=== PATIENT | male | born 1960 | race Caucasian/White ===

== ENCOUNTER → 2016-12-08 | Outpatient (CLI) | payer OTHER ==
[2016-12-08 08:39] LABS: Blood Urea Nitrogen 14 mg/dL (9-20); Non-African American GFR(MDRD) >60 (>60 ml/min/1.73 sqM)
--- NOTE | 2016-12-08 09:30 | CT ---
EXAMINATION TYPE: CT chest w con DATE OF EXAM: 12/08/2016 9:08 AM COMPARISON: Previous study dated 08/24/2016. HISTORY: follow up Lung Cancer CT DLP: 521.8 mGycm Automated exposure control for dose reduction was used. CONTRAST: CT scan of the chest is performed with IV Contrast, patient injected with 100 mL of Omnipaque 300. FINDINGS: There is a Port-A-Cath in place on the right. Its tip is at the cavoatrial junction. There are extensive emphysematous changes throughout both lungs. There is evidence of interstitial fi brosis. A spiculated nodule in the left upper lobe has altered its shape. Previously measured 10.2 x 10.1 mm. It now measures 18.5 x 10.4 mm. There is a stable 1.5 x 3.2 cm suprahilar mass on the left. A small nodule along the major fissure on the left has increased since size from 5.3 to 7.7 mm. No right-sided nodules are seen. There is bilateral gynecomastia. There is no significant axillary or mediastinal adenopathy. There is an enlarging right hilar lymph node. Previously this measured 15 mm and today it measures 23 mm. No other definite adenopathy is seen. There is diffuse thickening of the esophagus. There is no pleural or pericardial fluid. The heart is not enlarged. Within the abdomen, there is a gallstone within the gallbladder. Visualized portions of the upper abd omen are otherwise unremarkable. No bony destructive lesion is seen. IMPRESSION: 1. ENLARGING LEFT UPPER LOBE SPICULATED NODULE. 2. ENLARGING SUBPLEURAL NODULE ALONG THE MAJOR FISSURE ON THE LEFT. 3. BILATERAL GYNECOMASTIA. 4. DIFFUSE CIRCUMFERENTIAL THICKENING OF THE ESOPHAGUS, UNCHANGED FROM PREVIOUS. 5. ENLARGING RIGHT HILAR LYMPH NODE. 6. CHOLELITHIASIS.
== END | disposition home or self-care (01) ==
LOC: RADCTMAIN 07:56
PROVIDERS: ATTEND Internal Medicine Hematology & Oncology
DX: C34.90 Malignant neoplasm of unspecified part of unspecified bronchus or lung (principal); N62 Hypertrophy of breast; R59.0 Localized enlarged lymph nodes
CPT/HCPCS: 82565; 84520; 71260; Q9967

== ENCOUNTER 2017-01-07 06:18 | Emergency (ER) | payer OTHER ==
[2017-01-07] MEDS ORDERED: ALBUTEROL NEBULIZED 2.5 MG/3 ML INHALATION STA (06:23)
[2017-01-07] MEDS ORDERED: methylPREDNISolone SOD SUCCI 125 MG/2 ML VIAL IV STA (06:23)
[2017-01-07] MEDS ORDERED: IPRATROPIUM 0.5 MG/2.5 ML NEBU INHALATION STA (06:23)
[2017-01-07] MEDS ORDERED: SODIUM CHLORIDE 0.9% 500 ML IV STA (06:23)
--- NOTE | 2017-01-07 06:25 | ED ---
General Adult HPI - General Source: RN notes reviewed <Abad Schumacher - Last Filed: 01/07/17 06:38> <Denny Justin - Last Filed: 01/07/17 07:45> - General Stated complaint: SOB Time Seen by Provider: 01/07/17 06:18 - History of Present Illness Initial comments: This is a 56-year-old male who presents emergency Department complaining of shortness of breath per patient states she has a history of asthma. Patient has a past medical history significant for lung cancer with a lobectomy 2 years ago. Patient states about an hour ago he took some stool softeners and then started having shortness of breath. Patient states he took an inhaler but did not help him. Patient denies any recent fever or chills. Patient denies any chest pain or palpitations. Patient states the shortness of breath skin especially with moving around. Patient denies any headache patient denies any numbness weakness. Patient denies any lightheadedness or dizziness. Patient denies any abdominal pain. Patient denies any nausea vomiting diarrhea. Patient states the symptoms feel like his typical asthma. Patient does not smoke currently he quit 2 years ago (Abad Shcumacher) - Related Data Home Medications Medication Instructions Recorded Confirmed Cholecalciferol [Vitamin D3] 1,000 unit PO DAILY 05/31/16 01/07/17 Docusate [Colace] 200 mg PO BID 05/31/16 01/07/17 Folic Acid 1 mg PO DAILY 05/31/16 01/07/17 Loratadine [Claritin] 10 mg PO DAILY 05/31/16 01/07/17 Metoprolol Tartrate [Lopressor] 25 mg PO BID 05/31/16 01/07/17 Multivitamin [Men's Multi-Vitamin] 1 each PO DAILY 05/31/16 01/07/17 Azalea-3 Fatty Acids/Fish Oil [Fish 1 each PO DAILY 05/31/16 01/07/17 Oil 1,000 mg Softgel] Umeclidinium Brm/Vilanterol Tr 1 each IH DAILY 05/31/16 01/07/17 [Anoro Ellipta 62.5-25 Mcg INH] Previous Rx's Medication Instructions Recorded Docusate [Colace] 100 mg PO BID #30 capsule 06/01/16 HYDROcodone/APAP 5-325MG [[place] 1 tab PO Q6HR PRN #10 tab 06/01/16 5-325] predniSONE 20 mg PO BID #10 tab 01/07/17 Allergies Allergy/AdvReac Type Severity Reaction Status Date / Time Penicillins Allergy Unknown Verified 01/07/17 06:30 Childhood Review of Systems ROS Other: All systems not noted in ROS Statement are negative. <Abad Schumacher - Last Filed: 01/07/17 06:38> ROS Other: All systems not noted in ROS Statement are negative. <Denny Justin - Last Filed: 01/07/17 07:45> ROS Statement: Those systems with pertinent positive or pertinent negative responses have been documented in the HPI. Past Medical History Past Medical History: Cancer Additional Past Medical History / Comment(s): LUNG CANCER HAS CHEST TUBE IN PLACE, LUNG PAIN History of Any Multi-Drug Resistant Organisms: None Reported Past Surgical History: Appendectomy, Tonsillectomy Additional Past Surgical History / Comment(s): LYMPH NODE BIOPSY LOBECTOMY Past Psychological History: No Psychological Hx Reported Smoking Status: Former smoker Past Alcohol Use History: None Reported Past Drug Use History: None Reported <Abad Schumacher - Last Filed: 01/07/17 06:38> General Exam <Abad Schumacher - Last Filed: 01/07/17 06:38> <Denny Justin - Last Filed: 01/07/17 07:45> - General Exam Comments Initial Comments: GENERAL: Patient is well-developed and well-nourished. Patient is nontoxic and well- hydrated and is in moderate distress. ENT: Neck is soft and supple. No significant lymphadenopathy is noted. Oropharynx is clear. Moist mucous membranes. Neck has full range of motion without eliciting any pain. EYES: The sclera were anicteric and conjunctiva were pink and moist. Extraocular movements were intact and pupils were equal round and reactive to light. Eyelids were unremarkable. PULMONARY: Patient was diffusely wheezing CARDIOVASCULAR: There is a regular rate and rhythm without any murmurs gallops or rubs. ABDOMEN: Soft and nontender with normal bowel sounds. No palpable organomegaly was noted. There is no palpable pulsatile mass. SKIN: Skin is clear with no lesions or rashes and otherwise unremarkable. NEUROLOGIC: Patient is alert and oriented x3. Cranial nerves II through XII are grossly intact. Motor and sensory are also intact. Normal speech, volume and content. Symmetrical smile. MUSCULOSKELETAL: Normal extremities with adequate strength and full range of motion. No lower extremity swelling or edema. No calf tenderness. LYMPHATICS: No significant lymphadenopathy is noted PSYCHIATRIC: Normal psychiatric evaluation. (Abad Schumacher) Medical Decision Making <Abad Schumacher - Last Filed: 01/07/17 06:38> - Lab Data Result diagrams: 01/07/17 06:40 01/07/17 06:40 - Radiology Data Radiology results: image reviewed (Chest x-ray shows no acute process) <Denny Justin - Last Filed: 01/07/17 07:45> - Medical Decision Making EKG shows normal sinus rhythm at 93 bpm [place] interval 174 QRS is 86 QT interval 334 QTC is 4:15 per patient's EKG shows no ST segment elevation or depression or T wave abnormalities are noted Dr. Justin will be taking over the care of this patient at 7 AM (Abad Schumacher) Patient reevaluated and resting comfortably in bed. Patient has mild extra wheezes. Patient requests discharge. (Denny Justin) - Lab Data Lab Results 01/07/17 01/07/17 01/07/17 Range/Units 06:40 06:40 06:40 WBC 6.4 (3.8-10.6) k/uL RBC 4.66 (4.30-5.90) m/uL Hgb 14.6 (13.0-17.5) gm/dL Hct 43.5 (39.0-53.0) % MCV 93.2 (80.0-100.0) fL MCH 31.3 (25.0-35.0) pg MCHC 33.6 (31.0-37.0) g/dL RDW 12.9 (11.5-15.5) % Plt Count 165 (150-450) k/uL Neutrophils % 47 % Lymphocytes % 36 % Monocytes % 6 % Eosinophils % 6 % Basophils % 1 % Neutrophils # 3.0 (1.3-7.7) k/uL Lymphocytes # 2.3 (1.0-4.8) k/uL Monocytes # 0.4 (0-1.0) k/uL Eosinophils # 0.4 (0-0.7) k/uL Basophils # 0.0 (0-0.2) k/uL PT (9.0-12.0) sec INR (<1.1) APTT (22.0-30.0) sec Sodium 143 (137-145) mmol/L Potassium 4.1 (3.5-5.1) mmol/L Chloride 106 (98-107) mmol/L Carbon Dioxide 27 (22-30) mmol/L Anion Gap 10 mmol/L BUN 14 (9-20) mg/dL Creatinine 1.01 (0.66-1.25) mg/dL Est GFR (MDRD) Af Amer >60 (>60 ml/min/1.73 sqM) Est GFR (MDRD) Non-Af >60 (>60 ml/min/1.73 sqM) Glucose 103 H (74-99) mg/dL Calcium 9.4 (8.4-10.2) mg/dL Total Bilirubin 0.5 (0.2-1.3) mg/dL AST 31 (17-59) U/L ALT 24 (21-72) U/L Alkaline Phosphatase 73 (38-126) U/L Total Creatine Kinase 72 (55-170) U/L CK-MB (CK-2) 0.4 (0.0-2.4) ng/mL CK-MB (CK-2) Rel Index 0.6 Troponin I <0.012 (0.000-0.034) ng/mL Total Protein 7.1 (6.3-8.2) g/dL Albumin 4.0 (3.5-5.0) g/dL 01/07/17 Range/Units 06:40 WBC (3.8-10.6) k/uL RBC (4.30-5.90) m/uL Hgb (13.0-17.5) gm/dL Hct (39.0-53.0) % MCV (80.0-100.0) fL MCH (25.0-35.0) pg MCHC (31.0-37.0) g/dL RDW (11.5-15.5) % Plt Count (150-450) k/uL Neutrophils % % Lymphocytes % % Monocytes % % Eosinophils % % Basophils % % Neutrophils # (1.3-7.7) k/uL Lymphocytes # (1.0-4.8) k/uL Monocytes # (0-1.0) k/uL Eosinophils # (0-0.7) k/uL Basophils # (0-0.2) k/uL PT 11.9 (9.0-12.0) sec INR 1.2 (<1.1) APTT 56.2 H (22.0-30.0) sec Sodium (137-145) mmol/L Potassium (3.5-5.1) mmol/L Chloride (98-107) mmol/L Carbon Dioxide (22-30) mmol/L Anion Gap mmol/L BUN (9-20) mg/dL Creatinine (0.66-1.25) mg/dL Est GFR (MDRD) Af Amer (>60 ml/min/1.73 sqM) Est GFR (MDRD) Non-Af (>60 ml/min/1.73 sqM) Glucose (74-99) mg/dL Calcium (8.4-10.2) mg/dL Total Bilirubin (0.2-1.3) mg/dL AST (17-59) U/L ALT (21-72) U/L Alkaline Phosphatase (38-126) U/L Total Creatine Kinase (55-170) U/L CK-MB (CK-2) (0.0-2.4) ng/mL CK-MB (CK-2) Rel Index Troponin I (0.000-0.034) ng/mL Total Protein (6.3-8.2) g/dL Albumin (3.5-5.0) g/dL Disposition <Abad Schumacher - Last Filed: 01/07/17 06:38> <Denny Justin - Last Filed: 01/07/17 07:45> Clinical Impression: Asthma with exacerbation Disposition: HOME SELF-CARE Condition: Stable Instructions: Asthma (ED) Additional Instructions: Please follow-up with your doctor on Monday. Return for difficulty breathing, fevers, worsening symptoms or other concerns. Prescriptions: predniSONE 20 mg PO BID #10 tab Referrals: Loyda Pisano MD [Primary Care Provider] - 1-2 days
[2017-01-07 07:05] LABS: Basophils % (A) 1 %; CH 32.8; CHCM 35.4; Eosinophils # (A) 0.4 k/uL (0-0.7); Eosinophils % (A) 6 %; HCT 43.5 % (39.0-53.0); HDW 2.62; HGB 14.6 gm/dL (13.0-17.5); Luc # (Auto) 0.27; Luc % (Auto) 4; Lymphocytes # (A) 2.3 k/uL (1.0-4.8); Lymphocytes % (A) 36 %; MCH 31.3 pg (25.0-35.0); MCHC 33.6 g/dL (31.0-37.0); MCV 93.2 fL (80.0-100.0); Mean Platelet Volume 7.8; Monocytes # (A) 0.4 k/uL (0-1.0); Monocytes % (A) 6 %; Neutrophils % (A) 47 %; RBC 4.66 m/uL (4.30-5.90); RDW 12.9 % (11.5-15.5); WBC 6.4 k/uL (3.8-10.6); WBC (Perox) 6.31
[2017-01-07 07:11] LABS: INR 1.2 (<1.1); Partial Thromboplastin Time 56.2 sec (22.0-30.0); Prothrombin Time 11.9 sec (9.0-12.0)
--- NOTE | 2017-01-07 07:14 | XR ---
EXAMINATION TYPE: XR chest 2V DATE OF EXAM: 01/07/2017 7:00 AM CLINICAL HISTORY: Difficulty in breathing. Choked on pill. TECHNIQUE: Frontal and lateral views of the chest are obtained. COMPARISON: CT chest December 08, 2016. FINDINGS: Underlying emphysematous change is present. There is redemonstration of right internal jug ular Mediport catheter. There is persistent elevated left hemidiaphragm. There is no focal air space opacity, pleural effusion, or pneumothorax seen. The cardiac silhouette size is within normal limits . The osseous structures are intact. IMPRESSION: Chronic emphysematous change without acute pulmonary process.
[2017-01-07 07:22] LABS: Creatine Kinase 72 U/L (55-170)
[2017-01-07 07:34] LABS: Creatine Kinase MB 0.4 ng/mL (0.0-2.4); Troponin I <0.012 ng/mL (0.000-0.034)
[2017-01-07 07:38] LABS: ALT 24 U/L (21-72); AST 31 U/L (17-59); Alkaline Phosphatase 73 U/L (38-126); Anion Gap 10 mmol/L; Blood Urea Nitrogen 14 mg/dL (9-20); Calcium 9.4 mg/dL (8.4-10.2); Carbon Dioxide 27 mmol/L (22-30); Chloride 106 mmol/L (98-107); Glucose 103 mg/dL (74-99); Non-African American GFR(MDRD) >60 (>60 ml/min/1.73 sqM); Potassium 4.1 mmol/L (3.5-5.1); Sodium 143 mmol/L (137-145); Total Bilirubin 0.5 mg/dL (0.2-1.3); Total Protein 7.1 g/dL (6.3-8.2)
[2017-01-07 07:58] VITALS: BP 117/68; PULSE 70; RESP 20; TEMP 97
== END 2017-01-07 07:59 | disposition home or self-care (01) ==
LOC: EC 06:18
DX: J45.901 Unspecified asthma with (acute) exacerbation (principal); Z87.891 Personal history of nicotine dependence; Z79.899 Other long term (current) drug therapy; Z88.0 Allergy status to penicillin; Z85.118 Personal history of other malignant neoplasm of bronchus and lung; Z90.2 Acquired absence of lung [part of]
CPT/HCPCS: 99285; 96374; 96361; 36415; 94640; 93005; 80053; 82550; 82553; 84484; 85025; 85610; 85730; 71020; J2930

== ENCOUNTER → 2017-03-02 | Outpatient (CLI) | payer OTHER ==
[2017-03-02 11:46] LABS: Blood Urea Nitrogen 15 mg/dL (9-20); Non-African American GFR(MDRD) >60 (>60 ml/min/1.73 sqM)
--- NOTE | 2017-03-02 12:57 | CT ---
EXAMINATION TYPE: CT chest w con DATE OF EXAM: 03/02/2017 12:43 PM COMPARISON: December 08, 2016 HISTORY: Patient has no complaints at time of service. Follow up study for known lung CA. CT DLP: 470.6 mGycm Automated exposure control for dose reduction was used. CONTRAST: CT scan of the chest is performed with IV Contrast, patient injected with 100 mL of Omnipaque 300. FINDINGS: LUNGS: Slight enlargement in the left upper lobe spiculated nodule with pleural extension currently m easuring 1.4 x 1.2 cm versus 1.4 x .9 cm. Stable 7 mm versus 7.7 mm nodule along the left major fissu re image 20. Left suprahilar mass currently measures 3.1 x 1.9 cm versus 3.2 x 1.5 cm previously. No new pulmonary masses or nodules. Hyperinflation compatible with COPD. Upper lobe emphysematous change s. MEDIASTINUM/HILUM: Right hilar lymph node mass has increased in size and currently measures 4.5 x 3.6 cm versus 2.8 x 2.6 cm previously. Left hilar lymph node is stable at the 9 mm versus 9 mm previousl y. Subcentimeter precarinal lymph nodes are detected. Stable marked thickening of the esophagus. Vonda elate for esophagitis. Malignancy not excluded. The heart and thoracic aorta are of normal caliber. UPPER ABDOMEN: There is evidence of cholelithiasis. OTHER: Bilateral gynecomastia. IMPRESSION: 1. Slight interval increase in size in left upper lobe spiculated nodule. 2. Minimal increase in size in left suprahilar mass. 3. Significant interval enlargement of right hilar adenopathy or mass. 3. Stable marked thickening of the esophagus.
== END | disposition home or self-care (01) ==
LOC: RADPROMAIN 11:07
PROVIDERS: ATTEND Internal Medicine Hematology & Oncology
DX: R91.1 Solitary pulmonary nodule (principal); C34.12 Malignant neoplasm of upper lobe, left bronchus or lung; R91.8 Other nonspecific abnormal finding of lung field; R59.0 Localized enlarged lymph nodes; K22.8 Other specified diseases of esophagus
CPT/HCPCS: 82565; 84520; 71260; Q9967

== ENCOUNTER → 2017-05-25 | Outpatient (CLI) | payer OTHER ==
--- NOTE | 2017-05-25 10:27 | XR ---
EXAMINATION TYPE: XR chest 2V DATE OF EXAM: 05/25/2017 COMPARISON: 01/07/2017. HISTORY: Lung carcinoma and pain near the left ribs after coughing. TECHNIQUE: Frontal and lateral views of the chest are obtained. FINDINGS: There is no focal air space opacity, pleural effusion, or pneumothorax seen. Right-sided Mediport is appreciated terminating in the superior vena cava. Surgical sutures appear to reside at t he medial margin of the left first rib and there is left hemidiaphragm elevation as well as minimal l eft basilar atelectasis. The cardiac silhouette size is within normal limits. There is hilar prominen ce, right greater than left which could relate to adenopathy. The osseous structures are intact. IMPRESSION: 1. Mild increase in left hemidiaphragm elevation and left basilar subsegmental atelectasis in compari son to the prior exam. 2. No focal consolidation or pneumothorax. 3. Hilar prominence that may relate to adenopathy in a patient with history of lung carcinoma.
== END | disposition home or self-care (01) ==
LOC: RADXRMAIN 09:43
PROVIDERS: ATTEND Internal Medicine Hematology & Oncology
DX: C34.12 Malignant neoplasm of upper lobe, left bronchus or lung (principal); J98.11 Atelectasis; J98.6 Disorders of diaphragm; I10 Essential (primary) hypertension
CPT/HCPCS: 71020

== ENCOUNTER → 2017-06-01 | Outpatient (CLI) | payer OTHER ==
[2017-06-01 11:42] LABS: Blood Urea Nitrogen 15 mg/dL (9-20); Non-African American GFR(MDRD) >60 (>60 ml/min/1.73 sqM)
--- NOTE | 2017-06-01 12:50 | CT ---
EXAMINATION TYPE: CT chest w con DATE OF EXAM: 06/01/2017 COMPARISON: CT chest March 02, 2017 and older studies back through May 27, 2016. HISTORY: Lung CA progress study, history of left sided lobectomy in between January and March 2015. CT DLP: 490.1 mGycm. Automated Exposure Control for Dose Reduction was Utilized. TECHNIQUE: CT scan of the thorax is performed following with IV Contrast, patient injected with 100 mL of Omnipaque 300. FINDINGS: LUNGS: There is background of moderate emphysematous change redemonstrated. Spiculated left upper lob e nodule measures 1.6 x 1.3 cm on current study not significantly changed from most recent study but new after surgery consistent with stable recurrent neoplasm. Stable nonspecific 9 x 3 mm nodular thic kening along left fissure on axial image 21 favored benign. Left suprahilar anterior mass abutting me diastinum measures 3.4 x 1.9 cm current study image 22 not significantly changed from prior. Atelecta tic change and/or fibrosis in the periphery of both lung bases remains present. Persistent mild to mo derate apical scarring bilaterally. No suspicious new nodularity or mass is present. No pleural effus ion or pneumothorax is seen. Elevated left hemidiaphragm is stable. MEDIASTINUM: There is persistent right hilar mass with mediastinal invasion new after surgery measur ing 5.2 x 3.3 cm on axial image 29 slightly larger from most recent prior. There is increased mass ef fect on the SVC which is narrowed. There is increased mass effect or narrowing on right upper lobe br onchus and segmental branches with suspected collateral flow of air. Mass encroaches near superior as pect of right pulmonary artery similar to prior. No cardiomegaly or pericardial effusion is seen. Th ere is persistent severe wall thickening of the esophagus beginning upper thoracic spine on axial ke ge [address] to the diaphragmatic hiatus persistent present on multiple studies. OTHER: Bilateral gynecomastia is redemonstrated. Single gallstone in gallbladder on axial image 67 is redemonstrated. IMPRESSION: Enlarging right hilar mass as detailed above with increased mass effect noted, correlate for SVC obstruction symptoms. Stable left upper lobe and suprahilar masses felt present. Persistent s evere abnormal thickening of the esophagus could reflect esophagitis or neoplasm.
== END | disposition home or self-care (01) ==
LOC: RADPROMAIN 10:55
PROVIDERS: ATTEND Internal Medicine Hematology & Oncology
DX: Z03.89 Encounter for observation for other suspected diseases and conditions ruled out (principal); C34.12 Malignant neoplasm of upper lobe, left bronchus or lung
CPT/HCPCS: 82565; 84520; 71260; Q9967; J1642

== ENCOUNTER → 2017-08-07 | Outpatient (CLI) | payer OTHER ==
--- NOTE | 2017-08-07 12:51 | CT ---
EXAMINATION TYPE: CT chest w con DATE OF EXAM: 08/07/2017 COMPARISON: 06/01/2017 HISTORY: Follow up to Lt lung CA CT DLP: 774 mGycm Automated exposure control for dose reduction was used. CONTRAST: CT scan of the chest is performed with IV Contrast, patient injected with 100 mL of Omnipaque 300. FINDINGS: LUNGS: Diffuse emphysematous changes are seen. Spiculated mass left upper lobe again measures 1.6 x 1 .2 cm with no significant interval change. Somewhat irregular density in the right suprahilar region with spiculation measuring 1 x 1 cm there is reduced in size from the previous exam where appear to e xtend into the right hilar adenopathy. Peribronchial wall thickening noted bilaterally greater on the right. Masslike area with within the left upper lobe adjacent to the AP window previously measured 3 .2 x 1.4 cm and now measures 2.5 x 0.9 cm. This appears improved. No pleural effusion or pneumothorax. No consolidative pneumonia. Interlobular septal thickening invol ving the lung bases suggest a degree of chronic underlying interstitial lung disease. Suggestion of a Mediport catheter. MEDIASTINUM: Glenoid adenopathy in the right hilum is markedly reduced on today's exam relative to th e previous exam now currently measuring 2 x 1.7 cm in greatest axis and previously measuring 5.2 x 3. 3 cm. There is persistent severe wall thickening of the esophagus which is similar to the prior exam. OTHER: Hypertrophic and degenerative change of the spine. Areas of endplate sclerosis in the midthor acic spine are stable and nonspecific. Incidental note is made of cholelithiasis. Nodularity to the r ight adrenal gland may be slightly increased measuring 8 mm. IMPRESSION: 1. Marked interval reduction in the right hilar area of adenopathy as measured above. 2. Stable spiculated mass left upper lobe. 3. Nodularity in the right adrenal gland measures 8 mm and not definitively seen on the previous exam . Correlate clinically. 4. Stable severe wall thickening of the esophagus correlate for esophagitis or mucosal abnormality.
== END | disposition home or self-care (01) ==
LOC: RADPROMAIN 11:28
PROVIDERS: ATTEND Radiology Radiation Oncology
DX: C80.1 Malignant (primary) neoplasm, unspecified (principal); C77.1 Secondary and unspecified malignant neoplasm of intrathoracic lymph nodes; R91.8 Other nonspecific abnormal finding of lung field; K22.8 Other specified diseases of esophagus; Z88.0 Allergy status to penicillin
CPT/HCPCS: 36415; 71260; Q9967; J1642

== ENCOUNTER → 2018-01-04 | Outpatient (CLI) | payer OTHER ==
--- NOTE | 2018-01-04 09:49 | CT ---
EXAMINATION TYPE: CT chest w con DATE OF EXAM: 01/04/2018 COMPARISON: 10/05/2017 and 08/07/2017 HISTORY: 57-year-old male Follow up to lung CA, suspected metastases. TECHNIQUE: Contiguous axial scanning of the chest after the administration of 100 mL of Omnipaque 300 . Coronal/sagittal reconstructions performed. CT DLP: 704mGycm. Automatic exposure control utilized for a dose reduction. FINDINGS: Right anterior chest wall injection port with catheter tip at the mid SVC. Heart is normal size without pericardial effusion. The aorta is normal caliber with conventional arch vessel branching anatomy. Previous right hilar lymph node has decreased in size and is no longer apparent. Minimal residual rig ht suprahilar peribronchial thickening also decreased in the interval now measuring 1.3 cm. There is some endobronchial plugging to the apical upper lobe bronchi in the suprahilar region. Moderate COPD. No pleural effusion. Surgical material medial left upper lobe redemonstrated as well as the spiculated bilobed left upper lobe pulmonary nodule measuring 2.2 x 1.7 cm versus 1.9 x 1.4 cm on 10/05/2017. There is extensive new reticular densities and groundglass in the right perihilar region extending in to portions of the right upper and right lower lobes and also in the medial left upper lobe. The over all left perihilar soft tissue thickening is relatively stable from prior. Some new pleural thickening medial left upper lobe along the mediastinum, axial image 24. Continued severe esophageal wall thickening of the distal half. Cholelithiasis. Previously mentioned right adrenal nodule on 08/07/2017 not well demonstrated on the current study. Bones: No osseous destructive process seen. IMPRESSION: 1. COPD. Spiculated bilobed left upper lobe pulmonary nodule is slightly larger at 2.2 x 1.7 cm versu s 1.9 x 1.4 cm, previously. 2. Right hilar lymph node and right perihilar soft tissue thickening show interval improvement. Minim al left perihilar soft tissue thickening is unchanged. 3. Extensive new interstitial and groundglass densities within the medial left upper lobe and through out portions of the right hilar, right upper lobe, and right lower lobe regions. Findings may reflect post radiation therapy change/pneumonitis. Clinically correlate as to radiation ports. 4. Continued severe circumferential esophageal wall thickening of the distal half esophagus. Correlat e as to etiology.
== END | disposition home or self-care (01) ==
LOC: RADPROMAIN 08:27
PROVIDERS: ATTEND Internal Medicine Hematology & Oncology
DX: C34.12 Malignant neoplasm of upper lobe, left bronchus or lung (principal); J44.9 Chronic obstructive pulmonary disease, unspecified; K22.9 Disease of esophagus, unspecified; R59.0 Localized enlarged lymph nodes; J98.4 Other disorders of lung; Z88.0 Allergy status to penicillin
CPT/HCPCS: 71260; Q9967; J1642

== ENCOUNTER → 2018-03-15 | Outpatient (CLI) | payer OTHER ==
--- NOTE | 2018-03-15 09:34 | CT ---
EXAMINATION TYPE: CT chest w con DATE OF EXAM: 03/15/2018 COMPARISON: 01/04/2018 HISTORY: Lung CA CT DLP: 478.7 mGycm Automated exposure control for dose reduction was used. CONTRAST: CT scan of the chest is performed with IV Contrast, patient injected with 100 mL of Isovue 300. FINDINGS: LUNGS: Spiculated mass left upper lobe has increased in size and currently measures 2.6 x 2.2 cm vers us maximal dimension previously of 1.7 x 1.8 cm. There is adjacent pleural thickening and pleural ext ension. Upper lobe fibrotic changes are noted left greater than right. No additional masses or nodule s are seen at this time. MEDIASTINUM: There is left hilar soft tissue noted measuring approximately 1.5 cm and this may reflec t adenopathy. Subcentimeter right hilar lymph node seen. No evidence for mediastinal adenopathy great er than 1 cm. There is diffuse esophageal wall thickening which may reflect esophagitis. Consider dir ect visualization to exclude neoplasm. Overall the appearance is stable relative to the prior examina tion. Thoracic aorta is of normal caliber. The heart is not enlarged. UPPER ABDOMEN: Calcified cholelithiasis noted. OTHER: Bilateral gynecomastia. IMPRESSION: 1. Enlarging left upper lobe spiculated mass with pleural extension. Left hilar adenopathy noted. 2. Fibrotic changes seen bilaterally. 3. Esophageal wall thickening as discussed.
== END | disposition home or self-care (01) ==
LOC: RADPROMAIN 08:36
PROVIDERS: ATTEND Internal Medicine Hematology & Oncology
DX: C34.12 Malignant neoplasm of upper lobe, left bronchus or lung (principal); J84.10 Pulmonary fibrosis, unspecified; R59.0 Localized enlarged lymph nodes
CPT/HCPCS: 71260; J1642; Q9967

== ENCOUNTER → 2018-05-02 | Outpatient (CLI) | payer OTHER ==
--- NOTE | 2018-05-02 12:09 | CT ---
EXAMINATION TYPE: CT chest w con DATE OF EXAM: 05/02/2018 COMPARISON: Original PET/CT February 27, 2016. Most recent chest CT March 15, 2018 and older studies HISTORY: Lung CA progress study. Completed chemotherapy 2 years ago. History of left-sided lung surge ry. Completed radiation treatment in about one month ago. CT DLP: 446.6 mGycm. Automated Exposure Control for Dose Reduction was Utilized. TECHNIQUE: CT scan of the thorax is performed following with IV Contrast, patient injected with 100 mL of Isovue 300. FINDINGS: LUNGS: There is redemonstration of background moderate to advanced emphysematous change with mild oksana pical scarring. There is redemonstration of surgical changes from partial left-sided pneumonectomy wi th sutures anteriorly immediately axial image 18 again seen. There is persistent spiculated nodule or neoplasm anterior left upper lung measuring 1.9 x 1.6 cm on current study axial image 17 diminished in size from 2.6 x 1.9 cm prior study axial image 17. There is irregular anterior consolidation and p leural thickening anterior to this which appears fairly stable with some distortion, honeycombing, an d bronchiectasis all likely reflecting posttreatment change all redemonstrated. There is stable media l low dense probable mediastinal lesion axial image 21 not significantly changed from prior. Irregula r soft tissue thickening left suprahilar level axial image 23 is not significantly changed from prior . There is distortion and scarring right hilar region likely reflecting treatment change near axial ke ge 26 not significantly changed from prior. There is moderate peribronchial wall thickening particula rly anteriorly axial image 26 not significantly changed from prior extending inferiorly down to axial image 32 MEDIASTINUM: There are no greater than 1 cm hilar or mediastinal lymph nodes. No cardiomegaly or pe ricardial effusion is seen. There is redemonstration of marked diffuse thickening of the esophagus i s prominent mid to distal levels. OTHER: Stable right internal jugular Mediport catheter terminating near the caval atrial junction. Bi lateral gynecomastia is redemonstrated. Rim calcified gallstone is redemonstrated in gallbladder axia l image 64. IMPRESSION: 1. Positive treatment response with diminished size to anterior left upper lobe spiculated nodule or neoplasm. No new nodules or masses identified. 2. Other findings noted stable likely product of prior treatment including noted marked diffuse thick ening of esophagus.
== END | disposition home or self-care (01) ==
LOC: RADPROMAIN 11:04
PROVIDERS: ATTEND Internal Medicine Hematology & Oncology
DX: C34.12 Malignant neoplasm of upper lobe, left bronchus or lung (principal); Z88.0 Allergy status to penicillin
CPT/HCPCS: 71260; J1642; Q9967

== ENCOUNTER 2018-06-17 21:26 | Emergency (ER) | payer OTHER ==
[2018-06-17 21:40] VITALS: RESP 18
[2018-06-17] MEDS ORDERED: HYDROmorphone 0.5 MG/0.5 ML SYRINGE IVP STA (22:03)
--- NOTE | 2018-06-17 22:06 | ED ---
General Adult HPI - General Chief complaint: Abdominal Pain Stated complaint: poss food poisoning Time Seen by Provider: 06/17/18 21:58 Source: patient, RN notes reviewed, old records reviewed Mode of arrival: ambulatory Limitations: no limitations - History of Present Illness Initial comments: 58-year-old male presenting with right upper quadrant abdominal pain. Patient' s pain has been present for the past 5 hours. Has been constant in nature. Moderate to severe in nature. Denies any radiation of his pain. Denies central chest pain or epigastric pain. Denies lower abdominal pain. Patient has had his appendix out remotely, he still has his gallbladder. Symptoms began after eating a meatball sob. Denies any fever or chills. Denies nausea or vomiting. Denies any change in his bowels. - Related Data Home Medications Medication Instructions Recorded Confirmed Cholecalciferol [Vitamin D3] 1,000 unit PO DAILY 05/31/16 06/17/18 Docusate [Colace] 200 mg PO BID 05/31/16 06/17/18 Folic Acid 1 mg PO DAILY 05/31/16 06/17/18 Loratadine [Claritin] 10 mg PO DAILY 05/31/16 06/17/18 Metoprolol Tartrate [Lopressor] 25 mg PO BID 05/31/16 06/17/18 Multivitamin [Men's Multi-Vitamin] 1 each PO DAILY 05/31/16 06/17/18 [place]-3 Fatty Acids/Fish Oil [Fish 1 each PO DAILY 05/31/16 06/17/18 Oil 1,000 mg Softgel] Umeclidinium Brm/Vilanterol Tr 1 each IH DAILY 05/31/16 06/17/18 [Anoro Ellipta 62.5-25 Mcg INH] Aspirin [Adult Low Dose Aspirin EC] 81 mg PO DAILY 01/24/17 06/17/18 Flaxseed Oil [[place]-3 Flaxseed Oil] 1 tab PO DAILY 01/24/17 06/17/18 Previous Rx's Medication Instructions Recorded HYDROcodone/APAP 5-325MG [[place] 1 tab PO Q6HR PRN #10 tab 06/01/16 5-325] Allergies Allergy/AdvReac Type Severity Reaction Status Date / Time Penicillins Allergy Unknown Verified 02/14/18 11:16 Childhood Review of Systems ROS Statement: Those systems with pertinent positive or pertinent negative responses have been documented in the HPI. ROS Other: All systems not noted in ROS Statement are negative. Past Medical History Past Medical History: Asthma, Cancer, COPD, GERD/Reflux, Hypertension Additional Past Medical History / Comment(s): LUNG CANCER HAS CHEST TUBE IN PLACE, LUNG PAIN,. swallowing difficulties History of Any Multi-Drug Resistant Organisms: None Reported Past Surgical History: Appendectomy, Tonsillectomy Additional Past Surgical History / Comment(s): LYMPH NODE BIOPSY LOBECTOMY Past Anesthesia/Blood Transfusion Reactions: No Reported Reaction Past Psychological History: No Psychological Hx Reported Smoking Status: Former smoker Past Alcohol Use History: None Reported Past Drug Use History: None Reported - Past Family History Father Brother(s) Family Medical History: Cancer Mother Family Medical History: Cancer General Exam Limitations: no limitations General appearance: alert, in no apparent distress Head exam: Present: atraumatic, normocephalic Eye exam: Present: normal appearance, PERRL, EOMI ENT exam: Present: normal exam Neck exam: Present: normal inspection. Absent: tenderness, meningismus Respiratory exam: Present: normal lung sounds bilaterally. Absent: respiratory distress, wheezes Cardiovascular Exam: Present: regular rate, normal rhythm GI/Abdominal exam: Present: soft, distended, tenderness (Right upper quadrant tenderness palpation.). Absent: guarding, rebound, rigid Extremities exam: Present: normal inspection, normal capillary refill. Absent: pedal edema Back exam: Present: normal inspection, full ROM. Absent: CVA tenderness (R), CVA tenderness (L) Neurological exam: Present: alert, oriented X3, CN II-XII intact. Absent: motor sensory deficit Psychiatric exam: Present: normal affect, normal mood Skin exam: Present: warm, dry, intact. Absent: cyanosis, diaphoretic Course Vital Signs 06/17/18 06/17/18 21:36 23:15 Temperature 98.1 F Pulse Rate 73 90 Respiratory 18 18 Rate Blood Pressure 161/88 171/91 O2 Sat by Pulse 97 93 L Oximetry EKG Findings - EKG Comments: EKG Findings:: EKG: Normal sinus rhythm, rate of 74, OR interval 180, QRS duration 84, QTC 41, no ST segment elevation or depression Medical Decision Making - Medical Decision Making 58-year-old male presenting with right upper quadrant abdominal pain after eating a meatball sandwich. History and physical exam is suggestive of gallbladder pathology. X-rays obtained, this does show a 1 cm calcified gallstone. Ultrasound is obtained, there is no signs of acute cholecystitis, normal gallbladder wall, no pericholecystic fluid. There is shadowing in the neck of the gallbladder and there is some concern for stone although this is uncertain according to the radiologist. Patient's white blood cell count is normal, hemoglobin stable, normal CMP including liver enzymes and lipase. Urinalysis is negative. Patient had computed tomography scan on May 02 of this year that showed calcified gallstone. His symptoms are explained by this. On reevaluation, he is feeling better. He is very eager for discharge. He is offered observation for surgical evaluation and continued pain control. He declines. He prefers to be discharged and will follow up as an outpatient. He will return with worsening symptoms, the development of fever, or nausea vomiting. - Lab Data Result diagrams: 06/17/18 22:42 06/17/18 22:42 Lab Results 06/17/18 06/17/18 06/17/18 Range/Units 22:22 22:42 22:42 WBC 7.5 (3.8-10.6) k/uL RBC 4.45 (4.30-5.90) m/uL Hgb 13.7 (13.0-17.5) gm/dL Hct 40.4 (39.0-53.0) % MCV 90.8 (80.0-100.0) fL MCH 30.9 (25.0-35.0) pg MCHC 34.0 (31.0-37.0) g/dL RDW 12.9 (11.5-15.5) % Plt Count 172 (150-450) k/uL Neutrophils % 75 % Lymphocytes % 14 % Monocytes % 6 % Eosinophils % 3 % Basophils % 1 % Neutrophils # 5.6 (1.3-7.7) k/uL Lymphocytes # 1.0 (1.0-4.8) k/uL Monocytes # 0.4 (0-1.0) k/uL Eosinophils # 0.3 (0-0.7) k/uL Basophils # 0.0 (0-0.2) k/uL PT (9.0-12.0) sec INR (<1.2) APTT (22.0-30.0) sec Sodium 138 (137-145) mmol/L Potassium 3.9 (3.5-5.1) mmol/L Chloride 104 (98-107) mmol/L Carbon Dioxide 28 (22-30) mmol/L Anion Gap 6 mmol/L BUN 10 (9-20) mg/dL Creatinine 0.90 (0.66-1.25) mg/dL Est GFR (CKD-EPI)AfAm >90 (>60 ml/min/1.73 sqM) Est GFR (CKD-EPI)NonAf >90 (>60 ml/min/1.73 sqM) Glucose 129 H (74-99) mg/dL Plasma Lactic Acid Brad (0.7-2.0) mmol/L Calcium 9.5 (8.4-10.2) mg/dL Total Bilirubin 0.5 (0.2-1.3) mg/dL AST 24 (17-59) U/L ALT 31 (21-72) U/L Alkaline Phosphatase 79 (38-126) U/L Troponin I (0.000-0.034) ng/mL Total Protein 6.8 (6.3-8.2) g/dL Albumin 3.9 (3.5-5.0) g/dL Amylase 53 (30-110) U/L Lipase 62 (23-300) U/L Urine Color Yellow Urine Appearance Clear (Clear) Urine pH 6.5 (5.0-8.0) Ur Specific [place] 1.019 (1.001-1.035) Urine Protein Negative (Negative) Urine Glucose (UA) Negative (Negative) Urine Ketones Negative (Negative) Urine Blood Negative (Negative) Urine Nitrite Negative (Negative) Urine Bilirubin Negative (Negative) Urine Urobilinogen <2.0 (<2.0) mg/dL Ur Leukocyte Esterase Negative (Negative) 06/17/18 06/17/18 06/17/18 Range/Units 22:42 22:42 22:42 WBC (3.8-10.6) k/uL RBC (4.30-5.90) m/uL Hgb (13.0-17.5) gm/dL Hct (39.0-53.0) % MCV (80.0-100.0) fL MCH (25.0-35.0) pg MCHC (31.0-37.0) g/dL RDW (11.5-15.5) % Plt Count (150-450) k/uL Neutrophils % % Lymphocytes % % Monocytes % % Eosinophils % % Basophils % % Neutrophils # (1.3-7.7) k/uL Lymphocytes # (1.0-4.8) k/uL Monocytes # (0-1.0) k/uL Eosinophils # (0-0.7) k/uL Basophils # (0-0.2) k/uL PT 11.4 (9.0-12.0) sec INR 1.2 H (<1.2) APTT 41.3 H (22.0-30.0) sec Sodium (137-145) mmol/L Potassium (3.5-5.1) mmol/L Chloride (98-107) mmol/L Carbon Dioxide (22-30) mmol/L Anion Gap mmol/L BUN (9-20) mg/dL Creatinine (0.66-1.25) mg/dL Est GFR (CKD-EPI)AfAm (>60 ml/min/1.73 sqM) Est GFR (CKD-EPI)NonAf (>60 ml/min/1.73 sqM) Glucose (74-99) mg/dL Plasma Lactic Acid Brad 0.8 (0.7-2.0) mmol/L Calcium (8.4-10.2) mg/dL Total Bilirubin (0.2-1.3) mg/dL AST (17-59) U/L ALT (21-72) U/L Alkaline Phosphatase (38-126) U/L Troponin I <0.012 (0.000-0.034) ng/mL Total Protein (6.3-8.2) g/dL Albumin (3.5-5.0) g/dL Amylase (30-110) U/L Lipase (23-300) U/L Urine Color Urine Appearance (Clear) Urine pH (5.0-8.0) Ur Specific [place] (1.001-1.035) Urine Protein (Negative) Urine Glucose (UA) (Negative) Urine Ketones (Negative) Urine Blood (Negative) Urine Nitrite (Negative) Urine Bilirubin (Negative) Urine Urobilinogen (<2.0) mg/dL Ur Leukocyte Esterase (Negative) Disposition Clinical Impression: Biliary colic, Cholelithiasis Disposition: HOME SELF-CARE Condition: Good Instructions: Biliary Colic (ED), Gallstones (ED) Is patient prescribed a controlled substance at d/c from ED?: No Referrals: Cheng Burroughs MD [Primary Care Provider] - 1-2 days Mily Mccall MD [STAFF PHYSICIAN] - 1-2 days Time of Disposition: 23:54
[2018-06-17 22:35] LABS: Appearance,Urine Clear (Clear); Bilirubin,Urine Negative (Negative); Blood,Urine Negative (Negative); Color,Urine Yellow; Glucose,Urine (UA) Negative (Negative); Ketones,Urine Negative (Negative); Leukocyte Esterase,Urine Negative (Negative); Nitrite,Urine Negative (Negative); PH, Urine 6.5 (5.0-8.0); Protein,Urine Negative (Negative); Specific Gravity,Urine 1.019 (1.001-1.035); Urobilinogen,Urine <2.0 mg/dL (<2.0)
[2018-06-17 23:02] LABS: Basophils % (A) 1 %; Eosinophils # (A) 0.3 k/uL (0-0.7); Eosinophils % (A) 3 %; HCT 40.4 % (39.0-53.0); HGB 13.7 gm/dL (13.0-17.5); Lymphocytes % (A) 14 %; MCH 30.9 pg (25.0-35.0); MCV 90.8 fL (80.0-100.0); Mean Platelet Volume 7.2; Monocytes # (A) 0.4 k/uL (0-1.0); Monocytes % (A) 6 %; Neutrophils # (A) 5.6 k/uL (1.3-7.7); Neutrophils % (A) 75 %; Platelet Count 172 k/uL (150-450); RBC 4.45 m/uL (4.30-5.90); RDW 12.9 % (11.5-15.5); WBC 7.5 k/uL (3.8-10.6)
[2018-06-17 23:11] LABS: INR 1.2 (<1.2); Partial Thromboplastin Time 41.3 sec (22.0-30.0); Prothrombin Time 11.4 sec (9.0-12.0)
[2018-06-17 23:16] LABS: Albumin 3.9 g/dL (3.5-5.0); Amylase 53 U/L (30-110); Anion Gap 6 mmol/L; Carbon Dioxide 28 mmol/L (22-30); Chloride 104 mmol/L (98-107); Glucose 129 mg/dL (74-99); Potassium 3.9 mmol/L (3.5-5.1); Sodium 138 mmol/L (137-145); Total Protein 6.8 g/dL (6.3-8.2)
[2018-06-17 23:17] LABS: ALT 31 U/L (21-72); AST 24 U/L (17-59); Alkaline Phosphatase 79 U/L (38-126); Blood Urea Nitrogen 10 mg/dL (9-20); Calcium 9.5 mg/dL (8.4-10.2); Lipase 62 U/L (23-300); Total Bilirubin 0.5 mg/dL (0.2-1.3)
--- NOTE | 2018-06-17 23:34 | US ---
EXAMINATION TYPE: US gallbladder DATE OF EXAM: 06/17/2018 COMPARISON: NONE CLINICAL HISTORY: Pain. extreme pain after eating a meatball sub this afternoon, patient thinks he wa s told her had gb stones before but unsure EXAM MEASUREMENTS: Liver Length: cm Gallbladder Wall: cm CBD: cm Right Kidney: cm bowel gas severely limits exam Pancreas: not seen due to bowel gas Liver: limited intercostal view appear wnl Gallbladder: hydropic in appearance, 11cm, with multiple folds seen, echogenic area at gb neck eithe r resembles a thickened portion of wall versus possible stone, area was non mobile and could make out a slight shadow posterior to area, multiple attempts made to clarify Evidence for sonographic Awan's sign: no, but just given pain meds CBD: wnl Right Kidney: wnl IMPRESSION: I see no gallbladder wall thickening. No definite gallstones or dilated ducts. There is i ncreased echogenicity at the gallbladder neck but I think this is not a gallstone since there is insu fficient shadowing.
--- NOTE | 2018-06-17 23:39 | XR ---
EXAMINATION TYPE: XR KUB DATE OF EXAM: 06/17/2018 COMPARISON: NONE HISTORY: Abdominal pain TECHNIQUE: Single view FINDINGS: There is no sign of intestinal obstruction or pneumoperitoneum. Fecal pattern is normal. Diane ng bases are clear. There are no pathologic calcifications over the kidneys. There is a rounded 1 cm density over the right upper quadrant that could be a calcified gallstone. IMPRESSION: Nonacute abdomen. Calcified gallstone that is also evident on the chest CT scan of 018.
[2018-06-18 00:07] VITALS: BP 168/95; PULSE 71; TEMP 99
== END 2018-06-18 00:17 | disposition home or self-care (01) ==
LOC: EC 21:26
DX: K80.70 Calculus of gallbladder and bile duct without cholecystitis without obstruction (principal); I10 Essential (primary) hypertension; J44.9 Chronic obstructive pulmonary disease, unspecified; Z85.118 Personal history of other malignant neoplasm of bronchus and lung; Z87.891 Personal history of nicotine dependence; Z79.82 Long term (current) use of aspirin; Z79.899 Other long term (current) drug therapy; Z88.0 Allergy status to penicillin
CPT/HCPCS: 99285; 96374; 36415; 93005; 80053; 82150; 83605; 83690; 84484; 85025; 85610; 85730; 81003; 74018; 76705; 96375; J1642; J1170

== ENCOUNTER 2018-06-18 11:50 | Inpatient (IN) | payer OTHER ==
[2018-06-18] MEDS: SODIUM CHLORIDE 0.9% 1,000 ML IV SCH (14:43)
[2018-06-18] MEDS: HYDROcodone/APAP 5-325MG 1 EACH TAB PO PRN (14:43)
--- NOTE | 2018-06-18 15:08 | P.GSCN ---
History of Present Illness Consult date: 06/18/18 Reason for Consult: Right upper quadrant pain History of present illness: This a 58-year-old male who's had complaints of right quadrant pain. Patient was seen emergency room yesterday. He is found have a gallstone in the neck of the gallbladder. Patient is appears history of lung cancer. His gallstone was noted on his April 2018 CAT scan. Past Medical History Past Medical History: Asthma, Cancer, COPD, GERD/Reflux, Hypertension, Pneumonia Additional Past Medical History / Comment(s): L lung cancer with surgery/chemo/ radiation and currently immunosuppressive therapy, dysphagia History of Any Multi-Drug Resistant Organisms: None Reported Past Surgical History: Appendectomy, Tonsillectomy Additional Past Surgical History / Comment(s): L lung lobectomy/lymph node biopsy, mediport R IJ, EGD with bx. Past Anesthesia/Blood Transfusion Reactions: No Reported Reaction Smoking Status: Former smoker - Past Family History Father Brother(s) Family Medical History: Cancer Additional Family Medical History / Comment(s): Father of unknown type of cancer. Mother Family Medical History: Cancer Additional Family Medical History / Comment(s): Mother from breast cancer at the age of 68yrs. Brother(s) Family Medical History: Cancer Additional Family Medical History / Comment(s): 1 brother had bowel cancer, 1 brother had a chest mass and thoracic aneurysm ant at the age of 62yrs. Medications and Allergies Home Medications Medication Instructions Recorded Confirmed Type Cholecalciferol [Vitamin D3] 1,000 unit PO DAILY 05/31/16 06/18/18 History Docusate [Colace] 200 mg PO BID 05/31/16 06/18/18 History Loratadine [Claritin] 10 mg PO DAILY 05/31/16 06/18/18 History Metoprolol Tartrate [Lopressor] 25 mg PO BID 05/31/16 06/18/18 History Multivitamin [Men's Multi-Vitamin] 1 tab PO DAILY 05/31/16 06/18/18 History [place]-3 Fatty Acids/Fish Oil [Fish 1 cap PO DAILY 05/31/16 06/18/18 History Oil 1,000 mg Softgel] Aspirin [Adult Low Dose Aspirin EC] 81 mg PO DAILY 01/24/17 06/18/18 History Flaxseed Oil [[place]-3 Flaxseed Oil] 1,000 mg PO DAILY 01/24/17 06/18/18 History Garlic 1 tab PO DAILY 06/18/18 06/18/18 History Ipratropium [place] [Atrovent Hfa] 2 puff INHALATION RT-BID 06/18/18 06/18/18 History Ranitidine HCl [Zantac] 150 mg PO BID 06/18/18 06/18/18 History Allergies Allergy/AdvReac Type Severity Reaction Status Date / Time Penicillins Allergy Rash/Hives Verified 06/18/18 12:47 Surgical - Exam Vital Signs Temp Pulse Resp BP Pulse Ox 99.5 F 78 18 143/92 93 L 06/18/18 12:33 06/18/18 12:33 06/18/18 12:33 06/18/18 12:33 06/18/18 12:33 - General well developed, no distress - Eyes PERRL - ENT normal pinna - Neck no masses - Respiratory normal expansion - Cardiovascular Rhythm: regular - Abdomen Mild right upper quadrant tenderness Abdomen: soft Assessment and Plan Assessment: Cholelithiasis Cholecystitis Patient will undergo laparoscopic cholecystectomy
[2018-06-18 15:33] LABS: Basophils % (A) 0 %; Eosinophils # (A) 0.3 k/uL (0-0.7); Eosinophils % (A) 3 %; HCT 41.1 % (39.0-53.0); HGB 13.9 gm/dL (13.0-17.5); Lymphocytes # (A) 1.5 k/uL (1.0-4.8); Lymphocytes % (A) 21 %; MCH 30.8 pg (25.0-35.0); MCHC 33.7 g/dL (31.0-37.0); MCV 91.3 fL (80.0-100.0); Mean Platelet Volume 7.3; Monocytes # (A) 0.8 k/uL (0-1.0); Monocytes % (A) 10 %; Neutrophils # (A) 4.6 k/uL (1.3-7.7); Neutrophils % (A) 62 %; Platelet Count 154 k/uL (150-450); RDW 13.1 % (11.5-15.5); WBC 7.4 k/uL (3.8-10.6)
[2018-06-18 16:01] LABS: ALT 26 U/L (21-72); AST 21 U/L (17-59); Albumin 3.6 g/dL (3.5-5.0); Alkaline Phosphatase 67 U/L (38-126); Anion Gap 8 mmol/L; Blood Urea Nitrogen 10 mg/dL (9-20); Calcium 9.1 mg/dL (8.4-10.2); Carbon Dioxide 29 mmol/L (22-30); Chloride 100 mmol/L (98-107); Glucose 109 mg/dL (74-99); Potassium 4.1 mmol/L (3.5-5.1); Sodium 137 mmol/L (137-145); Total Bilirubin 0.8 mg/dL (0.2-1.3); Total Protein 6.4 g/dL (6.3-8.2)
[2018-06-18] MEDS ORDERED: IV FLUID CONTINUATION 850 ML IV ONE (16:51)
[2018-06-18] MEDS ORDERED: fentaNYL (PF) 50 MCG/ML 2 ML AMP ONE (18:04)
[2018-06-18] MEDS ORDERED: MIDAZOLAM 2 MG/2 ML VIAL ONE (18:04)
[2018-06-18] MEDS ORDERED: NEOSTIGMINE 1 MG/ML 10 ML VIAL ONE (18:04)
[2018-06-18] MEDS ORDERED: GLYCOPYRROLATE 0.2 MG/ML 2 ML VIAL ONE (18:04)
[2018-06-18] MEDS ORDERED: ROCURONIUM BROMIDE 10 MG/ML 10 ML VIAL IV ONE (18:04)
[2018-06-18] MEDS ORDERED: PROPOFOL 10 MG/ML 20 ML VIAL IV ONE (18:04)
[2018-06-18] MEDS ORDERED: SUCCINYLCHOLINE CHLORIDE 100 MG/5 ML SYR IV ONE (18:04)
[2018-06-18] MEDS ORDERED: SODIUM CHLORIDE 0.9% 100 ML with ceFAZolin 2,000 MG IV ONE ×2 (18:16)
[2018-06-18] MEDS ORDERED: BUPIVACAIN-EPI 0.5%-1:200,000 30 ML VIAL SQ ONE (18:21)
[2018-06-18] MEDS ORDERED: HYDROmorphone 1 MG/ML 1 ML SYRINGE IVP PRN (19:02)
[2018-06-18] MEDS ORDERED: NALOXONE 0.4 MG/ML 1 ML VIAL IV PRN (19:02)
[2018-06-18] MEDS ORDERED: ONDANSETRON 4 MG/2 ML VIAL IVP PRN (19:02)
[2018-06-18] MEDS ORDERED: LACTATED RINGERS 1,000 ML IV ONE (19:02)
[2018-06-18] MEDS ORDERED: METOCLOPRAMIDE 5 MG/ML 2 ML VIAL IVP PRN (19:02)
[2018-06-18] MEDS ORDERED: HYDROcodone/APAP 5-325MG 1 EACH TAB PO PRN (19:02)
--- NOTE | 2018-06-18 19:02 | P.OP ---
Date of Procedure: 06/18/18 Preoperative Diagnosis: Acute cholecystitis Postoperative Diagnosis: Acute cholecystitis Procedure(s) Performed: Laparoscopic cholecystectomy Anesthesia: CIRILO Surgeon: Ronnell Abel Estimated Blood Loss (ml): 10 Pathology: other (Gallbladder) Condition: stable Disposition: PACU Description of Procedure: The patient was placed on the operating table. The patient received a general endotracheal tube anesthesia. The patients abdomen was prepped and draped in the usual sterile fashion. Through an infraumbilical stab incision, the fascia of the anterior abdominal wall was grasped with a pair of Kochers and then the Veress needle was placed in the peritoneal cavity. Position of the Veress needle was confirmed with positive drop test. The abdomen was then insufflated. After adequate insufflation, the 10 mm trocar was placed in the peritoneal cavity. Following this the laparoscope was placed in the peritoneal cavity. The patient was placed in the head-up, right side up position and then a 5 mm trocar was placed in the right lateral and right subcostal position under direct visualization. A 8 mm trocar was placed in the epigastric position. The gallbladder appeared to be quite inflamed with patchy necrosis The gallbladder was grasped in the fundus and infundibulum. Traction on the gallbladder was placed in the lateral and the cephalad positions. The triangle of [place] was visualized.. The cystic duct was bluntly dissected until the union of the cystic duct and common bile duct was seen. The cystic duct was then divided and sealed with the Harmonic scissors. A PDS Endoloop was then placed throughout the cystic duct stump. The cystic artery divided and sealed with the Harmonic scissors. The gallbladder was then removed from the liver bed using Harmonic scissors. The gallbladder was then extracted through the epigastric port site. Operative field was checked for any bleeding spots and Harmonic scissors was used to coagulate the liver bed. The abdomen was irrigated. The trocars were removed. The skin was closed using interrupted 3-0 Vicryl suture. Dermabond dressing were applied. The patient tolerated the procedure well.
[2018-06-18] MEDS ORDERED: HYDROmorphone 1 MG/ML 1 ML SYRINGE IVP ONE (19:24)
[2018-06-18] MEDS ORDERED: SODIUM CHLORIDE 0.9% 1,000 ML IV ONE (19:36)
[2018-06-18] MEDS: IPRATROPIUM 0.5 MG/2.5 ML NEBU INHALATION SCH (20:40)
[2018-06-18] MEDS: METOPROLOL TARTRATE 25 MG TAB PO SCH (20:54)
[2018-06-18] MEDS: DOCUSATE 100 MG CAP PO SCH (20:54)
[2018-06-18] MEDS: FAMOTIDINE 20 MG TAB PO SCH (20:54)
[2018-06-19] MEDS: SODIUM CHLORIDE 0.9% 1,000 ML IV SCH (06:08)
[2018-06-19 06:18] VITALS: BP 120/69; TEMP 99.1
[2018-06-19] MEDS: HYDROcodone/APAP 5-325MG 1 EACH TAB PO PRN (08:10)
[2018-06-19] MEDS: DOCUSATE 100 MG CAP PO SCH (08:11)
[2018-06-19] MEDS: FAMOTIDINE 20 MG TAB PO SCH (08:11)
[2018-06-19] MEDS: METOPROLOL TARTRATE 25 MG TAB PO SCH (08:12)
[2018-06-19] MEDS: IPRATROPIUM 0.5 MG/2.5 ML NEBU INHALATION SCH (08:40)
[2018-06-19 08:43] VITALS: RESP 22
[2018-06-19] MEDS ORDERED: NON-FORMULARY DRUG (Omega-3 Fatty Acids/Fish Oil [Fish Oil 1,000 Mg Softgel] 1 CAP) PO SCH (09:00)
[2018-06-19] MEDS ORDERED: NON-FORMULARY DRUG (Flaxseed Oil [Omega-3 Flaxseed Oil] 1,000 MG) PO SCH (09:00)
[2018-06-19] MEDS ORDERED: CHOLECALCIFEROL 1,000 UNIT TAB PO SCH (09:00)
[2018-06-19] MEDS ORDERED: ENOXAPARIN 40 MG/0.4 ML SYRINGE SQ SCH (09:00)
[2018-06-19] MEDS ORDERED: PANTOPRAZOLE 40 MG/10 ML VIAL IV SCH (09:00)
[2018-06-19] MEDS ORDERED: LORATADINE 10 MG TAB PO SCH (09:00)
[2018-06-19] MEDS ORDERED: ASPIRIN 81 MG PO SCH (09:00)
[2018-06-19 09:06] VITALS: PULSE 88
--- NOTE | 2018-06-19 10:13 | P.PN ---
Subjective Progress Note Date: 06/19/18 58-year-old sitting up in bed. Surgical incision site dressings dry states has been up ambulating to the bathroom and back passing gas no stool Postop June 18 laparoscopic cholecystectomy for acute cholecystitis Objective - Vital Signs Vital signs: Vital Signs Temp 99.1 F 06/19/18 05:54 Pulse 88 06/19/18 09:05 Resp 22 06/19/18 08:41 BP 120/69 06/19/18 05:54 Pulse Ox 97 06/19/18 08:41 Intake & Output 06/18/18 06/19/18 06/19/18 18:59 06:59 18:59 Intake Total 750 200 Output Total 30 Balance 720 200 Weight 103.5 kg Intake: IV 750 200 Output: Estimated Blood Loss 30 Other: Voiding Method Toilet # Voids 0 2 # Bowel Movements 0 - Exam Physical exam 58-year-old male sitting up in bed appears in no acute distress Lungs clear on room air Heart S1-S2 audible regular Abdomen surgical dressing sites dry surgical tenderness appropriate belching not passing gas no stool urinating no difficulty tolerating diet no nausea no vomiting Extremities no edema - Labs CBC & Chem 7: 06/18/18 15:21 06/18/18 15:21 Labs: Abnormal Lab Results - Last 24 Hours (Table) 06/18/18 Range/Units 15:21 Glucose 109 H (74-99) mg/dL Assessment and Plan Assessment: Impression Present on admission right upper quadrant pain suspect due to acute cholecystitis Status post June 18 laparoscopic cholecystectomy for acute cholecystitis History of lung cancer Ultrasound gallstone in the neck of the gallbladder Plan Continue postop surgical care Pain control Patient is felt to be appropriate to be discharged from a surgical perspective defer to the timing to the attending Outpatient follow-up with surgical service The above impression and plan of care have been discussed and directed by signing physician. Renee Maloney nurse practitioner acting as scribe for signing physician.
[2018-06-19] MEDS ORDERED: MULTIVITAMINS, THERA 1 EACH TAB PO SCH (12:00)
--- NOTE | 2018-06-19 13:08 | HP ---
HISTORY AND PHYSICAL CHIEF COMPLAINT: A 58-year-old right upper quadrant pain with acute cholecystitis, biliary colic. Left out of the emergency room last night for admission, decided to come to the hospital due to worsening pain today. cholecystectomy. PAST MEDICAL HISTORY: Cancer, asthma, COPD, GERD, hypertension, pneumonia, lung cancer, status post surgery, chemo radiation, marrow suppression. SURGERY: Appendectomy, tonsillectomy. FAMILY HISTORY: Brother with cancer. Mother with cancer. bowel cancer. HOME MEDICINES: 1. Lopressor. 2. Claritin. 3. Colace. 4. Vitamin D. 5. Multivitamin. 6. Aspirin. 7. Fish oil. 8. Zantac. 9. Atrovent. ALLERGIES: PENICILLIN. PHYSICAL EXAMINATION: Respiratory 16 to 18, blood pressure 140s over 90s, O2 of 93 on room air, pulse 78, temp 99.5. CARDIOVASCULAR: S1, S2. LUNGS: Clear. GI: Soft. HEMATOLOGY: Negative Homans. PSYCH: Fair mood and affect. NEUROLOGIC: Alert and orient x3. ASSESSMENT: 1. Cholelithiasis. 2. Biliary colic. 3. History of hypertension. 4. Lung cancer. Cleared for surgery. Surgery will be completed and then he will be discharged home. MMODL / IJN: [id number] /
== END 2018-06-19 14:09 | disposition home or self-care (01) | DRG 419 ==
LOC: 4MS4W 12:03
PROVIDERS: ADMIT Family Medicine; ATTEND Family Medicine
PROC: 0FT44ZZ Resection of Gallbladder, Percutaneous Endoscopic Approach (ICD-10-PCS; principal; 2018-06-18 17:57)
DX: K80.00 Calculus of gallbladder with acute cholecystitis without obstruction (principal); I10 Essential (primary) hypertension; J44.9 Chronic obstructive pulmonary disease, unspecified; K21.9 Gastro-esophageal reflux disease without esophagitis; R13.10 Dysphagia, unspecified; Z79.82 Long term (current) use of aspirin; Z79.899 Other long term (current) drug therapy; Z88.0 Allergy status to penicillin; Z85.118 Personal history of other malignant neoplasm of bronchus and lung; Z87.891 Personal history of nicotine dependence; Z87.01 Personal history of pneumonia (recurrent); Z92.21 Personal history of antineoplastic chemotherapy; Z92.3 Personal history of irradiation; Z90.2 Acquired absence of lung [part of]; Z90.49 Acquired absence of other specified parts of digestive tract; Z80.3 Family history of malignant neoplasm of breast; Z80.0 Family history of malignant neoplasm of digestive organs; Z82.49 Family history of ischemic heart disease and other diseases of the circulatory system
CPT/HCPCS: 80053; 85025; 88304; 94640; 94760

== ENCOUNTER → 2018-09-27 | Outpatient (CLI) | payer OTHER ==
--- NOTE | 2018-09-27 13:50 | XR ---
EXAMINATION TYPE: XR chest 2V DATE OF EXAM: 09/27/2018 COMPARISON: Prior chest x-ray 05/25/2017, CT chest 30 August 2018 HISTORY: Lung carcinoma, the first TECHNIQUE: Frontal and lateral views of the chest are obtained on 3 images. FINDINGS: Perihilar parenchymal density is present bilaterally, volume loss suspected within the lef t hemithorax. Port-A-Cath is stable. No evident pneumothorax or sizable effusion. There are underlyin g emphysematous changes present. IMPRESSION: Findings compatible with patient's history of lung carcinoma, difficult to exclude super imposed pneumonia.
== END | disposition home or self-care (01) ==
LOC: RADXRMAIN 09:54
PROVIDERS: ATTEND Nurse Practitioner Adult Health
DX: C34.12 Malignant neoplasm of upper lobe, left bronchus or lung (principal); I10 Essential (primary) hypertension; D70.2 Other drug-induced agranulocytosis; R13.12 Dysphagia, oropharyngeal phase
CPT/HCPCS: 71046

== ENCOUNTER 2018-11-05 09:58 | Inpatient (IN) | payer OTHER ==
[2018-11-05] MEDS ORDERED: SODIUM CHLORIDE 0.9% 1,000 ML IV STA (11:07)
--- NOTE | 2018-11-05 11:19 | ED ---
General Adult HPI - General Source: patient, RN notes reviewed, old records reviewed Mode of arrival: ambulatory Limitations: no limitations <Alex Fisher - Last Filed: 11/05/18 14:04> <Denny Justin - Last Filed: 11/05/18 14:35> - General Chief complaint: Fever Stated complaint: fever/cancer pt Time Seen by Provider: 11/05/18 10:47 - History of Present Illness Initial comments: Patient's a 58-year-old male significant past medical history for small cell lung cancer, presented to the emergency room today with a chief complaint of a fever over the last week. He does admit that he was on antibiotics of Keflex for the past 10 days that he finished yesterday. He does admit that he was told that he had a blood infection. He states that his oncologist. Come here to the emergency room. He does admit that he's had some generalized fatigue and weakness. Patient does admit to running low-grade fevers at home. States he did take Tylenol Motrin this morning. Patient denies any other complaints currently. Patient denies any recent shortness of breath, chest pain, back pain , abdominal pain, numbness or tingling, headaches or visual changes, or any other complaints. (Alex Fisher) - Related Data Home Medications Medication Instructions Recorded Confirmed Cholecalciferol [Vitamin D3] 1,000 unit PO DAILY 05/31/16 11/05/18 Docusate [Colace] 200 mg PO BID 05/31/16 11/05/18 Loratadine [Claritin] 10 mg PO DAILY 05/31/16 11/05/18 Metoprolol Tartrate [Lopressor] 25 mg PO BID 05/31/16 11/05/18 Multivitamin [Men's Multi-Vitamin] 1 tab PO DAILY 05/31/16 11/05/18 [place]-3 Fatty Acids/Fish Oil [Fish 1 cap PO DAILY 05/31/16 11/05/18 Oil 1,000 mg Softgel] Aspirin [Adult Low Dose Aspirin EC] 81 mg PO DAILY 01/24/17 11/05/18 Flaxseed Oil [[place]-3 Flaxseed Oil] 1,000 mg PO DAILY 01/24/17 11/05/18 Garlic 1 tab PO DAILY 06/18/18 11/05/18 Ipratropium [place] [Atrovent Hfa] 2 puff INHALATION RT-BID 06/18/18 11/05/18 Ranitidine HCl [Zantac] 150 mg PO BID 06/18/18 11/05/18 Allergies Allergy/AdvReac Type Severity Reaction Status Date / Time Penicillins Allergy Rash/Hives Verified 11/05/18 10:36 Review of Systems ROS Other: All systems not noted in ROS Statement are negative. <Alex Fisher - Last Filed: 11/05/18 14:04> ROS Other: All systems not noted in ROS Statement are negative. <Denny Justin - Last Filed: 11/05/18 14:35> ROS Statement: Those systems with pertinent positive or pertinent negative responses have been documented in the HPI. Past Medical History Past Medical History: Asthma, Cancer, COPD, GERD/Reflux, Hypertension, Pneumonia Additional Past Medical History / Comment(s): L lung cancer with surgery/chemo/ radiation and currently immunosuppressive therapy, dysphagia History of Any Multi-Drug Resistant Organisms: None Reported Past Surgical History: Appendectomy, Tonsillectomy Additional Past Surgical History / Comment(s): L lung lobectomy/lymph node biopsy, mediport R IJ, EGD with bx. Past Anesthesia/Blood Transfusion Reactions: No Reported Reaction Past Psychological History: No Psychological Hx Reported Smoking Status: Former smoker - Past Family History Father Brother(s) Family Medical History: Cancer Additional Family Medical History / Comment(s): Father of unknown type of cancer. Mother Family Medical History: Cancer Additional Family Medical History / Comment(s): Mother from breast cancer at the age of 68yrs. Brother(s) Family Medical History: Cancer Additional Family Medical History / Comment(s): 1 brother had bowel cancer, 1 brother had a chest mass and thoracic aneurysm ant at the age of 62yrs. <Alex Fisher - Last Filed: 11/05/18 14:04> General Exam Limitations: no limitations <Alex Fisher - Last Filed: 11/05/18 14:04> <Denny Justin - Last Filed: 11/05/18 14:35> - General Exam Comments Initial Comments: General: The patient is awake and alert, in no distress, and does not appear acutely ill. Eye: There is normal conjunctiva bilaterally. No signs of icterus. Ears, nose, mouth and throat: There are moist mucous membranes and no oral lesions. Neck: The neck is supple, there is no tenderness or JVD. Cardiovascular: There is a regular rate and rhythm. No murmur, rub or gallop is appreciated. Respiratory: Lungs are clear to auscultation, respirations are non-labored, breath sounds are equal. No wheezes, stridor, rales, or rhonchi. Gastrointestinal: Abdomen soft nontender. Musculoskeletal: Normal ROM, no tenderness. Neurological: A&O x 3. CN II-XII intact, There are no obvious motor or sensory deficits. Coordination appears grossly intact. Speech is normal. Skin: Skin is warm and dry and no rashes or lesions are noted. Psychiatric: Cooperative, appropriate mood & affect, normal judgment. (Alex Fisher) Course <Alex Fisher - Last Filed: 11/05/18 14:04> <Denny Justin - Last Filed: 11/05/18 14:35> Vital Signs 11/05/18 10:10 Temperature 98.3 F Pulse Rate 94 Respiratory 18 Rate Blood Pressure 92/63 O2 Sat by Pulse 96 Oximetry - Reevaluation(s) Reevaluation #1: 11/05/18 14:35 Patient was reevaluated by myself, Dr. Justin. Patient resting comfortably in bed. Patient only has symptoms consistent with fever including malaise and fatigue and chills. Patient states symptoms are mild at this time. Patient did have recent questionable outpatient blood cultures and was on antibiotics for one week, Keflex. Despite this patient is having continued fevers. Case was discussed in detail with Dr. Burroughs, who will admit his patient. Case is also discussed in detail with Dr. Paige from oncology who recommends cefepime and vancomycin and will consult. (Denny Justin) Medical Decision Making - Lab Data Result diagrams: 11/05/18 11:30 11/05/18 11:30 <Alex Fisher - Last Filed: 11/05/18 14:04> - Lab Data Result diagrams: 11/05/18 11:30 11/05/18 11:30 <Denny Justin - Last Filed: 11/05/18 14:35> - Medical Decision Making Patient's labs been reviewed. Patient has had fever on and off over the last week. Was treated with Keflex outpatient for a positive blood culture. Case was discussed with attending physician Dr. Justin discussed with patient's family doctor Dr. Burroughs who will admit the patient and also with his oncologist Dr. Irineo Rowe who recommends starting vancomycin along with cefepime. ( Alex Fisher) - Lab Data Lab Results 11/05/18 11/05/18 11/05/18 Range/Units 11:30 11:30 11:30 WBC 1.4 L* (3.8-10.6) k/uL RBC 3.76 L (4.30-5.90) m/uL Hgb 11.2 L (13.0-17.5) gm/dL Hct 33.4 L (39.0-53.0) % MCV 88.8 (80.0-100.0) fL MCH 29.8 (25.0-35.0) pg MCHC 33.6 (31.0-37.0) g/dL RDW 15.5 (11.5-15.5) % Plt Count 194 (150-450) k/uL Neutrophils % (Manual) 35 % Band Neutrophils % 4 % Lymphocytes % (Manual) 51 % Monocytes % (Manual) 3 % Eosinophils % (Manual) 5 % Metamyelocytes % 2 % Neutrophils # (Manual) 0.50 L (1.3-7.7) k/uL Lymphocytes # (Manual) 0.71 L (1.0-4.8) k/uL Monocytes # (Manual) 0.04 (0-1.0) k/uL Eosinophils # (Manual) 0.07 (0-0.7) k/uL Metamyelocytes # (Man) 0.03 H (0) k/uL Nucleated RBCs 0 (0-0) /100 WBC Manual Slide Review Performed RBC Morphology Normal PT (9.0-12.0) sec INR (<1.2) APTT (22.0-30.0) sec Sodium 137 (137-145) mmol/L Potassium 4.6 (3.5-5.1) mmol/L Chloride 102 (98-107) mmol/L Carbon Dioxide 30 (22-30) mmol/L Anion Gap 5 mmol/L BUN 18 (9-20) mg/dL Creatinine 0.73 (0.66-1.25) mg/dL Est GFR (CKD-EPI)AfAm >90 (>60 ml/min/1.73 sqM) Est GFR (CKD-EPI)NonAf >90 (>60 ml/min/1.73 sqM) Glucose 102 H (74-99) mg/dL Plasma Lactic Acid Brad (0.7-2.0) mmol/L Calcium 8.8 (8.4-10.2) mg/dL Total Bilirubin 0.9 (0.2-1.3) mg/dL AST 32 (17-59) U/L ALT 35 (21-72) U/L Alkaline Phosphatase 79 (38-126) U/L Total Creatine Kinase <20 L (55-170) U/L CK-MB (CK-2) <0.2 (0.0-2.4) ng/mL CK-MB (CK-2) Rel Index Troponin I <0.012 (0.000-0.034) ng/mL Total Protein 5.5 L (6.3-8.2) g/dL Albumin 3.1 L (3.5-5.0) g/dL Urine Color Urine Appearance (Clear) Urine pH (5.0-8.0) Ur Specific [place] (1.001-1.035) Urine Protein (Negative) Urine Glucose (UA) (Negative) Urine Ketones (Negative) Urine Blood (Negative) Urine Nitrite (Negative) Urine Bilirubin (Negative) Urine Urobilinogen (<2.0) mg/dL Ur Leukocyte Esterase (Negative) 11/05/18 11/05/18 11/05/18 Range/Units 11:30 11:30 11:30 WBC (3.8-10.6) k/uL RBC (4.30-5.90) m/uL Hgb (13.0-17.5) gm/dL Hct (39.0-53.0) % MCV (80.0-100.0) fL MCH (25.0-35.0) pg MCHC (31.0-37.0) g/dL RDW (11.5-15.5) % Plt Count (150-450) k/uL Neutrophils % (Manual) % Band Neutrophils % % Lymphocytes % (Manual) % Monocytes % (Manual) % Eosinophils % (Manual) % Metamyelocytes % % Neutrophils # (Manual) (1.3-7.7) k/uL Lymphocytes # (Manual) (1.0-4.8) k/uL Monocytes # (Manual) (0-1.0) k/uL Eosinophils # (Manual) (0-0.7) k/uL Metamyelocytes # (Man) (0) k/uL Nucleated RBCs (0-0) /100 WBC Manual Slide Review RBC Morphology PT 11.8 (9.0-12.0) sec INR 1.1 (<1.2) APTT 82.1 H (22.0-30.0) sec Sodium (137-145) mmol/L Potassium (3.5-5.1) mmol/L Chloride (98-107) mmol/L Carbon Dioxide (22-30) mmol/L Anion Gap mmol/L BUN (9-20) mg/dL Creatinine (0.66-1.25) mg/dL Est GFR (CKD-EPI)AfAm (>60 ml/min/1.73 sqM) Est GFR (CKD-EPI)NonAf (>60 ml/min/1.73 sqM) Glucose (74-99) mg/dL Plasma Lactic Acid Brad 0.8 (0.7-2.0) mmol/L Calcium (8.4-10.2) mg/dL Total Bilirubin (0.2-1.3) mg/dL AST (17-59) U/L ALT (21-72) U/L Alkaline Phosphatase (38-126) U/L Total Creatine Kinase (55-170) U/L CK-MB (CK-2) (0.0-2.4) ng/mL CK-MB (CK-2) Rel Index Troponin I (0.000-0.034) ng/mL Total Protein (6.3-8.2) g/dL Albumin (3.5-5.0) g/dL Urine Color Yellow Urine Appearance Clear (Clear) Urine pH 5.5 (5.0-8.0) Ur Specific [place] 1.019 (1.001-1.035) Urine Protein Negative (Negative) Urine Glucose (UA) Negative (Negative) Urine Ketones Negative (Negative) Urine Blood Negative (Negative) Urine Nitrite Negative (Negative) Urine Bilirubin Negative (Negative) Urine Urobilinogen <2.0 (<2.0) mg/dL Ur Leukocyte Esterase Negative (Negative) Disposition Time of Disposition: 14:11 <Alex Fisher - Last Filed: 11/05/18 14:04> <Denny Justin - Last Filed: 11/05/18 14:35> Clinical Impression: Sepsis, Positive blood culture, History of lung cancer Disposition: ADMITTED IP TO THIS HOSP Condition: Stable Referrals: Cheng Burroughs MD [Primary Care Provider] - 1-2 days Addendum entered and electronically signed by Alex Fisher PA-C 11/05/18 14: 13: EKG performed at 1204: Shows normal sinus rhythm at 81 bpm. CA interval 150. QRS 84. QT/QTC 352/408. No acute ST changes.
[2018-11-05 12:09] LABS: Appearance,Urine Clear (Clear); Bilirubin,Urine Negative (Negative); Blood,Urine Negative (Negative); Color,Urine Yellow; Glucose,Urine (UA) Negative (Negative); Ketones,Urine Negative (Negative); Leukocyte Esterase,Urine Negative (Negative); Nitrite,Urine Negative (Negative); PH, Urine 5.5 (5.0-8.0); Protein,Urine Negative (Negative); Specific Gravity,Urine 1.019 (1.001-1.035); Urobilinogen,Urine <2.0 mg/dL (<2.0)
[2018-11-05 12:14] LABS: INR 1.1 (<1.2); Prothrombin Time 11.8 sec (9.0-12.0)
[2018-11-05 12:15] LABS: HCT 33.4 % (39.0-53.0); HGB 11.2 gm/dL (13.0-17.5); MCH 29.8 pg (25.0-35.0); MCHC 33.6 g/dL (31.0-37.0); MCV 88.8 fL (80.0-100.0); Mean Platelet Volume 7.7; Platelet Count 194 k/uL (150-450); RBC 3.76 m/uL (4.30-5.90); RDW 15.5 % (11.5-15.5)
[2018-11-05 12:17] LABS: WBC 1.4 k/uL (3.8-10.6)
[2018-11-05 12:18] LABS: ALT 35 U/L (21-72); AST 32 U/L (17-59); Albumin 3.1 g/dL (3.5-5.0); Alkaline Phosphatase 79 U/L (38-126); Anion Gap 5 mmol/L; Blood Urea Nitrogen 18 mg/dL (9-20); Calcium 8.8 mg/dL (8.4-10.2); Carbon Dioxide 30 mmol/L (22-30); Chloride 102 mmol/L (98-107); Glucose 102 mg/dL (74-99); Potassium 4.6 mmol/L (3.5-5.1); Sodium 137 mmol/L (137-145); Total Bilirubin 0.9 mg/dL (0.2-1.3); Total Protein 5.5 g/dL (6.3-8.2)
--- NOTE | 2018-11-05 12:19 | XR ---
EXAMINATION TYPE: XR chest 2V DATE OF EXAM: 11/05/2018 COMPARISON: 09/27/2018 TECHNIQUE: PA and lateral views submitted. HISTORY: Fever FINDINGS: There is a Mediport catheter large left upper lobe lung mass. Finding is similar to the prior exam. N o definite consolidation. Suggestion surgery involving the left lung. Biapical pleural thickening. Co rrelate for underlying COPD. The port catheter stable. Metallic density overlying the lower right pedrito g field is not seen on the lateral view and may be superficial to the patient. Correlate clinically. Bilateral hilum appear prominent. Be on the basis of adenopathy. IMPRESSION: 1. Stable left upper lobe lung mass suspected hilar adenopathy. 2. COPD with no definite acute infiltrate. 3. metallic density overlying the right lung field was not seen on the lateral view and therefore may have been superficial to the patient rather than foreign body. Correlate clinically.
[2018-11-05 12:28] LABS: Creatine Kinase <20 U/L (55-170)
[2018-11-05 12:35] LABS: Band Neutrophils % 4 %; Eosinophils # (M) 0.07 k/uL (0-0.7); Lymphocytes # (M) 0.71 k/uL (1.0-4.8); Metamyelocytes # (M) 0.03 k/uL (0); Metamyelocytes % 2 %; Monocytes # (M) 0.04 k/uL (0-1.0); Neutrophils % (M) 35 %; Nucleated Red Blood Cells 0 /100 WBC (0-0); Total Cells Counted 100
[2018-11-05 12:39] LABS: Creatine Kinase MB <0.2 ng/mL (0.0-2.4); Troponin I <0.012 ng/mL (0.000-0.034)
[2018-11-05 12:57] LABS: Partial Thromboplastin Time 82.1 sec (22.0-30.0)
[2018-11-05] MEDS ORDERED: SODIUM CHLORIDE 0.9% 1,000 ML IV ONE (14:06)
[2018-11-05] MEDS ORDERED: ACETAMINOPHEN TAB 325 MG TAB PO PRN (14:06)
[2018-11-05] MEDS ORDERED: LORazepam 2 MG/ML INJ IV PRN (14:06)
[2018-11-05] MEDS ORDERED: IBUPROFEN 400 MG TAB PO PRN (14:06)
[2018-11-05] MEDS ORDERED: ONDANSETRON 4 MG/2 ML VIAL IVP PRN (14:06)
[2018-11-05] MEDS ORDERED: NALOXONE 0.4 MG/ML 1 ML VIAL IV PRN (14:06)
[2018-11-05] MEDS ORDERED: CEFEPIME 1 GM in SODIUM CHLORIDE 0.9% 50 ML IVPB STA (14:11)
[2018-11-05] MEDS ORDERED: VANCOMYCIN IV PER PHARMACY 1 EACH MISC MISCELLANE PRN (14:36)
[2018-11-05] MEDS ORDERED: VANCOMYCIN 1,500 MG in SODIUM CHLORIDE 0.9% 250 ML IVPB ONE (15:15)
[2018-11-05] MEDS: IPRATROPIUM 0.5 MG/2.5 ML NEBU INHALATION SCH (21:25)
[2018-11-05] MEDS: METOPROLOL TARTRATE 25 MG TAB PO SCH (21:36)
[2018-11-05] MEDS: FAMOTIDINE 20 MG TAB PO SCH (21:36)
[2018-11-05] MEDS: CEFEPIME 1 GM in SODIUM CHLORIDE 0.9% 50 ML IVPB SCH (22:11)
[2018-11-05] MEDS: VANCOMYCIN 1,500 MG in SODIUM CHLORIDE 0.9% 250 ML IVPB SCH (23:58)
[2018-11-06] MEDS: IPRATROPIUM 0.5 MG/2.5 ML NEBU INHALATION SCH ×2 (07:10→21:42)
[2018-11-06] MEDS: VANCOMYCIN 1,500 MG in SODIUM CHLORIDE 0.9% 250 ML IVPB SCH ×3 (07:34→23:00)
[2018-11-06 08:14] LABS: HCT 34.8 % (39.0-53.0); HGB 11.6 gm/dL (13.0-17.5); MCH 29.5 pg (25.0-35.0); MCHC 33.2 g/dL (31.0-37.0); MCV 88.8 fL (80.0-100.0); Mean Platelet Volume 7.9; Platelet Count 200 k/uL (150-450); RBC 3.91 m/uL (4.30-5.90); RDW 15.2 % (11.5-15.5); WBC 1.8 k/uL (3.8-10.6)
[2018-11-06 08:15] LABS: ALT 35 U/L (21-72); AST 29 U/L (17-59); Albumin 3.4 g/dL (3.5-5.0); Alkaline Phosphatase 89 U/L (38-126); Anion Gap 6 mmol/L; Blood Urea Nitrogen 12 mg/dL (9-20); Calcium 8.9 mg/dL (8.4-10.2); Carbon Dioxide 30 mmol/L (22-30); Chloride 102 mmol/L (98-107); Glucose 91 mg/dL (74-99); Potassium 4.7 mmol/L (3.5-5.1); Sodium 138 mmol/L (137-145); Total Bilirubin 1.3 mg/dL (0.2-1.3); Total Protein 5.9 g/dL (6.3-8.2)
[2018-11-06] MEDS ORDERED: NON-FORMULARY DRUG (Omega-3 Fatty Acids/Fish Oil [Fish Oil 1,000 Mg Softgel] 1 CAP) PO SCH (09:00)
[2018-11-06 09:17] LABS: Band Neutrophils % 1 %; Basophils # (M) 0.04 k/uL (0-0.2); Eosinophils # (M) 0.05 k/uL (0-0.7); Lymphocytes # (M) 0.92 k/uL (1.0-4.8); Monocytes # (M) 0.38 k/uL (0-1.0); Neutrophils % (M) 22 %
[2018-11-06] MEDS: METOPROLOL TARTRATE 25 MG TAB PO SCH ×2 (09:17→20:48)
[2018-11-06] MEDS: ASPIRIN 81 MG PO SCH (09:17)
[2018-11-06] MEDS: CHOLECALCIFEROL 1,000 UNIT TAB PO SCH (09:17)
[2018-11-06] MEDS: FAMOTIDINE 20 MG TAB PO SCH ×2 (09:17→20:48)
[2018-11-06] MEDS: MULTIVITAMINS, THERA 1 EACH TAB PO SCH (09:17)
[2018-11-06] MEDS: LORATADINE 10 MG TAB PO SCH (09:17)
[2018-11-06 09:18] LABS: Nucleated Red Blood Cells 0 /100 WBC (0-0); Poikilocytosis (M) Present; Total Cells Counted 100
[2018-11-06] MEDS: CEFEPIME 1 GM in SODIUM CHLORIDE 0.9% 50 ML IVPB SCH ×2 (09:44→21:30)
--- NOTE | 2018-11-06 15:18 | P.CONS ---
History of Present Illness - Reason for Consult Consult date: 11/06/18 Pancytopenia Requesting physician: Alex Fisher - Chief Complaint Sepsis - History of Present Illness Mr Cueto is pleasant male patient well known to our practice for treatment of his known adenocarcinoma lung. He was originally diagnosed back in 2014 when he was found to have a SACHA PET Avid Pulmonary nodule, underwent Wedge resection by Dr. Pinto. At time of diagnoses negative margins and lymph nodes, unfortunetly by October of 2015 a repeat PET revealed evidence of metastatic recurrent disease. His cancer has been controlled on multiple lines of chemotherapy up until recently recently when he has been undergoing another line of therapy with taxotere and neulasta. Prior to this line he was treated on Carboplatin/[place], opdivo (immune therapy), tecentriq (immune therapy). He us status post cycle 3 taxotere with neulasta given on 10/31/18. On 11/02/18 He complained of fevers and chills, Blood Cultures performed and original resulted with Coag neg staf, considered contaminant, this culture was later amended to Positive blood culture, patient continued with fever and chills despite antibiotics and was instructed to proceed to ER for further evaluation. Although since admission he has remained afebrile, repeat cultures blood and urine show no growth at 24 hours. He feels fatigued and tired but otherwise ok. Review of Systems A 14 point review of systems assessed and completed and all negative except HPI Past Medical History Past Medical History: Asthma, Cancer, COPD, GERD/Reflux, Hypertension, Pneumonia Additional Past Medical History / Comment(s): L lung cancer with surgery/chemo/ radiation and currently immunosuppressive therapy, edentulous,dysphagia History of Any Multi-Drug Resistant Organisms: None Reported Past Surgical History: Appendectomy, Tonsillectomy Additional Past Surgical History / Comment(s): L lung lobectomy/lymph node biopsy, mediport R IJ, EGD with bx. Past Anesthesia/Blood Transfusion Reactions: No Reported Reaction Smoking Status: Former smoker - Past Family History Father Brother(s) Family Medical History: Cancer Additional Family Medical History / Comment(s): Father of unknown type of cancer. Mother Family Medical History: Cancer Additional Family Medical History / Comment(s): Mother from breast cancer at the age of 68yrs. Brother(s) Family Medical History: Cancer Additional Family Medical History / Comment(s): 1 brother had bowel cancer, 1 brother had a chest mass and thoracic aneurysm ant at the age of 62yrs. Medications and Allergies Home Medications Medication Instructions Recorded Confirmed Type Cholecalciferol [Vitamin D3] 1,000 unit PO DAILY 05/31/16 11/05/18 History Docusate [Colace] 200 mg PO BID 05/31/16 11/05/18 History Loratadine [Claritin] 10 mg PO DAILY 05/31/16 11/05/18 History Metoprolol Tartrate [Lopressor] 25 mg PO BID 05/31/16 11/05/18 History Multivitamin [Men's Multi-Vitamin] 1 tab PO DAILY 05/31/16 11/05/18 History [place]-3 Fatty Acids/Fish Oil [Fish 1 cap PO DAILY 05/31/16 11/05/18 History Oil 1,000 mg Softgel] Aspirin [Adult Low Dose Aspirin EC] 81 mg PO DAILY 01/24/17 11/05/18 History Flaxseed Oil [[place]-3 Flaxseed Oil] 1,000 mg PO DAILY 01/24/17 11/05/18 History Garlic 1 tab PO DAILY 06/18/18 11/05/18 History Ipratropium [place] [Atrovent Hfa] 2 puff INHALATION RT-BID 06/18/18 11/05/18 History Ranitidine HCl [Zantac] 150 mg PO BID 06/18/18 11/05/18 History Allergies Allergy/AdvReac Type Severity Reaction Status Date / Time Penicillins Allergy Rash/Hives Verified 11/05/18 10:36 Physical Exam Vitals: Vital Signs Temp Pulse Pulse Resp BP BP BP 11/06/18 12:23 98.9 F 65 16 106/55 11/06/18 07:19 99 16 11/06/18 07:10 100 16 11/06/18 04:55 98.6 F 101 H 17 110/67 11/06/18 00:00 109 H 17 11/05/18 21:40 116 H 11/05/18 21:25 118 H 11/05/18 21:00 98.7 F 109 H 17 105/61 11/05/18 18:15 98.5 F 97 18 121/77 11/05/18 17:25 92 18 115/71 11/05/18 15:29 87 18 111/71 Pulse Ox 11/06/18 12:23 96 11/06/18 07:19 11/06/18 07:10 11/06/18 04:55 96 11/06/18 00:00 11/05/18 21:40 11/05/18 21:25 11/05/18 21:00 96 11/05/18 18:15 98 11/05/18 17:25 97 11/05/18 15:29 96 Intake and Output 11/06/18 11/06/18 11/06/18 06:59 14:59 22:59 Intake Total 1250 850 Balance 1250 850 Intake: Intake, IV Titration 1000 850 Amount Cefepime 1 gm In Sodium 50 50 Chloride 0.9% 50 ml @ 100 mls/hr IVPB Q12HR [facility] Rx #:[id number] Sodium Chloride 0.9% 1, 700 550 000 ml @ 100 mls/hr IV . Q10H ONE Rx#:[id number] Vancomycin 1,500 mg In 250 Sodium Chloride 0.9% 250 ml @ 125 mls/hr IVPB ONCE ONE Rx#:[id number] Vancomycin 1,500 mg In 250 Sodium Chloride 0.9% 250 ml @ 125 mls/hr IVPB Q8HR [facility] Rx#:[id number] Oral 250 Other: # Voids 2 Weight 101.151 kg Gen - Alert and oriented, NAD Head NC, NT Neck Supple, no cervical adenopathy Lungs Diminished, mild increased effort Heart: Tachy Reg Rhythm Abdomen: Soft, ND, NT Extremitis: No edema rashes Results CBC & Chem 7: 11/06/18 07:04 11/06/18 07:04 Labs: Abnormal Lab Results - Last 24 Hours (Table) 11/06/18 11/06/18 Range/Units 07:04 07:04 WBC 1.8 L (3.8-10.6) k/uL RBC 3.91 L (4.30-5.90) m/uL Hgb 11.6 L (13.0-17.5) gm/dL Hct 34.8 L (39.0-53.0) % Neutrophils # (Manual) 0.40 L* (1.3-7.7) k/uL Lymphocytes # (Manual) 0.92 L (1.0-4.8) k/uL Total Protein 5.9 L (6.3-8.2) g/dL Albumin 3.4 L (3.5-5.0) g/dL Microbiology - Last 24 Hours (Table) 11/05/18 11:30 Blood Culture - Preliminary Blood No Growth after 24 hours 11/05/18 11:30 Urine Culture - Final Urine,Voided Assessment and Plan Plan: Assessment and Recommendations: 1. Febrile Neutropenia: - No [place] stimulating factor needed at this time as he received after chemotherapy on 10/31/18 - Daily CBC with differential - Infectious Disease Following - Blood culture and Urine Cultures negative at 24 hours - Afebrile since admission 2. Adenocarcinoma of the Lung, original diagnosis in February of 2015 - Laparoscopic Wedge Resection February 2015. - October 2015 - recurrent metastatic Cancer and received Chemotherapy with Carboplatin, Almta - [id number] - Opdivo - 2018-Tecentriq - Most recently treated with q3 week Taxotere and Neulasta, Status Post cycle 3 with Neulasta on 10/31/18
--- NOTE | 2018-11-06 17:00 | HP ---
HISTORY AND PHYSICAL CHIEF COMPLAINT: [id number]-old white male admitted with severe leukopenia septic workup. He apparently had a recent urology workup that showed some BPH. He had a fever. He is apparently a cancer patient. Low-grade fevers at home. He is having no chest pain, shortness of breath or visual complaints. He is on antibiotic Keflex with no relief. He has small-cell lung cancer. HOME MEDICINES: 1. Claritin. 2. Colace. 3. Vitamin D3. 4. Lopressor. 5. Multivitamin. 6. Aspirin. 7. Flaxseed. 8. Garlic. 9. Atrovent. 10.Zantac. ALLERGIES: PENICILLIN. REVIEW OF SYSTEMS: Fourteen-point review of systems negative except for mentioned in HPI. SURGERIES: 1. Left lung lobectomy. 2. Lymph node biopsy. 3. Mediport. 4. EGD with biopsy. SOCIAL HISTORY: Former smoker. FAMILY HISTORY: Father with cancer. Mother with cancer of the breast. Brother with cancer of the bowels. Brother had thoracic aneurysm. PHYSICAL EXAMINATION: Vital signs reviewed. Temperature 98.3, pulse 80s to 90s, respiratory rate 16 to 18, blood pressure 92/63. PSYCH: Fair mood and affect. NEUROLOGIC: Alert and oriented x3. CARDIOVASCULAR: S1, S2. LUNGS: Clear. GI: Soft. HEMATOLOGY: Negative Homans. Pupils equal, round, reactive to light and accommodation. Wears glasses. White count 1.4, hemoglobin 11.2. ASSESSMENT: 1. Severe leukopenia. 2. Sepsis. 3. Positive blood culture. 4. History of lung cancer. Broad-spectrum antibiotics, infectious disease consult. Vancomycin and Zosyn will be given. Please see further orders. Oncology consult is pending. MMODL / IJN: [id number] /
--- NOTE | 2018-11-07 00:23 | CONS ---
CONSULTATION DATE OF SERVICE: 11/06/2018. REASON FOR CONSULTATION: Sepsis. HISTORY OF PRESENT ILLNESS: The patient is a 58-year-old male with a past medical history significant for left upper lobe adenocarcinoma of the lung. Initial diagnosis in 2015 with recurrence in 2016 with evidence of metastatic disease for which the patient has been on chemotherapy. The patient did receive his third cycle of chemo on 10/31/2018. Apparently the patient has been complaining of fever since 11/02/2018. The patient did mention he did have a fever and chills that he was able to manage at home by taking some aspirin and Tylenol, however, on the day when he presented to the hospital, the patient states that the fever was not coming down. The patient describes the fever to be as high as 101.3 degrees Fahrenheit. The patient did have some rigors and chills with it. The patient denies having any headache. No significant URI symptoms. The patient did have occasional cough but not bringing up any sputum. No chest pain. No nausea, no vomiting. No abdominal pain or any diarrhea. The patient apparently did have blood cultures done on 10/24/2018 which came back positive for coagulase negative Staph, considered to be possible contamination and did not receive any treatment for it. On admission to the hospital, so far no fever has been recorded. The patient did have a low white count of 1.4 with 35% neutrophils. Repeat is 1.8. Kidney function has been normal. Liver enzymes are normal. UA was negative. The patient did have a chest x-ray obtained, which shows stable left upper lobe lung mass, subsequent hilar adenopathy, COPD, without definite acute infiltrate. The patient has been treated with cefepime. I was asked to see the patient today for further recommendation of antibiotic therapy and possible sepsis. REVIEW OF SYSTEMS: Positive points have been mentioned in HPI. The rest of the systems are negative. PAST MEDICAL HISTORY: Adenocarcinoma of the lung left upper lobe, history of asthma, gastroesophageal reflux disease, hypertension, pneumonia. PAST SURGICAL HISTORY: Left lung lobectomy, lymph node biopsy, MediPort placement, appendectomy, tonsillectomy. SOCIAL HISTORY: Remote history of smoking. No drinking or drug use. FAMILY HISTORY: Father of unknown type of cancer. Mother with history of breast cancer, at age of 68. ALLERGIES: PENICILLIN with a history of rash. No history of anaphylaxis. MEDICATIONS: The patient is currently on: 1. Cefepime 1 gram every 12 hours. 2. Aspirin. 3. Tylenol. 4. Vitamin D3. 5. Pepcid. 6. Motrin. 7. Claritin. 8. Ativan. 9. Lopressor. 10.Vancomycin, pharmacy to dose. 11.Narcan. EXAMINATION: Blood pressure is 112/69 with pulse of 120, temperature 98, he is 94% on room air. GENERAL DESCRIPTION: A middle-aged male lying in bed in no distress. No tachypnea or accessory muscle of respiration use. HEENT: Slight pallor. No scleral icterus. Oral mucosa is moist. No pharyngeal erythema or thrush. NECK: Trachea central. No thyromegaly. LUNGS: Unlabored breathing. Clear to auscultation. No wheeze or crackle. HEART: S1, S2. Regular rate and rhythm. ABDOMEN: Soft, no tenderness. No guarding or rigidity. EXTREMITIES: No edema of the feet. SKIN: No rash. No masses palpable. NEUROLOGIC: The patient is awake, alert, oriented x3. Mood and affect normal. LABS: Hemoglobin is 11.6, white count 1.8. Admission white count was 1.4. Creatinine 0.80. Electrolytes have been normal. Liver enzymes are normal. UA is negative. Chest x-ray report as mentioned above. DIAGNOSTIC IMPRESSION AND PLAN: Patient admitted to the hospital with fever, in this patient who is known to have history of adenocarcinoma of the lung status post chemo with last chemo on 10/31/2018. The fever has been going on for almost 5 days. The patient also had a positive blood culture on 10/24/2018 with coagulase-negative Staph that was described as possible contamination, however, in view of MediPort, that could be the infecting pathogen for this patient currently with no clear clinical focus of infection with a chest x-ray with no acute infiltrate. His abdomen was soft and nontender examination. UA was negative. Influenza swab was not checked. PLAN: 1. [facility]. 2. We will obtain an influenza nasopharyngeal swab. 3. The patient will be continued on vancomycin, pharmacy to dose, target of 15, watching his kidney function closely. 4. We will up the dose of cefepime 2 grams every 12 hours. 5. We will follow up on his clinical condition and culture to further adjust medication if needed. Thank you for this consultation. We will follow this patient along with you. MMODL / IJN: [id number] /
[2018-11-07] MEDS ORDERED: VANCOMYCIN TROUGH DUE 1 EACH MISC MISCELLANE ONE (07:00)
[2018-11-07] MEDS: IPRATROPIUM 0.5 MG/2.5 ML NEBU INHALATION SCH ×2 (07:30→20:48)
[2018-11-07 07:39] LABS: HCT 34.5 % (39.0-53.0); HGB 11.6 gm/dL (13.0-17.5); MCHC 33.7 g/dL (31.0-37.0); MCV 88.9 fL (80.0-100.0); Mean Platelet Volume 8.1; Platelet Count 184 k/uL (150-450); RBC 3.89 m/uL (4.30-5.90); RDW 15.3 % (11.5-15.5)
[2018-11-07 07:59] LABS: ALT 37 U/L (21-72); AST 30 U/L (17-59); Albumin 3.4 g/dL (3.5-5.0); Alkaline Phosphatase 93 U/L (38-126); Anion Gap 6 mmol/L; Blood Urea Nitrogen 15 mg/dL (9-20); Calcium 9.2 mg/dL (8.4-10.2); Carbon Dioxide 32 mmol/L (22-30); Chloride 101 mmol/L (98-107); Glucose 92 mg/dL (74-99); Potassium 5.1 mmol/L (3.5-5.1); Sodium 139 mmol/L (137-145); Total Protein 5.8 g/dL (6.3-8.2)
[2018-11-07] MEDS: ASPIRIN 81 MG PO SCH (08:12)
[2018-11-07] MEDS: LORATADINE 10 MG TAB PO SCH (08:12)
[2018-11-07] MEDS: CHOLECALCIFEROL 1,000 UNIT TAB PO SCH (08:12)
[2018-11-07] MEDS: FAMOTIDINE 20 MG TAB PO SCH ×2 (08:12→21:41)
[2018-11-07] MEDS: METOPROLOL TARTRATE 25 MG TAB PO SCH ×2 (08:13→21:41)
[2018-11-07] MEDS: MULTIVITAMINS, THERA 1 EACH TAB PO SCH (08:13)
[2018-11-07 08:23] LABS: Band Neutrophils % 6 %; Eosinophils # (M) 0.07 k/uL (0-0.7); Lymphocytes # (M) 1.65 k/uL (1.0-4.8); Metamyelocytes # (M) 0.07 k/uL (0); Metamyelocytes % 1 %; Monocytes # (M) 1.19 k/uL (0-1.0); Myelocytes # (M) 0.07 k/uL (0); Myelocytes % 1 %; Neutrophils % (M) 50 %; Nucleated Red Blood Cells 1 /100 WBC (0-0); Total Cells Counted 200; WBC 6.6 k/uL (3.8-10.6)
[2018-11-07 08:24] LABS: Poikilocytosis (M) Present
[2018-11-07] MEDS ORDERED: CEFEPIME 2 GM in SODIUM CHLORIDE 0.9% 50 ML IVPB SCH (09:00)
[2018-11-07] MEDS: VANCOMYCIN 1,500 MG in SODIUM CHLORIDE 0.9% 250 ML IVPB SCH ×2 (09:13→21:41)
[2018-11-07] MEDS: OSELTAMIVIR 75 MG CAP PO SCH ×2 (10:47→21:41)
[2018-11-07] MEDS: CEFEPIME 2 GM in SODIUM CHLORIDE 0.9% 50 ML IVPB SCH (12:17)
--- NOTE | 2018-11-07 13:31 | PN ---
PROGRESS NOTE DATE OF SERVICE: 11/07/2018 REASON FOR FOLLOWUP: 1. Fever, likely acute influenza. 2. Outpatient positive blood culture, question of contamination which Mediport related. INTERVAL HISTORY: The patient is currently afebrile. He has been breathing comfortably. Denies having any headache. No chest pain. Occasional cough. No abdominal pain and no diarrhea. PHYSICAL EXAMINATION: On examination, blood pressure 104/67, pulse of 98, temperature 98.7. He is 94% on room air. General description is a middle-aged male lying in bed in no distress. RESPIRATORY SYSTEM: Unlabored breathing, clear to auscultation anteriorly. HEART: S1, S2. Regular rate and rhythm. ABDOMEN: Soft, no tenderness. LABS: White count normalized to 6.0. Creatinine is normal. Vanco trough slightly elevated. Influenza A came back positive. DIAGNOSTIC IMPRESSION AND PLAN: 1. Patient with fever, source could be likely acute influenza A. Unfortunately results were not called when it was done last night. The patient has been put on . Will add Tamiflu 75 mg p.o. to finish a 5 -day course of therapy. 2. Patient with outpatient culture positive for Staph epi in this patient who did have febrile neutropenia. His white count has normalized. Cultures are currently pending. As blood culture remains negative, recommend to and the vancomycin. Continue to monitor his clinical course closely. Continue with supportive care. KYLEL / ROLFN: [id number] /
--- NOTE | 2018-11-07 16:59 | P.PN ---
Subjective Progress Note Date: 11/07/18 Principal diagnosis: Febrile neutropenia Influenza A positive Objective - Vital Signs Vital signs: Vital Signs Temp 98.6 F 11/07/18 13:00 Pulse 85 11/07/18 13:00 Resp 20 11/07/18 13:00 BP 120/73 11/07/18 13:00 Pulse Ox 98 11/07/18 13:00 Intake & Output 11/06/18 11/07/18 11/07/18 18:59 06:59 18:59 Intake Total 850 1270 Balance 850 1270 Weight 101.151 kg Intake: Intake, IV Titration 850 550 Amount Cefepime 1 gm In Sodium 50 Chloride 0.9% 50 ml @ 100 mls/hr IVPB Q12HR [facility] Rx #:[id number] Cefepime 2 gm In Sodium 50 Chloride 0.9% 50 ml @ 100 mls/hr IVPB Q12HR [facility] Rx #:[id number] Sodium Chloride 0.9% 1, 550 000 ml @ 100 mls/hr IV . Q10H [facility] Rx#:[id number] Vancomycin 1,500 mg In 250 Sodium Chloride 0.9% 250 ml @ 125 mls/hr IVPB ONCE ONE Rx#:[id number] Vancomycin 1,500 mg In 500 Sodium Chloride 0.9% 250 ml @ 125 mls/hr IVPB Q8HR [facility] Rx#:[id number] Oral 720 Other: Voiding Method Toilet # Voids 1 2 - Exam Gen - Alert and oriented, NAD Head NC, NT Neck Supple, no cervical adenopathy Lungs Diminished, mild increased effort Heart: Tachy Reg Rhythm Abdomen: Soft, ND, NT Extremitis: No edema rashes - Labs CBC & Chem 7: 11/07/18 07:12 11/07/18 07:12 Labs: Abnormal Lab Results - Last 24 Hours (Table) 11/06/18 11/07/18 11/07/18 Range/Units Unknown 07:12 07:12 RBC 3.89 L (4.30-5.90) m/uL Hgb 11.6 L (13.0-17.5) gm/dL Hct 34.5 L (39.0-53.0) % Monocytes # (Manual) 1.19 H (0-1.0) k/uL Metamyelocytes # (Man) 0.07 H (0) k/uL Myelocytes # (Manual) 0.07 H (0) k/uL Nucleated RBCs 1 H (0-0) /100 WBC Carbon Dioxide 32 H (22-30) mmol/L Total Protein 5.8 L (6.3-8.2) g/dL Albumin 3.4 L (3.5-5.0) g/dL Influenza Type A RNA Detected H (Not Detectd) Microbiology - Last 24 Hours (Table) 11/05/18 11:30 Blood Culture - Preliminary Blood No Growth after 48 hours 11/05/18 11:30 Urine Culture - Final Urine,Voided Assessment and Plan Plan: Assessment and Recommendations: 1. Febrile Neutropenia: - No [place] stimulating factor needed at this time as he received after chemotherapy on 10/31/18 - Daily CBC with differential - Infectious Disease Following - Blood culture and Urine Cultures negative at 24 hours - Afebrile since admission 2. Adenocarcinoma of the Lung, original diagnosis in February of 2015 - Laparoscopic Wedge Resection February 2015. - October 2015 - recurrent metastatic Cancer and received Chemotherapy with Carboplatin, [place] - [phone] - Opdivo - 2018-Tecentriq - Most recently treated with q3 week Taxotere and Neulasta, Status Post cycle 3 with Neulasta on 10/31/18 3. Influenza A Positive: - Started on Tamiflu per medicine From Oncology standpoint his counts have recovered and no fevers he can go home since being treated, will defer to rest per ID and Medicine
--- NOTE | 2018-11-08 00:45 | PN ---
PROGRESS NOTE SUBJECTIVE: A 58-year-old white male with sepsis, failure of outpatient treatment. White count up to 6.9. Cardiovascular, S1-S2. Lungs clear. GI soft. Hematology negative Homans. Psych fair mood and affect. Vascular normal dorsalis pedis posterior tibial pulses. ASSESSMENT: 1. Sepsis. 2. Failure of outpatient treatment. 3. Small cell lung cancer. Wait for blood cultures to be negative prior to sending him home. He is improving in his white count. Broad-spectrum antibiotics per Dr. Bang's recommendations. MMODL / IJN: [id number] /
[2018-11-08] MEDS: CEFEPIME 2 GM in SODIUM CHLORIDE 0.9% 50 ML IVPB SCH ×3 (00:54→13:37)
[2018-11-08 09:04] VITALS: BP 102/65; PULSE 75; TEMP 98.7
[2018-11-08] MEDS: VANCOMYCIN 1,500 MG in SODIUM CHLORIDE 0.9% 250 ML IVPB SCH (09:05)
[2018-11-08 09:06] LABS: Anion Gap 6 mmol/L; Blood Urea Nitrogen 14 mg/dL (9-20); Calcium 8.8 mg/dL (8.4-10.2); Carbon Dioxide 30 mmol/L (22-30); Chloride 104 mmol/L (98-107); Glucose 94 mg/dL (74-99); Potassium 4.7 mmol/L (3.5-5.1); Sodium 140 mmol/L (137-145)
[2018-11-08] MEDS: ASPIRIN 81 MG PO SCH (09:18)
[2018-11-08] MEDS: CHOLECALCIFEROL 1,000 UNIT TAB PO SCH (09:18)
[2018-11-08] MEDS: FAMOTIDINE 20 MG TAB PO SCH (09:18)
[2018-11-08] MEDS: METOPROLOL TARTRATE 25 MG TAB PO SCH (09:19)
[2018-11-08] MEDS: OSELTAMIVIR 75 MG CAP PO SCH (09:19)
[2018-11-08] MEDS: LORATADINE 10 MG TAB PO SCH (09:19)
[2018-11-08] MEDS: IPRATROPIUM 0.5 MG/2.5 ML NEBU INHALATION SCH (10:01)
[2018-11-08] MEDS: MULTIVITAMINS, THERA 1 EACH TAB PO SCH (12:12)
--- NOTE | 2018-11-08 17:00 | P.PN ---
Subjective Progress Note Date: 11/08/18 Principal diagnosis: Febrile neutropenia Influenza A positive Labs stable just receiving supportive care Objective - Vital Signs Vital signs: Vital Signs Temp 98.7 F 11/08/18 09:02 Pulse 75 11/08/18 10:23 Resp 17 11/08/18 10:23 BP 102/65 11/08/18 09:02 Pulse Ox 98 11/08/18 09:02 Intake & Output 11/07/18 11/08/18 11/08/18 18:59 06:59 18:59 Intake Total 120 1630 1380 Balance 120 1630 1380 Intake: Intake, IV Titration 550 300 Amount Cefepime 2 gm In Sodium 50 50 Chloride 0.9% 50 ml @ 100 mls/hr IVPB Q12H [facility] Rx# :[id number] Vancomycin 1,500 mg In 500 250 Sodium Chloride 0.9% 250 ml @ 125 mls/hr IVPB Q12HR [facility] Rx#:[id number] Oral 120 1080 1080 Other: Voiding Method Toilet Toilet Toilet # Voids 2 2 3 - Exam Gen - Alert and oriented, NAD Head NC, NT Neck Supple, no cervical adenopathy Lungs Diminished, mild increased effort Heart: Tachy Reg Rhythm Abdomen: Soft, ND, NT Extremitis: No edema rashes - Labs CBC & Chem 7: 11/07/18 07:12 11/08/18 07:49 Labs: Microbiology - Last 24 Hours (Table) 11/05/18 11:30 Blood Culture - Preliminary Blood No Growth after 72 hours 11/06/18 23:22 Blood Culture - Preliminary Blood No Growth after 24 hours 11/06/18 22:56 Blood Culture - Preliminary Blood No Growth after 24 hours Assessment and Plan Plan: Assessment and Recommendations: 1. Febrile Neutropenia: - No [place] stimulating factor needed at this time as he received after chemotherapy on 10/31/18 - Daily CBC with differential - Infectious Disease Following - Blood culture and Urine Cultures negative at 24 hours - Afebrile since admission 2. Adenocarcinoma of the Lung, original diagnosis in February of 2015 - Laparoscopic Wedge Resection February 2015. - October 2015 - recurrent metastatic Cancer and received Chemotherapy with Carboplatin, [place] - [phone] - Opdivo - 2018-Tecentriq - Most recently treated with q3 week Taxotere and Neulasta, Status Post cycle 3 with Neulasta on 10/31/18 3. Influenza A Positive: - Started on Tamiflu per medicine COntinue supportive care and encourage po intake, fluids and activity From Oncology standpoint his counts have recovered and no fevers he can go home since being treated, will defer to rest per ID and Medicine
[2018-11-08 17:15] VITALS: RESP 18
--- NOTE | 2018-11-08 17:53 | PN ---
PROGRESS NOTE DATE OF SERVICE: 11/08/2018 REASON FOR FOLLOWUP: Acute influenza. INTERVAL HISTORY: The patient is currently afebrile. The patient denies having any chest pain or shortness of breath or cough. Complaining of slight wooziness of his stomach, but no nausea, vomiting or any diarrhea. PHYSICAL EXAMINATION: Blood pressure is 102/65, pulse of 75, temperature 98.7. He is 98% on room air. General description is a middle-aged male lying in bed in no distress. RESPIRATORY SYSTEM: Unlabored breathing. Clear to auscultation anteriorly. HEART: S1, S2. Regular rate and rhythm. ABDOMEN: Soft. No tenderness. LABS: Hemoglobin is 11.6, white count 6.6, BUN of 14, creatinine 0.83. Blood culture has been negative. DIAGNOSTIC IMPRESSION AND PLAN: 1. Patient with a fever. Source is likely acute influenza. Patient responded to oral Tamiflu. To continue to finish a 5-day course of therapy. 2. Patient currently with no evidence of any bacterial infection. Recommend to discontinue antibiotic therapy. Plan of care was discussed with the attending physician. MMFARRUKHL / IJN: [id number] /
== END 2018-11-08 18:30 | disposition home or self-care (01) | DRG 872 ==
LOC: EC 09:58 → 3NMEDONC 14:36
PROVIDERS: ADMIT Family Medicine; ATTEND Family Medicine
DX: A41.9 Sepsis, unspecified organism (principal); D61.818 Other pancytopenia; C34.90 Malignant neoplasm of unspecified part of unspecified bronchus or lung; I10 Essential (primary) hypertension; J44.9 Chronic obstructive pulmonary disease, unspecified; K21.9 Gastro-esophageal reflux disease without esophagitis; N40.0 Benign prostatic hyperplasia without lower urinary tract symptoms; Z79.82 Long term (current) use of aspirin; Z79.899 Other long term (current) drug therapy; Z80.3 Family history of malignant neoplasm of breast; Z87.891 Personal history of nicotine dependence; Z92.21 Personal history of antineoplastic chemotherapy; Z88.0 Allergy status to penicillin
CPT/HCPCS: 36415; 71046; 80048; 80053; 80202; 81003; 82550; 82553; 83605; 84484; 85025; 85610; 85730; 87040; 87086; 87502; 93005; 94640; 96361; 96365; 96367; 99285

== ENCOUNTER → 2018-11-20 | Outpatient (CLI) | payer OTHER ==
[2018-11-20 13:33] LABS: Blood Urea Nitrogen 14 mg/dL (9-20)
--- NOTE | 2018-11-20 14:29 | CT ---
EXAMINATION TYPE: CT chest w con DATE OF EXAM: 11/20/2018 COMPARISON: 08/30/2018 HISTORY: follow up lung ca CT DLP: 415.2 mGycm Automated exposure control for dose reduction was used. CONTRAST: CT scan of the chest is performed with IV Contrast, patient injected with 100 mL of Isovue 300. FINDINGS: LUNGS: There are diffuse emphysematous changes. Spiculated density 8 mm right lung apex stable. Left upper lobe mass abutting the margin of the mediastinum measures 5.8 x 4.6 cm and previously jesus ured 5.0 x 4.4 cm. Linear radiodense area within the lesion may be related to previous surgery or pro cedure correlate clinically. Findings stable. Scattered areas of subsegmental consolidation and pleural thickening are noted. Findings suggestive o f interlobular septal thickening and chronic interstitial lung disease are noted. Right hilar soft ti ssue fullness persists with peribronchial thickening measuring approximately 2.5 cm and stable. Tiny pericardial effusion noted. MEDIASTINUM: Right suprahilar soft tissue density again measures approximately 2.5 cm stable.. The a scending aorta diameter at the level of the main pulmonary artery is 3.1 cm. The main pulmonary arter y diameter at the bifurcation is 2.7 cm. Marked thickening of the esophageal wall persists. Previous gallbladder surgery noted. OTHER: Hypertrophic change of the spine noted. Findings suggestive of gynecomastia noted.. IMPRESSION: 1. Large left upper lobe mass is increased in size from the prior exam measuring 5.8 x 4.6 cm and pre viously measuring 5.0 x 4.4 cm. 2. Right suprahilar soft tissue mass or adenopathy measuring 2.5 cm is stable. 3. Marked esophageal wall thickening stable correlate for history of severe esophagitis or esophageal malignancy. 4. Spiculated density right apex measuring 8 mm stable.
== END | disposition home or self-care (01) ==
LOC: RADPROMAIN 12:41
PROVIDERS: ATTEND Internal Medicine Hematology & Oncology
DX: C34.12 Malignant neoplasm of upper lobe, left bronchus or lung (principal); J98.4 Other disorders of lung
CPT/HCPCS: 82565; 84520; 71260; J1642; Q9967

== ENCOUNTER 2019-01-09 13:04 | Inpatient (IN) | payer MEDICARE, OTHER ==
[2019-01-09] MEDS ORDERED: SODIUM CHLORIDE 0.9% 1,000 ML IV ONE ×2 (13:15→15:28)
[2019-01-09] MEDS ORDERED: IBUPROFEN 600 MG TAB PO STA (13:32)
--- NOTE | 2019-01-09 13:33 | ED ---
URI HPI <Abad Schumacher - Last Filed: 01/09/19 16:11> - General Source: patient Mode of arrival: ambulatory Limitations: no limitations <Eugenia Elena - Last Filed: 01/09/19 17:19> - General Chief Complaint: Upper Respiratory Infection Stated Complaint: Fever Time Seen by Provider: 01/09/19 13:14 - History of Present Illness Initial Comments: 58-year-old male with history of lung cancer currently on chemotherapy provided by Dr. Chandra, previous lobectomy with radiation presenting today for chief complaint of fever and increasing cough. Patient states that for the past 2 nights he has developed a cough that has been increasing severity, denies hemoptysis. He states today he developed a fever over 101.6 max, pt took Tylenol 1 hour prior to arrival. Denies recent antibiotic use. Patient states that he has chronic shortness of breath since his lobectomy and radiation. He states he does not feel there is a significant difference in shortness of breath aside from when he coughs. Patient did mention that he had left-sided chest pain that has been on and off for the past week, he states it is at the site of surgery and not sure if its related. Patient denies a pattern with dyspnea or dyspnea upon exertion. Patient denies any recent back pain, abdominal pain, nausea or vomiting, numbness or tingling, dysuria or hematuria, constipation or diarrhea, headaches or visual changes, or any other complaints. Upon arrival patient HR elevated, low grade fever. (Eugenia Elena) - Related Data Home Medications Medication Instructions Recorded Confirmed Cholecalciferol [Vitamin D3] 1,000 unit PO DAILY 05/31/16 01/09/19 Docusate [Colace] 200 mg PO BID PRN 05/31/16 01/09/19 Loratadine [Claritin] 10 mg PO DAILY 05/31/16 01/09/19 Metoprolol Tartrate [Lopressor] 25 mg PO BID 05/31/16 01/09/19 Multivitamin [Men's Multi-Vitamin] 1 tab PO DAILY 05/31/16 01/09/19 [place]-3 Fatty Acids/Fish Oil [Fish 1 cap PO DAILY 05/31/16 01/09/19 Oil 1,000 mg Softgel] Aspirin [Adult Low Dose Aspirin EC] 81 mg PO DAILY 01/24/17 01/09/19 Flaxseed Oil [[place]-3 Flaxseed Oil] 1,000 mg PO DAILY 01/24/17 01/09/19 Garlic 1 tab PO DAILY 06/18/18 01/09/19 Ipratropium [place] [Atrovent Hfa] 2 puff INHALATION RT-BID PRN 06/18/18 01/09/19 Ipratropium-Albuterol Nebulize 3 ml INHALATION RT-TID 01/09/19 01/09/19 [Duoneb 0.5 mg-3 mg/3 ml Soln] Allergies Allergy/AdvReac Type Severity Reaction Status Date / Time Penicillins Allergy Rash/Hives Verified 01/09/19 13:37 Review of Systems ROS Other: All systems not noted in ROS Statement are negative. <Abad Schumacher - Last Filed: 01/09/19 16:11> ROS Other: All systems not noted in ROS Statement are negative. <Eugenia Elena - Last Filed: 01/09/19 17:19> ROS Statement: Those systems with pertinent positive or pertinent negative responses have been documented in the HPI. Past Medical History Past Medical History: Asthma, Cancer, COPD, GERD/Reflux, Hypertension, Pneumonia Additional Past Medical History / Comment(s): L lung cancer with surgery/ch emo/radiation and currently immunosuppressive therapy, edentulous,dysphagia History of Any Multi-Drug Resistant Organisms: None Reported Past Surgical History: Appendectomy, Tonsillectomy Additional Past Surgical History / Comment(s): L lung lobectomy/lymph node biopsy, mediport R IJ, EGD with bx. Past Anesthesia/Blood Transfusion Reactions: No Reported Reaction Past Psychological History: No Psychological Hx Reported Smoking Status: Former smoker - Past Family History Father Brother(s) Family Medical History: Cancer Additional Family Medical History / Comment(s): Father of unknown type of cancer. Mother Family Medical History: Cancer Additional Family Medical History / Comment(s): Mother from breast cancer at the age of 68yrs. Brother(s) Family Medical History: Cancer Additional Family Medical History / Comment(s): 1 brother had bowel cancer, 1 brother had a chest mass and thoracic aneurysm ant at the age of 62yrs. <Kinter,Eugenia L - Last Filed: 01/09/19 17:19> General Exam Limitations: no limitations <KassyEugenia L - Last Filed: 01/09/19 17:19> Course Vital Signs 01/09/19 01/09/19 01/09/19 13:11 14:00 14:40 Temperature 99.2 F Pulse Rate 122 H 107 H Respiratory 20 15 Rate Blood Pressure 142/65 109/77 120/74 O2 Sat by Pulse 95 94 L Oximetry 01/09/19 01/09/19 01/09/19 14:50 15:00 15:10 Temperature Pulse Rate 105 H 111 H Respiratory 10 L 19 Rate Blood Pressure 120/74 120/74 120/74 O2 Sat by Pulse 97 96 Oximetry 01/09/19 01/09/19 01/09/19 15:20 15:30 15:40 Temperature Pulse Rate 112 H 112 H 114 H Respiratory 9 L 16 12 Rate Blood Pressure 120/74 120/74 102/69 O2 Sat by Pulse 95 95 95 Oximetry 01/09/19 01/09/19 01/09/19 15:50 16:00 16:10 Temperature Pulse Rate 112 H 107 H 105 H Respiratory 12 18 20 Rate Blood Pressure 102/69 102/69 96/65 O2 Sat by Pulse 95 95 96 Oximetry 01/09/19 01/09/19 16:20 16:30 Temperature Pulse Rate 105 H 104 H Respiratory 21 22 Rate Blood Pressure 96/65 96/65 O2 Sat by Pulse 96 95 Oximetry Medical Decision Making - Lab Data Result diagrams: 01/09/19 13:42 01/09/19 13:42 <Abad Schumacher - Last Filed: 01/09/19 16:11> - Lab Data Result diagrams: 01/09/19 13:42 01/09/19 13:42 <Eugenia Elena L - Last Filed: 01/09/19 17:19> - Medical Decision Making 58-year-old male presenting for fever, increasing cough. Patient immunocompromised receiving chemotherapy for lung cancer. Laboratory studies revealed leukopenia. Pt states last week he had intermittent chest pain on the lest side of chest, denies current upon ROS. Negative CTA negative for pulmonary embolism, no acute cardio pulmonary process at this time. Patient started on broad-spectrum antibiotics. Influenza (-). Pt will be admitted for fever, upper respiratory symptoms in immunocompromised patient. She was evaluated by attending provider. Agreeable with plan and admission. Dr. Schumacher spoke with the admitting provider Dr. Burroughs, who accepted admission with no further orders. Heme/onco on consult. Pt agreeable with admission. Discussed laboratory and imaging studies patient, answered all questions with viability. Patient agreeable to admission. (Eugenia Elena) - Lab Data Lab Results 01/09/19 01/09/19 01/09/19 Range/Units 13:42 13:42 13:42 WBC 1.7 L (3.8-10.6) k/uL RBC 4.37 (4.30-5.90) m/uL Hgb 12.1 L (13.0-17.5) gm/dL Hct 37.7 L (39.0-53.0) % MCV 86.2 (80.0-100.0) fL MCH 27.6 (25.0-35.0) pg MCHC 32.0 (31.0-37.0) g/dL RDW 14.6 (11.5-15.5) % Plt Count 211 (150-450) k/uL Neutrophils % (Manual) 12 % Lymphocytes % (Manual) 63 % Monocytes % (Manual) 22 % Eosinophils % (Manual) 3 % Neutrophils # [employer] Neutrophils # (Manual) 0.20 L* (1.3-7.7) k/uL Lymphocytes # (Manual) 1.07 (1.0-4.8) k/uL Monocytes # (Manual) 0.37 (0-1.0) k/uL Eosinophils # (Manual) 0.05 (0-0.7) k/uL Nucleated RBCs 0 (0-0) /100 WBC Manual Slide Review Performed RBC Morphology Normal D-Dimer (<0.60) mg/L FEU Sodium 136 L (137-145) mmol/L Potassium 4.2 (3.5-5.1) mmol/L Chloride 103 (98-107) mmol/L Carbon Dioxide 26 (22-30) mmol/L Anion Gap 7 mmol/L BUN 15 (9-20) mg/dL Creatinine 0.82 (0.66-1.25) mg/dL Est GFR (CKD-EPI)AfAm >90 (>60 ml/min/1.73 sqM) Est GFR (CKD-EPI)NonAf >90 (>60 ml/min/1.73 sqM) Glucose 128 H (74-99) mg/dL Plasma Lactic Acid Brad 1.1 (0.7-2.0) mmol/L Calcium 8.8 (8.4-10.2) mg/dL Total Bilirubin 0.5 (0.2-1.3) mg/dL AST 23 (17-59) U/L ALT 22 (21-72) U/L Alkaline Phosphatase 81 (38-126) U/L Troponin I (0.000-0.034) ng/mL Total Protein 6.2 L (6.3-8.2) g/dL Albumin 3.4 L (3.5-5.0) g/dL 01/09/19 01/09/19 Range/Units 13:42 13:47 WBC (3.8-10.6) k/uL RBC (4.30-5.90) m/uL Hgb (13.0-17.5) gm/dL Hct (39.0-53.0) % MCV (80.0-100.0) fL MCH (25.0-35.0) pg MCHC (31.0-37.0) g/dL RDW (11.5-15.5) % Plt Count (150-450) k/uL Neutrophils % (Manual) % Lymphocytes % (Manual) % Monocytes % (Manual) % Eosinophils % (Manual) % Neutrophils # Neutrophils # (Manual) (1.3-7.7) k/uL Lymphocytes # (Manual) (1.0-4.8) k/uL Monocytes # (Manual) (0-1.0) k/uL Eosinophils # (Manual) (0-0.7) k/uL Nucleated RBCs (0-0) /100 WBC Manual Slide Review RBC Morphology D-Dimer 0.68 H (<0.60) mg/L FEU Sodium (137-145) mmol/L Potassium (3.5-5.1) mmol/L Chloride (98-107) mmol/L Carbon Dioxide (22-30) mmol/L Anion Gap mmol/L BUN (9-20) mg/dL Creatinine (0.66-1.25) mg/dL Est GFR (CKD-EPI)AfAm (>60 ml/min/1.73 sqM) Est GFR (CKD-EPI)NonAf (>60 ml/min/1.73 sqM) Glucose (74-99) mg/dL Plasma Lactic Acid Brad (0.7-2.0) mmol/L Calcium (8.4-10.2) mg/dL Total Bilirubin (0.2-1.3) mg/dL AST (17-59) U/L ALT (21-72) U/L Alkaline Phosphatase (38-126) U/L Troponin I <0.012 (0.000-0.034) ng/mL Total Protein (6.3-8.2) g/dL Albumin (3.5-5.0) g/dL Disposition <Abad Schumacher - Last Filed: 01/09/19 16:11> Is patient prescribed a controlled substance at d/c from ED?: No Time of Disposition: 15:25 Decision to Admit Reason: Admit from EC Decision Date: 01/09/19 Decision Time: 15:25 <Eugenia Elena - Last Filed: 01/09/19 17:19> Clinical Impression: Fever, Immunocompromised, Atypical chest pain, Leukopenia Disposition: ADMITTED IP TO THIS [facility] Condition: Stable
[2019-01-09 14:15] LABS: ALT 22 U/L (21-72); AST 23 U/L (17-59); Albumin 3.4 g/dL (3.5-5.0); Alkaline Phosphatase 81 U/L (38-126); Anion Gap 7 mmol/L; Blood Urea Nitrogen 15 mg/dL (9-20); Calcium 8.8 mg/dL (8.4-10.2); Carbon Dioxide 26 mmol/L (22-30); Chloride 103 mmol/L (98-107); Glucose 128 mg/dL (74-99); Potassium 4.2 mmol/L (3.5-5.1); Sodium 136 mmol/L (137-145); Total Bilirubin 0.5 mg/dL (0.2-1.3); Total Protein 6.2 g/dL (6.3-8.2)
--- NOTE | 2019-01-09 14:18 | XR ---
EXAMINATION TYPE: XR chest 2V DATE OF EXAM: 01/09/2019 COMPARISON: Chest x-ray November 05, 2018. Chest CT November 20, 2018. HISTORY: History of lung cancer with shortness of breath and pain. TECHNIQUE: Frontal and lateral views of the chest are obtained. FINDINGS: There is stable right internal jugular Mediport catheter. There is background chronic emph ysematous change with left suprahilar neoplasm. No new suspicious focal airspace opacity, pleural eff usion, or pneumothorax is seen. Cardiac silhouette size is stable and within normal limits. Underlyin g S-shaped scoliosis is present. IMPRESSION: Chronic emphysematous change with left suprahilar mass/neoplasm redemonstrated. No suspi cious acute pulmonary process. No significant change from prior studies.
[2019-01-09 14:28] LABS: HCT 37.7 % (39.0-53.0); HGB 12.1 gm/dL (13.0-17.5); MCH 27.6 pg (25.0-35.0); MCV 86.2 fL (80.0-100.0); Mean Platelet Volume 7.4; Platelet Count 211 k/uL (150-450); RBC 4.37 m/uL (4.30-5.90); RDW 14.6 % (11.5-15.5); WBC 1.7 k/uL (3.8-10.6)
[2019-01-09 14:38] LABS: Neutrophils % (M) 12 %
[2019-01-09 14:40] LABS: Eosinophils # (M) 0.05 k/uL (0-0.7); Lymphocytes # (M) 1.07 k/uL (1.0-4.8); Monocytes # (M) 0.37 k/uL (0-1.0); Nucleated Red Blood Cells 0 /100 WBC (0-0); Total Cells Counted 100
[2019-01-09] MEDS ORDERED: LEVOFLOXACIN 750MG-D5W PMX 750 MG in DEXTROSE/WATER 1 150ML.BAG IVPB STA (14:48)
[2019-01-09] MEDS ORDERED: CEFEPIME 1 GM in SODIUM CHLORIDE 0.9% 50 ML IVPB STA (15:15)
--- NOTE | 2019-01-09 15:21 | CT ---
EXAMINATION TYPE: CT chest angio for PE DATE OF EXAM: 01/09/2019 COMPARISON: CT chest November 20, 2018 HISTORY: Fever today. History of lung cancer. Chest pain. CT DLP: 403.1 mGycm. Automated Exposure Control for Dose Reduction was Utilized. CONTRAST: CTA scan of the thorax is performed with IV Contrast, patient injected with 71 mL of Isovue 370, pulm onary embolism protocol. MIP Images are created on CT scanner and reviewed. FINDINGS: LUNGS: Moderate to advanced underlying emphysematous change is redemonstrated. There is persistent le ft suprahilar mass/neoplasm with hilar extension inferiorly. There is persistent anterior superior lo w dense consolidation suggesting trapped focal pleural fluid near axial image 38. Surgical sutures ne ar this level are noted medially. Reticular interstitial changes in bilateral periphery remain presen t slightly more prominent than prior study suggesting interstitial edema background fibrosis. No new suspicious focal consolidation is seen. Elevated left hemidiaphragm is redemonstrated. MEDIASTINUM: There is satisfactory enhancement of the pulmonary artery and its branches, there is no CT evidence for pulmonary embolism. There are persistent enlarged confluent right hilar lymph nodes near axial image 61. No cardiomegaly or pericardial effusion is seen. Moderate to severe wall thick ening of the mid to distal esophagus remains present similar to prior with air-filled dilatation prox imally. OTHER: there is stable right internal jugular Mediport catheter. IMPRESSION: No CT evidence for acute pulmonary embolism. No significant change from most recent CT. N o new suspicious acute pulmonary process. Chronic findings as detailed above redemonstrated.
[2019-01-09] MEDS ORDERED: NALOXONE 0.4 MG/ML 1 ML VIAL IV PRN (15:25)
[2019-01-09] MEDS: SODIUM CHLORIDE 0.9% 1,000 ML IV SCH (16:40)
[2019-01-09] MEDS ORDERED: DOCUSATE 100 MG CAP PO PRN (17:38)
[2019-01-09] MEDS ORDERED: IPRATROPIUM 0.5 MG/2.5 ML NEBU INHALATION PRN (17:38)
[2019-01-09 18:58] LABS: Appearance,Urine Clear (Clear); Bilirubin,Urine Negative (Negative); Blood,Urine Negative (Negative); Color,Urine Light Yellow; Glucose,Urine (UA) Negative (Negative); Ketones,Urine Negative (Negative); Leukocyte Esterase,Urine Negative (Negative); Nitrite,Urine Negative (Negative); PH, Urine 6.5 (5.0-8.0); Protein,Urine Negative (Negative); Specific Gravity,Urine 1.042 (1.001-1.035); Urobilinogen,Urine <2.0 mg/dL (<2.0)
[2019-01-09] MEDS: IPRATROPIUM-ALBUTEROL 3 ML NEB INHALATION SCH (20:01)
[2019-01-09] MEDS: METOPROLOL TARTRATE 25 MG TAB PO SCH (20:55)
[2019-01-10] MEDS: SODIUM CHLORIDE 0.9% 1,000 ML IV SCH ×2 (00:39→18:14)
--- NOTE | 2019-01-10 00:42 | HP ---
HISTORY AND PHYSICAL SUBJECTIVE: White male was admitted to hospital with shortness of breath, cough, congestion, chest pain. CT scan of the chest showed moderate to severe emphysema and distal thickening of the distal esophagus. Continues to have cough, congestion, green yellow phlegm, chronic shortness of breath, worsening over the past week. No dysuria, frequency, urgency, hesitancy. No abdominal pain, nausea, vomiting. REVIEW OF SYMPTOMS: 14-point review of systems negative except for mentioned in HPI. HOME MEDICINES: Reviewed include vitamin D, Colace, Claritin, Lopressor, Atrovent, DuoNeb. ALLERGIES: PENICILLINS. SURGERIES: Appendectomy, tonsillectomy, had left lobe lobectomy due to lung cancer with a MediPort, lymph node biopsy. FAMILY HISTORY: Brother, cancer, unclear. Mother with cancer of the breast. Brother with cancer of the bowel. PHYSICAL EXAM: Vital signs stable. Afebrile. Cardiovascular S1, S2. Lungs scattered wheeze and rhonchi x4. Hematology: Negative Homans. Psych: Fair mood and affect. Ophthalmologic: Pupils equal, round, reactive. LABS: Reviewed and include hemoglobin 12.1, white count 1.7. ASSESSMENT: 1. Fever, immunocompromised. 2. Chronic obstructive pulmonary disease exacerbation with tracheobronchitis. 3. Leukopenia. Rule out sepsis. Broad-spectrum antibiotics. Sepsis workup. Pulmonary consult. MMODL / IJN: [id number] /
--- NOTE | 2019-01-10 00:48 | PN ---
PROGRESS NOTE SUBJECTIVE: A 58-year-old white male with fever, immunocompromised nature. Severe pancytopenia, hemoglobin 6.6. One unit of irradiated blood has been ordered. He remains on chemotherapy which can be given tomorrow again. Vital signs stable. Afebrile. Cardiovascular S1, S2. Lungs clear. ASSESSMENT: 1. Acute myelocytic leukemia. 2. History of lymphoma. 3. Severe pancytopenia. Transfusion due to severe anemia 1 unit of blood. Await CBC in the morning. MMODL / IJN: [id number] /
[2019-01-10] MEDS: METOPROLOL TARTRATE 25 MG TAB PO SCH ×2 (08:04→20:15)
[2019-01-10] MEDS: LORATADINE 10 MG TAB PO SCH (08:04)
[2019-01-10] MEDS: ASPIRIN 81 MG PO SCH (08:04)
[2019-01-10] MEDS: CHOLECALCIFEROL 1,000 UNIT TAB PO SCH (08:04)
[2019-01-10] MEDS: MULTIVITAMINS, THERA 1 EACH TAB PO SCH (08:04)
[2019-01-10] MEDS: IPRATROPIUM-ALBUTEROL 3 ML NEB INHALATION SCH ×3 (08:35→21:12)
[2019-01-10] MEDS ORDERED: NON-FORMULARY DRUG (Flaxseed Oil [Omega-3 Flaxseed Oil] 1,000 MG) PO SCH (09:00)
[2019-01-10] MEDS ORDERED: NON-FORMULARY DRUG (Omega-3 Fatty Acids/Fish Oil [Fish Oil 1,000 Mg Softgel] 1 CAP) PO SCH (09:00)
--- NOTE | 2019-01-10 11:54 | P.CNPUL ---
History of Present Illness Consult date: 01/10/19 Reason for consult: dyspnea, cough, lung mass Chief complaint: Fevers History of present illness: This is a 58-year-old gentleman with known lung adenocarcinoma who presented emergency department complaining of fevers and cough. The patient states this started yesterday afternoon. He had a fever of 101.6 at home. He took Tylenol and rechecked and it was 101.3. The patient is currently on chemotherapy for his adenocarcinoma. He states his last chemotherapy was 2 weeks ago. He is a former smoker and quit smoking in 2014. The patient states he did have one episode of watery diarrhea this morning. He did cough up phlegm mixed with streaks of blood. He states the blood is probably coming from his nose. He states when he blows his nose he does get blood clots out. He uses duo nebs 3 times a day at home. He states he does not follow with a nurse's assistant in the office. Review of Systems All systems: negative Past Medical History Past Medical History: Asthma, Cancer, COPD, GERD/Reflux, Hypertension, Pneumonia Additional Past Medical History / Comment(s): L lung cancer with surgery/chemo/radiation and currently immunosuppressive therapy, edentulous,dysphagia History of Any Multi-Drug Resistant Organisms: None Reported Past Surgical History: Appendectomy, Tonsillectomy Additional Past Surgical History / Comment(s): L lung lobectomy/lymph node biopsy, mediport R IJ, EGD with bx. Past Anesthesia/Blood Transfusion Reactions: No Reported Reaction Past Psychological History: No Psychological Hx Reported Smoking Status: Former smoker - Past Family History Father Brother(s) Family Medical History: Cancer Additional Family Medical History / Comment(s): Father of unknown type of cancer. Mother Family Medical History: Cancer Additional Family Medical History / Comment(s): Mother from breast cancer at the age of 68yrs. Brother(s) Family Medical History: Cancer Additional Family Medical History / Comment(s): 1 brother had bowel cancer, 1 b rother had a chest mass and thoracic aneurysm ant at the age of 62yrs. Medications and Allergies Home Medications Medication Instructions Recorded Confirmed Type Cholecalciferol [Vitamin D3] 1,000 unit PO DAILY 05/31/16 01/09/19 History Docusate [Colace] 200 mg PO BID PRN 05/31/16 01/09/19 History Loratadine [Claritin] 10 mg PO DAILY 05/31/16 01/09/19 History Metoprolol Tartrate [Lopressor] 25 mg PO BID 05/31/16 01/09/19 History Multivitamin [Men's Multi-Vitamin] 1 tab PO DAILY 05/31/16 01/09/19 History [place]-3 Fatty Acids/Fish Oil [Fish 1 cap PO DAILY 05/31/16 01/09/19 History Oil 1,000 mg Softgel] Aspirin [Adult Low Dose Aspirin EC] 81 mg PO DAILY 01/24/17 01/09/19 History Flaxseed Oil [[place]-3 Flaxseed Oil] 1,000 mg PO DAILY 01/24/17 01/09/19 History Garlic 1 tab PO DAILY 06/18/18 01/09/19 History Ipratropium [place] [Atrovent Hfa] 2 puff INHALATION RT-BID PRN 06/18/18 01/09/19 History Ipratropium-Albuterol Nebulize 3 ml INHALATION RT-TID 01/09/19 01/09/19 History [Duoneb 0.5 mg-3 mg/3 ml Soln] Allergies Allergy/AdvReac Type Severity Reaction Status Date / Time Penicillins Allergy Rash/Hives Verified 01/09/19 13:37 Physical Exam Osteopathic Statement: *. No significant issues noted on an osteopathic structural exam other than those noted in the History and Physical/Consult. Vitals: Vital Signs Temp Pulse Pulse Resp BP BP Pulse Ox 01/10/19 08:46 110 H 01/10/19 08:37 114 H 96 01/10/19 05:00 98.6 F 110 H 16 125/79 95 01/09/19 21:00 98.4 F 94 16 111/68 98 01/09/19 20:23 97 01/09/19 20:06 97 01/09/19 16:55 98.1 F 105 H 16 100/66 96 01/09/19 16:30 104 H 22 96/65 95 01/09/19 16:20 105 H 21 96/65 96 01/09/19 16:10 105 H 20 96/65 96 01/09/19 16:00 107 H 18 102/69 95 01/09/19 15:50 112 H 12 102/69 95 01/09/19 15:40 114 H 12 102/69 95 01/09/19 15:30 112 H 16 120/74 95 01/09/19 15:20 112 H 9 L 120/74 95 01/09/19 15:10 111 H 19 120/74 96 01/09/19 15:00 120/74 01/09/19 14:50 105 H 10 L 120/74 97 01/09/19 14:40 107 H 15 120/74 94 L 01/09/19 14:00 109/77 01/09/19 13:11 99.2 F 122 H 20 142/65 95 Intake and Output 01/09/19 01/10/19 01/10/19 22:59 06:59 14:59 Intake Total 590 1240 Balance 590 1240 Intake: Intake, IV Titration 650 Amount Sodium Chloride 0.9% 1, 650 000 ml @ 75 mls/hr IV . [id number] Rx#:[id number] Oral 590 590 Other: Voiding Method Toilet Toilet # Voids 2 2 Gen.: Patient is alert and oriented 3, no acute distress Cardiovascular: Regular rate and rhythm, S1/S2 Lungs: Clear to auscultation bilaterally no wheezes rales or rhonchi Abdomen: Soft nontender nondistended positive bowel sounds Extremities: No edema Results - Laboratory Findings CBC and BMP: 01/09/19 13:42 01/09/19 13:42 PT/INR, D-dimer D-Dimer 0.68 mg/L FEU (<0.60) H 01/09/19 13:47 Abnormal lab findings: Abnormal Labs 01/09/19 01/09/19 01/09/19 13:42 13:42 13:47 WBC 1.7 L Hgb 12.1 L Hct 37.7 L Neutrophils # (Manual) 0.20 L* D-Dimer 0.68 H Sodium 136 L Glucose 128 H Total Protein 6.2 L Albumin 3.4 L Ur Specific [place] 01/09/19 17:27 WBC Hgb Hct Neutrophils # (Manual) D-Dimer Sodium Glucose Total Protein Albumin Ur Specific [place] 1.042 H - Diagnostic Findings Chest x-ray: report reviewed, image reviewed CT scan - chest: report reviewed, image reviewed Assessment and Plan Assessment: Febrile neutropenia Immunocompromised state 2/4 SIRS Left lung mass with ongoing treatment for adenocarcinoma Radiation pneumonitis Tracheobronchitis Diarrhea Acute exacerbation of COPD History of tobacco abuse, in remission GERD Hypertension s/p left lobectomy Mild PCM O2 to maintain saturation > or = 90% ABX: Cefepime and Levaquin Consult ID Sputum, blood, urine cultures Stool for cdiff Heme/onc recs Check Influenza GI and DVT prophylaxis IS and pulmonary hygiene Duonebs and Pulmicort Thank you for this consultation. We will continue to follow along.
[2019-01-10] MEDS: FILGRASTIM-SNDZ 480 MCG/0.8 ML SYRINGE SQ SCH (12:50)
--- NOTE | 2019-01-10 14:01 | P.GSCN ---
History of Present Illness Consult date: 01/10/19 Reason for Consult: Esophageal thickening Requesting physician: Cheng Burroughs History of present illness: CHIEF COMPLAINT: Esophageal thickening HISTORY OF PRESENT ILLNESS: 58-year-old male with history of lung cancer presented to the hospital secondary to fever and cough. Patient underwent CTA of the chest which revealed esophageal thickening. General surgery was consulted for further evaluation. Patient examined at the bedside w mahendra Abel. Patient does report increased heartburn lately. He also reports increased coughing and at times hemoptysis. Occasional dysphagia. PAST MEDICAL HISTORY: See list. PAST SURGICAL HISTORY: See list. SOCIAL HISTORY: No illicit drug use. REVIEW OF SYSTEMS: CONSTITUTIONAL: Reports fevers. HEENT: Denies blurred vision, vision changes, or eye pain. Reports occasional hemoptysis CARDIOVASCULAR: Denies chest pain or pressure. RESPIRATORY: History of lung cancer. No shortness of breath. GASTROINTESTINAL: Refer to HPI for pertinent findings HEMATOLOGIC: Denies bleeding disorders. GENITOURINARY: Denies any blood in urine. SKIN: Denies pruitis. Denies rash. PHYSICAL EXAM: VITAL SIGNS: Reviewed. GENERAL: Well-developed in no acute distress. HEENT: No sclera icterus. Extraocular movements grossly intact. Moist buccal mucosa. Head is atraumatic, normocephalic. ABDOMEN: Soft. Nondistended. Nontender. NEUROLOGIC: Alert and oriented. Cranial nerves II through XII grossly intact. ASSESSMENT: 1. Esophageal thickening PLAN: Dr. Abel explained CT results to patient the bedside. Dr. Abel recommends EGD. Patient agreeable. NPO after midnight. Patient to undergo EGD tomorrow. Nurse practitioner note has been reviewed by physician. Signing provider agrees with the documented findings, assessment, and plan of care. Past Medical History Past Medical History: Asthma, Cancer, COPD, GERD/Reflux, Hypertension, Pneumonia Additional Past Medical History / Comment(s): L lung cancer with surgery/chemo/radiation and currently immunosuppressive therapy, edentulous,dysphagia History of Any Multi-Drug Resistant Organisms: None Reported Past Surgical History: Appendectomy, Tonsillectomy Additional Past Surgical History / Comment(s): L lung lobectomy/lymph node biopsy, mediport R IJ, EGD with bx. Past Anesthesia/Blood Transfusion Reactions: No Reported Reaction Past Psychological History: No Psychological Hx Reported Smoking Status: Former smoker - Past Family History Father Brother(s) Family Medical History: Cancer Additional Family Medical History / Comment(s): Father of unknown type of cancer. Mother Family Medical History: Cancer Additional Family Medical History / Comment(s): Mother from breast cancer at the age of 68yrs. Brother(s) Family Medical History: Cancer Additional Family Medical History / Comment(s): 1 brother had bowel cancer, 1 brother had a chest mass and thoracic aneurysm ant at the age of 62yrs. Medications and Allergies Home Medications Medication Instructions Recorded Confirmed Type Cholecalciferol [Vitamin D3] 1,000 unit PO DAILY 05/31/16 01/09/19 History Docusate [Colace] 200 mg PO BID PRN 05/31/16 01/09/19 History Loratadine [Claritin] 10 mg PO DAILY 05/31/16 01/09/19 History Metoprolol Tartrate [Lopressor] 25 mg PO BID 05/31/16 01/09/19 History Multivitamin [Men's Multi-Vitamin] 1 tab PO DAILY 05/31/16 01/09/19 History [place]-3 Fatty Acids/Fish Oil [Fish 1 cap PO DAILY 05/31/16 01/09/19 History Oil 1,000 mg Softgel] Aspirin [Adult Low Dose Aspirin EC] 81 mg PO DAILY 01/24/17 01/09/19 History Flaxseed Oil [[place]-3 Flaxseed Oil] 1,000 mg PO DAILY 01/24/17 01/09/19 History Garlic 1 tab PO DAILY 06/18/18 01/09/19 History Ipratropium [place] [Atrovent Hfa] 2 puff INHALATION RT-BID PRN 06/18/18 01/09/19 History Ipratropium-Albuterol Nebulize 3 ml INHALATION RT-TID 01/09/19 01/09/19 History [Duoneb 0.5 mg-3 mg/3 ml Soln] Allergies Allergy/AdvReac Type Severity Reaction Status Date / Time Penicillins Allergy Rash/Hives Verified 01/09/19 13:37 Surgical - Exam Vital Signs Temp Pulse Resp BP Pulse Ox 99.2 F 122 H 20 142/65 95 01/09/19 13:11 01/09/19 13:11 01/09/19 13:11 01/09/19 13:11 01/09/19 13:11 Results - Labs 01/09/19 13:42 01/09/19 13:42 Abnormal Lab Results - Last 24 Hours (Table) 01/09/19 01/09/19 01/09/19 Range/Units 13:42 13:42 13:47 WBC 1.7 L (3.8-10.6) k/uL Hgb 12.1 L (13.0-17.5) gm/dL Hct 37.7 L (39.0-53.0) % Neutrophils # (Manual) 0.20 L* (1.3-7.7) k/uL D-Dimer 0.68 H (<0.60) mg/L FEU Sodium 136 L (137-145) mmol/L Glucose 128 H (74-99) mg/dL Total Protein 6.2 L (6.3-8.2) g/dL Albumin 3.4 L (3.5-5.0) g/dL Ur Specific [place] (1.001-1.035) 01/09/19 Range/Units 17:27 WBC (3.8-10.6) k/uL Hgb (13.0-17.5) gm/dL Hct (39.0-53.0) % Neutrophils # (Manual) (1.3-7.7) k/uL D-Dimer (<0.60) mg/L FEU Sodium (137-145) mmol/L Glucose (74-99) mg/dL Total Protein (6.3-8.2) g/dL Albumin (3.5-5.0) g/dL Ur Specific [place] 1.042 H (1.001-1.035) Diabetes panel 01/09/19 Range/Units 13:42 Sodium 136 L (137-145) mmol/L Potassium 4.2 (3.5-5.1) mmol/L Chloride 103 (98-107) mmol/L Carbon Dioxide 26 (22-30) mmol/L BUN 15 (9-20) mg/dL Creatinine 0.82 (0.66-1.25) mg/dL Glucose 128 H (74-99) mg/dL Calcium 8.8 (8.4-10.2) mg/dL AST 23 (17-59) U/L ALT 22 (21-72) U/L Alkaline Phosphatase 81 (38-126) U/L Total Protein 6.2 L (6.3-8.2) g/dL Albumin 3.4 L (3.5-5.0) g/dL Calcium panel 01/09/19 Range/Units 13:42 Calcium 8.8 (8.4-10.2) mg/dL Albumin 3.4 L (3.5-5.0) g/dL Pituitary panel 01/09/19 Range/Units 13:42 Sodium 136 L (137-145) mmol/L Potassium 4.2 (3.5-5.1) mmol/L Chloride 103 (98-107) mmol/L Carbon Dioxide 26 (22-30) mmol/L BUN 15 (9-20) mg/dL Creatinine 0.82 (0.66-1.25) mg/dL Glucose 128 H (74-99) mg/dL Calcium 8.8 (8.4-10.2) mg/dL Adrenal panel 01/09/19 Range/Units 13:42 Sodium 136 L (137-145) mmol/L Potassium 4.2 (3.5-5.1) mmol/L Chloride 103 (98-107) mmol/L Carbon Dioxide 26 (22-30) mmol/L BUN 15 (9-20) mg/dL Creatinine 0.82 (0.66-1.25) mg/dL Glucose 128 H (74-99) mg/dL Calcium 8.8 (8.4-10.2) mg/dL Total Bilirubin 0.5 (0.2-1.3) mg/dL AST 23 (17-59) U/L ALT 22 (21-72) U/L Alkaline Phosphatase 81 (38-126) U/L Total Protein 6.2 L (6.3-8.2) g/dL Albumin 3.4 L (3.5-5.0) g/dL
[2019-01-10] MEDS: HEPARIN SODIUM,PORCINE 5,000 UNIT/ML 1 ML VIAL SQ SCH ×2 (18:13→20:14)
[2019-01-10 19:10] LABS: Appearance,Urine Clear (Clear); Bilirubin,Urine Negative (Negative); Blood,Urine Negative (Negative); Color,Urine Yellow; Glucose,Urine (UA) Negative (Negative); Ketones,Urine Negative (Negative); Leukocyte Esterase,Urine Negative (Negative); Nitrite,Urine Negative (Negative); Protein,Urine Negative (Negative); Specific Gravity,Urine 1.017 (1.001-1.035); Urobilinogen,Urine <2.0 mg/dL (<2.0)
[2019-01-10] MEDS: BUDESONIDE 0.5 MG/2 ML NEBU INHALATION SCH (21:12)
[2019-01-10] MEDS: metroNIDAZOLE 500 MG TAB PO SCH (23:32)
[2019-01-10 23:46] VITALS: RESP 16
--- NOTE | 2019-01-10 23:46 | P.CONS ---
History of Present Illness - Reason for Consult Consult date: 01/10/19 - History of Present Illness Mr Cueto is 58 yr old [facility] patient well known to our practice for treatment of his known adenocarcinoma lung. He was originally diagnosed back in 2014 when he was found to have a SACHA PET Avid Pulmonary nodule, underwent Wedge resection by Dr. Pinto. At time of diagnoses negative margins and lymph nodes, unfortunately by October of 2015 a repeat PET revealed evidence of metastatic recurrent disease. His cancer has been treated with multiple lines of chemotherapy including taxotere and neulasta till 11/10. Prior to this line he was treated on Carboplatin/Alimta, opdivo (immune therapy), tecentriq (immune therapy). He is status post 3 cycles of taxotere with neulasta with the last given on 10/31/18. He was then admitted to [facility] with febrile neutropenia. CT scans subsequently showed some progression. After discussion of various options, the patient was started on carboplatin, Taxol and Avastin. He received cycle 1 on 12/27/18. He did not receive Neulasta for this regimen. The patient tolerated treatment well other than some fatigue, until about 2 days ago. At that time he developed a cough with production of whitish/yellowish sputum. On the day of admission he developed a fever of 101. He had some mild chills and body aches. He therefore came into the emergency ro om, where he was found to be neutropenic. Imaging did not show any definite evidence of pneumonia. He was admitted for further management and consult placed. Review of Systems Constitutional: Reports fatigue, Reports fever Eyes: denies blurred vision, denies pain Ears, nose, mouth and throat: Reports sore throat Cardiovascular: Reports dyspnea on exertion Respiratory: Reports cough with sputum, Reports dyspnea Gastrointestinal: Denies abdominal pain, Denies diarrhea, Denies nausea, Denies vomiting Genitourinary: Reports as per HPI Musculoskeletal: Reports muscle weakness Integumentary: Denies pruritus, Denies rash Neurological: Reports weakness Endocrine: Reports fatigue Hematologic/Lymphatic: Reports as per HPI Past Medical History Past Medical History: Asthma, Cancer, COPD, GERD/Reflux, Hypertension, Pneumonia Additional Past Medical History / Comment(s): L lung cancer with surgery/chemo/radiation and currently immunosuppressive therapy, edentulous,dysphagia History of Any Multi-Drug Resistant Organisms: None Reported Past Surgical History: Appendectomy, Tonsillectomy Additional Past Surgical History / Comment(s): L lung lobectomy/lymph node biopsy, mediport R IJ, EGD with bx. Past Anesthesia/Blood Transfusion Reactions: No Reported Reaction Past Psychological History: No Psychological Hx Reported Smoking Status: Former smoker - Past Family History Father Brother(s) Family Medical History: Cancer Additional Family Medical History / Comment(s): Father of unknown type of cancer. Mother Family Medical History: Cancer Additional Family Medical History / Comment(s): Mother from breast cancer at the age of 68yrs. Brother(s) Family Medical History: Cancer Additional Family Medical History / Comment(s): 1 brother had bowel cancer, 1 brother had a chest mass and thoracic aneurysm ant at the age of 62yrs. Medications and Allergies Home Medications Medication Instructions Recorded Confirmed Type Cholecalciferol [Vitamin D3] 1,000 unit PO DAILY 05/31/16 01/09/19 History Docusate [Colace] 200 mg PO BID PRN 05/31/16 01/09/19 History Loratadine [Claritin] 10 mg PO DAILY 05/31/16 01/09/19 History Metoprolol Tartrate [Lopressor] 25 mg PO BID 05/31/16 01/09/19 History Multivitamin [Men's Multi-Vitamin] 1 tab PO DAILY 05/31/16 01/09/19 History [place]-3 Fatty Acids/Fish Oil [Fish 1 cap PO DAILY 05/31/16 01/09/19 History Oil 1,000 mg Softgel] Aspirin [Adult Low Dose Aspirin EC] 81 mg PO DAILY 01/24/17 01/09/19 History Flaxseed Oil [[place]-3 Flaxseed Oil] 1,000 mg PO DAILY 01/24/17 01/09/19 History Garlic 1 tab PO DAILY 06/18/18 01/09/19 History Ipratropium [place] [Atrovent Hfa] 2 puff INHALATION RT-BID PRN 06/18/18 01/09/19 History Ipratropium-Albuterol Nebulize 3 ml INHALATION RT-TID 01/09/19 01/09/19 History [Duoneb 0.5 mg-3 mg/3 ml Soln] Allergies Allergy/AdvReac Type Severity Reaction Status Date / Time Penicillins Allergy Rash/Hives Verified 01/09/19 13:37 Physical Exam Vitals: Vital Signs Temp Pulse Pulse Pulse Resp BP Pulse Ox 01/10/19 21:26 72 01/10/19 21:13 70 99 01/10/19 19:48 98.8 F 114 H 18 106/67 96 01/10/19 16:00 64 16 01/10/19 13:59 72 01/10/19 13:48 68 01/10/19 12:52 98.5 F 64 16 116/71 95 01/10/19 08:46 110 H 01/10/19 08:37 114 H 96 01/10/19 08:00 64 16 01/10/19 05:00 98.6 F 110 H 16 125/79 95 Intake and Output 01/10/19 01/10/19 01/10/19 06:59 14:59 22:59 Intake Total 1240 720 240 Balance 1240 720 240 Intake: Intake, IV Titration 650 Amount Sodium Chloride 0.9% 1, 650 000 ml @ 75 mls/hr IV . [id number] [facility] Rx#:[id number] Oral 590 720 240 Other: Voiding Method Toilet Toilet Toilet # Voids 2 4 1 - Constitutional General appearance: no acute distress - EENT Eyes: EOMI, PERRLA ENT: hearing grossly normal, normal oropharynx - Neck Neck: no lymphadenopathy Thyroid: bilateral: normal size - Respiratory Respiratory: bilateral: CTA - Cardiovascular Rhythm: regular Heart sounds: normal: S1, S2 - Gastrointestinal General gastrointestinal: normal bowel sounds, soft - Integumentary Integumentary: normal - Neurologic Neurologic: CNII-XII intact - Musculoskeletal Musculoskeletal: generalized weakness, strength equal bilaterally - Psychiatric Psychiatric: A&O x's 3, appropriate affect Results CBC & Chem 7: 01/09/19 13:42 01/09/19 13:42 Labs: Microbiology - Last 24 Hours (Table) 01/09/19 13:42 Blood Culture - Preliminary Blood No Growth after 24 hours Chest x-ray: report reviewed CT scan - chest: report reviewed Assessment and Plan (1) Febrile neutropenia Narrative/Plan: The patient is about 2 weeks post chemotherapy. As noted, as this was a new regimen, he did not receive Neulasta. He is presenting with fever in the setting of severe neutropenia with ANC less than 500. Neutropenia is chemotherapy induced. Cultures are pending at this time. The patient is on broad-spectrum antibiotics, with marked improvement in fever pattern. Continue antibiotics. Filgrastim will be started Current Visit: Yes Status: Acute Code(s): D70.9 - NEUTROPENIA, UNSPECIFIED; R50.81 - FEVER PRESENTING WITH CONDITIONS CLASSIFIED ELSEWHERE SNOMED Code(s): 616878595 (2) Bicytopenia Narrative/Plan: Patient to be started on filgrastim as noted. Follow counts on the same. Hemoglobin is mildly low at 12.1, well within a safe range. Platelets are normal. Continue to monitor with supportive transfusions if needed. Current Visit: Yes Status: Acute Code(s): D75.89 - OTHER SPECIFIED DISEASES OF BLOOD AND BLOOD-FORMING ORGANS SNOMED Code(s): 457268598 (3) Lung cancer Narrative/Plan: Diagnostic and therapeutic circumstances as described. The patient's current CTA after cycle 1 of his new treatment, does not show any progression compared to his previous CAT scan. The patient will resume the same treatment, once acute situation is resolved Current Visit: No Status: Acute Code(s): C34.90 - MALIGNANT NEOPLASM OF UNSP PART OF UNSP BRONCHUS OR LUNG SNOMED Code(s): 558742967 Plan: Defer to the admitting service for management of his multiple other medical problems
[2019-01-11] MEDS: CEFEPIME 2 GM in SODIUM CHLORIDE 0.9% 100 ML IVPB SCH ×2 (05:15→16:09)
--- NOTE | 2019-01-11 06:01 | PN ---
PROGRESS NOTE SUBJECTIVE: A 58-year-old white male with fever, immunocompromised host. Remains on treatment for tracheobronchitis, COPD exacerbation. He is going to have an EGD in the morning. CARDIOVASCULAR: S1, S2. LUNGS: Clear. GI: Soft. HEMATOLOGY: Negative Homans. PSYCH: Fair mood and affect. ASSESSMENT: 1. Esophageal thickening. EGD in the morning. 2. Possible aspiration pneumonia. Continue with IV steroids, updraft treatments, IV antibiotics. See further orders. MMODL / IJN: [id number] /
--- NOTE | 2019-01-11 07:17 | CONS ---
CONSULTATION DATE OF SERVICE: 01/10/2019 REASON FOR CONSULTATION: Fever in immunocompromised patient. HISTORY OF PRESENT ILLNESS: The patient is a 58-year-old male with a past medical history significant for adenocarcinoma of the lung for which the patient is currently on chemotherapy. Last chemo has been about 2 weeks ago through the right subclavian Mediport. The patient had been presented to hospital yesterday afternoon with chief complaints of a fever and chills. His symptoms started a day or two before he presented to the hospital. The patient did have fever of 101.6 degrees Fahrenheit at home, recheck was 101.3 after which the patient took some Tylenol. The patient denies having any headaches. He did have mild URI symptoms, also , but denies having difficulty swallowing. The patient denies having any chest pain. He did have some cough with very minimal sputum production hemoptysis. The patient denies any abdominal pain. He did have some frequent stools before he came to the hospital, however, start having more loose stools when he has been here. On presentation to the hospital, the patient did have fever of 99.2. The patient's white count was 1.7. His BUN and creatinine were normal. Electrolytes were normal. Liver enzymes were normal. UA has been negative. Influenza serology was negative. The patient did have a chest x-ray. It shows chronic emphysematous changes with left suprahilar mass/neoplasm re-demonstrated. No suspicious acute pulmonary process. He did have a CT angiogram that was reported negative for PE and no significant change from a recent CT, no new suspicious acute pulmonary process. The patient treated with cefepime and Levaquin and subsequently has been admitted to the hospital. Infectious Disease was consulted for further recommendation regarding antibiotic therapy. REVIEW OF SYSTEMS: Positive points have been mentioned in HPI. The rest of the systems review has been negative. PAST MEDICAL HISTORY: Adenocarcinoma of the lung, status post chemoradiation, asthma, COPD, gastroesophageal reflux disease, hypertension, pneumonia. PAST SURGICAL HISTORY: Appendectomy, tonsillectomy, left lung lobectomy, lymph node biopsy, Mediport placement, EGD with biopsy. SOCIAL HISTORY: Remote history of smoking. No drinking or drug use. FAMILY HISTORY: Brother and father with history of cancer unknown type. Mother with history of breast cancer and one brother with colon cancer. ALLERGIES: Allergy to PENICILLIN, however, has tolerated cefepime without any problems. MEDICATIONS: Medications include the patient is currently on DuoNeb, aspirin, Pulmicort, vitamin D3, Colace, Zarxio, heparin, Claritin, Lopressor, Theragran, Narcan, Protonix. PHYSICAL EXAMINATION: On examination, blood pressure 106/67 with the pulse of 72, temperature 98.8, T-max 99.2. He is 96% on room air. General description is a middle-aged male lying in bed in no distress. No tachypnea or accessory muscle of respiration use. HEENT examination shows slight pallor. No scleral icterus. Oral mucous membrane is dry. No pharyngeal erythema or thrush. NECK: Trachea central. No thyromegaly. LUNGS: Unlabored breathing with decreased breath sounds at the base, no wheeze or crackle. HEART: S1, S2. Regular rate and rhythm. ABDOMEN: Soft, no tenderness. No guarding or rigidity. EXTREMITIES: No edema of feet. SKIN EXAMINATION: No rash or mass palpable. NEUROLOGICAL: Patient is awake, alert, oriented x3. Mood and affect normal. LABS: BUN of 15, creatinine 0.82. Electrolytes are normal. Liver enzymes are normal. Hemoglobin 12.1, white count 1.7. Urine has been negative: Serology has been negative. Chest x-ray and CT report as mentioned above. DIAGNOSTIC IMPRESSION AND PLAN: 1. Patient admitted to the hospital with fever in this patient who did have URI as well as abdominal symptoms of diarrhea, slight nausea, and concern for possible viral gastroenteritis underlying suspicion for bacterial infection needs to be ;however, the patient is immunocompromised will need to cover him for antibiotic while waiting for the culture to finalize. 2. Patient did have a PENICILLIN allergy that will limit the number of antibiotics that will be safe to use. PLAN: 1. We will check stool culture and stool for C difficile diarrhea. 2. Chest sputum for Gram stain and culture. 3. We will add cefepime 2 grams q.12 and Flagyl. 4. While waiting for the to finalize at this time will follow up on his clinical condition and culture to further adjust medication if needed. Thank you for this consultation. Will follow this patient along with you. MMODL / IJN: [id number] /
[2019-01-11] MEDS: IPRATROPIUM-ALBUTEROL 3 ML NEB INHALATION SCH ×3 (09:26→20:59)
[2019-01-11] MEDS: BUDESONIDE 0.5 MG/2 ML NEBU INHALATION SCH ×2 (09:26→20:59)
[2019-01-11] MEDS: SODIUM CHLORIDE 0.9% 1,000 ML IV SCH ×2 (10:03→23:20)
[2019-01-11] MEDS: FILGRASTIM-SNDZ 480 MCG/0.8 ML SYRINGE SQ SCH (10:15)
--- NOTE | 2019-01-11 11:06 | P.PN ---
Subjective Progress Note Date: 01/11/19 CHIEF COMPLAINT: Esophageal thickening HISTORY OF PRESENT ILLNESS: Patient examined at the bedside. Denies pain. Denies heartburn. Denies nausea or vomiting. Reports continued coughing. He is NPO. PHYSICAL EXAM: VITAL SIGNS: Reviewed. GENERAL: Well-developed in no acute distress. HEENT: No sclera icterus. Extraocular movements grossly intact. Moist buccal mucosa. Head is atraumatic, normocephalic. ABDOMEN: Soft. Nondistended. Nontender. NEUROLOGIC: Alert and oriented. Cranial nerves II through XII grossly intact. ASSESSMENT: 1. Esophageal thickening PLAN: NPO. Patient to undergo EGD today with Dr. Abel. Nurse practitioner note has been reviewed by physician. Signing provider agrees with the documented findings, assessment, and plan of care. Objective - Vital Signs Vital signs: Vital Signs Temp 98.2 F 01/11/19 05:33 Pulse 92 01/11/19 09:41 Resp 16 01/11/19 05:33 BP 126/78 01/11/19 05:33 Pulse Ox 95 01/11/19 05:33 Intake & Output 01/10/19 01/11/19 01/11/19 18:59 06:59 18:59 Intake Total 720 590 Balance 720 590 Intake: Oral 720 590 Other: Voiding Method Toilet Toilet # Voids 4 1 # Bowel Movements 1 - Labs CBC & Chem 7: 01/09/19 13:42 01/09/19 13:42 Labs: Microbiology - Last 24 Hours (Table) 01/09/19 13:42 Blood Culture - Preliminary Blood No Growth after 24 hours
[2019-01-11] MEDS ORDERED: PROPOFOL 10 MG/ML 20 ML VIAL IV ONE (11:48)
[2019-01-11] MEDS ORDERED: IV FLUID CONTINUATION 300 ML IV ONE (11:50)
--- NOTE | 2019-01-11 12:13 | P.OP ---
Date of Procedure: 01/11/19 Preoperative Diagnosis: Esophagitis Postoperative Diagnosis: Sliding hiatal hernia Antral gastritis Procedure(s) Performed: EGD Anesthesia: MAC Surgeon: Ronnell Abel Pathology: other (Antrum, esophagus) Condition: stable Disposition: PACU Description of Procedure: The patient's placed on the endoscopy table lateral position. He received IV sedation. The gastroscope placed oropharynx passed in the esophagus into the stomach. The scope was then placed through the pylorus. First and second portion of the duodenum appeared normal. The scope was then brought back and the antrum. There is some minimal inflammation of the antrum. This area is biopsied. The scope was then retroflexed and the remainder of the stomach appeared normal. There was a sliding hiatal hernia. This was the area on the CAT scan that appeared to be thickened. The scope was then brought back the GE junction was at 37 cm. The distal esophagus did not appear to be inflamed. The proximal esophagus appeared normal. Scope was withdrawn for patient.
[2019-01-11] MEDS: MULTIVITAMINS, THERA 1 EACH TAB PO SCH (12:50)
[2019-01-11] MEDS: PANTOPRAZOLE 40 MG TABLET PO SCH (12:51)
[2019-01-11] MEDS: ASPIRIN 81 MG PO SCH (12:51)
[2019-01-11] MEDS: metroNIDAZOLE 500 MG TAB PO SCH ×3 (12:51→20:20)
[2019-01-11] MEDS: METOPROLOL TARTRATE 25 MG TAB PO SCH ×3 (12:51→20:19)
[2019-01-11] MEDS: LORATADINE 10 MG TAB PO SCH (12:52)
[2019-01-11] MEDS: CHOLECALCIFEROL 1,000 UNIT TAB PO SCH (12:52)
[2019-01-11] MEDS: HEPARIN SODIUM,PORCINE 5,000 UNIT/ML 1 ML VIAL SQ SCH ×3 (12:52→23:21)
--- NOTE | 2019-01-11 15:05 | PN ---
PROGRESS NOTE DATE OF SERVICE: 01/11/2019 REASON FOR FOLLOWUP: Fever in immunocompromised patient. INTERVAL HISTORY: The patient overall feels better and has improved with no fever has been recorded in the last 48 hours. The patient is breathing comfortably. Denies having any chest pain. Very minimal cough. No nausea, no vomiting. No abdominal pain or any worsening diarrhea. PHYSICAL EXAMINATION: Blood pressure 95/66, pulse 93, temperature 97.8. He is 96% on room air. General description is a middle aged male, up in the bed in no distress. RESPIRATORY SYSTEM: Unlabored breathing, clear to auscultation anteriorly. HEART: S1, S2. Regular rate and rhythm. ABDOMEN: Soft, no tenderness. LABS: No CBC was done today. Stool for C. diff came back negative. Urine is negative. Influenza serology was negative. DIAGNOSTIC IMPRESSION AND PLAN: Patient admitted to the hospital with fever. This patient did have a history of lung cancer on chemo, so far culture has been negative. Primary requested the patient to be discharged on oral antibiotic, will give a short course of oral Levaquin to be on the safe side and continue supportive care. MMODL / IJN: [id number] /
--- NOTE | 2019-01-11 16:51 | P.PN ---
Subjective Progress Note Date: 01/11/19 01/11/2019: Patient seen and examined. Patient states he is feeling good. He is complaining of coughing. He denies fevers and chills. The patient underwent EGD today and was found to have antral gastritis. Objective - Vital Signs Vital signs: Vital Signs Temp 97.8 F 01/11/19 13:05 Pulse 96 01/11/19 13:11 Resp 16 01/11/19 13:05 BP 95/66 01/11/19 13:05 Pulse Ox 96 01/11/19 13:05 Intake & Output 01/10/19 01/11/19 01/11/19 18:59 06:59 18:59 Intake Total 720 590 100 Balance 720 590 100 Intake: IV 100 Oral 720 590 Other: Voiding Method Toilet Toilet # Voids 4 1 3 # Bowel Movements 1 - Exam Gen.: Patient is alert and oriented 3, no acute distress Cardiovascular: Regular rate and rhythm, S1/S2 Lungs: Clear to auscultation bilaterally no wheezes rales or rhonchi Abdomen: Soft nontender nondistended positive bowel sounds Extremities: No edema - Labs CBC & Chem 7: 01/09/19 13:42 01/09/19 13:42 Labs: Microbiology - Last 24 Hours (Table) 01/10/19 23:45 Gram Stain - Preliminary Sputum 01/09/19 13:42 Blood Culture - Preliminary Blood No Growth after 48 hours 01/11/19 09:00 Stool Culture - Preliminary Stool Assessment and Plan Assessment: Febrile neutropenia Immunocompromised state 2/4 SIRS Left lung mass with ongoing treatment for adenocarcinoma Radiation pneumonitis s/p EGD with antral gastritis Tracheobronchitis Diarrhea Acute exacerbation of COPD History of tobacco abuse, in remission GERD Hypertension s/p left lobectomy Mild PCM O2 to maintain saturation > or = 90% ABX per ID Sputum, blood, urine cultures Stool for cdiff Heme/onc recs GI and DVT prophylaxis IS and pulmonary hygiene Duonebs and Pulmicort
[2019-01-11 17:37] LABS: Basophils % (A) 0 %; Eosinophils # (A) 0.1 k/uL (0-0.7); Eosinophils % (A) 1 %; HCT 34.9 % (39.0-53.0); HGB 11.1 gm/dL (13.0-17.5); Lymphocytes # (A) 1.2 k/uL (1.0-4.8); Lymphocytes % (A) 10 %; MCH 27.8 pg (25.0-35.0); MCHC 31.9 g/dL (31.0-37.0); MCV 87.1 fL (80.0-100.0); Mean Platelet Volume 7.3; Monocytes # (A) 0.6 k/uL (0-1.0); Monocytes % (A) 6 %; Neutrophils # (A) 8.9 k/uL (1.3-7.7); Neutrophils % (A) 80 %; Platelet Count 189 k/uL (150-450); RBC 4.01 m/uL (4.30-5.90); RDW 14.8 % (11.5-15.5); WBC 11.1 k/uL (3.8-10.6)
--- NOTE | 2019-01-12 00:13 | P.PN ---
Subjective Progress Note Date: 01/12/19 The patient feels better. He has not had fever since admission. Cough is still present, but has improved. No chills/nausea/vomiting/diarrhea. He denied any abdominal pain. Objective - Vital Signs Vital signs: Vital Signs Temp 97.6 F 01/11/19 20:42 Pulse 94 01/11/19 21:11 Resp 16 01/11/19 20:42 BP 109/77 01/11/19 20:42 Pulse Ox 98 01/11/19 20:59 Intake & Output 01/11/19 01/11/19 01/12/19 06:59 18:59 06:59 Intake Total 590 100 Balance 590 100 Intake: IV 100 Oral 590 Other: Voiding Method Toilet Toilet Toilet # Voids 1 3 1 # Bowel Movements 1 - Constitutional General appearance: Present: no acute distress - EENT Eyes: Present: EOMI ENT: Present: hearing grossly normal, normal oropharynx - Respiratory Respiratory: bilateral: CTA - Cardiovascular Rhythm: regular Heart sounds: normal: S1, S2 - Gastrointestinal General gastrointestinal: Present: normal bowel sounds, soft - Integumentary Integumentary: Present: normal - Neurologic Neurologic: Present: CNII-XII intact - Musculoskeletal Musculoskeletal: Present: generalized weakness - Psychiatric Psychiatric: Present: A&O x's 3, appropriate affect - Labs CBC & Chem 7: 01/11/19 17:07 01/09/19 13:42 Labs: Abnormal Lab Results - Last 24 Hours (Table) 01/11/19 Range/Units 17:07 WBC 11.1 H (3.8-10.6) k/uL RBC 4.01 L (4.30-5.90) m/uL Hgb 11.1 L (13.0-17.5) gm/dL Hct 34.9 L (39.0-53.0) % Neutrophils # 8.9 H (1.3-7.7) k/uL Microbiology - Last 24 Hours (Table) 01/10/19 23:45 Gram Stain - Preliminary Sputum 01/09/19 13:42 Blood Culture - Preliminary Blood No Growth after 48 hours 01/11/19 09:00 Stool Culture - Preliminary Stool Assessment and Plan (1) Febrile neutropenia Narrative/Plan: Patient's fever has resolved. This has not recurred since hospitalization. Cultures are negative so far. Continue antibiotics. Patient is on filgrastim. Check CBC. If cultures remain negative over 48 hours, and patient is afebrile, he can be discharged if WBC has recovered Current Visit: Yes Status: Acute Code(s): D70.9 - NEUTROPENIA, UNSPECIFIED; R50.81 - FEVER PRESENTING WITH CONDITIONS CLASSIFIED ELSEWHERE SNOMED Code(s): 088557243 (2) Bicytopenia Narrative/Plan: Check CBC. Supportive transfusions if needed. Continue filgrastim to WBC recovery Current Visit: Yes Status: Acute Code(s): D75.89 - OTHER SPECIFIED DISEASES OF BLOOD AND BLOOD-FORMING ORGANS SNOMED Code(s): 319038038 (3) Lung cancer Narrative/Plan: Resume treatment as outpatient, once acute condition is sufficiently resolved Current Visit: No Status: Acute Code(s): C34.90 - MALIGNANT NEOPLASM OF UNSP PART OF UNSP BRONCHUS OR LUNG SNOMED Code(s): 140551905
[2019-01-12] MEDS: CEFEPIME 2 GM in SODIUM CHLORIDE 0.9% 100 ML IVPB SCH (04:25)
[2019-01-12 05:43] VITALS: BP 107/68; TEMP 97.9
[2019-01-12 07:30] LABS: Basophils % (A) 0 %; Eosinophils # (A) 0.1 k/uL (0-0.7); Eosinophils % (A) 0 %; HCT 36.2 % (39.0-53.0); HGB 11.1 gm/dL (13.0-17.5); Lymphocytes # (A) 1.4 k/uL (1.0-4.8); Lymphocytes % (A) 9 %; MCH 26.5 pg (25.0-35.0); MCHC 30.8 g/dL (31.0-37.0); MCV 86.2 fL (80.0-100.0); Mean Platelet Volume 7.3; Monocytes # (A) 0.7 k/uL (0-1.0); Monocytes % (A) 5 %; Neutrophils # (A) 12.4 k/uL (1.3-7.7); Neutrophils % (A) 84 %; Platelet Count 223 k/uL (150-450); WBC 14.9 k/uL (3.8-10.6)
--- NOTE | 2019-01-12 08:31 | P.PN ---
Subjective Progress Note Date: 01/12/19 The patient denies any new complaints. Cough continues to improve. Respiratory status has returned to baseline. No fever/chills/nausea/vomiting Objective - Vital Signs Vital signs: Vital Signs Temp 97.9 F 01/12/19 05:42 Pulse 112 H 01/12/19 05:42 Resp 16 01/12/19 05:42 BP 107/68 01/12/19 05:42 Pulse Ox 95 01/12/19 05:42 Intake & Output 01/11/19 01/12/19 01/12/19 18:59 06:59 18:59 Intake Total 100 Balance 100 Intake: IV 100 Other: Voiding Method Toilet Toilet # Voids 3 1 # Bowel Movements 1 1 - Constitutional General appearance: Present: no acute distress - EENT Eyes: Present: EOMI ENT: Present: hearing grossly normal, normal oropharynx - Respiratory Respiratory: bilateral: CTA - Cardiovascular Rhythm: regular - Gastrointestinal General gastrointestinal: Present: normal bowel sounds, soft - Neurologic Neurologic: Present: CNII-XII intact - Musculoskeletal Musculoskeletal: Present: generalized weakness, strength equal bilaterally - Psychiatric Psychiatric: Present: A&O x's 3, appropriate affect - Labs CBC & Chem 7: 01/12/19 06:52 01/09/19 13:42 Labs: Abnormal Lab Results - Last 24 Hours (Table) 01/11/19 01/12/19 Range/Units 17:07 06:52 WBC 11.1 H 14.9 H (3.8-10.6) k/uL RBC 4.01 L 4.20 L (4.30-5.90) m/uL Hgb 11.1 L 11.1 L (13.0-17.5) gm/dL Hct 34.9 L 36.2 L (39.0-53.0) % MCHC 30.8 L (31.0-37.0) g/dL Neutrophils # 8.9 H 12.4 H (1.3-7.7) k/uL Microbiology - Last 24 Hours (Table) 01/10/19 23:45 Gram Stain - Preliminary Sputum 01/09/19 13:42 Blood Culture - Preliminary Blood No Growth after 48 hours 01/11/19 09:00 Stool Culture - Preliminary Stool Assessment and Plan (1) Febrile neutropenia Narrative/Plan: Fever as well as neutropenia have resolved. WBC is now normal. Filgrastim will be discontinued. Cultures remained negative. Patient is okay to discharge from the hematology standpoint. Outpatient antibiotics per ID Current Visit: Yes Status: Acute Code(s): D70.9 - NEUTROPENIA, UNSPECIFIED; R50.81 - FEVER PRESENTING WITH CONDITIONS CLASSIFIED ELSEWHERE SNOMED Code(s): 139914644 (2) Bicytopenia Narrative/Plan: WBC is now normal. Hemoglobin remains in a safe range. There is no indication for transfusion at this time Current Visit: Yes Status: Acute Code(s): D75.89 - OTHER SPECIFIED DISEASES OF BLOOD AND BLOOD-FORMING ORGANS SNOMED Code(s): 877529318 (3) Lung cancer Narrative/Plan: Patient has follow-up set up in the office, and will resume chemotherapy as an o utpatient. He will likely need growth factors with the next cycle Current Visit: No Status: Acute Code(s): C34.90 - MALIGNANT NEOPLASM OF UNSP PART OF UNSP BRONCHUS OR LUNG SNOMED Code(s): 560420627
[2019-01-12] MEDS: ASPIRIN 81 MG PO SCH (08:56)
[2019-01-12] MEDS: LORATADINE 10 MG TAB PO SCH (08:56)
[2019-01-12] MEDS: METOPROLOL TARTRATE 25 MG TAB PO SCH (08:56)
[2019-01-12] MEDS: CHOLECALCIFEROL 1,000 UNIT TAB PO SCH (08:57)
[2019-01-12] MEDS: HEPARIN SODIUM,PORCINE 5,000 UNIT/ML 1 ML VIAL SQ SCH (08:57)
[2019-01-12] MEDS: PANTOPRAZOLE 40 MG TABLET PO SCH (08:57)
[2019-01-12] MEDS: metroNIDAZOLE 500 MG TAB PO SCH (08:59)
--- NOTE | 2019-01-12 09:41 | P.PN ---
Subjective Progress Note Date: 01/12/19 01/12/2019: Patient seen and examined. Patient is currently on room air. He states he feels really good. He is hoping to go home today. He states he does still have a cough but this is chronic for him. He has been afebrile and hemodynamically stable. Objective - Vital Signs Vital signs: Vital Signs Temp 97.9 F 01/12/19 05:42 Pulse 112 H 01/12/19 05:42 Resp 16 01/12/19 05:42 BP 107/68 01/12/19 05:42 Pulse Ox 95 01/12/19 05:42 Intake & Output 01/11/19 01/12/19 01/12/19 18:59 06:59 18:59 Intake Total 100 Balance 100 Intake: IV 100 Other: Voiding Method Toilet Toilet Toilet # Voids 3 1 # Bowel Movements 1 1 - Exam Gen.: Patient is alert and oriented 3, no acute distress Cardiovascular: Regular rate and rhythm, S1/S2 Lungs: Clear to auscultation bilaterally no wheezes rales or rhonchi Abdomen: Soft nontender nondistended positive bowel sounds Extremities: No edema - Labs CBC & Chem 7: 01/12/19 06:52 01/09/19 13:42 Labs: Abnormal Lab Results - Last 24 Hours (Table) 01/11/19 01/12/19 Range/Units 17:07 06:52 WBC 11.1 H 14.9 H (3.8-10.6) k/uL RBC 4.01 L 4.20 L (4.30-5.90) m/uL Hgb 11.1 L 11.1 L (13.0-17.5) gm/dL Hct 34.9 L 36.2 L (39.0-53.0) % MCHC 30.8 L (31.0-37.0) g/dL Neutrophils # 8.9 H 12.4 H (1.3-7.7) k/uL Microbiology - Last 24 Hours (Table) 01/10/19 23:45 Gram Stain - Preliminary Sputum 01/09/19 13:42 Blood Culture - Preliminary Blood No Growth after 48 hours 01/11/19 09:00 Stool Culture - Preliminary Stool Assessment and Plan Assessment: Febrile neutropenia Immunocompromised state 2/4 SIRS Left lung mass with ongoing treatment for adenocarcinoma Radiation pneumonitis s/p EGD with antral gastritis Tracheobronchitis Diarrhea Acute exacerbation of COPD History of tobacco abuse, in remission GERD Hypertension s/p left lobectomy Mild PCM O2 to maintain saturation > or = 90% ABX per ID Heme/onc recs GI and DVT prophylaxis IS and pulmonary hygiene Duonebs and Pulmicort Ok to DC from pulmonary standpoint. Follow up 2-3 days.
[2019-01-12] MEDS: BUDESONIDE 0.5 MG/2 ML NEBU INHALATION SCH (10:33)
[2019-01-12] MEDS: IPRATROPIUM-ALBUTEROL 3 ML NEB INHALATION SCH ×2 (10:34→12:12)
--- NOTE | 2019-01-12 10:59 | P.PN ---
Subjective Progress Note Date: 01/12/19 CHIEF COMPLAINT: History of esophageal thickening HISTORY OF PRESENT ILLNESS: The patient is a 58-year-old gentleman with history of lung cancer including esophageal thickening. He completed upper endoscopy which was remarkable for hiatal hernia. Clinically he is doing well. No reports of abdominal pain. PHYSICAL EXAM: VITAL SIGNS: Reviewed CONSTITUTIONAL: Well developed and in no acute distress. EYES: Conjuctivae without sclera icterus. Extraocular movements grossly intact. HEAD, EARS, NOSE, THROAT: Moist buccal mucosa. Head is atraumatic, normocephalic. Hears conversational speech. No nasal drainage. Wears glasses. NECK: Supple. No thyroidomegaly. RESPIRATORY: Non-labored respirations and equal bilateral excursions. Port along right chest clean dry and intact. CARDIOVASCULAR: Palpable 2+ radial pulses. Tachycardic. ABDOMEN: Soft. Non-tender. Nondistended. MUSCULOSKELETAL: No gross deformity of the lower extremities noted. No clubbing. No cyanosis. SKIN: Good skin turgor .Well perfused. NEUROLOGIC: Cranial nerves I through XII grossly intact. No focal or latera lizing signs. PSYCH: Appropriate affect. Alert and oriented to person, place and time. CLINCAL LABS: Reviewed RADIOLOGY: Report reviewed MEDICAL RESULTS: Upper endoscopy findings reviewed ASSESSMENT: 1. Lung cancer 2. Abnormal computed tomography scan with esophageal thickening 3. Hiatal hernia PLAN: 1. No surgical attention at this time 2. Diet as tolerated 3. Okay from surgical standpoint for discharge when medically stable Objective - Vital Signs Vital signs: Vital Signs Temp 97.9 F 01/12/19 05:42 Pulse 112 H 01/12/19 05:42 Resp 16 01/12/19 05:42 BP 107/68 01/12/19 05:42 Pulse Ox 95 01/12/19 05:42 Intake & Output 01/11/19 01/12/19 01/12/19 18:59 06:59 18:59 Intake Total 100 Balance 100 Intake: IV 100 Other: Voiding Method Toilet Toilet Toilet # Voids 3 1 # Bowel Movements 1 1 - Labs CBC & Chem 7: 01/12/19 06:52 01/09/19 13:42 Labs: Abnormal Lab Results - Last 24 Hours (Table) 01/11/19 01/12/19 Range/Units 17:07 06:52 WBC 11.1 H 14.9 H (3.8-10.6) k/uL RBC 4.01 L 4.20 L (4.30-5.90) m/uL Hgb 11.1 L 11.1 L (13.0-17.5) gm/dL Hct 34.9 L 36.2 L (39.0-53.0) % MCHC 30.8 L (31.0-37.0) g/dL Neutrophils # 8.9 H 12.4 H (1.3-7.7) k/uL Microbiology - Last 24 Hours (Table) 01/10/19 23:45 Gram Stain - Preliminary Sputum 01/09/19 13:42 Blood Culture - Preliminary Blood No Growth after 48 hours 01/11/19 09:00 Stool Culture - Preliminary Stool - Imaging and Cardiology CT scan - chest: report reviewed Assessment and Plan (1) Abnormal chest CT Current Visit: Yes Status: Acute Code(s): R93.89 - ABNORMAL FINDINGS ON DX IMAGING OF OTH BODY STRUCTURES SNOMED Code(s): 152022968 (2) Febrile neutropenia Current Visit: Yes Status: Acute Code(s): D70.9 - NEUTROPENIA, UNSPECIFIED; R50.81 - FEVER PRESENTING WITH CONDITIONS CLASSIFIED ELSEWHERE SNOMED Code(s): 427421585 (3) History of lung cancer Current Visit: No Status: Acute Code(s): Z85.118 - PERSONAL HISTORY OF MALIGNANT NEOPLASM OF BRONCHUS AND LUNG SNOMED Code(s): 729641129
[2019-01-12 12:39] VITALS: PULSE 103
[2019-01-12] MEDS: MULTIVITAMINS, THERA 1 EACH TAB PO SCH (12:52)
--- NOTE | 2019-01-12 19:06 | DS ---
DISCHARGE SUMMARY DISCHARGE DATE: 01/12/2019. CONDITION: Stable. PROGNOSIS: Guarded. DIET: Regular. Ambulate as tolerated. He will go home on Levaquin 500 mg once a day for 5 days as well as his regular home medications. DISCHARGE MEDICATIONS: 1. Lopressor 25 b.i.d. 2. Vitamin D 1000 units daily. 3. Claritin 10 mg daily. 4. Aspirin 81 mg daily. 5. Ipratropium bromide b.i.d. and t.i.d. p.r.n. CONDITION: Stable. Prognosis guarded. Ambulate as tolerated. DISCHARGE DIAGNOSES: 1. Abnormal CT of the chest. 2. Atypical chest pain. 3. Bicytopenia. 4. Febrile neutropenia. 5. History of lung cancer. HOSPITAL COURSE: The patient came in and placed on empiric antibiotics for infection for an abnormal CT scan was seen by Infectious Disease and Pulmonology. The patient had EGD due to significant abnormalities on the CT scan which showed just some chronic bronchitis and no significant stenosis. He was given IV antibiotics for multiple days and switched to oral antibiotics per Infectious Disease on discharge. Pulmonary discharged him also. Follow up as an outpatient. MMODL / IJN: [id number] /
== END 2019-01-12 16:00 | disposition home or self-care (01) | DRG 191 ==
LOC: EC 13:04 → 3NMEDONC 16:08 → INTOOBSV 16:08 → OBSVTOIN 01-10 10:20
PROVIDERS: ADMIT Family Medicine; ATTEND Family Medicine
PROC: 0DB78ZX Excision of Stomach, Pylorus, Via Natural or Artificial Opening Endoscopic, Diagnostic (ICD-10-PCS; principal; 2019-01-11 10:40)
DX: J44.1 Chronic obstructive pulmonary disease with (acute) exacerbation (principal); J70.0 Acute pulmonary manifestations due to radiation; D61.818 Other pancytopenia; C92.00 Acute myeloblastic leukemia, not having achieved remission; R65.10 Systemic inflammatory response syndrome (SIRS) of non-infectious origin without acute organ dysfunction; C78.02 Secondary malignant neoplasm of left lung; R04.2 Hemoptysis; E44.1 Mild protein-calorie malnutrition; D70.1 Agranulocytosis secondary to cancer chemotherapy; R13.10 Dysphagia, unspecified; K21.0 Gastro-esophageal reflux disease with esophagitis; I10 Essential (primary) hypertension; A08.4 Viral intestinal infection, unspecified; K44.9 Diaphragmatic hernia without obstruction or gangrene; K29.70 Gastritis, unspecified, without bleeding; R50.81 Fever presenting with conditions classified elsewhere; Y84.2 Radiological procedure and radiotherapy as the cause of abnormal reaction of the patient, or of later complication, without mention of misadventure at the time of the procedure; Z68.31 Body mass index [BMI] 31.0-31.9, adult; T45.1X5A Adverse effect of antineoplastic and immunosuppressive drugs, initial encounter; Z79.899 Other long term (current) drug therapy; Z79.82 Long term (current) use of aspirin; Z92.3 Personal history of irradiation; Z85.72 Personal history of non-Hodgkin lymphomas; Z85.118 Personal history of other malignant neoplasm of bronchus and lung; Z87.01 Personal history of pneumonia (recurrent); Z92.21 Personal history of antineoplastic chemotherapy; Z87.891 Personal history of nicotine dependence; Z90.2 Acquired absence of lung [part of]; Z90.49 Acquired absence of other specified parts of digestive tract; Z88.0 Allergy status to penicillin; Z80.0 Family history of malignant neoplasm of digestive organs; Z80.3 Family history of malignant neoplasm of breast; Z82.49 Family history of ischemic heart disease and other diseases of the circulatory system
CPT/HCPCS: 36415; 43239; 71046; 71275; 80053; 81003; 83605; 84484; 85025; 85379; 87040; 87045; 87046; 87070; 87205; 87324; 87502; 88305; 93005; 94640; 94760; 96361; 96365; 99285

== ENCOUNTER → 2019-02-22 | Outpatient (CLI) | payer MEDICARE ==
[2019-02-22 08:54] LABS: Blood Urea Nitrogen 14 mg/dL (9-20)
--- NOTE | 2019-02-22 09:45 | CT ---
EXAMINATION TYPE: CT chest w con DATE OF EXAM: 02/22/2019 COMPARISON: CTA chest January 09, 2019 and older studies. PET/CT 2016 HISTORY: Lung cancer recheck originally diagnosed 2014. CT DLP: 403.8 mGycm. Automated Exposure Control for Dose Reduction was Utilized. TECHNIQUE: CT scan of the thorax is performed following with IV Contrast, patient injected with 100 mL of Isovue 300. FINDINGS: LUNGS: Background moderate to advanced underlying emphysematous changes redemonstrated. There is pers istent linear density anterior medially along the left upper lobe. There is persistent masslike conso lidation left suprahilar level just inferior to this with lobulation and spiculated peripheral margin and has irregular consolidation extending anteriorly measuring approximately 3.5 x 2[address] udy image 19 appears less prominent from most recent last 2 CTs suggesting interval improvement if pa han is currently undergoing treatment. Elevated left hemidiaphragm is redemonstrated. Right hilar r egion shows stable scarlike opacity axial image 27 that is much less prominent. No new nodules or mas ses are present bilaterally. No pleural effusion or pneumothorax is noted. MEDIASTINUM: There is interval improvement in right hilar adenopathy near axial image 25. For referen ce right tracheobronchial lymph node measures 1.5 x 0.9 cm axial image 24 versus 2.4 x 2.0 cm prior s tudy image 60. No new greater than 1 cm adenopathy is seen. Persistent severe wall thickening of the esophagus beginning near darrell distending to distal aspect just above the diaphragm remains present . Air-fluid level in proximal esophagus is redemonstrated No pericardial effusion is seen. OTHER: Prominent bilateral subareolar gynecomastia is again seen. Stable right internal jugular Medip ort catheter. IMPRESSION: Positive partial treatment response as detailed above from last [address] studies assuming pat santiago has actively going chemotherapy treatment. No new masses or adenopathy identified.
== END ==
LOC: RADPROMAIN 08:04
PROVIDERS: ATTEND Internal Medicine Hematology & Oncology
DX: C34.12 Malignant neoplasm of upper lobe, left bronchus or lung (principal)
CPT/HCPCS: 82565; 84520; 71260; J1642; Q9967

== ENCOUNTER 2019-03-29 15:16 | Inpatient (IN) | payer MEDICARE ==
[2019-03-29] MEDS ORDERED: ACETAMINOPHEN TAB 500 MG TAB PO STA (16:13)
--- NOTE | 2019-03-29 16:42 | ED ---
SOB HPI - General Chief Complaint: Shortness of Breath Stated Complaint: Fever, SOB Time Seen by Provider: 03/29/19 15:55 Source: patient, family Mode of arrival: ambulatory Limitations: no limitations - History of Present Illness Initial Comments: Is a 58-year-old male with a history of lung cancer on chemotherapy who presents here department for cough and worsening soreness of breath. He states that the symptoms been going on since last night. He did develop a fever between 101 and 102. He states that he is been coughing up some sputum. The patient has been admitted to the hospital for pneumonia previously. He denies any abdominal pain, nausea, vomiting, or diarrhea. No blood in the stool. He denies any back or neck pain. No rashes and lower extremities. Denies any other acute complaints at this time. - Related Data Home Medications Medication Instructions Recorded Confirmed Cholecalciferol [Vitamin D3] 1,000 unit PO DAILY 05/31/16 03/29/19 Docusate [Colace] 200 mg PO BID PRN 05/31/16 03/29/19 Loratadine [Claritin] 10 mg PO DAILY 05/31/16 03/29/19 Metoprolol Tartrate [Lopressor] 25 mg PO BID 05/31/16 03/29/19 Multivitamin [Men's Multi-Vitamin] 1 tab PO DAILY 05/31/16 03/29/19 [place]-3 Fatty Acids/Fish Oil [Fish 1 cap PO DAILY 05/31/16 03/29/19 Oil 1,000 mg Softgel] Flaxseed Oil [[place]-3 Flaxseed Oil] 1,000 mg PO DAILY 01/24/17 03/29/19 Garlic 1 tab PO DAILY 06/18/18 03/29/19 Ipratropium [place] [Atrovent Hfa] 2 puff INHALATION RT-BID PRN 06/18/18 03/29/19 Ipratropium-Albuterol Nebulize 3 ml INHALATION RT-TID 01/09/19 03/29/19 [Duoneb 0.5 mg-3 mg/3 ml Soln] Ranitidine HCl [Zantac] 150 mg PO BID 03/29/19 03/29/19 Allergies Allergy/AdvReac Type Severity Reaction Status Date / Time Penicillins Allergy Rash/Hives Verified 03/29/19 15:53 Review of Systems ROS Statement: Those systems with pertinent positive or pertinent negative responses have been documented in the HPI. ROS Other: All systems not noted in ROS Statement are negative. Past Medical History Past Medical History: Asthma, Cancer, COPD, GERD/Reflux, Hypertension, Pneumonia Additional Past Medical History / Comment(s): L lung cancer with surgery/chemo/radiation and currently immunosuppressive therapy, edentulous,dysphagia History of Any Multi-Drug Resistant Organisms: None Reported Past Surgical History: Appendectomy, Tonsillectomy Additional Past Surgical History / Comment(s): L lung lobectomy/lymph node biopsy, mediport R IJ, EGD with bx. Past Anesthesia/Blood Transfusion Reactions: No Reported Reaction Past Psychological History: No Psychological Hx Reported Smoking Status: Former smoker Past Alcohol Use History: None Reported Past Drug Use History: None Reported - Past Family History Father Brother(s) Family Medical History: Cancer Additional Family Medical History / Comment(s): Father of unknown type of cancer. Mother Family Medical History: Cancer Additional Family Medical History / Comment(s): Mother from breast cancer at the age of 68yrs. Brother(s) Family Medical History: Cancer Additional Family Medical History / Comment(s): 1 brother had bowel cancer, 1 brother had a chest mass and thoracic aneurysm ant at the age of 62yrs. General Exam - General Exam Comments Initial Comments: Constitutional: Awake alert Appears comfortable Head: Normocephalic atraumatic Eyes: no conjunctival injection No scleral icterus EOMI Neck: No JVD Supple Heart: Regular rate rhythm normal S1-S2 no murmurs Lungs: Coarse Lung sounds bilaterally No wheezing No rales Abdomen: Soft nondistended nontender Extremities: Non edematous DP pulses intact Radial pulses intact Neuro: A&Ox3 No focal neurologic deficits Psych: Appropriate mood and affect Limitations: no limitations Course Vital Signs 03/29/19 03/29/19 03/29/19 15:47 17:30 18:00 Temperature 102.1 F H Pulse Rate 134 H 117 H 123 H Respiratory 18 20 20 Rate Blood Pressure 104/57 97/62 101/62 O2 Sat by Pulse 97 95 96 Oximetry 03/29/19 03/29/19 18:30 19:17 Temperature 98.6 F Pulse Rate 107 H 105 H Respiratory 20 18 Rate Blood Pressure 110/70 107/75 O2 Sat by Pulse 95 96 Oximetry - Reevaluation(s) Reevaluation #1: 03/29/19 17:14 EKG showing sinus tachycardia with a rate of 115. There is no underlying C7 changes or T-wave inversions. QTC is 420. Other intervals normal. No ectopy. Medical Decision Making - Medical Decision Making This 50-year-old male who presents emergency department for fever, cough, shortness of breath. The patient is a chemotherapy patient for lung cancer. He is found to be febrile tachycardic on arrival. He was given acetaminophen and 2 L bolus. Actiq acid was 1.1. He had improvement in his temperature and heart rate did improve. Patient is found to be leukopenic with a white count of 2.2. Chest x-ray did not show any infiltrate however did show old lung masses however clinically with a fever and tachycardia and the patient being in an immunocompromised state I feel that the patient should stay in the hospital for IV antibiotics and monitoring. Dr. Burroughs was updated and agrees with plan of care. The patient will be started on vancomycin and cefepime. - Lab Data Result diagrams: 03/29/19 17:40 03/29/19 17:40 Lab Results 03/29/19 03/29/19 03/29/19 Range/Units 17:40 17:40 17:40 WBC 2.2 L (3.8-10.6) k/uL RBC 3.03 L (4.30-5.90) m/uL Hgb 9.3 L D (13.0-17.5) gm/dL Hct 27.1 L (39.0-53.0) % MCV 89.2 (80.0-100.0) fL MCH 30.6 (25.0-35.0) pg MCHC 34.3 (31.0-37.0) g/dL RDW 20.9 H (11.5-15.5) % Plt Count 54 L D (150-450) k/uL Neutrophils % (Manual) 48 % Band Neutrophils % 6 % Lymphocytes % (Manual) 31 % Monocytes % (Manual) 13 % Eosinophils % (Manual) 2 % Neutrophils # (Manual) 1.10 L (1.3-7.7) k/uL Lymphocytes # (Manual) 0.68 L (1.0-4.8) k/uL Monocytes # (Manual) 0.29 (0-1.0) k/uL Eosinophils # (Manual) 0.04 (0-0.7) k/uL Nucleated RBCs 0 (0-0) /100 WBC Manual Slide Review Performed Poikilocytosis (manual Present Anisocytosis Moderate PT (9.0-12.0) sec INR (<1.2) APTT (22.0-30.0) sec Sodium 136 L (137-145) mmol/L Potassium 4.1 (3.5-5.1) mmol/L Chloride 104 (98-107) mmol/L Carbon Dioxide 25 (22-30) mmol/L Anion Gap 7 mmol/L BUN 18 (9-20) mg/dL Creatinine 1.16 (0.66-1.25) mg/dL Est GFR (CKD-EPI)AfAm 80 (>60 ml/min/1.73 sqM) Est GFR (CKD-EPI)NonAf 70 (>60 ml/min/1.73 sqM) Glucose 134 H (74-99) mg/dL Plasma Lactic Acid Brad (0.7-2.0) mmol/L Calcium 8.4 (8.4-10.2) mg/dL Total Bilirubin 0.9 (0.2-1.3) mg/dL AST 32 (17-59) U/L ALT 37 (21-72) U/L Alkaline Phosphatase 92 (38-126) U/L CK-MB (CK-2) <0.2 (0.0-2.4) ng/mL Troponin I <0.012 (0.000-0.034) ng/mL Total Protein 6.1 L (6.3-8.2) g/dL Albumin 3.4 L (3.5-5.0) g/dL Influenza Type A RNA (Not Detectd) Influenza Type B (PCR) (Not Detectd) 03/29/19 03/29/19 03/29/19 Range/Units 17:40 17:40 17:54 WBC (3.8-10.6) k/uL RBC (4.30-5.90) m/uL Hgb (13.0-17.5) gm/dL Hct (39.0-53.0) % MCV (80.0-100.0) fL MCH (25.0-35.0) pg MCHC (31.0-37.0) g/dL RDW (11.5-15.5) % Plt Count (150-450) k/uL Neutrophils % (Manual) % Band Neutrophils % % Lymphocytes % (Manual) % Monocytes % (Manual) % Eosinophils % (Manual) % Neutrophils # (Manual) (1.3-7.7) k/uL Lymphocytes # (Manual) (1.0-4.8) k/uL Monocytes # (Manual) (0-1.0) k/uL Eosinophils # (Manual) (0-0.7) k/uL Nucleated RBCs (0-0) /100 WBC Manual Slide Review Poikilocytosis (manual Anisocytosis PT 12.6 H (9.0-12.0) sec INR 1.2 H (<1.2) APTT 52.2 H (22.0-30.0) sec Sodium (137-145) mmol/L Potassium (3.5-5.1) mmol/L Chloride (98-107) mmol/L Carbon Dioxide (22-30) mmol/L Anion Gap mmol/L BUN (9-20) mg/dL Creatinine (0.66-1.25) mg/dL Est GFR (CKD-EPI)AfAm (>60 ml/min/1.73 sqM) Est GFR (CKD-EPI)NonAf (>60 ml/min/1.73 sqM) Glucose (74-99) mg/dL Plasma Lactic Acid Brad 1.1 (0.7-2.0) mmol/L Calcium (8.4-10.2) mg/dL Total Bilirubin (0.2-1.3) mg/dL AST (17-59) U/L ALT (21-72) U/L Alkaline Phosphatase (38-126) U/L CK-MB (CK-2) (0.0-2.4) ng/mL Troponin I (0.000-0.034) ng/mL Total Protein (6.3-8.2) g/dL Albumin (3.5-5.0) g/dL Influenza Type A RNA Not Detected (Not Detectd) Influenza Type B (PCR) Not Detected (Not Detectd) Disposition Clinical Impression: Fever, Leukopenia, Bronchitis Disposition: ADMITTED IP TO THIS HOSP Condition: Stable
[2019-03-29] MEDS: SODIUM CHLORIDE 0.9% 500 ML 500 ML IV SCH ×3 (17:37→17:39)
[2019-03-29 17:58] LABS: Anisocytosis Moderate; HCT 27.1 % (39.0-53.0); MCH 30.6 pg (25.0-35.0); MCHC 34.3 g/dL (31.0-37.0); MCV 89.2 fL (80.0-100.0); Mean Platelet Volume 10.1; RBC 3.03 m/uL (4.30-5.90); RDW 20.9 % (11.5-15.5); WBC 2.2 k/uL (3.8-10.6)
[2019-03-29 18:00] LABS: Albumin 3.4 g/dL (3.5-5.0); Calcium 8.4 mg/dL (8.4-10.2); Potassium 4.1 mmol/L (3.5-5.1); Total Bilirubin 0.9 mg/dL (0.2-1.3); Total Protein 6.1 g/dL (6.3-8.2)
[2019-03-29 18:01] LABS: HGB 9.3 gm/dL (13.0-17.5)
[2019-03-29 18:05] LABS: INR 1.2 (<1.2); Partial Thromboplastin Time 52.2 sec (22.0-30.0); Prothrombin Time 12.6 sec (9.0-12.0)
[2019-03-29 18:15] LABS: Creatine Kinase MB <0.2 ng/mL (0.0-2.4); Troponin I <0.012 ng/mL (0.000-0.034)
[2019-03-29 18:21] LABS: Band Neutrophils % 6 %; Eosinophils # (M) 0.04 k/uL (0-0.7); Lymphocytes # (M) 0.68 k/uL (1.0-4.8); Monocytes # (M) 0.29 k/uL (0-1.0); Neutrophils % (M) 48 %; Nucleated Red Blood Cells 0 /100 WBC (0-0); Platelet Count 54 k/uL (150-450); Poikilocytosis (M) Present; Total Cells Counted 100
--- NOTE | 2019-03-29 18:59 | XR ---
EXAMINATION TYPE: XR chest 2V DATE OF EXAM: 03/29/2019 COMPARISON: 01/09/2019 HISTORY: Fever TECHNIQUE: Frontal and lateral views of the chest are obtained. FINDINGS: There is 4 cm masslike infiltrate above the left pulmonary hilum. The other lung leger ar e clear. There is right central venous catheter with the tip in the superior vena cava. There is no h eart failure. Heart size is normal. IMPRESSION: Left upper lobe mass consistent with tumor there is the same or slightly smaller than la st exam. Normal heart. No pulmonary consolidation to suggest bronchopneumonia.
[2019-03-29] MEDS ORDERED: SODIUM CHLORIDE 0.9% 500 ML 500 ML IV ONE (19:17)
[2019-03-29] MEDS ORDERED: CEFEPIME 1 GM in SODIUM CHLORIDE 0.9% 50 ML IVPB STA (19:17)
[2019-03-29] MEDS ORDERED: VANCOMYCIN IV PER PHARMACY 1 EACH MISC MISCELLANE PRN (19:17)
[2019-03-29] MEDS ORDERED: ACETAMINOPHEN TAB 325 MG TAB PO PRN (19:22)
[2019-03-29] MEDS ORDERED: IBUPROFEN 400 MG TAB PO PRN (19:22)
[2019-03-29] MEDS ORDERED: NALOXONE 0.4 MG/ML 1 ML VIAL IV PRN (19:22)
[2019-03-29] MEDS ORDERED: VANCOMYCIN 2,000 MG in SODIUM CHLORIDE 0.9% 500 ML 500 ML IVPB STA (19:23)
[2019-03-29 19:36] LABS: Amorphous Sediment,Urine Rare /hpf; Appearance,Urine Clear (Clear); Bilirubin,Urine 1+ (Negative); Blood,Urine Negative (Negative); Color,Urine Dark Yellow; Glucose,Urine (UA) Negative (Negative); Hyaline Casts,Urine 6 /lpf (0-2); Ketones,Urine Trace (Negative); Leukocyte Esterase,Urine Negative (Negative); Mucus,Urine Occasional /hpf; Nitrite,Urine Negative (Negative); Protein,Urine 1+ (Negative); RBC,Urine 1 /hpf (0-5); Specific Gravity,Urine 1.032 (1.001-1.035); WBC,Urine 3 /hpf (0-5)
[2019-03-29] MEDS: SODIUM CHLORIDE 0.9% 1,000 ML IV SCH (20:07)
[2019-03-29 21:47] VITALS: BMI 33.5
[2019-03-29] MEDS ORDERED: DOCUSATE 100 MG CAP PO PRN (22:03)
[2019-03-29] MEDS ORDERED: NON-FORMULARY DRUG (Ipratropium Bromide [Atrovent Hfa] 2 PUFF) INHALATION PRN (22:03)
[2019-03-29] MEDS ORDERED: IPRATROPIUM-ALBUTEROL 3 ML NEB INHALATION PRN (22:11)
[2019-03-29] MEDS: METOPROLOL TARTRATE 25 MG TAB PO SCH (22:39)
[2019-03-30] MEDS: IPRATROPIUM-ALBUTEROL 3 ML NEB INHALATION SCH ×4 (07:39→20:31)
[2019-03-30 07:41] LABS: Anisocytosis Moderate; HCT 27.8 % (39.0-53.0); MCH 29.9 pg (25.0-35.0); MCHC 32.5 g/dL (31.0-37.0); Mean Platelet Volume 10.3; RBC 3.02 m/uL (4.30-5.90); WBC 3.5 k/uL (3.8-10.6)
[2019-03-30 07:48] LABS: ALT 33 U/L (21-72); AST 25 U/L (17-59); African American GFR (CKD) >90 (>60 ml/min/1.73 sqM); Albumin 2.9 g/dL (3.5-5.0); Alkaline Phosphatase 90 U/L (38-126); Anion Gap 3 mmol/L; Blood Urea Nitrogen 12 mg/dL (9-20); Calcium 8.1 mg/dL (8.4-10.2); Carbon Dioxide 23 mmol/L (22-30); Chloride 110 mmol/L (98-107); Glucose 92 mg/dL (74-99); Potassium 4.5 mmol/L (3.5-5.1); Sodium 136 mmol/L (137-145); Total Bilirubin 1.3 mg/dL (0.2-1.3); Total Protein 5.3 g/dL (6.3-8.2)
[2019-03-30 07:55] LABS: Platelet Count 48 k/uL (150-450)
[2019-03-30] MEDS: FAMOTIDINE 20 MG TAB PO SCH ×2 (08:30→20:45)
[2019-03-30] MEDS: MULTIVITAMINS, THERA 1 EACH TAB PO SCH (08:30)
[2019-03-30] MEDS: METOPROLOL TARTRATE 25 MG TAB PO SCH ×2 (08:30→20:45)
[2019-03-30] MEDS: LORATADINE 10 MG TAB PO SCH (08:30)
[2019-03-30] MEDS: CHOLECALCIFEROL 1,000 UNIT TAB PO SCH (08:30)
[2019-03-30] MEDS ORDERED: NON-FORMULARY DRUG (Omega-3 Fatty Acids/Fish Oil [Fish Oil 1,000 Mg Softgel] 1 CAP) PO SCH (09:00)
[2019-03-30] MEDS ORDERED: VANCOMYCIN 1,500 MG in SODIUM CHLORIDE 0.9% 250 ML IVPB SCH (09:00)
[2019-03-30 09:15] LABS: Band Neutrophils % 6 %; Lymphocytes # (M) 0.77 k/uL (1.0-4.8); Monocytes # (M) 0.56 k/uL (0-1.0); Neutrophils % (M) 56 %; Nucleated Red Blood Cells 0 /100 WBC (0-0); Total Cells Counted 100
[2019-03-30] MEDS: SODIUM CHLORIDE 0.9% 1,000 ML IV SCH ×2 (10:39→16:12)
--- NOTE | 2019-03-30 12:47 | P.CNPUL ---
History of Present Illness Reason for consult: dyspnea, cough, COPD, hypoxemia, pneumonia Chief complaint: Shortness of breath cough congestion started a week ago progressively History of present illness: Is a 58-year-old male with a history of lung cancer on chemotherapy who presents here department for cough and worsening soreness of breath. He states that the symptoms been going on since last night. He did develop a fever between 101 and 102. He states that he is been coughing up some sputum. Symptoms started somewhere 3-4 days ago and has been from progressive, she was diagnosed as a lung cancer in 2014 and left-sided partial pneumonectomy was performed he has been on chemotherapy on ongoing basis The patient has been admitted to the hospital for pneumonia previously. He denies any abdominal pain, nausea, vomiting, or diarrhea. No blood in the stool. He denies any back or neck pain. No rashes and lower extremities. Denies any other acute complaints at this time. He denies any hemoptysis Review of Systems All systems: negative Past Medical History Past Medical History: Asthma, Cancer, COPD, GERD/Reflux, Hypertension, Pneumonia Additional Past Medical History / Comment(s): L lung cancer(stage 4) with lymph node mets with surgery/chemo/radiation and currently immunosuppressive therapy; left lower lobe removed. last chemo does 03/21/19. radiation complete. e dentulous,dysphagia History of Any Multi-Drug Resistant Organisms: None Reported Past Surgical History: Appendectomy, Tonsillectomy Additional Past Surgical History / Comment(s): L lung lobectomy/lymph node biopsy, mediport R IJ, EGD with bx. Past Anesthesia/Blood Transfusion Reactions: No Reported Reaction Past Psychological History: No Psychological Hx Reported Additional Psychological History / Comment(s): Pt resides with his spouse. He uses no assistive device. He drives. He is retired from [employer]. Smoking Status: Former smoker Past Alcohol Use History: None Reported Additional Past Alcohol Use History / Comment(s): Pt started smoking in 1972 and quit in 2012.smoked 1ppd, past occ alcohol-quit in his 30's Past Drug Use History: None Reported - Past Family History Father Brother(s) Family Medical History: Cancer Additional Family Medical History / Comment(s): Father of unknown type of cancer. Mother Family Medical History: Cancer Additional Family Medical History / Comment(s): Mother from breast cancer at the age of 68yrs. Brother(s) Family Medical History: Cancer Additional Family Medical History / Comment(s): 1 brother had bowel cancer, 1 brother had a chest mass and thoracic aneurysm ant at the age of 62yrs. Medications and Allergies Home Medications Medication Instructions Recorded Confirmed Type Cholecalciferol [Vitamin D3] 1,000 unit PO DAILY 05/31/16 03/29/19 History Docusate [Colace] 200 mg PO BID PRN 05/31/16 03/29/19 History Loratadine [Claritin] 10 mg PO DAILY 05/31/16 03/29/19 History Metoprolol Tartrate [Lopressor] 25 mg PO BID 05/31/16 03/29/19 History Multivitamin [Men's Multi-Vitamin] 1 tab PO DAILY 05/31/16 03/29/19 History [place]-3 Fatty Acids/Fish Oil [Fish 1 cap PO DAILY 05/31/16 03/29/19 History Oil 1,000 mg Softgel] Flaxseed Oil [[place]-3 Flaxseed Oil] 1,000 mg PO DAILY 01/24/17 03/29/19 History Garlic 1 tab PO DAILY 06/18/18 03/29/19 History Ipratropium [place] [Atrovent Hfa] 2 puff INHALATION RT-BID PRN 06/18/18 03/29/19 History Ipratropium-Albuterol Nebulize 3 ml INHALATION RT-TID 01/09/19 03/29/19 History [Duoneb 0.5 mg-3 mg/3 ml Soln] Ranitidine HCl [Zantac] 150 mg PO BID 03/29/19 03/29/19 History Allergies Allergy/AdvReac Type Severity Reaction Status Date / Time Penicillins Allergy Rash/Hives Verified 03/29/19 15:53 Physical Exam Vitals: Vital Signs Temp Pulse Pulse Resp BP BP Pulse Ox 03/30/19 12:06 98.7 F 93 15 115/75 96 03/30/19 07:49 84 03/30/19 07:39 88 03/30/19 05:00 98.1 F 104 H 16 108/68 97 03/29/19 21:34 98.0 F 109 H 22 142/76 97 03/29/19 21:14 98.2 F 96 14 103/90 98 03/29/19 19:17 98.6 F 105 H 18 107/75 96 03/29/19 18:30 107 H 20 110/70 95 03/29/19 18:00 123 H 20 101/62 96 03/29/19 17:30 117 H 20 97/62 95 03/29/19 15:47 102.1 F H 134 H 18 104/57 97 Intake and Output 03/29/19 03/30/19 03/30/19 22:59 06:59 14:59 Intake Total 300 1390 Balance 300 1390 Intake: Intake, IV Titration 300 800 Amount Sodium Chloride 0.9% 1, 50 800 000 ml @ 100 mls/hr IV . Q10H LONG Rx#:[id number] Vancomycin 1,500 mg In 250 Sodium Chloride 0.9% 250 ml @ 125 mls/hr IVPB Q12HR LONG Rx#:[id number] Oral 590 Other: Voiding Method Toilet # Voids 2 Weight 105.687 kg - Constitutional General appearance: average body habitus, cooperative, disheveled, mild distress - EENT Eyes: anicteric sclerae, PERRLA, poor dentition, normal appearance ENT: normal oropharynx Ears: bilateral: normal - Neck Carotids: bilateral: upstroke normal, bruit absent Thyroid: bilateral: normal size - Respiratory Respiratory: left: diminished, bilateral: rhonchi, wheezing, negative: dullness, rales, prolonged expiration, prolonged inspiration - Cardiovascular Rhythm: regular Heart sounds: normal: S1, S2 - Gastrointestinal General gastrointestinal: decreased bowel sounds, soft - Integumentary Integumentary: normal turgor - Neurologic Neurologic: CNII-XII intact - Musculoskeletal Musculoskeletal: gait normal, generalized weakness, strength equal bilaterally - Psychiatric Psychiatric: A&O x's 3, appropriate affect, intact judgment & insight Results - Laboratory Findings CBC and BMP: 03/30/19 07:25 03/30/19 07:25 PT/INR, D-dimer PT 12.6 sec (9.0-12.0) H 03/29/19 17:40 INR 1.2 (<1.2) H 03/29/19 17:40 Abnormal lab findings: Abnormal Labs 03/29/19 03/29/19 03/29/19 17:40 17:40 17:40 WBC 2.2 L RBC 3.03 L Hgb 9.3 L D Hct 27.1 L RDW 20.9 H Plt Count 54 L D Neutrophils # (Manual) 1.10 L Lymphocytes # (Manual) 0.68 L PT 12.6 H INR 1.2 H APTT 52.2 H Sodium 136 L Chloride Glucose 134 H Calcium Total Protein 6.1 L Albumin 3.4 L Urine Protein Urine Ketones Urine Bilirubin Amorphous Sediment Hyaline Casts Urine Mucus 03/29/19 03/30/19 03/30/19 19:00 07:25 07:25 WBC 3.5 L RBC 3.02 L Hgb 9.0 L Hct 27.8 L RDW 21.0 H Plt Count 48 L Neutrophils # (Manual) Lymphocytes # (Manual) 0.77 L PT INR APTT Sodium 136 L Chloride 110 H Glucose Calcium 8.1 L Total Protein 5.3 L Albumin 2.9 L Urine Protein 1+ H Urine Ketones Trace H Urine Bilirubin 1+ H Amorphous Sediment Rare H Hyaline Casts 6 H Urine Mucus Occasional H - Diagnostic Findings Chest x-ray: report reviewed, image reviewed (4 cm left perihilar mass) Assessment and Plan Assessment: Tracheobronchitis Sepsis Chronic anemia Thrombocytopenia Left-sided lung mass History of left-sided lung cancer 3 years ago status post surgery exact details are not available Plan: Try to obtain old records Broad-spectrum antibiotics Breathing treatments Computed tomography scan of the chest Consult oncology Continue home medications Further recommendations pending plan of care as per clinical response of the patient Time with Patient: Greater than 30
[2019-03-30] MEDS: BUDESONIDE 0.5 MG/2 ML NEBU INHALATION SCH (20:31)
[2019-03-30] MEDS: VANCOMYCIN 1,750 MG in SODIUM CHLORIDE 0.9% 500 ML 500 ML IVPB SCH (20:45)
[2019-03-30] MEDS: methylPREDNISolone SOD SUCCI 40 MG/ML 1 ML VIAL IV SCH (20:45)
--- NOTE | 2019-03-31 01:08 | P.CONS ---
History of Present Illness - Reason for Consult Consult date: 03/30/19 Lung cancer, on chemotherapy - History of Present Illness Mr Cueto is 58 yr old WM patient well known to our practice for treatment of his known adenocarcinoma lung. He was originally diagnosed back in 2014 when he was found to have a SACHA PET Avid Pulmonary nodule, underwent Wedge resection by Dr. Pinto. At time of diagnoses negative margins and lymph nodes, unfortunately by October of 2015 a repeat PET revealed evidence of metastatic recurrent disease. His cancer has been treated with multiple lines of chemothera py including taxotere and neulasta till 11/10. Prior to this line he was treated on Carboplatin/Alimta, opdivo (immune therapy), tecentriq (immune therapy). He is status post 3 cycles of taxotere with neulasta with the last given on 10/31/18. He was then admitted to [facility] with febrile neutropenia. CT scans subsequently showed some progression. After discussion of various options, the patient was started on carboplatin, Taxol and Avastin. He received cycle 1 on 12/27/18. He was admitted subsequently with neutropenic fever, due to pneumonia. He did recover her treatment and continued chemotherapy. Had 5 cycles of this current regimen with the last one administered about a week ago. The patient states that he developed some increased shortness of breath, chest condition, cough with greenish sputum, as well as fever up to 102 at home. He therefore came into the emergency room, where he was found to have a temp of 102.1, as well as elevated heart rate. Chest x-ray showed a stable lung mass. Total WBC was reduced at 2.2 though ANC was greater than 1000. The patient was therefore admitted for further management. Consult was placed for further evaluation and recommendations. He denied any other localizing signs, such as abdominal pain, difficulty in urination, or diarrhea prior to admission. He has had some loose bowel movements and starting antibiotics. Review of Systems Constitutional: Reports fever, Reports weakness Eyes: denies blurred vision, denies pain Ears: deny: decreased hearing, ear discharge, earache, tinnitus Ears, nose, mouth and throat: Reports post-nasal drip Cardiovascular: Reports dyspnea on exertion Respiratory: Reports cough with sputum, Reports dyspnea Gastrointestinal: Denies abdominal pain, Denies diarrhea, Denies nausea, Denies vomiting Genitourinary: Reports as per HPI Musculoskeletal: Denies myalgias Integumentary: Denies pruritus, Denies rash Neurological: Reports weakness Psychiatric: Denies anxiety, Denies depression Endocrine: Reports fatigue Hematologic/Lymphatic: Reports as per HPI Past Medical History Past Medical History: Asthma, Cancer, COPD, GERD/Reflux, Hypertension, Pneumonia Additional Past Medical History / Comment(s): L lung cancer(stage 4) with lymph node mets with surgery/chemo/radiation and currently immunosuppressive therapy; left lower lobe removed. last chemo does 03/21/19. radiation complete. edentulous,dysphagia History of Any Multi-Drug Resistant Organisms: None Reported Past Surgical History: Appendectomy, Tonsillectomy Additional Past Surgical History / Comment(s): L lung lobectomy/lymph node biopsy, mediport R IJ, EGD with bx. Past Anesthesia/Blood Transfusion Reactions: No Reported Reaction Past Psychological History: No Psychological Hx Reported Additional Psychological History / Comment(s): Pt resides with his spouse. He uses no assistive device. He drives. He is retired from [employer]. Smoking Status: Former smoker Past Alcohol Use History: None Reported Additional Past Alcohol Use History / Comment(s): Pt started smoking in 1972 and quit in 2012.smoked 1ppd, past occ alcohol-quit in his 's Past Drug Use History: None Reported - Past Family History Father Brother(s) Family Medical History: Cancer Additional Family Medical History / Comment(s): Father of unknown type of cancer. Mother Family Medical History: Cancer Additional Family Medical History / Comment(s): Mother from breast cancer at the age of 68yrs. Brother(s) Family Medical History: Cancer Additional Family Medical History / Comment(s): 1 brother had bowel cancer, 1 brother had a chest mass and thoracic aneurysm ant at the age of 62yrs. Medications and Allergies Home Medications Medication Instructions Recorded Confirmed Type Cholecalciferol [Vitamin D3] 1,000 unit PO DAILY 05/31/16 03/29/19 History Docusate [Colace] 200 mg PO BID PRN 05/31/16 03/29/19 History Loratadine [Claritin] 10 mg PO DAILY 05/31/16 03/29/19 History Metoprolol Tartrate [Lopressor] 25 mg PO BID 05/31/16 03/29/19 History Multivitamin [Men's Multi-Vitamin] 1 tab PO DAILY 05/31/16 03/29/19 History Martinez-3 Fatty Acids/Fish Oil [Fish 1 cap PO DAILY 05/31/16 03/29/19 History Oil 1,000 mg Softgel] Flaxseed Oil [Martinez-3 Flaxseed Oil] 1,000 mg PO DAILY 01/24/17 03/29/19 History Garlic 1 tab PO DAILY 06/18/18 03/29/19 History Ipratropium [place] [Atrovent Hfa] 2 puff INHALATION RT-BID PRN 06/18/18 03/29/19 History Ipratropium-Albuterol Nebulize 3 ml INHALATION RT-TID 01/09/19 03/29/19 History [Duoneb 0.5 mg-3 mg/3 ml Soln] Ranitidine HCl [Zantac] 150 mg PO BID 03/29/19 03/29/19 History Allergies Allergy/AdvReac Type Severity Reaction Status Date / Time Penicillins Allergy Rash/Hives Verified 03/29/19 15:53 Physical Exam Vitals: Vital Signs Temp Pulse Pulse Resp BP BP Pulse Ox 03/30/19 07:49 84 03/30/19 07:39 88 03/30/19 05:00 98.1 F 104 H 16 108/68 97 03/29/19 21:34 98.0 F 109 H 22 142/76 97 03/29/19 21:14 98.2 F 96 14 103/90 98 03/29/19 19:17 98.6 F 105 H 18 107/75 96 03/29/19 18:30 107 H 20 110/70 95 03/29/19 18:00 123 H 20 101/62 96 03/29/19 17:30 117 H 20 97/62 95 03/29/19 15:47 102.1 F H 134 H 18 104/57 97 Intake and Output 03/29/19 03/30/19 03/30/19 22:59 06:59 14:59 Intake Total 300 1390 Balance 300 1390 Intake: Intake, IV Titration 300 800 Amount Sodium Chloride 0.9% 1, 50 800 000 ml @ 100 mls/hr IV . Q10H REPLACED BY [facility] Rx#:[id number] Vancomycin 1,500 mg In 250 Sodium Chloride 0.9% 250 ml @ 125 mls/hr IVPB Q12HR LONG Rx#:[id number] Oral 590 Other: Voiding Method Toilet # Voids 2 Weight 105.687 kg - Constitutional General appearance: no acute distress - EENT Eyes: EOMI, PERRLA ENT: hearing grossly normal, normal oropharynx - Neck Neck: no lymphadenopathy Thyroid: bilateral: normal size - Respiratory Respiratory: bilateral: CTA - Cardiovascular Rhythm: regular Heart sounds: normal: S1, S2 - Gastrointestinal General gastrointestinal: normal bowel sounds, soft - Integumentary Integumentary: normal - Neurologic Neurologic: CNII-XII intact - Musculoskeletal Musculoskeletal: generalized weakness, strength equal bilaterally - Psychiatric Psychiatric: A&O x's 3, appropriate affect Results CBC & Chem 7: 03/30/19 07:25 03/30/19 07:25 Labs: Abnormal Lab Results - Last 24 Hours (Table) 03/29/19 03/29/19 03/29/19 Range/Units 17:40 17:40 17:40 WBC 2.2 L (3.8-10.6) k/uL RBC 3.03 L (4.30-5.90) m/uL Hgb 9.3 L D (13.0-17.5) gm/dL Hct 27.1 L (39.0-53.0) % RDW 20.9 H (11.5-15.5) % Plt Count 54 L D (150-450) k/uL Neutrophils # (Manual) 1.10 L (1.3-7.7) k/uL Lymphocytes # (Manual) 0.68 L (1.0-4.8) k/uL PT 12.6 H (9.0-12.0) sec INR 1.2 H (<1.2) APTT 52.2 H (22.0-30.0) sec Sodium 136 L (137-145) mmol/L Chloride (98-107) mmol/L Glucose 134 H (74-99) mg/dL Calcium (8.4-10.2) mg/dL Total Protein 6.1 L (6.3-8.2) g/dL Albumin 3.4 L (3.5-5.0) g/dL Urine Protein (Negative) Urine Ketones (Negative) Urine Bilirubin (Negative) Amorphous Sediment (None) /hpf Hyaline Casts (0-2) /lpf Urine Mucus (None) /hpf 03/29/19 03/30/19 03/30/19 Range/Units 19:00 07:25 07:25 WBC 3.5 L (3.8-10.6) k/uL RBC 3.02 L (4.30-5.90) m/uL Hgb 9.0 L (13.0-17.5) gm/dL Hct 27.8 L (39.0-53.0) % RDW 21.0 H (11.5-15.5) % Plt Count 48 L (150-450) k/uL Neutrophils # (Manual) (1.3-7.7) k/uL Lymphocytes # (Manual) 0.77 L (1.0-4.8) k/uL PT (9.0-12.0) sec INR (<1.2) APTT (22.0-30.0) sec Sodium 136 L (137-145) mmol/L Chloride 110 H (98-107) mmol/L Glucose (74-99) mg/dL Calcium 8.1 L (8.4-10.2) mg/dL Total Protein 5.3 L (6.3-8.2) g/dL Albumin 2.9 L (3.5-5.0) g/dL Urine Protein 1+ H (Negative) Urine Ketones Trace H (Negative) Urine Bilirubin 1+ H (Negative) Amorphous Sediment Rare H (None) /hpf Hyaline Casts 6 H (0-2) /lpf Urine Mucus Occasional H (None) /hpf Microbiology - Last 24 Hours (Table) 03/29/19 19:00 Urine Culture - Preliminary Urine,Voided Chest x-ray: report reviewed Assessment and Plan (1) Sepsis Narrative/Plan: the patient has presented with Fever, and tachycardia. He also has leukopenia though ANC was greater than 1000. Based on his symptoms, the source appears to be likely the lung, either a postobstructive pneumonia, or the upper respiratory tract. The patient's fever pattern is improved since starting her spectrum antibiotics. Continue treatment per the admitting service and pulmonary medicine. WBC is already improved further. Current Visit: No Status: Acute Code(s): A41.9 - SEPSIS, UNSPECIFIED ORGANISM SNOMED Code(s): 99248275 (2) Pancytopenia due to chemotherapy Narrative/Plan: All counts are in a safe range, and do not require supplementation. Specifically total WBC is above 3000 with ANC well above 1000. Continue to monitor, as the patient is around his joselyn. Supportive transfusions/growth factors if needed Current Visit: Yes Status: Acute Code(s): D61.810 - ANTINEOPLASTIC CHEMOTHERAPY INDUCED PANCYTOPENIA SNOMED Code(s): 0620460 (3) History of lung cancer Narrative/Plan: Diagnostic and therapeutic circumstances as above. The patient will have his last planned cycle of this session of chemotherapy once acute situation is resolved. Set up for restaging studies after that. Current Visit: No Status: Acute Code(s): Z85.118 - PERSONAL HISTORY OF MALIGNANT NEOPLASM OF BRONCHUS AND LUNG SNOMED Code(s): 523566706
[2019-03-31] MEDS: SODIUM CHLORIDE 0.9% 1,000 ML IV SCH ×2 (01:51→19:57)
[2019-03-31] MEDS: IPRATROPIUM-ALBUTEROL 3 ML NEB INHALATION SCH ×4 (07:33→21:28)
[2019-03-31] MEDS: BUDESONIDE 0.5 MG/2 ML NEBU INHALATION SCH ×2 (07:33→21:28)
[2019-03-31] MEDS: VANCOMYCIN 1,750 MG in SODIUM CHLORIDE 0.9% 500 ML 500 ML IVPB SCH ×2 (07:54→19:51)
[2019-03-31 08:03] LABS: African American GFR (CKD) >90 (>60 ml/min/1.73 sqM)
[2019-03-31] MEDS: methylPREDNISolone SOD SUCCI 40 MG/ML 1 ML VIAL IV SCH ×2 (08:23→20:55)
[2019-03-31] MEDS: MULTIVITAMINS, THERA 1 EACH TAB PO SCH (08:23)
[2019-03-31] MEDS: CHOLECALCIFEROL 1,000 UNIT TAB PO SCH (08:23)
[2019-03-31] MEDS: FAMOTIDINE 20 MG TAB PO SCH ×2 (08:23→20:55)
[2019-03-31] MEDS: LORATADINE 10 MG TAB PO SCH (08:23)
[2019-03-31] MEDS: METOPROLOL TARTRATE 25 MG TAB PO SCH ×2 (08:27→20:55)
--- NOTE | 2019-03-31 11:32 | P.PN ---
Subjective Progress Note Date: 03/31/19 Principal diagnosis: Tracheobronchitis sepsis pneumonia chronic anemia thrombocytopenia left-sided lung mass 03/31/2019, patient seen eval reexamined during the rounds labs reviewed medications reviewed, slight cough is present congested S, patient spiked a fever last night was afebrile no fever is noted today Is a 58-year-old male with a history of lung cancer on chemotherapy who presents here department for cough and worsening soreness of breath. He states that the symptoms been going on since last night. He did develop a fever between 101 and 102. He states that he is been coughing up some sputum. Symptoms started somewhere 3-4 days ago and has been from progressive, she was diagnosed as a lung cancer in 2014 and left-sided partial pneumonectomy was performed he has been on chemotherapy on ongoing basis The patient has been admitted to the hospital for pneumonia previously. He denies any abdominal pain, nausea, vomiting, or diarrhea. No blood in the stool. He denies any back or neck pain. No rashes and lower extremities. Denies any other acute complaints at this time. He denies any hemoptysis Objective - Vital Signs Vital signs: Vital Signs Temp 97.9 F 03/31/19 05:00 Pulse 68 03/31/19 07:47 Resp 16 03/31/19 05:00 BP 131/75 03/31/19 05:00 Pulse Ox 95 03/31/19 05:00 Intake & Output 03/30/19 03/31/19 03/31/19 18:59 06:59 18:59 Intake Total 1300 1490 Balance 1300 1490 Intake: IV 500 Vancomycin 1,750 mg In 500 Sodium Chloride 0.9% 500 ml 500 ml @ 167 mls/hr IVPB Q12H [facility] Rx#: [id number] Intake, IV Titration 1300 400 Amount Sodium Chloride 0.9% 1, 800 400 000 ml @ 100 mls/hr IV . Q10H [facility] Rx#:[id number] Vancomycin 1,750 mg In 500 Sodium Chloride 0.9% 500 ml 500 ml @ 167 mls/hr IVPB Q12H [facility] Rx#: [id number] Oral 590 Other: Voiding Method Toilet # Voids 3 # Bowel Movements 1 - Exam - Constitutional General appearance: average body habitus, cooperative, disheveled, mild distress - EENT Eyes: anicteric sclerae, PERRLA, poor dentition, normal appearance ENT: normal oropharynx Ears: bilateral: normal - Neck Carotids: bilateral: upstroke normal, bruit absent Thyroid: bilateral: normal size - Respiratory Respiratory: left: diminished, bilateral: rhonchi, wheezing, negative: dullness, rales, prolonged expiration, prolonged inspiration - Cardiovascular Rhythm: regular Heart sounds: normal: S1, S2 - Gastrointestinal General gastrointestinal: decreased bowel sounds, soft - Integumentary Integumentary: normal turgor - Neurologic Neurologic: CNII-XII intact - Musculoskeletal Musculoskeletal: gait normal, generalized weakness, strength equal bilaterally - Psychiatric Psychiatric: A&O x's 3, appropriate affect, intact judgment & insight - Labs CBC & Chem 7: 03/30/19 07:25 03/31/19 06:50 Labs: Microbiology - Last 24 Hours (Table) 03/30/19 07:45 Gram Stain - Preliminary Sputum Sputum Culture - Preliminary 03/29/19 17:40 Blood Culture - Preliminary Blood No Growth after 24 hours 03/29/19 19:00 Urine Culture - Final Urine,Voided Assessment and Plan Assessment: Tracheobronchitis Sepsis Chronic anemia Thrombocytopenia Left-sided lung mass History of left-sided lung cancer 3 years ago status post surgery exact details are not available Plan: Try to obtain old records Broad-spectrum antibiotics Breathing treatments Computed tomography scan of the chest on hold Consult oncology Continue home medications Further recommendations pending plan of care as per clinical response of the patient Time with Patient: Greater than 30
[2019-04-01] MEDS: SODIUM CHLORIDE 0.9% 1,000 ML IV SCH ×4 (00:15→17:28)
[2019-04-01] MEDS ORDERED: VANCOMYCIN TROUGH DUE 1 EACH MISC MISCELLANE ONE (07:00)
[2019-04-01] MEDS: LORATADINE 10 MG TAB PO SCH (07:43)
[2019-04-01] MEDS: FAMOTIDINE 20 MG TAB PO SCH ×2 (07:43→21:57)
[2019-04-01] MEDS: MULTIVITAMINS, THERA 1 EACH TAB PO SCH (07:43)
[2019-04-01] MEDS: METOPROLOL TARTRATE 25 MG TAB PO SCH ×2 (07:43→21:57)
[2019-04-01] MEDS: CHOLECALCIFEROL 1,000 UNIT TAB PO SCH (07:43)
[2019-04-01] MEDS: methylPREDNISolone SOD SUCCI 40 MG/ML 1 ML VIAL IV SCH ×2 (07:44→21:57)
[2019-04-01] MEDS: VANCOMYCIN 1,750 MG in SODIUM CHLORIDE 0.9% 500 ML 500 ML IVPB SCH (07:44)
[2019-04-01 08:44] LABS: African American GFR (CKD) >90 (>60 ml/min/1.73 sqM)
[2019-04-01] MEDS: BUDESONIDE 0.5 MG/2 ML NEBU INHALATION SCH ×2 (08:51→19:59)
[2019-04-01] MEDS: IPRATROPIUM-ALBUTEROL 3 ML NEB INHALATION SCH ×4 (08:51→19:59)
[2019-04-01 09:05] LABS: African American GFR (CKD) >90 (>60 ml/min/1.73 sqM); Anion Gap 5 mmol/L; Blood Urea Nitrogen 14 mg/dL (9-20); Calcium 8.9 mg/dL (8.4-10.2); Carbon Dioxide 25 mmol/L (22-30); Chloride 112 mmol/L (98-107); Glucose 127 mg/dL (74-99); Sodium 142 mmol/L (137-145)
[2019-04-01 09:14] LABS: Anisocytosis Moderate; Basophils % (A) 0 %; Eosinophils % (A) 0 %; HCT 27.7 % (39.0-53.0); Lymphocytes # (A) 0.7 k/uL (1.0-4.8); Lymphocytes % (A) 7 %; MCH 30.3 pg (25.0-35.0); MCHC 32.7 g/dL (31.0-37.0); MCV 92.7 fL (80.0-100.0); Macrocytosis Slight; Mean Platelet Volume 9.8; Monocytes # (A) 0.3 k/uL (0-1.0); Monocytes % (A) 3 %; Neutrophils # (A) 8.8 k/uL (1.3-7.7); Neutrophils % (A) 87 %; RBC 2.99 m/uL (4.30-5.90); WBC 10.1 k/uL (3.8-10.6)
[2019-04-01] MEDS ORDERED: LEVOFLOXACIN 500MG-D5W PMX 500 MG in DEXTROSE/WATER 1 100ML.BAG IVPB STA (14:14)
[2019-04-01 15:05] LABS: Platelet Count 78 k/uL (150-450)
[2019-04-01] MEDS: CEFEPIME 1 GM in SODIUM CHLORIDE 0.9% 50 ML IVPB SCH (16:28)
--- NOTE | 2019-04-01 16:40 | P.PN ---
Subjective Progress Note Date: 04/01/19 This is a 58-year-old gentleman admitted with tracheobronchitis, sepsis, pneumonia, chronic anemia/thrombocytopenia,, left lung mass and multiple other medical issues. Maintained on nebulized bronchodilators, IV steroids, antibiotics with significant clinical improvement. Afebrile, maintaining O2 sats of 97% on room air, WBC 10. Eager for discharge. Denies chest pain, palpitations or increasing shortness of breath. Objective - Vital Signs Vital signs: Vital Signs Temp 98.0 F 04/01/19 12:44 Pulse 88 04/01/19 16:21 Resp 16 04/01/19 16:00 BP 147/85 04/01/19 12:44 Pulse Ox 96 04/01/19 12:44 Intake & Output 03/31/19 04/01/19 04/01/19 18:59 06:59 18:59 Intake Total 500 1310 2880 Balance 500 1310 2880 Intake: IV 500 500 Vancomycin 1,750 mg In 500 500 Sodium Chloride 0.9% 500 ml 500 ml @ 167 mls/hr IVPB Q12H [facility] Rx#: [id number] Intake, IV Titration 1310 1200 Amount Sodium Chloride 0.9% 1, 310 1200 000 ml @ 100 mls/hr IV . Q10H [facility] Rx#:[id number] Vancomycin 1,750 mg In 1000 Sodium Chloride 0.9% 500 ml 500 ml @ 167 mls/hr IVPB Q12H [facility] Rx#: [id number] Oral 1180 Other: Voiding Method Incontinent Toilet Toilet # Voids 4 - Exam PHYSICAL EXAM: VITAL SIGNS: As above GENERAL: Eating up in bed, no acute distress HEENT: Conjunctivae normal. eyes normal. Oral mucosa moist NECK: No JVD. No thyroid enlargement. No LNs CARDIOVASCULAR: S1, S2 regular.. No murmur RESPIRATION: Breath sounds diminished in the bases. No rhonchi or crackles. Occasional fine expiratory wheeze. No bronchial breathing. ABDOMEN: Soft, nontender . No guarding. no masses palpable.Bowel sounds heard. LEGS: No edema. no swelling PSYCHIATRY: Alert and oriented ?-3, mood and affect normal. NERVOUS SYSTEM: Cranial N 2-12 grossly normal. Moves all 4 limbs. Diffuse weakness No focal deficits. Strength and sensation grossly intact.. Skin: no lesions, no rash - Labs CBC & Chem 7: 04/01/19 07:02 04/01/19 07:02 Labs: Abnormal Lab Results - Last 24 Hours (Table) 04/01/19 04/01/19 Range/Units 07:02 07:02 RBC 2.99 L (4.30-5.90) m/uL Hgb 9.0 L (13.0-17.5) gm/dL Hct 27.7 L (39.0-53.0) % RDW 21.0 H (11.5-15.5) % Plt Count 78 L D (150-450) k/uL Neutrophils # 8.8 H (1.3-7.7) k/uL Lymphocytes # 0.7 L (1.0-4.8) k/uL Chloride 112 H (98-107) mmol/L Glucose 127 H (74-99) mg/dL Microbiology - Last 24 Hours (Table) 03/30/19 07:45 Gram Stain - Final Sputum Sputum Culture - Final Pseudomonas aeruginosa 03/29/19 17:40 Blood Culture - Preliminary Blood No Growth after 48 hours Assessment and Plan Assessment: -Sepsis secondary to tracheobronchitis, possible pneumonia -Thrombocytopenia secondary to chemotherapy -History of lung CA -Left-sided lung mass Plan: Continue on current medication regime ,monitoring and symptomatic treatment. Continue on nebulized bronchodilators, steroids, antibiotics. Discharge planning in progress pending pulmonary/onc clearance. Further recommendations to follow. The impression and plan of care has been dictated as directed. : I performed a history and examination of this patient, discussed the same with the dictator. I agree with the dictator's note ,documented as a scribe. Any additional findings or plans will be noted. -
--- NOTE | 2019-04-01 18:18 | P.PN ---
Subjective Progress Note Date: 04/01/19 Principal diagnosis: Tracheobronchitis sepsis pneumonia chronic anemia thrombocytopenia left-sided lung mass 04/01/2019, patient seen and evaluated examined during the rounds slightly better in terms of breathing but is still have thick brown sputum to yellow sputum present ongoing shortness of breath, and labs reviewed medications reviewed, noted pseudomonas growing in the sputum will start to antibiotics given immunosuppressed status due to advanced lung cancer being on chemotherapy 03/31/2019, patient seen eval reexamined during the rounds labs reviewed medications reviewed, slight cough is present congested S, patient spiked a fever last night was afebrile no fever is noted today Is a 58-year-old male with a history of lung cancer on chemotherapy who presents here department for cough and worsening soreness of breath. He states that the symptoms been going on since last night. He did develop a fever between 101 and 102. He states that he is been coughing up some sputum. Symptoms started somewhere 3-4 days ago and has been from progressive, she was diagnosed as a lung cancer in 2014 and left-sided partial pneumonectomy was performed he has been on chemotherapy on ongoing basis The patient has been admitted to the hospital for pneumonia previously. He denies any abdominal pain, nausea, vomiting, or diarrhea. No blood in the stool. He denies any back or neck pain. No rashes and lower extremities. Denies any other acute complaints at this time. He denies any hemoptysis Objective - Vital Signs Vital signs: Vital Signs Temp 98.0 F 04/01/19 12:44 Pulse 82 04/01/19 16:34 Resp 16 04/01/19 16:00 BP 147/85 04/01/19 12:44 Pulse Ox 96 04/01/19 12:44 Intake & Output 03/31/19 04/01/19 04/01/19 18:59 06:59 18:59 Intake Total 500 1310 2880 Balance 500 1310 2880 Intake: IV 500 500 Vancomycin 1,750 mg In 500 500 Sodium Chloride 0.9% 500 ml 500 ml @ 167 mls/hr IVPB Q12H [facility] Rx#: [id number] Intake, IV Titration 1310 1200 Amount Sodium Chloride 0.9% 1, 310 1200 000 ml @ 100 mls/hr IV . Q10H [facility] Rx#:[id number] Vancomycin 1,750 mg In 1000 Sodium Chloride 0.9% 500 ml 500 ml @ 167 mls/hr [facility]PB [facility]H [facility] Rx#: [id number] Oral 1180 Other: Voiding Method Incontinent Toilet Toilet # Voids 4 - Exam - Constitutional General appearance: average body habitus, cooperative, disheveled, mild distress - EENT Eyes: anicteric sclerae, PERRLA, poor dentition, normal appearance ENT: normal oropharynx Ears: bilateral: normal - Neck Carotids: bilateral: upstroke normal, bruit absent Thyroid: bilateral: normal size - Respiratory Respiratory: left: diminished, bilateral: rhonchi, wheezing, negative: dullness, rales, prolonged expiration, prolonged inspiration - Cardiovascular Rhythm: regular Heart sounds: normal: S1, S2 - Gastrointestinal General gastrointestinal: decreased bowel sounds, soft - Integumentary Integumentary: normal turgor - Neurologic Neurologic: CNII-XII intact - Musculoskeletal Musculoskeletal: gait normal, generalized weakness, strength equal bilaterally - Psychiatric Psychiatric: A&O x's 3, appropriate affect, intact judgment & insight - Labs CBC & Chem 7: 04/01/19 07:02 04/01/19 07:02 Labs: Abnormal Lab Results - Last 24 Hours (Table) 04/01/19 04/01/19 Range/Units 07:02 07:02 RBC 2.99 L (4.30-5.90) m/uL Hgb 9.0 L (13.0-17.5) gm/dL Hct 27.7 L (39.0-53.0) % RDW 21.0 H (11.5-15.5) % Plt Count 78 L D (150-450) k/uL Neutrophils # 8.8 H (1.3-7.7) k/uL Lymphocytes # 0.7 L (1.0-4.8) k/uL Chloride 112 H (98-107) mmol/L Glucose 127 H (74-99) mg/dL Microbiology - Last 24 Hours (Table) 03/30/19 07:45 Gram Stain - Final Sputum Sputum Culture - Final Pseudomonas aeruginosa 03/29/19 17:40 Blood Culture - Preliminary Blood No Growth after 48 hours Assessment and Plan Assessment: Pseudomonas pneumonia Tracheobronchitis Sepsis Chronic anemia Thrombocytopenia Left-sided lung mass History of left-sided lung cancer 3 years ago status post surgery exact details are not available Plan: Try to obtain old records Broad-spectrum antibiotics with cefepime I'm and Levaquin Breathing treatments Computed tomography scan of the chest on hold Consult oncology Continue home medications Findings updated with the patient Further recommendations pending plan of care as per clinical response of the patient Time with Patient: Greater than 30
--- NOTE | 2019-04-01 19:04 | P.PN ---
Subjective Progress Note Date: 04/01/19 Principal diagnosis: SOB Still with THick mucus productive cough, breathing feels improved. Afebrile and CBC is recovering Objective - Vital Signs Vital signs: Vital Signs Temp 98.0 F 04/01/19 12:44 Pulse 82 04/01/19 16:34 Resp 16 04/01/19 16:00 BP 147/85 04/01/19 12:44 Pulse Ox 96 04/01/19 12:44 Intake & Output 03/31/19 04/01/19 04/01/19 18:59 06:59 18:59 Intake Total 500 1310 2880 Balance 500 1310 2880 Intake: IV 500 500 Vancomycin 1,750 mg In 500 500 Sodium Chloride 0.9% 500 ml 500 ml @ 167 mls/hr IVPB Q12H [facility] Rx#: [id number] Intake, IV Titration 1310 1200 Amount Sodium Chloride 0.9% 1, 310 1200 000 ml @ 100 mls/hr IV . Q10H [facility] Rx#:[id number] Vancomycin 1,750 mg In 1000 Sodium Chloride 0.9% 500 ml 500 ml @ 167 mls/hr IVPB Q12H [facility] Rx#: [id number] Oral 1180 Other: Voiding Method Incontinent Toilet Toilet # Voids 4 - Exam - Constitutional General appearance: no acute distress - EENT Eyes: EOMI, PERRLA ENT: hearing grossly normal, normal oropharynx - Neck Neck: no lymphadenopathy Thyroid: bilateral: normal size - Respiratory Respiratory: COngestion and bibasilar diminshed - Cardiovascular Rhythm: regular Heart sounds: normal: S1, S2 - Gastrointestinal General gastrointestinal: normal bowel sounds, soft - Integumentary Integumentary: normal - Neurologic Neurologic: CNII-XII intact - Musculoskeletal Musculoskeletal: generalized weakness, strength equal bilaterally - Psychiatric Psychiatric: A&O x's 3, appropriate affect - Labs CBC & Chem 7: 04/01/19 07:02 04/01/19 07:02 Labs: Abnormal Lab Results - Last 24 Hours (Table) 04/01/19 04/01/19 Range/Units 07:02 07:02 RBC 2.99 L (4.30-5.90) m/uL Hgb 9.0 L (13.0-17.5) gm/dL Hct 27.7 L (39.0-53.0) % RDW 21.0 H (11.5-15.5) % Plt Count 78 L D (150-450) k/uL Neutrophils # 8.8 H (1.3-7.7) k/uL Lymphocytes # 0.7 L (1.0-4.8) k/uL Chloride 112 H (98-107) mmol/L Glucose 127 H (74-99) mg/dL Microbiology - Last 24 Hours (Table) 03/30/19 07:45 Gram Stain - Final Sputum Sputum Culture - Final Pseudomonas aeruginosa 03/29/19 17:40 Blood Culture - Preliminary Blood No Growth after 48 hours Assessment and Plan Plan: Sepsis: - Fever and Tachycardia Improved - Sputum Positive pseudomonas - Continued on antibiotics Pancytopenia due to chemotherapy: - Count recovery is improving daily - Recheck CBC in Am - PLatlets are greater than 70K - Discontinue Growth Factor at this time Adenocarcinoma of the Lung, original diagnosis in February of 2015 - Laparoscopic Wedge Resection February 2015. - October 2015 - recurrent metastatic Cancer and received Chemotherapy with Carboplatin, [place] - [phone] - Opdivo - 2017-Tecentriq - 2018 - October treatment with Taxotere and Neulasta - Most recently status Post Treatment with Carbo/Taxol and Avastin Status post c5/6 on March 22 - Chemotherapy cycle 6 on hold until resolution of infection, will follow-up in office at discharge prior to next treatment for restaging imaging schedule.
[2019-04-02] MEDS: SODIUM CHLORIDE 0.9% 1,000 ML IV SCH ×2 (04:17→13:00)
[2019-04-02 04:53] VITALS: BP 124/75; TEMP 98
[2019-04-02 08:11] LABS: ALT 32 U/L (21-72); AST 31 U/L (17-59); African American GFR (CKD) >90 (>60 ml/min/1.73 sqM); Albumin 3.3 g/dL (3.5-5.0); Alkaline Phosphatase 97 U/L (38-126); Anion Gap 7 mmol/L; Blood Urea Nitrogen 17 mg/dL (9-20); Carbon Dioxide 22 mmol/L (22-30); Chloride 110 mmol/L (98-107); Glucose 113 mg/dL (74-99); Potassium 4.4 mmol/L (3.5-5.1); Sodium 139 mmol/L (137-145); Total Bilirubin 0.5 mg/dL (0.2-1.3); Total Protein 5.9 g/dL (6.3-8.2)
[2019-04-02 08:27] LABS: Anisocytosis Moderate; Basophils % (A) 0 %; Eosinophils % (A) 0 %; HCT 30.5 % (39.0-53.0); HGB 10.1 gm/dL (13.0-17.5); Lymphocytes # (A) 0.9 k/uL (1.0-4.8); Lymphocytes % (A) 5 %; MCH 30.2 pg (25.0-35.0); MCHC 33.1 g/dL (31.0-37.0); MCV 91.1 fL (80.0-100.0); Mean Platelet Volume 8.7; Monocytes # (A) 0.5 k/uL (0-1.0); Monocytes % (A) 3 %; Neutrophils # (A) 14.5 k/uL (1.3-7.7); Neutrophils % (A) 90 %; Platelet Count 107 k/uL (150-450); RBC 3.35 m/uL (4.30-5.90); RDW 20.7 % (11.5-15.5); WBC 16.1 k/uL (3.8-10.6)
[2019-04-02] MEDS: BUDESONIDE 0.5 MG/2 ML NEBU INHALATION SCH (08:47)
[2019-04-02] MEDS: IPRATROPIUM-ALBUTEROL 3 ML NEB INHALATION SCH ×2 (08:47→11:53)
[2019-04-02 08:50] VITALS: RESP 16
[2019-04-02] MEDS: methylPREDNISolone SOD SUCCI 40 MG/ML 1 ML VIAL IV SCH (09:56)
[2019-04-02] MEDS: CEFEPIME 1 GM in SODIUM CHLORIDE 0.9% 50 ML IVPB SCH (09:57)
[2019-04-02] MEDS: FAMOTIDINE 20 MG TAB PO SCH (09:58)
[2019-04-02] MEDS: MULTIVITAMINS, THERA 1 EACH TAB PO SCH (09:58)
[2019-04-02] MEDS: METOPROLOL TARTRATE 25 MG TAB PO SCH (09:58)
[2019-04-02] MEDS: LORATADINE 10 MG TAB PO SCH (09:58)
[2019-04-02] MEDS: CHOLECALCIFEROL 1,000 UNIT TAB PO SCH (10:10)
[2019-04-02 11:27] LABS: Poikilocytosis (M) Present; Polychromasia Present
[2019-04-02 12:03] VITALS: PULSE 101
--- NOTE | 2019-04-02 14:09 | P.PN ---
Subjective Progress Note Date: 04/02/19 Principal diagnosis: SOB Counts continue to recover Objective - Vital Signs Vital signs: Vital Signs Temp 98 F 04/02/19 04:52 Pulse 101 H 04/02/19 12:02 Resp 16 04/02/19 12:02 BP 124/75 04/02/19 04:52 Pulse Ox 95 04/02/19 08:47 Intake & Output 04/01/19 04/02/19 04/02/19 18:59 06:59 18:59 Intake Total 2880 800 Balance 2880 800 Intake: IV 500 Vancomycin 1,750 mg In 500 Sodium Chloride 0.9% 500 ml 500 ml @ 167 mls/hr IVPB Q12H LONG Rx#: [id number] Intake, IV Titration 1200 800 Amount Sodium Chloride 0.9% 1, 1200 800 000 ml @ 100 mls/hr IV . Q10H LONG Rx#:[id number] Oral 1180 Other: Voiding Method Toilet Toilet Toilet # Voids 4 2 - Exam - Constitutional General appearance: no acute distress - EENT Eyes: EOMI, PERRLA ENT: hearing grossly normal, normal oropharynx - Neck Neck: no lymphadenopathy Thyroid: bilateral: normal size - Respiratory Respiratory: COngestion and bibasilar diminshed - Cardiovascular Rhythm: regular Heart sounds: normal: S1, S2 - Gastrointestinal General gastrointestinal: normal bowel sounds, soft - Integumentary Integumentary: normal - Neurologic Neurologic: CNII-XII intact - Musculoskeletal Musculoskeletal: generalized weakness, strength equal bilaterally - Psychiatric Psychiatric: A&O x's 3, appropriate affect - Labs CBC & Chem 7: 04/02/19 07:11 04/02/19 07:11 Labs: Abnormal Lab Results - Last 24 Hours (Table) 04/01/19 04/02/19 04/02/19 Range/Units 07:02 07:11 07:11 WBC 16.1 H (3.8-10.6) k/uL RBC 3.35 L (4.30-5.90) m/uL Hgb 10.1 L (13.0-17.5) gm/dL Hct 30.5 L (39.0-53.0) % RDW 20.7 H (11.5-15.5) % Plt Count 78 L D 107 L (150-450) k/uL Neutrophils # 14.5 H (1.3-7.7) k/uL Lymphocytes # 0.9 L (1.0-4.8) k/uL Chloride 110 H (98-107) mmol/L Glucose 113 H (74-99) mg/dL Total Protein 5.9 L (6.3-8.2) g/dL Albumin 3.3 L (3.5-5.0) g/dL Microbiology - Last 24 Hours (Table) 03/29/19 17:40 Blood Culture - Preliminary Blood No Growth after 72 hours 03/30/19 07:45 Gram Stain - Final Sputum Sputum Culture - Final Pseudomonas aeruginosa Assessment and Plan Plan: Sepsis: - Fever and Tachycardia Improved - Sputum Positive pseudomonas - Continued on antibiotics Pancytopenia due to chemotherapy: - Count recovery is improving daily - Recheck CBC in Am - Platlets are greater than 100L - Discontinue Growth Factor at this time Adenocarcinoma of the Lung, original diagnosis in February of 2015 - Laparoscopic Wedge Resection February 2015. - October 2015 - recurrent metastatic Cancer and received Chemotherapy with Carboplatin, [place] - [id number] - Opdivo - 2017-Tecentriq - 2018 - October treatment with Taxotere and Neulasta - Most recently status Post Treatment with Carbo/Taxol and Avastin Status post c5/6 on March 22 - Chemotherapy cycle 6 on hold until resolution of infection, will follow-up in office at discharge prior to next treatment for restaging imaging schedule. Patient ok for discharge and to follow-up in office from oncology standpoint
[2019-04-02] MEDS ORDERED: LEVOFLOXACIN 500 MG TAB PO SCH (15:00)
--- NOTE | 2019-04-03 17:52 | P.DS ---
Providers Date of admission: 03/31/19 10:53 Expected date of discharge: 04/03/19 Attending physician: Cheng Burroughs Consults: 03/29/19 22:18 Consult Physician Routine Consulting Provider: Damon Dumont Consult Reason/Comments: lung cancer; known to service Do you want consulting provider notified?: Yes 03/29/19 22:19 Consult Physician Routine Consulting Provider: Yaw Soto Consult Reason/Comments: lung cancer; bronchitis Do you want consulting provider notified?: Yes 03/30/19 12:55 Consult Physician Routine Consulting Provider: Prince Paige Consult Reason/Comments: carcinoma lung Do you want consulting provider notified?: Yes Primary care physician: [facility] Course: Final Diagnoses: -Pseudomonas pneumonia --Sepsis secondary to tracheobronchitis and pneumonia -Pancytopenia secondary to chemotherapy -Left-sided lung mass,Recurrent metastatic lung CA, adenocarcinoma, history of laparoscopic wedge resection Hospital course:This is a 58-year-old gentleman admitted with tracheobronchitis, sepsis, pneumonia, chronic anemia/thrombocytopenia,, left lung mass and multiple other medical issues. Maintained on nebulized bronchodilators, IV steroids, antibiotics with significant clinical improvement. Afebrile, maintaining O2 sats of 97% on room air, WBC 10. Eager for discharge. Denies chest pain, palpitations or increasing shortness of breath. Significant clinical improvement. Cleared By all consults for discharge. Patient is being discharged home in a stable condition with guarded prognosis. EXAM: GENERAL: Alert and oriented 3, no acute distress CARDIOVASCULAR: S1, S2 regular. No murmur RESPIRATION: Breath sounds diminished in the bases. No rhonchi or crackles. Occasional fine expiratory wheeze. ABDOMEN: Soft, nontender . No guarding. no masses palpable.Bowel sounds heard. NERVOUS SYSTEM:No focal deficits. Microbiology 03/29/19 17:40 Blood Blood Culture - Preliminary No Growth after 96 hours 03/30/19 07:45 Sputum Gram Stain - Final 03/30/19 07:45 Sputum Sputum Culture - Final Pseudomonas aeruginosa 03/29/19 19:00 Urine,Voided Urine Culture - Final The impression and plan of care has been dictated as directed. : I performed a history and examination of this patient, discussed the same with the dictator. I agree with the dictator's note ,documented as a scribe. Any additional findings or plans will be noted. Time taken: 35 minutes Patient Condition at Discharge: Stable Plan - Discharge Summary Discharge Rx Participant: No New Discharge Prescriptions: New predniSONE 10 mg PO DIRECTED #30 tab Levofloxacin [Levaquin] 500 mg PO DAILY #7 tab Continue Cholecalciferol [Vitamin D3 (25 Mcg = 1000 Iu)] 1,000 unit PO DAILY Metoprolol Tartrate [Lopressor] 25 mg PO BID Loratadine [Claritin] 10 mg PO DAILY Docusate [Colace] 200 mg PO BID PRN PRN Reason: Constipation [place]-3 Fatty Acids/Fish Oil [Fish Oil 1,000 mg Softgel] 1 cap PO DAILY Multivitamin [Men's Multi-Vitamin] 1 tab PO DAILY Flaxseed Oil [[place]-3 Flaxseed Oil] 1,000 mg PO DAILY Ipratropium [place] [Atrovent Hfa] 2 puff INHALATION RT-BID PRN PRN Reason: Dyspnea Garlic 1 tab PO DAILY Ranitidine HCl [Zantac] 150 mg PO BID Ipratropium-Albuterol Nebulize [Duoneb 0.5 mg-3 mg/3 ml Soln] 3 ml INHALATION RT-TID #0 Discharge Medication List Cholecalciferol [Vitamin D3 (25 Mcg = 1000 Iu)] 1,000 unit PO DAILY 05/31/16 [History] Docusate [Colace] 200 mg PO BID PRN 05/31/16 [History] Loratadine [Claritin] 10 mg PO DAILY 05/31/16 [History] Metoprolol Tartrate [Lopressor] 25 mg PO BID 05/31/16 [History] Multivitamin [Men's Multi-Vitamin] 1 tab PO DAILY 05/31/16 [History] [place]-3 Fatty Acids/Fish Oil [Fish Oil 1,000 mg Softgel] 1 cap PO DAILY 05/31/16 [History] Flaxseed Oil [[place]-3 Flaxseed Oil] 1,000 mg PO DAILY 01/24/17 [History] Garlic 1 tab PO DAILY 06/18/18 [History] Ipratropium [place] [Atrovent Hfa] 2 puff INHALATION RT-BID PRN 06/18/18 [History] Ranitidine HCl [Zantac] 150 mg PO BID 03/29/19 [History] Ipratropium-Albuterol Nebulize [Duoneb 0.5 mg-3 mg/3 ml Soln] 3 ml INHALATION RT-TID #0 04/02/19 [Rx] Levofloxacin [Levaquin] 500 mg PO DAILY #7 tab 04/02/19 [Rx] predniSONE 10 mg PO DIRECTED #30 tab 04/02/19 [Rx] Follow up Appointment(s)/Referral(s): Prince Paige MD [STAFF PHYSICIAN] - 04/10/19 8:30 am Cheng Burroughs MD [Primary Care Provider] - 04/11/19 9:30 am Yaw Soto MD [STAFF PHYSICIAN] - 04/09/19 9:15 am Ambulatory/Diagnostic Orders: Complete Blood Count w/diff [LAB.AMB] Time Frame: 3 Days, Location: None Selected Patient Instructions/Handouts: Prednisone (By mouth), Levofloxacin (By mouth), Fever in Adults (GEN), Pancytopenia (DC) Discharge Disposition: HOME SELF-CARE
--- NOTE | 2019-04-05 16:16 | P.PN ---
Subjective Progress Note Date: 04/02/19 Principal diagnosis: Tracheobronchitis sepsis pneumonia chronic anemia thrombocytopenia left-sided lung mass 04/02/2019, patient seen and evaluated examined during the rounds her fever and tachycardia is improved patient is on broad-spectrum antibiotics he wants to go home, sputum is positive for Pseudomonas antibiotics have been adjusted to by mouth 04/01/2019, patient seen and evaluated examined during the rounds slightly better in terms of breathing but is still have thick brown sputum to yellow sputum present ongoing shortness of breath, and labs reviewed medications katie collins, noted pseudomonas growing in the sputum will start to antibiotics given immunosuppressed status due to advanced lung cancer being on chemotherapy 03/31/2019, patient seen eval reexamined during the rounds labs reviewed medications reviewed, slight cough is present congested S, patient spiked a fever last night was afebrile no fever is noted today Is a 58-year-old male with a history of lung cancer on chemotherapy who presents here department for cough and worsening soreness of breath. He states that the symptoms been going on since last night. He did develop a fever between 101 and 102. He states that he is been coughing up some sputum. Symptoms started somewhere 3-4 days ago and has been from progressive, she was diagnosed as a lung cancer in 2014 and left-sided partial pneumonectomy was performed he has been on chemotherapy on ongoing basis The patient has been admitted to the hospital for pneumonia previously. He denies any abdominal pain, nausea, vomiting, or diarrhea. No blood in the stool. He denies any back or neck pain. No rashes and lower extremities. Denies any other acute complaints at this time. He denies any hemoptysis Objective - Vital Signs Vital signs: Vital Signs Temp 98 F 04/02/19 04:52 Pulse 101 H 04/02/19 12:02 Resp 16 04/02/19 12:02 BP 124/75 04/02/19 04:52 Pulse Ox 95 04/02/19 08:47 - Exam - Constitutional General appearance: average body habitus, cooperative, disheveled, mild distress - EENT Eyes: anicteric sclerae, PERRLA, poor dentition, normal appearance ENT: normal oropharynx Ears: bilateral: normal - Neck Carotids: bilateral: upstroke normal, bruit absent Thyroid: bilateral: normal size - Respiratory Respiratory: left: diminished, bilateral: rhonchi, wheezing, negative: dullness, rales, prolonged expiration, prolonged inspiration - Cardiovascular Rhythm: regular Heart sounds: normal: S1, S2 - Gastrointestinal General gastrointestinal: decreased bowel sounds, soft - Integumentary Integumentary: normal turgor - Neurologic Neurologic: CNII-XII intact - Musculoskeletal Musculoskeletal: gait normal, generalized weakness, strength equal bilaterally - Psychiatric Psychiatric: A&O x's 3, appropriate affect, intact judgment & insight - Labs CBC & Chem 7: 04/02/19 07:11 04/02/19 07:11 Labs: Microbiology - Last 24 Hours (Table) 03/29/19 17:40 Blood Culture - Final Blood No Growth after 144 hours Assessment and Plan Assessment: Pseudomonas pneumonia Tracheobronchitis Sepsis Chronic anemia Thrombocytopenia Left-sided lung mass History of left-sided lung cancer 3 years ago status post surgery exact details are not available Plan: Antibiotics switched to by mouth Breathing treatments Consult oncology recommendations reviewed Continue home medications Findings updated with the patient Further recommendations pending plan of care as per clinical response of the patient Time with Patient: Greater than 30
== END 2019-04-02 15:44 | disposition home or self-care (01) | DRG 871 ==
LOC: EC 15:16 → 3NMEDONC 19:23 → OBSVTOIN 03-31 10:53
PROVIDERS: ADMIT Family Medicine; ATTEND Family Medicine
DX: A41.9 Sepsis, unspecified organism (principal); J15.1 Pneumonia due to Pseudomonas; D61.810 Antineoplastic chemotherapy induced pancytopenia; J44.0 Chronic obstructive pulmonary disease with (acute) lower respiratory infection; C77.9 Secondary and unspecified malignant neoplasm of lymph node, unspecified; C34.90 Malignant neoplasm of unspecified part of unspecified bronchus or lung; D70.9 Neutropenia, unspecified; R13.10 Dysphagia, unspecified; J20.9 Acute bronchitis, unspecified; R50.81 Fever presenting with conditions classified elsewhere; K21.9 Gastro-esophageal reflux disease without esophagitis; R09.02 Hypoxemia; I10 Essential (primary) hypertension; T45.1X5A Adverse effect of antineoplastic and immunosuppressive drugs, initial encounter; Z79.899 Other long term (current) drug therapy; Z87.891 Personal history of nicotine dependence; Z88.0 Allergy status to penicillin; Z80.3 Family history of malignant neoplasm of breast; Z80.0 Family history of malignant neoplasm of digestive organs; Z82.49 Family history of ischemic heart disease and other diseases of the circulatory system
CPT/HCPCS: 36415; 71046; 80048; 80053; 80202; 81001; 82553; 82565; 83605; 84484; 85025; 85610; 85730; 87040; 87070; 87077; 87086; 87186; 87205; 87502; 93005; 94640; 94760; 96361; 96365; 99285

== ENCOUNTER 2019-04-09 03:47 | Inpatient (IN) | payer MEDICARE ==
[2019-04-09] MEDS ORDERED: MORPHINE SULFATE 4 MG/ML SYRINGE IV STA ×2 (04:40→06:38)
--- NOTE | 2019-04-09 04:46 | ED ---
SOB HPI - General Chief Complaint: Shortness of Breath Stated Complaint: GATO Time Seen by Provider: 04/09/19 04:36 Source: patient, family Mode of arrival: wheelchair Limitations: no limitations - History of Present Illness Initial Comments: 's patient is a 58-year-old man with history of lung cancer, now recurrent and stage IV, who states that he has had worsening shortness of breath since approximately 2 AM. He states the shortness of breath did wake him. He denies chest pain, fevers or chills, or productive cough. He does have occasional nonproductive cough. MD Complaint: shortness of breath Onset/Timin -: hour(s) Consistency: constant Improves With: nothing Worsens With: nothing Known History Of: other (Lung cancer) Treatments Prior to Arrival: none - Related Data Home Oxygen Therapy: No Home Medications Medication Instructions Recorded Confirmed Cholecalciferol [Vitamin D3 (25 1,000 unit PO DAILY 05/31/16 04/09/19 Mcg = 1000 Iu)] Docusate [Colace] 200 mg PO BID PRN 05/31/16 04/09/19 Loratadine [Claritin] 10 mg PO DAILY 05/31/16 04/09/19 Metoprolol Tartrate [Lopressor] 25 mg PO BID 05/31/16 04/09/19 Multivitamin [Men's Multi-Vitamin] 1 tab PO DAILY 05/31/16 04/09/19 [place]-3 Fatty Acids/Fish Oil [Fish 1 cap PO DAILY 05/31/16 04/09/19 Oil 1,000 mg Softgel] Flaxseed Oil [[place]-3 Flaxseed Oil] 1,000 mg PO DAILY 01/24/17 04/09/19 Garlic 1 tab PO DAILY 06/18/18 04/09/19 Ipratropium [place] [Atrovent Hfa] 2 puff INHALATION RT-BID PRN 06/18/18 04/09/19 Famotidine [Pepcid] 20 mg PO DAILY 04/09/19 04/09/19 Ipratropium-Albuterol Nebulize 3 ml INHALATION RT-Q4H PRN 04/09/19 04/09/19 [Duoneb 0.5 mg-3 mg/3 ml Soln] L.acidoph,Paracasei, B.lactis 1 cap PO DAILY 04/09/19 04/09/19 [Probiotic] Levofloxacin [Levaquin] 500 mg PO DAILY 04/09/19 04/09/19 predniSONE See Taper PO DAILY 04/09/19 04/09/19 Previous Rx's Medication Instructions Recorded Ipratropium-Albuterol Nebulize 3 ml INHALATION RT-TID #0 04/02/19 [Duoneb 0.5 mg-3 mg/3 ml Soln] Allergies Allergy/AdvReac Type Severity Reaction Status Date / Time Penicillins Allergy Unknown Verified 04/09/19 10:05 Childhood Review of Systems ROS Statement: Those systems with pertinent positive or pertinent negative responses have been documented in the HPI. ROS Other: All systems not noted in ROS Statement are negative. Constitutional: Reports: weakness. Denies: fever, chills Respiratory: Reports: cough, dyspnea. Denies: hemoptysis Cardiovascular: Denies: chest pain, palpitations, edema, syncope Gastrointestinal: Denies: abdominal pain, vomiting, diarrhea, melena, hematochezia Musculoskeletal: Denies: back pain Skin: Denies: rash Neurological: Denies: headache, weakness Past Medical History Past Medical History: Asthma, Cancer, COPD, GERD/Reflux, Hypertension, Pneumonia Additional Past Medical History / Comment(s): L lung cancer(stage 4) with lymph node mets with surgery/chemo/radiation and currently immunosuppressive therapy; left lower lobe removed. last chemo does 03/21/19. radiation complete. edentulous,dysphagia History of Any Multi-Drug Resistant Organisms: None Reported Past Surgical History: Appendectomy, Tonsillectomy Additional Past Surgical History / Comment(s): L lung lobectomy/lymph node biops y, mediport R IJ, EGD with bx. Past Anesthesia/Blood Transfusion Reactions: No Reported Reaction Past Psychological History: No Psychological Hx Reported Smoking Status: Former smoker Past Alcohol Use History: None Reported Past Drug Use History: None Reported - Past Family History Father Brother(s) Family Medical History: Cancer Additional Family Medical History / Comment(s): Father of unknown type of cancer. Mother Family Medical History: Cancer Additional Family Medical History / Comment(s): Mother from breast cancer at the age of 68yrs. Brother(s) Family Medical History: Cancer Additional Family Medical History / Comment(s): 1 brother had bowel cancer, 1 brother had a chest mass and thoracic aneurysm ant at the age of 62yrs. General Exam Limitations: no limitations General appearance: alert, in no apparent distress Head exam: Present: atraumatic, normocephalic Eye exam: Present: normal appearance. Absent: scleral icterus, conjunctival injection ENT exam: Present: normal oropharynx Neck exam: Present: normal inspection Respiratory exam: Present: rhonchi, other (Bronchial breath sounds on the left). Absent: wheezes, rales, stridor Cardiovascular Exam: Present: normal rhythm, tachycardia, normal heart sounds. Absent: systolic murmur, diastolic murmur, rubs, gallop GI/Abdominal exam: Present: soft. Absent: distended, tenderness, guarding, rebound, rigid, mass Extremities exam: Present: normal inspection, normal capillary refill. Absent: pedal edema, calf tenderness Back exam: Present: normal inspection. Absent: CVA tenderness (R), CVA tenderness (L) Neurological exam: Present: alert Skin exam: Present: warm, dry, intact, normal color. Absent: rash Course Vital Signs 04/09/19 04/09/19 04/09/19 04:00 05:30 06:11 Temperature 98.2 F Pulse Rate 123 H 118 H 116 H Pulse Rate [ Pulse Oximetery ] Respiratory 20 18 18 Rate Blood Pressure 133/89 132/101 131/100 Blood Pressure [Right Arm] O2 Sat by Pulse 84 L 3 L 96 Oximetry 04/09/19 08:00 Temperature 98.3 F Pulse Rate Pulse Rate [ 93 Pulse Oximetery ] Respiratory 18 Rate Blood Pressure Blood Pressure 127/87 [Right Arm] O2 Sat by Pulse 99 Oximetry Procedures - Chest Tube Insertion Consent Obtained: verbal consent Side of Procedure: right Indication: Pneumothorax Placed on monitor/pulse oximetry: Yes Site Prep: Chloroprep Local Anesthesia: Lidocaine 1% Amount (mLs): 6 Insertion Site: Other Scalpel: #11 Tube Size (Swedish): Other Returns: Air Sutured in Place: No (Adhesive dressing) Attached to Suction: Yes Type of Suction: Pleuravac Repeat X-ray Results: Lung Inflated Patient Tolerated Procedure: well Medical Decision Making - Medical Decision Making This patient is a 50-year-old man presenting with dyspnea. He is found to have right sided pneumothorax. We had a discussion of the indications, risks and benefits of placement of the lower back thoracostomy tube patient has elected to proceed. I did place the tube in the standard fashion without complication. I did withdraw approximately 6 syringes of air and then perform chest x-ray which did not show adequate reinflation of the lung in the unit was attached to wall suction which did bring the lung nicely. He'll be admitted for further care I discussed case with cardiothoracic surgery as well as admitting physician and patient will also have medical consultation with his oncologist is well - Lab Data Result diagrams: 04/09/19 05:00 04/09/19 05:00 Lab Results 04/09/19 04/09/19 04/09/19 Range/Units 05:00 05:00 05:00 WBC 13.0 H (3.8-10.6) k/uL RBC 4.26 L (4.30-5.90) m/uL Hgb 12.7 L (13.0-17.5) gm/dL Hct 40.9 (39.0-53.0) % MCV 96.1 D (80.0-100.0) fL MCH 29.7 (25.0-35.0) pg MCHC 30.9 L (31.0-37.0) g/dL RDW 21.4 H (11.5-15.5) % Plt Count 201 (150-450) k/uL Neutrophils % 75 % Lymphocytes % 16 % Monocytes % 7 % Eosinophils % 0 % Basophils % 0 % Neutrophils # 9.7 H (1.3-7.7) k/uL Lymphocytes # 2.1 (1.0-4.8) k/uL Monocytes # 0.9 (0-1.0) k/uL Eosinophils # 0.0 (0-0.7) k/uL Basophils # 0.0 (0-0.2) k/uL Anisocytosis Moderate Macrocytosis Slight PT (9.0-12.0) sec INR (<1.2) APTT (22.0-30.0) sec Sodium 137 (137-145) mmol/L Potassium 4.1 (3.5-5.1) mmol/L Chloride 101 (98-107) mmol/L Carbon Dioxide 26 (22-30) mmol/L Anion Gap 10 mmol/L BUN 17 (9-20) mg/dL Creatinine 0.85 (0.66-1.25) mg/dL Est GFR (CKD-EPI)AfAm >90 (>60 ml/min/1.73 sqM) Est GFR (CKD-EPI)NonAf >90 (>60 ml/min/1.73 sqM) Glucose 94 (74-99) mg/dL Calcium 9.0 (8.4-10.2) mg/dL Total Bilirubin 0.7 (0.2-1.3) mg/dL AST 25 (17-59) U/L ALT 22 (21-72) U/L Alkaline Phosphatase 114 (38-126) U/L Troponin I (0.000-0.034) ng/mL NT-Pro-B Natriuret Pep 176 pg/mL Total Protein 7.2 (6.3-8.2) g/dL Albumin 4.1 (3.5-5.0) g/dL Urine Color Urine Appearance (Clear) Urine pH (5.0-8.0) Ur Specific [place] (1.001-1.035) Urine Protein (Negative) Urine Glucose (UA) (Negative) Urine Ketones (Negative) Urine Blood (Negative) Urine Nitrite (Negative) Urine Bilirubin (Negative) Urine Urobilinogen (<2.0) mg/dL Ur Leukocyte Esterase (Negative) 04/09/19 04/09/19 04/09/19 Range/Units 05:00 05:00 05:00 WBC (3.8-10.6) k/uL RBC (4.30-5.90) m/uL Hgb (13.0-17.5) gm/dL Hct (39.0-53.0) % MCV (80.0-100.0) fL MCH (25.0-35.0) pg MCHC (31.0-37.0) g/dL RDW (11.5-15.5) % Plt Count (150-450) k/uL Neutrophils % % Lymphocytes % % Monocytes % % Eosinophils % % Basophils % % Neutrophils # (1.3-7.7) k/uL Lymphocytes # (1.0-4.8) k/uL Monocytes # (0-1.0) k/uL Eosinophils # (0-0.7) k/uL Basophils # (0-0.2) k/uL Anisocytosis Macrocytosis PT 10.9 (9.0-12.0) sec INR 1.0 (<1.2) APTT 29.8 (22.0-30.0) sec Sodium (137-145) mmol/L Potassium (3.5-5.1) mmol/L Chloride (98-107) mmol/L Carbon Dioxide (22-30) mmol/L Anion Gap mmol/L BUN (9-20) mg/dL Creatinine (0.66-1.25) mg/dL Est GFR (CKD-EPI)AfAm (>60 ml/min/1.73 sqM) Est GFR (CKD-EPI)NonAf (>60 ml/min/1.73 sqM) Glucose (74-99) mg/dL Calcium (8.4-10.2) mg/dL Total Bilirubin (0.2-1.3) mg/dL AST (17-59) U/L ALT (21-72) U/L Alkaline Phosphatase (38-126) U/L Troponin I 0.041 H* (0.000-0.034) ng/mL NT-Pro-B Natriuret Pep pg/mL Total Protein (6.3-8.2) g/dL Albumin (3.5-5.0) g/dL Urine Color Yellow Urine Appearance Clear (Clear) Urine pH 5.5 (5.0-8.0) Ur Specific [place] 1.016 (1.001-1.035) Urine Protein Negative (Negative) Urine Glucose (UA) Negative (Negative) Urine Ketones Negative (Negative) Urine Blood Negative (Negative) Urine Nitrite Negative (Negative) Urine Bilirubin Negative (Negative) Urine Urobilinogen <2.0 (<2.0) mg/dL Ur Leukocyte Esterase Negative (Negative) - EKG Data -: EKG Interpreted by Hi EKG shows normal: sinus rhythm, axis (Normal), intervals (Normal) Rate: tachycardia (Naproxen 124 bpm) Interpretation: other (Is a pulmonary disease pattern.) Critical Care Time Critical Care Time: Yes (35 minutes) Disposition Clinical Impression: Pneumothorax on right Disposition: [facility] Condition: Serious Is patient prescribed a controlled substance at d/c from ED?: No
[2019-04-09] MEDS ORDERED: LIDOCAINE 1% INJ 10MG/ML (20 ML MDV) SQ ONE (05:23)
[2019-04-09] MEDS ORDERED: LIDOCAINE (PF) 10 MG/ML 5ML AMP SQ ONE (05:24)
[2019-04-09 05:32] LABS: Appearance,Urine Clear (Clear); Bilirubin,Urine Negative (Negative); Blood,Urine Negative (Negative); Color,Urine Yellow; Glucose,Urine (UA) Negative (Negative); Ketones,Urine Negative (Negative); Leukocyte Esterase,Urine Negative (Negative); Nitrite,Urine Negative (Negative); PH, Urine 5.5 (5.0-8.0); Protein,Urine Negative (Negative); Specific Gravity,Urine 1.016 (1.001-1.035); Urobilinogen,Urine <2.0 mg/dL (<2.0)
[2019-04-09 05:42] LABS: ALT 22 U/L (21-72); AST 25 U/L (17-59); African American GFR (CKD) >90 (>60 ml/min/1.73 sqM); Albumin 4.1 g/dL (3.5-5.0); Alkaline Phosphatase 114 U/L (38-126); Anion Gap 10 mmol/L; Blood Urea Nitrogen 17 mg/dL (9-20); Carbon Dioxide 26 mmol/L (22-30); Chloride 101 mmol/L (98-107); Glucose 94 mg/dL (74-99); Potassium 4.1 mmol/L (3.5-5.1); Sodium 137 mmol/L (137-145); Total Bilirubin 0.7 mg/dL (0.2-1.3); Total Protein 7.2 g/dL (6.3-8.2)
[2019-04-09 05:48] LABS: Anisocytosis Moderate; Basophils % (A) 0 %; Eosinophils % (A) 0 %; HCT 40.9 % (39.0-53.0); HGB 12.7 gm/dL (13.0-17.5); Lymphocytes # (A) 2.1 k/uL (1.0-4.8); Lymphocytes % (A) 16 %; MCH 29.7 pg (25.0-35.0); MCHC 30.9 g/dL (31.0-37.0); Macrocytosis Slight; Mean Platelet Volume 7.4; Monocytes # (A) 0.9 k/uL (0-1.0); Monocytes % (A) 7 %; Neutrophils # (A) 9.7 k/uL (1.3-7.7); Neutrophils % (A) 75 %; Partial Thromboplastin Time 29.8 sec (22.0-30.0); Platelet Count 201 k/uL (150-450); Prothrombin Time 10.9 sec (9.0-12.0); RBC 4.26 m/uL (4.30-5.90); RDW 21.4 % (11.5-15.5)
[2019-04-09 05:52] LABS: MCV 96.1 fL (80.0-100.0)
--- NOTE | 2019-04-09 06:31 | XR ---
EXAM: XR Chest, 1 View CLINICAL HISTORY: ITS.REASON XR Reason: thoracostomy tube TECHNIQUE: Frontal view of the chest. COMPARISON: 03/29/19 FINDINGS: Lungs: Persistent ill-defined opacity in the left suprahilar region with adjacent streaky density/scarring. Overall increased lung markings and streaky densities in the medial aspect of the right mid to lower lung and left lung base, probable atelectasis. Pleural space: There is moderate to large right pleural effusion with tubing projecting over the right upper to midlung zone. No pneumothorax. Heart: Unremarkable. No cardiomegaly. Mediastinum: Unremarkable. Bones/joints: Unremarkable. Tubes, lines and devices: Right-sided Port-A-Cath, unchanged in position. IMPRESSION: 1. Moderate to large right-sided pneumothorax. 2. Tubing projecting over the right upper lung. 3. Stable finding in the left suprahilar region. 4. Probable bibasilar atelectasis. <MYCVCSECTION> Critical Value Communications 04/09/19 06:39 Verify Receipt Verified receipt with ER Charge Hand for Dr. Amezquita on 04/09 06:39 (-04:00)
[2019-04-09] MEDS ORDERED: LORazepam 2 MG/ML INJ IV PRN (06:46)
[2019-04-09] MEDS ORDERED: NALOXONE 0.4 MG/ML 1 ML VIAL IV PRN (06:46)
[2019-04-09] MEDS ORDERED: ONDANSETRON 4 MG/2 ML VIAL IVP PRN (06:46)
[2019-04-09] MEDS ORDERED: IPRATROPIUM 0.5 MG/2.5 ML NEBU INHALATION PRN (06:52)
[2019-04-09] MEDS: SODIUM CHLORIDE 0.9% 1,000 ML IV SCH ×2 (07:46→20:07)
--- NOTE | 2019-04-09 08:01 | XR ---
EXAMINATION TYPE: XR chest 1V confirm line [facility] DATE OF EXAM: 04/09/2019 COMPARISON: Prior chest x-ray 04/09/2019 HISTORY: Status post thoracic vent placement TECHNIQUE: Single frontal view of the chest is obtained. FINDINGS: Interval placement of a thoracic vent, tip of the catheter coursing laterally. Interval im provement of patient's right-sided pneumothorax with some residual pneumothorax noted at the right tg ng base laterally. Improvement in the rotation, no evident tension. No other significant interval danielle nge. IMPRESSION: Interval improvement in right-sided pneumothorax.
--- NOTE | 2019-04-09 08:04 | XR ---
EXAMINATION TYPE: XR chest 1V portable DATE OF EXAM: 04/09/2019 COMPARISON: Prior chest x-ray 03/29/2019 HISTORY: Dyspnea TECHNIQUE: Single frontal view of the chest is obtained. FINDINGS: Patient is rotated. There is a large right-sided pneumothorax. There is tension noted with increased hemithorax volume on the right, shift of the mediastinum accounting for rotation. Left sup rahilar mass density is again seen. Heart size is somewhat obscured. Right-sided Port-A-Cath remains in place. Overlying cardiac lead. IMPRESSION: Tension pneumothorax. Emergency department physician is already aware at the time of thi s dictation.
--- NOTE | 2019-04-09 08:20 | P.CNPUL ---
History of Present Illness Reason for consult: dyspnea, cough, chest pain, pneumothorax Chief complaint: Shortness of breath and chest pain History of present illness: 58-year-old male who has a history of lung cancer with recurrence stage IV patient has a MediPort on the right side of the chest has been on immunotherapy patient also has severe COPD has been discovered history of health until about 2:30 this morning developed severe shortness of breath and chest pain up to 0.K mid to the hospital a chest x-ray showed total collapse of the lung with tension pneumothorax on the right side patient has a history of left lower lobe resection for lung cancer patient underwent Thoravent on the right side all 3 x- ray have been reviewed there is a small residual 20% to 30% pneumothorax on the right side, patient is being admitted thoracic surgery is on consult Review of Systems All systems: negative Past Medical History Past Medical History: Asthma, Cancer, COPD, GERD/Reflux, Hypertension, Pneumonia Additional Past Medical History / Comment(s): L lung cancer(stage 4) with lymph node mets with surgery/chemo/radiation and currently immunosuppressive therapy; left lower lobe removed. last chemo does 03/21/19. radiation complete. edentulous,dysphagia History of Any Multi-Drug Resistant Organisms: None Reported Past Surgical History: Appendectomy, Tonsillectomy Additional Past Surgical History / Comment(s): L lung lobectomy/lymph node biopsy, mediport R IJ, EGD with bx. Past Anesthesia/Blood Transfusion Reactions: No Reported Reaction Past Psychological History: No Psychological Hx Reported Smoking Status: Former smoker Past Alcohol Use History: None Reported Past Drug Use History: None Reported - Past Family History Father Brother(s) Family Medical History: Cancer Additional Family Medical History / Comment(s): Father of unknown type of cancer. Mother Family Medical History: Cancer Additional Family Medical History / Comment(s): Mother from breast cancer at the age of 68yrs. Brother(s) Family Medical History: Cancer Additional Family Medical History / Comment(s): 1 brother had bowel cancer, 1 brother had a chest mass and thoracic aneurysm ant at the age of 62yrs. Medications and Allergies Home Medications Medication Instructions Recorded Confirmed Type Cholecalciferol [Vitamin D3 (25 1,000 unit PO DAILY 05/31/16 03/29/19 History Mcg = 1000 Iu)] Docusate [Colace] 200 mg PO BID PRN 05/31/16 03/29/19 History Loratadine [Claritin] 10 mg PO DAILY 05/31/16 03/29/19 History Metoprolol Tartrate [Lopressor] 25 mg PO BID 05/31/16 03/29/19 History Multivitamin [Men's Multi-Vitamin] 1 tab PO DAILY 05/31/16 03/29/19 History [place]-3 Fatty Acids/Fish Oil [Fish 1 cap PO DAILY 05/31/16 03/29/19 History Oil 1,000 mg Softgel] Flaxseed Oil [[place]-3 Flaxseed Oil] 1,000 mg PO DAILY 01/24/17 03/29/19 History Garlic 1 tab PO DAILY 06/18/18 03/29/19 History Ipratropium [place] [Atrovent Hfa] 2 puff INHALATION RT-BID PRN 06/18/18 03/29/19 History Ranitidine HCl [Zantac] 150 mg PO BID 03/29/19 03/29/19 History Ipratropium-Albuterol Nebulize 3 ml INHALATION RT-TID #0 04/02/19 03/29/19 Rx [Duoneb 0.5 mg-3 mg/3 ml Soln] Levofloxacin [Levaquin] 500 mg PO DAILY #7 tab 04/02/19 Rx predniSONE 10 mg PO DIRECTED #30 tab 04/02/19 Rx Allergies Allergy/AdvReac Type Severity Reaction Status Date / Time Penicillins Allergy Rash/Hives Verified 04/09/19 08:11 Physical Exam Vitals: Vital Signs Temp Pulse Resp BP Pulse Ox 04/09/19 06:11 116 H 18 131/100 96 04/09/19 05:30 118 H 18 132/101 3 L 04/09/19 04:00 98.2 F 123 H 20 133/89 84 L Intake and Output 04/08/19 04/09/19 04/09/19 22:59 06:59 14:59 Other: Weight 104.326 kg - Constitutional General appearance: average body habitus, disheveled, mild distress, morbidly obese - EENT Eyes: EOMI, PERRLA, poor dentition, normal appearance Ears: bilateral: normal - Neck Neck: lymphadenopathy Carotids: bilateral: upstroke normal Thyroid: bilateral: normal size - Respiratory Respiratory: right: diminished, negative: dullness, rales, rhonchi, wheezing, prolonged expiration - Cardiovascular Rhythm: irregularly irregular Heart sounds: normal: S1, S2 - Gastrointestinal General gastrointestinal: decreased bowel sounds, distended, soft - Integumentary Integumentary: calor - Neurologic Neurologic: CNII-XII intact - Musculoskeletal Musculoskeletal: gait normal, generalized weakness, strength equal bilaterally - Psychiatric Psychiatric: A&O x's 3, appropriate affect, intact judgment & insight Results - Laboratory Findings CBC and BMP: 04/09/19 05:00 04/09/19 05:00 PT/INR, D-dimer PT 10.9 sec (9.0-12.0) 04/09/19 05:00 INR 1.0 (<1.2) 04/09/19 05:00 Abnormal lab findings: Abnormal Labs 04/09/19 04/09/19 05:00 05:00 WBC 13.0 H RBC 4.26 L Hgb 12.7 L MCHC 30.9 L RDW 21.4 H Neutrophils # 9.7 H Troponin I 0.041 H* - Diagnostic Findings Chest x-ray: report reviewed, image reviewed (Finding as noted above) Assessment and Plan Assessment: Right-sided tension pneumothorax Bilateral wheezing probably COPD exacerbation Left lower lobe pneumonia versus atelectasis Leukocytosis Stage IV lung cancer on immunotherapy Left lower lobe resection Chronic persistent asthma COPD Hypertension hypertensive cardiovascular disease Plan: Bronchodilator Inhaled via nebulizer steroids Pain control Broad-spectrum antibiotics Hold steroids for now we'll treat COPD exacerbation with breathing treatments and inhaled corticosteroid for next 24 hours if no significant improvement is noted then steroids can be considered Time with Patient: Greater than 30
--- NOTE | 2019-04-09 08:32 | P.GSCN ---
History of Present Illness Consult date: 04/09/19 Reason for Consult: Spontaneous right pneumothorax Requesting physician: Ming Small History of present illness: This is a a 58-year-old gentleman who is followed by Dr. Cheng Burroughs on an outpatient basis. He has a past medical history significant for left-sided lung mass diagnosed in 2014, with recurrent metastatic stage IV lung adenocarcinoma with history of laparoscopic wedge resection, recent sepsis with pneumonia, chronic anemia, thrombocytopenia, hypertension, asthma gastroesophageal reflux disease and remote history of tobacco abuse. The patient reports that about a week ago he was admitted to [facility] due to progressive cough and worsening shortness of breath with a fever between 101 and 10 2F. He was subsequently admitted to the hospital and treated for Pseudomonas pneumonia. He was subsequently discharged home with antibiotic therapy. This morning around 2 AM, the patient reports that he awoke from a deep sleep with severe shortness of breath, pain to his right chest which developed suddenly. He denies any recent trauma, fever, chills, nausea, vomiting although reports that he has been having some episodes of diarrhea. On presentation to the emergency department and x-ray was completed which demonstrated a large right-sided pneumothorax with tension noted. A 12-lead EKG was also completed which showed sinus tachycardia heart rate 124 BPM. Due to the patient's presenting symptoms and right pneumothorax A Thoravent tube was placed by the ER physician. The Thoravent tube remains in place to low continuous wall suction -20 cm H2O. Small air leak is present And no drainage is noted. Currently, the patient reports that he does feel some relief with the shortness of breath since the Thoravent has been placed. Subsequently, due to the patient's presenting symptoms, right spontaneous pneumothorax and placement of Thoravent a consult was placed to Dr Alfa Snyder from cardiothoracic surgery for further evaluation and treatment recommendations. Review of Systems A 14 point review of systems was completed was negative except as mentioned in HPI. Past Medical History Past Medical History: Asthma, Cancer, COPD, GERD/Reflux, Hypertension, Pneumonia Additional Past Medical History / Comment(s): L lung cancer(stage 4) with lymph node mets with surgery/chemo/radiation and currently immunosuppressive therapy; left lower lobe removed. last chemo does 03/21/19. radiation complete. edentulous,dysphagia History of Any Multi-Drug Resistant Organisms: None Reported Past Surgical History: Appendectomy, Cholecystectomy, Tonsillectomy Additional Past Surgical History / Comment(s): L lung lobectomy/lymph node biopsy, mediport R IJ, EGD with bx. Right chest Port-A-Cath chemotherapy port. Past Anesthesia/Blood Transfusion Reactions: No Reported Reaction Past Psychological History: No Psychological Hx Reported Smoking Status: Former smoker (Quit in 2014.) Past Alcohol Use History: None Reported Past Drug Use History: None Reported - Past Family History Father Brother(s) Family Medical History: Cancer Additional Family Medical History / Comment(s): Father of unknown type of cancer. Mother Family Medical History: Cancer Additional Family Medical History / Comment(s): Mother from breast cancer at the age of 68yrs. Brother(s) Family Medical History: Cancer Additional Family Medical History / Comment(s): 1 brother had bowel cancer, 1 brother had a chest mass and thoracic aneurysm ant at the age of 62yrs. Medications and Allergies Home Medications Medication Instructions Recorded Confirmed Type Cholecalciferol [Vitamin D3 (25 1,000 unit PO DAILY 05/31/16 03/29/19 History Mcg = 1000 Iu)] Docusate [Colace] 200 mg PO BID PRN 05/31/16 03/29/19 History Loratadine [Claritin] 10 mg PO DAILY 05/31/16 03/29/19 History Metoprolol Tartrate [Lopressor] 25 mg PO BID 05/31/16 03/29/19 History Multivitamin [Men's Multi-Vitamin] 1 tab PO DAILY 05/31/16 03/29/19 History [place]-3 Fatty Acids/Fish Oil [Fish 1 cap PO DAILY 05/31/16 03/29/19 History Oil 1,000 mg Softgel] Flaxseed Oil [[place]-3 Flaxseed Oil] 1,000 mg PO DAILY 01/24/17 03/29/19 History Garlic 1 tab PO DAILY 06/18/18 03/29/19 History Ipratropium [place] [Atrovent Hfa] 2 puff INHALATION RT-BID PRN 06/18/18 9 History Ranitidine HCl [Zantac] 150 mg PO BID 03/29/19 03/29/19 History Ipratropium-Albuterol Nebulize 3 ml INHALATION RT-TID #0 04/02/19 03/29/19 Rx [Duoneb 0.5 mg-3 mg/3 ml Soln] Levofloxacin [Levaquin] 500 mg PO DAILY #7 tab 04/02/19 Rx predniSONE 10 mg PO DIRECTED #30 tab 04/02/19 Rx Allergies Allergy/AdvReac Type Severity Reaction Status Date / Time Penicillins Allergy Rash/Hives Verified 04/09/19 04:03 Surgical - Exam Vital Signs Temp Pulse Resp BP Pulse Ox 98.2 F 123 H 20 133/89 84 L 04/09/19 04:00 04/09/19 04:00 04/09/19 04:00 04/09/19 04:00 04/09/19 04:00 - General well developed, well nourished, no distress, moderate pain, chronically ill, obese - Eyes PERRL, normal ocular movement - ENT normal pinna, normal nares, normal mucosa, no hearing loss, no congestion, dentures - Neck Neck is supple, no lymphadenopathy. no masses, no bruits, trachea midline, no venous distension - Respiratory Lung sounds with scattered rhonchi and wheezes throughout, diminished to his right lower lobe. Respirations are symmetrical and nonlabored. Oxygen saturation 98% on 3 L nasal cannula. Right Thoravent pleural tube in place to low continuous wall suction -20 cm H2O. Air leak is present. No drainage. - Cardiovascular Regular rhythm and rate. S1 and S2 present, negative for S3, gallop or murmur. No edema present. Bedside telemetry showing normal sinus rhythm heart rate 95. - Abdomen Abdomen is soft, nontender and nondistended. No guarding or rigidity. No organomegaly. Active bowel sounds to all 4, quadrants. - Genitourinary Deferred - Rectum Deferred - Integumentary no rash, no growths, no abnormal pigmentation - Neurologic normal coordination, normal sensation - Musculoskeletal normal gait, normal posture - Psychiatric oriented to time, oriented to person, oriented to place, speech is normal, memory intact Results - Labs 04/09/19 05:00 04/09/19 05:00 Abnormal Lab Results - Last 24 Hours (Table) 04/09/19 04/09/19 Range/Units 05:00 05:00 WBC 13.0 H (3.8-10.6) k/uL RBC 4.26 L (4.30-5.90) m/uL Hgb 12.7 L (13.0-17.5) gm/dL MCHC 30.9 L (31.0-37.0) g/dL RDW 21.4 H (11.5-15.5) % Neutrophils # 9.7 H (1.3-7.7) k/uL Troponin I 0.041 H* (0.000-0.034) ng/mL Diabetes panel 04/09/19 Range/Units 05:00 Sodium 137 (137-145) mmol/L Potassium 4.1 (3.5-5.1) mmol/L Chloride 101 (98-107) mmol/L Carbon Dioxide 26 (22-30) mmol/L BUN 17 (9-20) mg/dL Creatinine 0.85 (0.66-1.25) mg/dL Glucose 94 (74-99) mg/dL Calcium 9.0 (8.4-10.2) mg/dL AST 25 (17-59) U/L ALT 22 (21-72) U/L Alkaline Phosphatase 114 (38-126) U/L Total Protein 7.2 (6.3-8.2) g/dL Albumin 4.1 (3.5-5.0) g/dL Calcium panel 04/09/19 Range/Units 05:00 Calcium 9.0 (8.4-10.2) mg/dL Albumin 4.1 (3.5-5.0) g/dL Pituitary panel 04/09/19 Range/Units 05:00 Sodium 137 (137-145) mmol/L Potassium 4.1 (3.5-5.1) mmol/L Chloride 101 (98-107) mmol/L Carbon Dioxide 26 (22-30) mmol/L BUN 17 (9-20) mg/dL Creatinine 0.85 (0.66-1.25) mg/dL Glucose 94 (74-99) mg/dL Calcium 9.0 (8.4-10.2) mg/dL Adrenal panel 04/09/19 Range/Units 05:00 Sodium 137 (137-145) mmol/L Potassium 4.1 (3.5-5.1) mmol/L Chloride 101 (98-107) mmol/L Carbon Dioxide 26 (22-30) mmol/L BUN 17 (9-20) mg/dL Creatinine 0.85 (0.66-1.25) mg/dL Glucose 94 (74-99) mg/dL Calcium 9.0 (8.4-10.2) mg/dL Total Bilirubin 0.7 (0.2-1.3) mg/dL AST 25 (17-59) U/L ALT 22 (21-72) U/L Alkaline Phosphatase 114 (38-126) U/L Total Protein 7.2 (6.3-8.2) g/dL Albumin 4.1 (3.5-5.0) g/dL - Imaging Chest x-ray: report reviewed, image reviewed Assessment and Plan Assessment: 1. Spontaneous right pneumothorax 2. Metastatic lung adenocarcinoma, stage IV 3. Recent history of Pseudomonas pneumonia Plan: The patient was seen and examined. His chart and diagnostics were reviewed. This case has been discussed with Dr. Alfa Snyder from cardiothoracic surgery. We will maintain his right Thoravent chest tube to low continuous wall suction - 20 cm H2O and watch for airleak resolution. Monitor daily chest x-rays. Encourage use of his incentive spirometry every hour while awake. We will consult Dr. Soto from pulmonary medicine for pulmonary management. Increase activity as tolerated. GI and DVT prophylaxis. Medical management and other comorbidities managed by primary care service. We will add Toradol for added pain control. Thank you for this consult and we look for to working with you in the care of your patient. Time with Patient: Greater than 30
[2019-04-09] MEDS: METOPROLOL TARTRATE 25 MG TAB PO SCH ×2 (09:00→22:23)
[2019-04-09] MEDS: KETOROLAC 30 MG/ML 1 ML VIAL IVP SCH ×3 (09:00→17:20)
[2019-04-09] MEDS: LEVOFLOXACIN 500 MG TAB PO SCH (09:00)
[2019-04-09] MEDS: FAMOTIDINE 20 MG TAB PO SCH ×2 (09:00→22:24)
[2019-04-09] MEDS: MULTIVITAMINS, THERA 1 EACH TAB PO SCH (09:00)
[2019-04-09] MEDS: CHOLECALCIFEROL 1,000 UNIT TAB PO SCH (09:00)
[2019-04-09] MEDS: IPRATROPIUM-ALBUTEROL 3 ML NEB INHALATION SCH ×3 (11:38→20:13)
[2019-04-09] MEDS ORDERED: IPRATROPIUM-ALBUTEROL 3 ML NEB INHALATION PRN (13:02)
--- NOTE | 2019-04-09 13:11 | P.HPIM ---
History of Present Illness H&P Date: 04/09/19 Chief Complaint: Worsening shortness of breath This is a 58-year-old gentleman with history of left-sided lung mass, recurrent metastatic stage IV lung CA, adenocarcinoma history of laparoscopic wedge resection, recently hospitalized Pseudomonas pneumonia presented to the area with worsening shortness of breath awakening him from sleep at 2 AM. Reports right chest pain with sudden onset accompanied by a severe shortness of breath upon awakening. Denies recent trauma. Denies chest pain, palpitations. Denies fever or chills. Reports occasional productive cough. EKG reporting sinus tachycardia, heart rates in the 120s. Troponin 0.041. Chest x-ray reporting a large right-sided tension pneumothorax, increased hemothorax volume on the right, shift of the mediastinum, left suprahilar mass density again seen. Thoravent tube placed-to low intermittent suction, chest x-ray post procedure reporting interval improvement in right-sided pneumothorax. Cardiothoracic surgery and pulmonary consulted. Review of Systems ROS Statement: Those systems with pertinent positive or pertinent negative responses have been documented in the HPI. ROS Other: All systems not noted in ROS Statement are negative. Constitutional: Denied any fatigue denied any fever. Cardio vascular: denied any chest pain, palpitations Gastrointestinal denied any nausea vomiting, hematochezia, melena Pulmonary: Denied any shortness of breath cough. Denies hemoptysis. Musculoskeletal: Denies back pain Neurologic denied any new focal deficits. Denies lightheadedness dizziness or focal deficits. Past Medical History Past Medical History: Asthma, Cancer, COPD, GERD/Reflux, Hypertension, Pneumonia Additional Past Medical History / Comment(s): L lung cancer(stage 4) with lymph node mets with surgery/chemo/radiation and currently immunosuppressive therapy; left lower lobe removed. last chemo does 03/21/19. radiation complete. edentulous,dysphagia History of Any Multi-Drug Resistant Organisms: None Reported Past Surgical History: Appendectomy, Cholecystectomy, Tonsillectomy Additional Past Surgical History / Comment(s): L lung lobectomy/lymph node biopsy, mediport R IJ, EGD with bx. Right chest Port-A-Cath chemotherapy port. Past Anesthesia/Blood Transfusion Reactions: No Reported Reaction Past Psychological History: No Psychological Hx Reported Smoking Status: Former smoker (Quit in 2014.) Past Alcohol Use History: None Reported Past Drug Use History: None Reported - Past Family History Father Brother(s) Family Medical History: Cancer Additional Family Medical History / Comment(s): Father of unknown type of cancer. Mother Family Medical History: Cancer Additional Family Medical History / Comment(s): Mother from breast cancer at the age of 68yrs. Brother(s) Family Medical History: Cancer Additional Family Medical History / Comment(s): 1 brother had bowel cancer, 1 brother had a chest mass and thoracic aneurysm ant at the age of 62yrs. Medications and Allergies Home Medications Medication Instructions Recorded Confirmed Type Cholecalciferol [Vitamin D3 (25 1,000 unit PO DAILY 05/31/16 04/09/19 History Mcg = 1000 Iu)] Docusate [Colace] 200 mg PO BID PRN 05/31/16 04/09/19 History Loratadine [Claritin] 10 mg PO DAILY 05/31/16 04/09/19 History Metoprolol Tartrate [Lopressor] 25 mg PO BID 05/31/16 04/09/19 History Multivitamin [Men's Multi-Vitamin] 1 tab PO DAILY 05/31/16 04/09/19 History [place]-3 Fatty Acids/Fish Oil [Fish 1 cap PO DAILY 05/31/16 04/09/19 History Oil 1,000 mg Softgel] Flaxseed Oil [[place]-3 Flaxseed Oil] 1,000 mg PO DAILY 01/24/17 04/09/19 History Garlic 1 tab PO DAILY 06/18/18 04/09/19 History Ipratropium [place] [Atrovent Hfa] 2 puff INHALATION RT-BID PRN 06/18/18 04/09/19 History Ipratropium-Albuterol Nebulize 3 ml INHALATION RT-TID #0 04/02/19 04/09/19 Rx [Duoneb 0.5 mg-3 mg/3 ml Soln] Famotidine [Pepcid] 20 mg PO DAILY 04/09/19 04/09/19 History Ipratropium-Albuterol Nebulize 3 ml INHALATION RT-Q4H PRN 04/09/19 04/09/19 History [Duoneb 0.5 mg-3 mg/3 ml Soln] L.acidoph,Paracasei, B.lactis 1 cap PO DAILY 04/09/19 04/09/19 History [Probiotic] Levofloxacin [Levaquin] 500 mg PO DAILY 04/09/19 04/09/19 History predniSONE See Taper PO DAILY 04/09/19 04/09/19 History Allergies Allergy/AdvReac Type Severity Reaction Status Date / Time Penicillins Allergy Unknown Verified 04/09/19 10:05 Childhood Physical Exam Vitals: Vital Signs Temp Pulse Resp BP Pulse Ox 04/09/19 06:11 116 H 18 131/100 96 04/09/19 05:30 118 H 18 132/101 3 L 04/09/19 04:00 98.2 F 123 H 20 133/89 84 L Intake and Output 04/08/19 04/09/19 04/09/19 22:59 06:59 14:59 Other: Weight 104.326 kg PHYSICAL EXAM: VITAL SIGNS: As above GENERAL: Sitting up on stretcher, no acute distress HEENT: Conjunctivae normal. eyes normal. Trachea midline. NECK: No JVD. No thyroid enlargement. No LNs right chest thoravent present. CARDIOVASCULAR: S1, S2 regular. Tachycardic No murmur. RESPIRATION: Breath sounds diminished in the bases.Scattered rhonchi and wheezes. No crackles. Right pleural Thoravent with small air leak,no drainage. ABDOMEN: Soft, nontender . No guarding. no masses palpable. No ascites, No hepatosplenomegaly.Bowel sounds heard. LEGS: No edema. no swelling PSYCHIATRY: Alert and oriented X3, mood and affect normal. NERVOUS SYSTEM: Cranial N 2-12 grossly normal. Moves all 4 limbs. Diffuse weakness No focal deficits. Strength and sensation grossly intact.. Skin: no lesions, no rash Joints: No active swelling. No inflammation. Lymphatic system. No LN neck axilla or groin. Results CBC & Chem 7: 04/09/19 05:00 04/09/19 05:00 Labs: Abnormal Lab Results - Last 24 Hours (Table) 04/09/19 04/09/19 Range/Units 05:00 05:00 WBC 13.0 H (3.8-10.6) k/uL RBC 4.26 L (4.30-5.90) m/uL Hgb 12.7 L (13.0-17.5) gm/dL MCHC 30.9 L (31.0-37.0) g/dL RDW 21.4 H (11.5-15.5) % Neutrophils # 9.7 H (1.3-7.7) k/uL Troponin I 0.041 H* (0.000-0.034) ng/mL Assessment and Plan Assessment: -Spontaneous Right pneumothorax, status post right Thoravent placement. -Possible underlying acute COPD exacerbation -Possible left lower lobe pneumonia, possible atelectasis in a patient with history [id number] lung mass,Recurrent metastatic lung CA, adenocarcinoma,Stage IV. -history of laparoscopic wedge resection. -Recent Pseudomonas pneumonia -Chronic persistent asthma Plan: Continue on current medication regime ,monitoring and symptomatic treatment. Home meds have been reviewed and resumed. Maintain nebulized bronchodilators, steroids, antibiotics. Aggressive pulmonary toileting with incentive spirometer reinforced. Cardiology and pulmonary consulted. Pain management With Toradol, Dilaudid. Further recommendations to follow. . The impression and plan of care has been dictated as directed. : I performed a history and examination of this patient, discussed the same with the dictator. I agree with the dictator's note ,documented as a scribe. Any additional findings or plans will be noted. Time taken: 35 minutes
[2019-04-09] MEDS ORDERED: FAMOTIDINE 20 MG TAB PO SCH (13:15)
[2019-04-09] MEDS ORDERED: LEVOFLOXACIN 500 MG TAB PO SCH (13:15)
[2019-04-09] MEDS: LORATADINE 10 MG TAB PO SCH (14:33)
[2019-04-09] MEDS ORDERED: predniSONE 20 MG TAB PO ONE (15:00)
--- NOTE | 2019-04-09 19:05 | P.CONS ---
History of Present Illness - Reason for Consult Consult date: 04/09/19 Requesting physician: Ming Small - Chief Complaint established NSCLC pt - History of Present Illness Patient states he woke up at 2:00 in the morning unable to breathe, nothing helped improve the symptoms including positioning, patient was brought to the hospital, workup revealed a spontaneous right pneumothorax with tracheal deviation. No other c/o, has been tolerating treatment well. Malignancy history: diagnosed with SACHA adenocarcinoma February 2015. Presented with SACHA nodule with positive FDG PET uptake. He was seen by Dr. Pinto and had laporoscopic wedge resection and lymph nodes biopsy on 03/10/15, negative margins and negative mediastinal lymphadenopathy. Had recurrence of disease bilateral adenopathy and LLL mass, bx confirmed metastatic adenocarcinoma. Early 2015 started on Carboplatinum+Alimta, 6 cycles with follow up CT showing persistent lymphadenopathy, started on Opdivo March of 2016. Aug 2016 f/u CT revelaed relativly stable disease. Continued until definite progression in the medistinum in 06/08, he had radiation therapy to chest. 03/09, CT showed progression, started on tecentriq. Did well until earlier this year, he was then started on carbo/taxol/avastin. He is s/p 5 cycles, plans for tx f/u scans after cycle #6 Review of Systems 14 point review of systems is negative except as stated in HPI Past Medical History Past Medical History: Asthma, Cancer, COPD, GERD/Reflux, Hypertension, Pneumonia Additional Past Medical History / Comment(s): L lung cancer(stage 4) with lymph node mets with surgery/chemo/radiation and currently immunosuppressive therapy; left lower lobe removed. last chemo does 03/21/19. radiation complete. freddy breaux,dysphagia History of Any Multi-Drug Resistant Organisms: None Reported Past Surgical History: Appendectomy, Cholecystectomy, Tonsillectomy Additional Past Surgical History / Comment(s): L lung lobectomy/lymph node biop sy, mediport R IJ, EGD with bx. Right chest Port-A-Cath chemotherapy port. Past Anesthesia/Blood Transfusion Reactions: No Reported Reaction Past Psychological History: No Psychological Hx Reported Smoking Status: Former smoker (Quit in 2014.) Past Alcohol Use History: None Reported Past Drug Use History: None Reported - Past Family History Father Brother(s) Family Medical History: Cancer Additional Family Medical History / Comment(s): Father of unknown type of cancer. Mother Family Medical History: Cancer Additional Family Medical History / Comment(s): Mother from breast cancer at the age of 68yrs. Brother(s) Family Medical History: Cancer Additional Family Medical History / Comment(s): 1 brother had bowel cancer, 1 brother had a chest mass and thoracic aneurysm ant at the age of 62yrs. Medications and Allergies Home Medications Medication Instructions Recorded Confirmed Type Cholecalciferol [Vitamin D3 (25 1,000 unit PO DAILY 05/31/16 04/09/19 History Mcg = 1000 Iu)] Docusate [Colace] 200 mg PO BID PRN 05/31/16 04/09/19 History Loratadine [Claritin] 10 mg PO DAILY 05/31/16 04/09/19 History Metoprolol Tartrate [Lopressor] 25 mg PO BID 05/31/16 04/09/19 History Multivitamin [Men's Multi-Vitamin] 1 tab PO DAILY 05/31/16 04/09/19 History [place]-3 Fatty Acids/Fish Oil [Fish 1 cap PO DAILY 05/31/16 04/09/19 History Oil 1,000 mg Softgel] Flaxseed Oil [[place]-3 Flaxseed Oil] 1,000 mg PO DAILY 01/24/17 04/09/19 History Garlic 1 tab PO DAILY 06/18/18 04/09/19 History Ipratropium [place] [Atrovent Hfa] 2 puff INHALATION RT-BID PRN 06/18/18 04/09/19 History Ipratropium-Albuterol Nebulize 3 ml INHALATION RT-TID #0 04/02/19 04/09/19 Rx [Duoneb 0.5 mg-3 mg/3 ml Soln] Famotidine [Pepcid] 20 mg PO DAILY 04/09/19 04/09/19 History Ipratropium-Albuterol Nebulize 3 ml INHALATION RT-Q4H PRN 04/09/19 04/09/19 History [Duoneb 0.5 mg-3 mg/3 ml Soln] L.acidoph,Paracasei, B.lactis 1 cap PO DAILY 04/09/19 04/09/19 History [Probiotic] Levofloxacin [Levaquin] 500 mg PO DAILY 04/09/19 04/09/19 History predniSONE See Taper PO DAILY 04/09/19 04/09/19 History Allergies Allergy/AdvReac Type Severity Reaction Status Date / Time Penicillins Allergy Unknown Verified 04/09/19 10:05 Childhood Physical Exam Vitals: Vital Signs Temp Pulse Pulse Resp BP BP Pulse Ox 04/09/19 12:24 84 04/09/19 12:11 80 04/09/19 11:59 98.2 F 80 18 122/73 99 04/09/19 08:00 98.3 F 93 18 127/87 99 04/09/19 06:11 116 H 18 131/100 96 04/09/19 05:30 118 H 18 132/101 3 L 04/09/19 04:00 98.2 F 123 H 20 133/89 84 L Intake and Output 04/09/19 04/09/19 04/09/19 06:59 14:59 22:59 Intake Total 250 Output Total 450 Balance 250 -450 Intake: Intake, IV Titration 250 Amount Sodium Chloride 0.9% 1, 200 000 ml @ 100 mls/hr IV . Q10H LONG Rx#:[id number] ceFAZolin 1,000 mg In 50 Sodium Chloride 0.9% 50 ml @ 100 mls/hr IVPB Q8HR LONG Rx#:[id number] Output: Urine 450 Other: # Voids 1 Weight 104.326 kg - Constitutional General appearance: cooperative, no acute distress, obese - EENT Eyes: anicteric sclerae, edentulous ENT: hearing grossly normal, normal oropharynx - Neck Mild tracheal deviation Neck: no lymphadenopathy - Respiratory Respiratory: right: other (Absent except for the very upper portion of the anterior chest), left: CTA - Cardiovascular Rhythm: regular Heart sounds: normal: S1, S2 Abnormal Heart Sounds: no systolic murmur, no diastolic murmur, no rub, no S3 Gallop, no S4 Gallop, no click, no other leg Peripheral Edema: bilateral: None - Gastrointestinal General gastrointestinal: no absent bowel sounds, no decreased bowel sounds, no distended, no hepatomegaly, no hyperactive bowel sounds, normal bowel sounds, no organomegaly, no rigid, no scaphoid, soft, no splenomegaly, no tenderness, no umbilical hernia, no ventral hernia - Neurologic Neurologic: CNII-XII intact - Musculoskeletal Musculoskeletal: strength equal bilaterally - Psychiatric Psychiatric: A&O x's 3, appropriate affect, intact judgment & insight Results CBC & Chem 7: 04/09/19 05:00 04/09/19 05:00 Labs: Abnormal Lab Results - Last 24 Hours (Table) 04/09/19 04/09/19 Range/Units 05:00 05:00 WBC 13.0 H (3.8-10.6) k/uL RBC 4.26 L (4.30-5.90) m/uL Hgb 12.7 L (13.0-17.5) gm/dL MCHC 30.9 L (31.0-37.0) g/dL RDW 21.4 H (11.5-15.5) % Neutrophils # 9.7 H (1.3-7.7) k/uL Troponin I 0.041 H* (0.000-0.034) ng/mL Chest x-ray: report reviewed Assessment and Plan (1) Pneumothorax on right Narrative/Plan: D/W Cardiothoracic [facility] [place]. Pt doing well at this time, symptoms much improved. Current Visit: Yes Status: Acute Priority: High Code(s): J93.9 - PNEUMOTHORAX, UNSPECIFIED SNOMED Code(s): 326843646 (2) Recurrent non-small cell lung cancer (NSCLC) Narrative/Plan: Currently s/p 5 carbo/taxol/avastin treatments with plans for re-scan after cycle #6. Cont with this plan of care. Treatment will be held until current situation is resolved. Current Visit: Yes Status: Chronic Priority: Medium Code(s): C34.90 - MALIGNANT NEOPLASM OF UNSP PART OF UNSP BRONCHUS OR LUNG SNOMED Code(s): 849334895
[2019-04-09] MEDS: FORMOTEROL FUMARATE 20 MCG/2 ML NEBU INHALATION SCH (20:12)
[2019-04-09] MEDS: BUDESONIDE 0.5 MG/2 ML NEBU INHALATION SCH (20:12)
[2019-04-10] MEDS: KETOROLAC 30 MG/ML 1 ML VIAL IVP SCH ×4 (00:28→17:25)
[2019-04-10] MEDS: SODIUM CHLORIDE 0.9% 1,000 ML IV SCH ×3 (00:29→21:09)
--- NOTE | 2019-04-10 08:58 | XR ---
EXAMINATION TYPE: XR chest 1V portable DATE OF EXAM: 04/10/2019 COMPARISON: Prior chest x-ray 04/09/2019 HISTORY: Chest tube TECHNIQUE: Single frontal view of the chest is obtained. FINDINGS: The patient is rotated. Right-sided thoracic vent is in place overlying the right mid ches t. There has been interval development of subcutaneous emphysema. Persistent basilar pneumothorax is noted and may appear slightly larger due to rotation, technique. There are overlying cardiac leads. P ort-A-Cath is stable. Abnormal density in the suprahilar region on the left persists. IMPRESSION: Interval increase in subcutaneous emphysema. Persistent basilar right pneumothorax as de scribed.
[2019-04-10] MEDS: BUDESONIDE 0.5 MG/2 ML NEBU INHALATION SCH ×2 (09:07→19:59)
[2019-04-10] MEDS: FORMOTEROL FUMARATE 20 MCG/2 ML NEBU INHALATION SCH ×2 (09:07→19:59)
[2019-04-10] MEDS: IPRATROPIUM-ALBUTEROL 3 ML NEB INHALATION SCH ×3 (09:07→20:01)
[2019-04-10] MEDS: LEVOFLOXACIN 500 MG TAB PO SCH (09:55)
[2019-04-10] MEDS: DOCUSATE 100 MG CAP PO PRN (09:55)
[2019-04-10] MEDS: MULTIVITAMINS, THERA 1 EACH TAB PO SCH (09:56)
[2019-04-10] MEDS: FAMOTIDINE 20 MG TAB PO SCH ×2 (09:56→21:09)
[2019-04-10] MEDS: LORATADINE 10 MG TAB PO SCH (09:56)
[2019-04-10] MEDS: predniSONE 10 MG TAB PO SCH (09:57)
[2019-04-10] MEDS: CHOLECALCIFEROL 1,000 UNIT TAB PO SCH (09:57)
[2019-04-10] MEDS: METOPROLOL TARTRATE 25 MG TAB PO SCH ×2 (09:57→21:09)
[2019-04-10] MEDS: ACETAMINOPHEN TAB 325 MG TAB PO PRN (09:57)
[2019-04-10] MEDS ORDERED: RX INFO: IV CONTRAST WAS GIVEN 1 EACH MISC MISCELLANE PRN (10:44)
--- NOTE | 2019-04-10 11:05 | P.PN ---
Subjective Progress Note Date: 04/10/19 Principal diagnosis: Spontaneous right pneumothorax, history of metastatic lung adenocarcinoma, stage IV, recent history of Pseudomonas pneumonia, chronic anemia, hypertension, ast hma, remote history of tobacco abuse quit in 2014 and gastroesophageal reflux disease. The patient is laying in bed on the medical surgical unit. He is in no acute distress. Denies any complaints of pain or shortness of breath this time. The patient does report that he has some continued wheezing. Oxygen saturation are 98% on 2 L nasal cannula. Achieving 1500 mL on his incentive spirometry. Right chest Thoravent in place. No air leak is present. No drainage is present. His chest x-ray this morning shows a persistent right pneumothorax. The Thoravent was manipulated and reconnected to low continuous wall suction with air leak present after the Thoravent was manipulated. Objective - Vital Signs Vital signs: Vital Signs Temp 97.7 F 04/10/19 09:00 Pulse 92 04/10/19 09:33 Resp 16 04/10/19 09:00 BP 122/81 04/10/19 09:00 Pulse Ox 98 04/10/19 09:00 Intake & Output 04/09/19 04/10/19 04/10/19 18:59 06:59 18:59 Intake Total 250 590 Output Total 450 1325 Balance -200 -735 Intake: Intake, IV Titration 250 Amount Sodium Chloride 0.9% 1, 200 000 ml @ 100 mls/hr IV . Q10H LONG Rx#:[id number] ceFAZolin 1,000 mg In 50 Sodium Chloride 0.9% 50 ml @ 100 mls/hr IVPB Q8HR LONG Rx#:[id number] Oral 590 Output: Urine 450 1325 Other: Voiding Method Urinal Urinal # Voids 1 2 - Constitutional General appearance: Present: cooperative, no acute distress, obese - Respiratory Details: Lung sounds with expiratory wheezes throughout, diminished to his bilateral bases. Respirations are symmetrical and nonlabored. Oxygen saturation are 98% on 2 L nasal cannula. Achieving 1500 mL on his incentive spirometry. Right anterior chest wall Thoravent in place to low continuous wall suction -20 cm H2O. Air leak is present. No drainage is present. Subcutaneous emphysema present to his right anterior chest wall. - Cardiovascular Details: Regular rhythm and rate. S1 and S2 present, negative for S3, gallop or murmur. No edema present. - Gastrointestinal Gastrointestinal Comment(s): Abdomen is soft, nontender and nondistended. Active bowel sounds all 4 abdominal quadrants. No guarding or rigidity. No organomegaly. Tolerating oral intake. - Genitourinary Genitourinary Comment(s): Voiding clear yellow urine. - Integumentary Integumentary Comment(s): Skin is warm and dry. No clubbing or cyanosis is present. Right chest MediPort dressing clean dry and intact. No rash or abnormal pigmentation is present. - Neurologic Neurologic: Present: CNII-XII intact - Musculoskeletal Musculoskeletal: Present: gait normal, generalized weakness, strength equal bilaterally - Psychiatric Psychiatric: Present: A&O x's 3, appropriate affect, intact judgment & insight - Allied health notes Allied health notes reviewed: nursing - Labs CBC & Chem 7: 04/09/19 05:00 04/09/19 05:00 Labs: Microbiology - Last 24 Hours (Table) 04/09/19 06:42 Blood Culture - Preliminary Blood No Growth after 24 hours - Imaging and Cardiology Chest x-ray: report reviewed, image reviewed Assessment and Plan Assessment: 1. Spontaneous right pneumothorax 2. Metastatic lung adenocarcinoma, stage IV 3. Recent history of Pseudomonas pneumonia Plan: 1. Keep right Thoravent tube in place to low continuous wall suction at -20 cm H2O. 2. Encourage use of his incentive spirometry every hour while awake. 3. We will obtain a computed tomography scan with contrast today to evaluate his right pneumothorax. 4. Pulmonary management recommendations per Dr. Soto. 5. Medical management and other comorbidities per primary care service. 6. Pain management per current medication regimen. 7. More recommendations to follow based on patient's clinical course. Time with Patient: Greater than 30
--- NOTE | 2019-04-10 14:15 | P.PN ---
Subjective Progress Note Date: 04/10/19 This is a 58-year-old gentleman with history of left-sided lung mass, recurrent metastatic stage IV lung CA, adenocarcinoma history of laparoscopic wedge resection, recently hospitalized Pseudomonas pneumonia presented to the area with worsening shortness of breath awakening him from sleep at 2 AM. Reports right chest pain with sudden onset accompanied by a severe shortness of breath upon awakening. Denies recent trauma. Denies chest pain, palpitations. Denies fever or chills. Reports occasional productive cough. EKG reporting sinus tachycardia, heart rates in the 120s. Troponin 0.041. Chest x-ray reporting a large right-sided tension pneumothorax, increased hemothorax volume on the right, shift of the mediastinum, left suprahilar mass density again seen. Thoravent tube placed-to low intermittent suction, chest x-ray post procedure reporting interval improvement in right-sided pneumothorax. Cardiothoracic surgery and pulmonary consulted. 04/10/2019 maintaining O2 sats in the mid 90s on 2 L nasal cannula. IS up to 1500.Complains of wheezing, denies shortness of breath. Denies pain. Chest x- ray reporting increasing subcutaneous emphysema, persistent possibly increased bibasilar right pneumothorax. Thoravent this morning presented with no drainage, no air leak. Manipulated by cardiothoracic surgery, reconnected to low intermittent suction, air leak returned. Chest CT ordered post manipulation/reinsertion, pending. Afebrile, preliminary blood cultures negative at 24 hours. Objective - Vital Signs Vital signs: Vital Signs Temp 97.4 F L 04/10/19 04:51 Pulse 96 04/10/19 04:51 Resp 20 04/10/19 04:51 BP 154/85 04/10/19 04:51 Pulse Ox 98 04/10/19 04:51 Intake & Output 04/09/19 04/10/19 04/10/19 18:59 06:59 18:59 Intake Total 250 590 Output Total 450 1325 Balance -200 -735 Intake: Intake, IV Titration 250 Amount Sodium Chloride 0.9% 1, 200 000 ml @ 100 mls/hr IV . Q10H LONG Rx#:[id number] ceFAZolin 1,000 mg In 50 Sodium Chloride 0.9% 50 ml @ 100 mls/hr IVPB Q8HR LONG Rx#:[id number] Oral 590 Output: Urine 450 1325 Other: Voiding Method Urinal # Voids 1 2 - Exam VITAL SIGNS: As above GENERAL: Sitting up on stretcher, no acute distress HEENT: Conjunctivae normal. eyes normal. Trachea midline. NECK: No JVD. No thyroid enlargement. No LNs right chest thoravent present. Mild subcu emphysema CARDIOVASCULAR: S1, S2 regular. Tachycardic No murmur. RESPIRATION: Bilateral bases diminished with scattered rhonchi and expiratory wheezes. No crackles. Right chest pleural Thoravent, positive air leak,no drainage. ABDOMEN: Soft, nontender . No guarding. no masses palpable..Bowel sounds heard. LEGS: No edema. no swelling PSYCHIATRY: Alert and oriented X3, mood and affect normal. NERVOUS SYSTEM: Cranial N 2-12 grossly normal. Moves all 4 limbs. Diffuse weakness No focal deficits. Strength and sensation grossly intact.. Skin: no lesions, no rash Joints: No active swelling. No inflammation. Lymphatic system. No LN neck axilla or groin. - Labs CBC & Chem 7: 04/09/19 05:00 04/09/19 05:00 Assessment and Plan Assessment: -Spontaneous Right pneumothorax, status post right Thoravent placement. -Possible underlying acute COPD exacerbation -Possible left lower lobe pneumonia, possible atelectasis in a patient with history in-Ezkg-camxm lung mass,Recurrent metastatic lung CA, adenocarcinoma,Stage IV. -history of laparoscopic wedge resection. -Recent Pseudomonas pneumonia -Chronic persistent asthma Plan: Continue on current medication regime ,monitoring and symptomatic treatment. Chest CT pending.Continue on nebulized bronchodilators, steroids, antibiotics. Pain management With Toradol, Dilaudid. Aggressive pulmonary toileting with incentive spirometer reinforced. Follow closely with cardiothoracic surgery and pulmonary. Further recommendations to follow. . The impression and plan of care has been dictated as directed. : I performed a history and examination of this patient, discussed the same with the dictator. I agree with the dictator's note ,documented as a scribe. Any additional findings or plans will be noted. Time taken: 35 minutes
--- NOTE | 2019-04-10 14:46 | CT ---
EXAMINATION TYPE: CT chest w con DATE OF EXAM: 04/10/2019 COMPARISON: 02/22/2019 HISTORY: 58-year-old male Post chest tube placement TECHNIQUE: Contiguous axial scanning of the chest after the administration of 100 mL of Isovue 300. Coronal/sagittal reconstructions performed. CT DLP: 727mGycm. Automatic exposure control utilized for a dose reduction. FINDINGS: Right anterior chest wall injection port. Mild to moderate bilateral gynecomastia. Extensive subcutaneous emphysema along the right chest wall. Heart normal size with trace anterior pericardial effusion measuring 6 mm thick. Aorta normal caliber with conventional branching anatomy. No thoracic lymphadenopathy by CT size criteria. Redemonstrated staple line along the medial left upper lobe and adjacent consolidation and volume los s. The overall extent of opacity in the medial left upper lobe appears slightly decreased from prior exam. Moderate to advanced underlying centrilobular emphysema. Right perihilar soft tissue thickening also shows interval decrease from prior exam. There is moderate to severe circumferential wall thickening of the distal third thoracic esophagus, s imilar to prior. A right-sided pleural catheter remains in place. There is a small right-sided pneumothorax measuring 5 mm superiorly and 1.6 cm at the lung base. Visualized upper abdomen shows no gross adenopathy. Bones: No osseous destructive process. IMPRESSION: 1. Moderate to advanced emphysema with a trace to small right-sided pneumothorax with pleural cathete r in place. Pneumothorax measures 5 mm superiorly and 1.6 cm at the lung base. Estimated approximate 5%. 2. Previous surgery medial left upper lobe with associated consolidation and volume loss likely repre senting the site of treated disease. The overall density show slight decreased bulk from 02/22/2019. 3. Additional right perihilar soft tissue thickening also shows slight interval decrease from 9. Continued follow-up is indicated. 4. Clinically correlate for the moderate to severe circumferential thickening of the mid to distal th oracic esophagus. Esophagitis versus radiation change versus neoplasm.
--- NOTE | 2019-04-10 14:53 | P.PN ---
Subjective Progress Note Date: 04/10/19 Principal diagnosis: spontaneous pneumothorax, non-small cell lung adenocarcinoma on treatment In follow-up today patient states breathing a little bit easier, he still has to sit upright as he is orthopneic. He is using incentive spirometry, no current chest pain or palpitations, he is tolerating his diet, he is asking for an advanced diet, no abdominal pain, cramping, diarrhea.f Objective - Vital Signs Vital signs: Vital Signs Temp 97.8 F 04/10/19 12:38 Pulse 96 04/10/19 12:53 Resp 18 04/10/19 12:38 BP 123/71 04/10/19 12:38 Pulse Ox 94 L 04/10/19 12:38 Intake & Output 04/09/19 04/10/19 04/10/19 18:59 06:59 18:59 Intake Total 250 590 850 Output Total 450 1325 Balance -200 -735 850 Intake: Intake, IV Titration 250 850 Amount Sodium Chloride 0.9% 1, 200 800 000 ml @ 100 mls/hr IV . Q10H LONG Rx#:[id number] ceFAZolin 1,000 mg In 50 50 Sodium Chloride 0.9% 50 ml @ 100 mls/hr IVPB Q8HR LONG Rx#:[id number] Oral 590 Output: Urine 450 1325 Other: Voiding Method Urinal Urinal # Voids 1 2 - Constitutional General appearance: Present: cooperative, no acute distress, obese - EENT Eyes: Present: anicteric sclerae, EOMI ENT: Present: hearing grossly normal - Respiratory Details: Right upper lobe air exchange is noted, some crackles as you get towards the inferior aspect, the lower two thirds of the right chest are absent breath sounds, tracheal deviation is resolved, left lung breath sounds throughout a few crackles anteriorly in the upper aspect - Cardiovascular Heart sounds: normal: S1, S2 Abnormal Heart Sounds: Present: systolic murmur - Peripheral edema leg Peripheral Edema: bilateral: Trace - Gastrointestinal General gastrointestinal: Present: normal bowel sounds, soft - Integumentary Integumentary: Present: pale - Neurologic Neurologic: Present: CNII-XII intact - Musculoskeletal Musculoskeletal: Present: strength equal bilaterally - Psychiatric Psychiatric: Present: A&O x's 3, appropriate affect, intact judgment & insight - Labs CBC & Chem 7: 04/09/19 05:00 04/09/19 05:00 Labs: Microbiology - Last 24 Hours (Table) 04/09/19 06:42 Blood Culture - Preliminary Blood No Growth after 24 hours - Imaging and Cardiology Chest x-ray: report reviewed Assessment and Plan (1) Pneumothorax on right Narrative/Plan: Pt doing well at this time, symptoms stable. Ongoing thoravent mgmt to Cardiothoracic team Current Visit: Yes Status: Acute Priority: High Code(s): J93.9 - PNEUMOTHORAX, UNSPECIFIED SNOMED Code(s): 998880017 (2) Recurrent non-small cell lung cancer (NSCLC) Narrative/Plan: Currently s/p 5 carbo/taxol/avastin treatments with plans for re-scan after cycle #6. Patient has recently received Avastin. This is going to prolong healing time for the patient. The next cycle Avastin will be held to allow for adequate healing time. I discussed this with the patient. He verbalized understanding. Current Visit: Yes Status: Chronic Priority: Medium Code(s): C34.90 - MALIGNANT NEOPLASM OF UNSP PART OF UNSP BRONCHUS OR LUNG SNOMED Code(s): 854001174
--- NOTE | 2019-04-10 19:02 | P.PN ---
Subjective Progress Note Date: 04/10/19 Principal diagnosis: Right-sided spontaneous tension pneumothorax, severe COPD, left lower lobe pneumonia, leukocytosis, lung cancer, possible left lower lobe atelectasis, chronic persistent asthma, hypertension hypertensive cardiovascular disease, severe COPD 04/10/2019, patient seen and evaluated examined during the rounds breathing more comfortably denies any chest pain cough and congestion improved feeling little bit better compared yesterday patient had a computed tomography scan performed which reviewed it very minimal pneumothorax is present with residual subcutaneou s emphysema on the right side left-sided lung mass appeared to have shrunk, 58-year-old male who has a history of lung cancer with recurrence stage IV patient has a MediPort on the right side of the chest has been on immunotherapy patient also has severe COPD has been discovered history of health until about 2:30 this morning developed severe shortness of breath and chest pain up to 0.K mid to the hospital a chest x-ray showed total collapse of the lung with tension pneumothorax on the right side patient has a history of left lower lobe resection for lung cancer patient underwent Thoravent on the right side all 3 x- ray have been reviewed there is a small residual 20% to 30% pneumothorax on the right side, patient is being admitted thoracic surgery is on consult Objective - Vital Signs Vital signs: Vital Signs Temp 97.8 F 04/10/19 12:38 Pulse 96 04/10/19 12:53 Resp 18 04/10/19 12:38 BP 123/71 04/10/19 12:38 Pulse Ox 94 L 04/10/19 12:38 Intake & Output 04/09/19 04/10/19 04/10/19 18:59 06:59 18:59 Intake Total 250 590 850 Output Total 450 1325 Balance -200 -735 850 Intake: Intake, IV Titration 250 850 Amount Sodium Chloride 0.9% 1, 200 800 000 ml @ 100 mls/hr IV . Q10H LONG Rx#:[id number] ceFAZolin 1,000 mg In 50 50 Sodium Chloride 0.9% 50 ml @ 100 mls/hr IVPB Q8HR LONG Rx#:[id number] Oral 590 Output: Urine 450 1325 Other: Voiding Method Urinal Urinal # Voids 1 2 - Exam - Constitutional General appearance: average body habitus, disheveled, mild distress, morbidly obese - EENT Eyes: EOMI, PERRLA, poor dentition, normal appearance Ears: bilateral: normal - Neck Neck: lymphadenopathy Carotids: bilateral: upstroke normal Thyroid: bilateral: normal size - Respiratory Respiratory: right: diminished, negative: dullness, rales, rhonchi, wheezing, prolonged expiration - Cardiovascular Rhythm: irregularly irregular Heart sounds: normal: S1, S2 - Gastrointestinal General gastrointestinal: decreased bowel sounds, distended, soft - Integumentary Integumentary: calor - Neurologic Neurologic: CNII-XII intact - Musculoskeletal Musculoskeletal: gait normal, generalized weakness, strength equal bilaterally - Psychiatric Psychiatric: A&O x's 3, appropriate affect, intact judgment & insight - Labs CBC & Chem 7: 04/09/19 05:00 04/09/19 05:00 Labs: Microbiology - Last 24 Hours (Table) 04/09/19 06:42 Blood Culture - Preliminary Blood No Growth after 24 hours Assessment and Plan Assessment: Right-sided tension pneumothorax, radiographically and clinically improved Bilateral wheezing probably COPD exacerbation Left lower lobe pneumonia versus atelectasis Leukocytosis Stage IV lung cancer on immunotherapy Left lower lobe resection Chronic persistent asthma COPD Hypertension hypertensive cardiovascular disease Plan: Bronchodilator Inhaled via nebulizer steroids Pain control Broad-spectrum antibiotics Hold steroids for now we'll treat COPD exacerbation with breathing treatments and inhaled corticosteroid patient appears to be responding Time with Patient: Greater than 30
[2019-04-11] MEDS: KETOROLAC 30 MG/ML 1 ML VIAL IVP SCH ×4 (00:47→18:22)
[2019-04-11] MEDS: IPRATROPIUM-ALBUTEROL 3 ML NEB INHALATION SCH ×3 (07:34→20:19)
[2019-04-11] MEDS: FORMOTEROL FUMARATE 20 MCG/2 ML NEBU INHALATION SCH ×2 (07:34→20:32)
[2019-04-11] MEDS: BUDESONIDE 0.5 MG/2 ML NEBU INHALATION SCH ×2 (07:34→20:19)
[2019-04-11 07:59] LABS: Anisocytosis Moderate; Basophils % (A) 0 %; Eosinophils % (A) 0 %; HCT 31.2 % (39.0-53.0); HGB 10.1 gm/dL (13.0-17.5); Lymphocytes # (A) 0.9 k/uL (1.0-4.8); Lymphocytes % (A) 16 %; MCH 31.1 pg (25.0-35.0); MCHC 32.6 g/dL (31.0-37.0); MCV 95.5 fL (80.0-100.0); Macrocytosis Slight; Mean Platelet Volume 8.3; Monocytes # (A) 0.4 k/uL (0-1.0); Monocytes % (A) 7 %; Neutrophils # (A) 4.4 k/uL (1.3-7.7); Neutrophils % (A) 75 %; Platelet Count 111 k/uL (150-450); RBC 3.26 m/uL (4.30-5.90); RDW 21.1 % (11.5-15.5); WBC 5.9 k/uL (3.8-10.6)
[2019-04-11 08:11] LABS: African American GFR (CKD) >90 (>60 ml/min/1.73 sqM); Anion Gap 4 mmol/L; Blood Urea Nitrogen 15 mg/dL (9-20); Calcium 8.4 mg/dL (8.4-10.2); Carbon Dioxide 28 mmol/L (22-30); Chloride 107 mmol/L (98-107); Glucose 74 mg/dL (74-99); Potassium 3.8 mmol/L (3.5-5.1); Sodium 139 mmol/L (137-145)
[2019-04-11] MEDS: SODIUM CHLORIDE 0.9% 1,000 ML IV SCH ×2 (09:15→19:54)
[2019-04-11] MEDS: METOPROLOL TARTRATE 25 MG TAB PO SCH ×2 (09:16→21:27)
[2019-04-11] MEDS: CHOLECALCIFEROL 1,000 UNIT TAB PO SCH (09:16)
[2019-04-11] MEDS: LORATADINE 10 MG TAB PO SCH (09:16)
[2019-04-11] MEDS: LEVOFLOXACIN 500 MG TAB PO SCH (09:16)
[2019-04-11] MEDS: predniSONE 10 MG TAB PO SCH (09:16)
[2019-04-11] MEDS: FAMOTIDINE 20 MG TAB PO SCH ×2 (09:16→21:27)
[2019-04-11] MEDS: MULTIVITAMINS, THERA 1 EACH TAB PO SCH (09:16)
--- NOTE | 2019-04-11 09:25 | P.PN ---
Subjective Progress Note Date: 04/11/19 Principal diagnosis: Right-sided spontaneous tension pneumothorax, severe COPD, left lower lobe pneumonia, leukocytosis, lung cancer, possible left lower lobe atelectasis, chronic persistent asthma, hypertension hypertensive cardiovascular disease, severe COPD 04/11/2019, patient seen eval reexamined during the rounds, doing well slightly short of breath denies any chest pain some cough and congestion is present no sputum production, noted slight air leak is present 04/10/2019, patient seen and evaluated examined during the rounds breathing more comfortably denies any chest pain cough and congestion improved feeling little bit better compared yesterday patient had a computed tomography scan performed which reviewed it very minimal pneumothorax is present with residual subcutaneous emphysema on the right side left-sided lung mass appeared to have shrunk, 58-year-old male who has a history of lung cancer with recurrence stage IV patient has a MediPort on the right side of the chest has been on immunotherapy patient also has severe COPD has been discovered history of health until about 2:30 this morning developed severe shortness of breath and chest pain up to 0.K mid to the hospital a chest x-ray showed total collapse of the lung with tension pneumothorax on the right side patient has a history of left lower lobe resection for lung cancer patient underwent Thoravent on the right side all 3 x- ray have been reviewed there is a small residual 20% to 30% pneumothorax on the right side, patient is being admitted thoracic surgery is on consult Objective - Vital Signs Vital signs: Vital Signs Temp 97.5 F L 04/11/19 05:00 Pulse 100 04/11/19 07:55 Resp 18 04/11/19 05:00 BP 137/82 04/11/19 05:00 Pulse Ox 100 04/11/19 05:00 Intake & Output 04/10/19 04/11/19 04/11/19 18:59 06:59 18:59 Intake Total 850 1550 Output Total 1100 Balance 850 450 Intake: Intake, IV Titration 850 1150 Amount Sodium Chloride 0.9% 1, 800 1150 000 ml @ 100 mls/hr IV . Q10H LONG Rx#:[id number] ceFAZolin 1,000 mg In 50 Sodium Chloride 0.9% 50 ml @ 100 mls/hr IVPB Q8HR LONG Rx#:[id number] Oral 400 Output: Urine 1100 Other: Voiding Method Urinal Urinal - Exam - Constitutional General appearance: average body habitus, disheveled, mild distress, morbidly obese - EENT Eyes: EOMI, PERRLA, poor dentition, normal appearance Ears: bilateral: normal - Neck Neck: lymphadenopathy Carotids: bilateral: upstroke normal Thyroid: bilateral: normal size - Respiratory Respiratory: right: diminished, negative: dullness, rales, rhonchi, wheezing, prolonged expiration - Cardiovascular Rhythm: irregularly irregular Heart sounds: normal: S1, S2 - Gastrointestinal General gastrointestinal: decreased bowel sounds, distended, soft - Integumentary Integumentary: calor - Neurologic Neurologic: CNII-XII intact - Musculoskeletal Musculoskeletal: gait normal, generalized weakness, strength equal bilaterally - Psychiatric Psychiatric: A&O x's 3, appropriate affect, intact judgment & insight - Labs CBC & Chem 7: 04/11/19 07:30 04/11/19 07:30 Labs: Abnormal Lab Results - Last 24 Hours (Table) 04/11/19 Range/Units 07:30 RBC 3.26 L (4.30-5.90) m/uL Hgb 10.1 L (13.0-17.5) gm/dL Hct 31.2 L (39.0-53.0) % RDW 21.1 H (11.5-15.5) % Plt Count 111 L (150-450) k/uL Lymphocytes # 0.9 L (1.0-4.8) k/uL Microbiology - Last 24 Hours (Table) 04/09/19 06:42 Blood Culture - Preliminary Blood No Growth after 48 hours Assessment and Plan Assessment: Right-sided tension pneumothorax, radiographically and clinically improved Bilateral wheezing probably COPD exacerbation Left lower lobe pneumonia versus atelectasis Leukocytosis Stage IV lung cancer on immunotherapy Left lower lobe resection Chronic persistent asthma COPD Hypertension hypertensive cardiovascular disease Plan: Fairly is still present continue section through the chest tube Bronchodilator Inhaled via nebulizer steroids Pain control Broad-spectrum antibiotics Hold steroids for now we'll treat COPD exacerbation with breathing treatments and inhaled corticosteroid patient appears to be responding Time with Patient: Greater than 30
--- NOTE | 2019-04-11 09:40 | P.PN ---
Subjective Progress Note Date: 04/11/19 Principal diagnosis: Spontaneous right pneumothorax. History of metastatic lung adenocarcinoma, stage IV with chemo/radiation/immunosuppressive therapy, recent history of Pseudomonas pneumonia, previous tobacco dependence, severe COPD, asthma, chronic anemia, hypertension, gastroesophageal reflux disease, and family history of cancer. The patient is currently sitting up in bed in no acute distress. Denies pain, states shortness of breath has improved significantly since admission. Actively using incentive spirometry. Right sided Thoravent remains to continuous wall suction, no air leak present. No new complaints. Objective - Vital Signs Vital signs: Vital Signs Temp 97.5 F L 04/11/19 05:00 Pulse 100 04/11/19 07:55 Resp 18 04/11/19 05:00 BP 137/82 04/11/19 05:00 Pulse Ox 100 04/11/19 05:00 Intake & Output 04/10/19 04/11/19 04/11/19 18:59 06:59 18:59 Intake Total 850 1550 Output Total 1100 Balance 850 450 Intake: Intake, IV Titration 850 1150 Amount Sodium Chloride 0.9% 1, 800 1150 000 ml @ 100 mls/hr IV . Q10H LONG Rx#:[id number] ceFAZolin 1,000 mg In 50 Sodium Chloride 0.9% 50 ml @ 100 mls/hr IVPB Q8HR LONG Rx#:[id number] Oral 400 Output: Urine 1100 Other: Voiding Method Urinal Urinal - Constitutional General appearance: Present: cooperative, no acute distress, obese - Respiratory Details: Lung sounds clear but diminished bilaterally. Respirations even, non-labored. Currently on 2 LPM NC with oxygen saturation 100%. Able to achieve 2250 mL on his incentive spirometry. Right sided Thoravent to continuous wall suction, 10 mL total serous drainage since insertion, no air leak present. Strong cough. - Cardiovascular Details: S1, S2 present. Tachycardic but regular rate/rhythm, sinus tach on telemetry. Palpable pulses bilaterally. No edema present. No calf pain or tenderness noted. - Gastrointestinal Gastrointestinal Comment(s): Abdomen soft, non-tender, non-distended. Active bowel sounds present x 4 quadrants. Tolerating diet. - Genitourinary Genitourinary Comment(s): Voiding clear, yellow urine per urinal. - Integumentary Integumentary Comment(s): Skin is warm and dry with evidence of good perfusion. - Neurologic Neurologic: Present: CNII-XII intact - Musculoskeletal Musculoskeletal: Present: strength equal bilaterally - Psychiatric Psychiatric: Present: A&O x's 3, appropriate affect, intact judgment & insight - Allied health notes Allied health notes reviewed: nursing - Labs CBC & Chem 7: 04/11/19 07:30 04/11/19 07:30 Labs: Abnormal Lab Results - Last 24 Hours (Table) 04/11/19 Range/Units 07:30 RBC 3.26 L (4.30-5.90) m/uL Hgb 10.1 L (13.0-17.5) gm/dL Hct 31.2 L (39.0-53.0) % RDW 21.1 H (11.5-15.5) % Plt Count 111 L (150-450) k/uL Lymphocytes # 0.9 L (1.0-4.8) k/uL Microbiology - Last 24 Hours (Table) 04/09/19 06:42 Blood Culture - Preliminary Blood No Growth after 24 hours - Imaging and Cardiology Chest x-ray: image reviewed Assessment and Plan Assessment: 1. Spontaneous right pneumothorax 2. Metastatic lung adenocarcinoma, stage IV with chemo/radiation/immunosuppressive therapy 3. Recent history of Pseudomonas pneumonia 4. Previous tobacco dependence 5. Severe COPD, asthma 6. Chronic anemia 7. Hypertension 8. GERD 9. Family history of cancer Plan: 1. Will keep right Thoravent tube to low continuous wall suction at -20 cm H2O for another 24 hours. 2. Wean oxygen as tolerated. Encourage use of his incentive spirometry 10 x every hour while awake. 3. Pulmonary management recommendations per Dr. Soto. 4. Medical management and other comorbidities per primary care service. 5. Pain management per current medication regimen. 6. More recommendations to follow based on patient's clinical course. Time with Patient: Greater than 30
--- NOTE | 2019-04-11 11:24 | XR ---
EXAMINATION TYPE: XR chest 1V portable DATE OF EXAM: 04/11/2019 COMPARISON: Prior chest x-ray 04/10/2019 HISTORY: Chest tube TECHNIQUE: Single frontal view of the chest is obtained. FINDINGS: Right-sided thoracic vent is again noted as is the Port-A-Cath. There is resolution of pat ient's right-sided pneumothorax. Subcutaneous emphysema is again seen. No evident pleural effusion. P ersistent abnormal density, volume loss in the left upper lobe. IMPRESSION: There is resolution of the right-sided pneumothorax.
--- NOTE | 2019-04-11 13:46 | P.PN ---
Subjective Progress Note Date: 04/11/19 This is a 58-year-old gentleman with history of left-sided lung mass, recurrent metastatic stage IV lung CA, adenocarcinoma history of laparoscopic wedge resection, recently hospitalized Pseudomonas pneumonia presented to the area with worsening shortness of breath awakening him from sleep at 2 AM. Reports right chest pain with sudden onset accompanied by a severe shortness of breath upon awakening. Denies recent trauma. Denies chest pain, palpitations. Denies fever or chills. Reports occasional productive cough. EKG reporting sinus tachycardia, heart rates in the 120s. Troponin 0.041. Chest x-ray reporting a large right-sided tension pneumothorax, increased hemothorax volume on the right, shift of the mediastinum, left suprahilar mass density again seen. Thoravent tube placed-to low intermittent suction, chest x-ray post procedure reporting interval improvement in right-sided pneumothorax. Cardiothoracic surgery and pulmonary consulted. 04/10/2019 maintaining O2 sats in the mid 90s on 2 L nasal cannula. IS up to 1500.Complains of wheezing, denies shortness of breath. Denies pain. Chest x- ray reporting increasing subcutaneous emphysema, persistent possibly increased bibasilar right pneumothorax. Thoravent this morning presented with no drainage, no air leak. Manipulated by cardiothoracic surgery, reconnected to low intermittent suction, air leak returned. Chest CT ordered post manipulation/reinsertion, pending. Afebrile, preliminary blood cultures negative at 24 hours. 04/11/[address] reported moderate to advanced emphysema with small right-sided pneumothorax approximately 5% with pleural catheter in place, previous surgery medial left upper lobe with associated consolidation and volume loss with pleural density slight decreased bulk from prior, moderate to severe circumferential thickening of the mid to distal thoracic esophagus-esophagitis versus radiation change versus neoplasm. chest x-ray reporting resolution of right-sided pneumothorax. Breathing improving, maintaining 100% O2 sat on 2 L nasal cannula. IS up to 2200. Afebrile, preliminary blood cultures negative at 48 hours. Telemetry sinus rhythm to sinus tach with mild tachycardia, heart rates in the low 100s. Objective - Vital Signs Vital signs: Vital Signs Temp 97.5 F L 04/11/19 05:00 Pulse 100 04/11/19 07:55 Resp 18 04/11/19 05:00 BP 137/82 04/11/19 05:00 Pulse Ox 100 04/11/19 05:00 Intake & Output 04/10/19 04/11/19 04/11/19 18:59 06:59 18:59 Intake Total 850 1550 Output Total 1100 Balance 850 450 Intake: Intake, IV Titration 850 1150 Amount Sodium Chloride 0.9% 1, 800 1150 000 ml @ 100 mls/hr IV . Q10H LONG Rx#:[id number] ceFAZolin 1,000 mg In 50 Sodium Chloride 0.9% 50 ml @ 100 mls/hr IVPB Q8HR LONG Rx#:[id number] Oral 400 Output: Urine 1100 Other: Voiding Method Urinal Urinal - Exam VITAL SIGNS: As above GENERAL: Sitting up in bed, no acute distress. HEENT: Conjunctivae normal. eyes normal. Trachea midline. NECK: No JVD. No thyroid enlargement. Right chest thoravent present. Mild subcu emphysema CARDIOVASCULAR: S1, S2 regular. Mild Tachycardia No murmur. RESPIRATION: Essentially clear with bilateral bases diminished No rhonchi, crackles, or wheezing. Right chest pleural Thoravent, no air leak, minimal s erous drainage. ABDOMEN: Soft, nontender . No guarding. no masses palpable.positive bowel sounds. LEGS: No edema. no swelling. PSYCHIATRY: Alert and oriented X3, mood and affect normal. NERVOUS SYSTEM: Cranial N 2-12 grossly normal. Moves all 4 limbs. Diffuse weakness No focal deficits. Strength and sensation grossly intact.. Skin: no lesions, no rash - Labs CBC & Chem 7: 04/11/19 07:30 04/11/19 07:30 Labs: Abnormal Lab Results - Last 24 Hours (Table) 04/11/19 Range/Units 07:30 RBC 3.26 L (4.30-5.90) m/uL Hgb 10.1 L (13.0-17.5) gm/dL Hct 31.2 L (39.0-53.0) % RDW 21.1 H (11.5-15.5) % Plt Count 111 L (150-450) k/uL Lymphocytes # 0.9 L (1.0-4.8) k/uL Microbiology - Last 24 Hours (Table) 04/09/19 06:42 Blood Culture - Preliminary Blood No Growth after 48 hours Assessment and Plan Assessment: -Spontaneous Right pneumothorax, status post right Thoravent placement. -Possible underlying acute COPD exacerbation in a patient with moderate to advanced emphysema-CT -Possible left lower lobe pneumonia, possible atelectasis in a patient with history [id number] lung mass,Recurrent metastatic lung CA, adenocarcinoma,Stage IV. -Esophagitis versus radiation change versus neoplasm; moderate to severe circumferential thickening of the mid to distal thoracic esophagus per CT -history of laparoscopic wedge resection. -Recent Pseudomonas pneumonia -Chronic persistent asthma Plan: Continue on current medication regime ,monitoring and symptomatic treatment. Maintain nebulized bronchodilators, steroids, antibiotics. Pain management. Continue with aggressive pulmonary toileting with incentive spirometer reinforced. Possible EGD after improvement in pulmonary function regarding esophageal thickening per CT. Thoravent being maintained to LIS for another 24 hours as Follow closely with cardiothoracic surgery and pulmonary. Further recommendations to follow. . The impression and plan of care has been dictated as directed. : I performed a history and examination of this patient, discussed the same with the dictator. I agree with the dictator's note ,documented as a scribe. Any additional findings or plans will be noted. Time taken: 35 minutes
--- NOTE | 2019-04-11 15:48 | P.PN ---
Subjective Progress Note Date: 04/11/19 Principal diagnosis: spontaneous pneumothorax, non-small cell lung adenocarcinoma on treatment In follow-up today patient states breathing better, he can lay flatter, he does get nervous when having coughing spells as he loses his breath. No fevers, using incentive spirometry, no current chest pain or palpitations Objective - Vital Signs Vital signs: Vital Signs Temp 98 F 04/11/19 13:00 Pulse 92 04/11/19 13:00 Resp 17 04/11/19 13:00 BP 129/78 04/11/19 13:00 Pulse Ox 100 04/11/19 13:00 Intake & Output 04/10/19 04/11/19 04/11/19 18:59 06:59 18:59 Intake Total 850 1550 Output Total 1100 Balance 850 450 Intake: Intake, IV Titration 850 1150 Amount Sodium Chloride 0.9% 1, 800 1150 000 ml @ 100 mls/hr IV . Q10H LONG Rx#:[id number] ceFAZolin 1,000 mg In 50 Sodium Chloride 0.9% 50 ml @ 100 mls/hr IVPB Q8HR LONG Rx#:[id number] Oral 400 Output: Urine 1100 Other: Voiding Method Urinal Urinal - Constitutional General appearance: Present: cooperative, no acute distress, obese - EENT Eyes: Present: anicteric sclerae, edentulous, EOMI ENT: Present: hearing grossly normal, normal oropharynx - Respiratory Respiratory: right: other (breath soundsfaint in the upper 2/3rd of lung, some crackle in the base, more symmetrical chest expansion), left: CTA - Cardiovascular Heart sounds: normal: S1, S2 - Peripheral edema leg Peripheral Edema: bilateral: None - Gastrointestinal General gastrointestinal: Present: normal bowel sounds, soft - Integumentary Integumentary: Present: pale - Neurologic Neurologic: Present: CNII-XII intact - Musculoskeletal Musculoskeletal: Present: strength equal bilaterally - Psychiatric Psychiatric: Present: A&O x's 3, appropriate affect, intact judgment & insight - Labs CBC & Chem 7: 04/11/19 07:30 04/11/19 07:30 Labs: Abnormal Lab Results - Last 24 Hours (Table) 04/11/19 Range/Units 07:30 RBC 3.26 L (4.30-5.90) m/uL Hgb 10.1 L (13.0-17.5) gm/dL Hct 31.2 L (39.0-53.0) % RDW 21.1 H (11.5-15.5) % Plt Count 111 L (150-450) k/uL Lymphocytes # 0.9 L (1.0-4.8) k/uL Microbiology - Last 24 Hours (Table) 04/09/19 06:42 Blood Culture - Preliminary Blood No Growth after 48 hours Assessment and Plan (1) Pneumothorax on right Narrative/Plan: Pt doing well at this time, symptoms improved. Ongoing thoravent mgmt to Cardiothoracic team. Discussed case briefly with cardiothoracic BOOKING MANAGER. We also discussed that patient may require expanded healing time due to recent treatment with Avastin. Next treatment Avastin will be held. He will continue to be held until proper healing. Patient is aware of the same. Pt requested some cough syrup for night time so he can sleep without coughing- order placed Current Visit: Yes Status: Acute Priority: High Code(s): J93.9 - PNEUMOTHORAX, UNSPECIFIED SNOMED Code(s): 589417980 (2) Recurrent non-small cell lung cancer (NSCLC) Narrative/Plan: Currently s/p 5 carbo/taxol/avastin treatments with plans for re-scan after cycle #6. Patient has recently received Avastin. This is going to prolong healing time for the patient. The next cycle Avastin will be held to allow for adequate healing time. I discussed this with the patient. He verbalized understanding. Current Visit: Yes Status: Chronic Priority: Medium Code(s): C34.90 - MALIGNANT NEOPLASM OF UNSP PART OF UNSP BRONCHUS OR LUNG SNOMED Code(s): 281782823 Plan: Discussed CT chest results with Attending BOOKING MANAGER. D/W Rad Onc, who will review but, most likely some scarring from previous treatment for lung cancer (pt did have rad esophagitis symptoms during treatment). Pt is asymptomatic. Will cont to follow findings as pt will be having restaging CT scans in the next few months. EGD, if necessary, can be planned in the future
--- NOTE | 2019-04-11 17:13 | P.GSCN ---
History of Present Illness Consult date: 04/11/19 Reason for Consult: EGD, GI bleed History of present illness: This a 58-year-old male with Dr. Carroll service patient has a spontaneous right pneumothorax. He currently has a Pleur-evac in place. Patient was noted to have some anemia. I been asked to see him regarding possible EGD patient denies any evidence of GI bleed. Past Medical History Past Medical History: Asthma, Cancer, COPD, GERD/Reflux, Hypertension, Pneumonia Additional Past Medical History / Comment(s): L lung cancer(stage 4) with lymph node mets with surgery/chemo/radiation and currently immunosuppressive therapy; left lower lobe removed. last chemo does 03/21/19. radiation complete. edentulous,dysphagia History of Any Multi-Drug Resistant Organisms: None Reported Past Surgical History: Appendectomy, Tonsillectomy Additional Past Surgical History / Comment(s): L lung lobectomy/lymph node biopsy, mediport R IJ, EGD with bx. Past Anesthesia/Blood Transfusion Reactions: No Reported Reaction Past Psychological History: No Psychological Hx Reported Smoking Status: Former smoker Past Alcohol Use History: None Reported Past Drug Use History: None Reported - Past Family History Father Brother(s) Family Medical History: Cancer Additional Family Medical History / Comment(s): Father of unknown type of cancer. Mother Family Medical History: Cancer Additional Family Medical History / Comment(s): Mother from breast cancer at the age of 68yrs. Brother(s) Family Medical History: Cancer Additional Family Medical History / Comment(s): 1 brother had bowel cancer, 1 brother had a chest mass and thoracic aneurysm ant at the age of 62yrs. Medications and Allergies Home Medications Medication Instructions Recorded Confirmed Type Cholecalciferol [Vitamin D3 (25 1,000 unit PO DAILY 05/31/16 04/09/19 History Mcg = 1000 Iu)] Docusate [Colace] 200 mg PO BID PRN 05/31/16 04/09/19 History Loratadine [Claritin] 10 mg PO DAILY 05/31/16 04/09/19 History Metoprolol Tartrate [Lopressor] 25 mg PO BID 05/31/16 04/09/19 History Multivitamin [Men's Multi-Vitamin] 1 tab PO DAILY 05/31/16 04/09/19 History [place]-3 Fatty Acids/Fish Oil [Fish 1 cap PO DAILY 05/31/16 04/09/19 History Oil 1,000 mg Softgel] Flaxseed Oil [[place]-3 Flaxseed Oil] 1,000 mg PO DAILY 01/24/17 04/09/19 History Garlic 1 tab PO DAILY 06/18/18 04/09/19 History Ipratropium Martin [Atrovent Hfa] 2 puff INHALATION RT-BID PRN 06/18/18 04/09/19 History Ipratropium-Albuterol Nebulize 3 ml INHALATION RT-TID #0 04/02/19 04/09/19 Rx [Duoneb 0.5 mg-3 mg/3 ml Soln] Famotidine [Pepcid] 20 mg PO DAILY 04/09/19 04/09/19 History Ipratropium-Albuterol Nebulize 3 ml INHALATION RT-Q4H PRN 04/09/19 04/09/19 History [Duoneb 0.5 mg-3 mg/3 ml Soln] L.acidoph,Paracasei, B.lactis 1 cap PO DAILY 04/09/19 04/09/19 History [Probiotic] Levofloxacin [Levaquin] 500 mg PO DAILY 04/09/19 04/09/19 History predniSONE See Taper PO DAILY 04/09/19 04/09/19 History Allergies Allergy/AdvReac Type Severity Reaction Status Date / Time Penicillins Allergy Unknown Verified 04/09/19 10:05 Childhood Surgical - Exam Vital Signs Temp Pulse Resp BP Pulse Ox 98.2 F 123 H 20 133/89 84 L 04/09/19 04:00 04/09/19 04:00 04/09/19 04:00 04/09/19 04:00 04/09/19 04:00 - General well developed, well nourished, no distress - Eyes PERRL - ENT normal pinna - Neck no masses - Respiratory Right chest Pleur-evac - Abdomen Abdomen: soft, non tender Results - Labs 04/11/19 07:30 04/11/19 07:30 Abnormal Lab Results - Last 24 Hours (Table) 04/11/19 Range/Units 07:30 RBC 3.26 L (4.30-5.90) m/uL Hgb 10.1 L (13.0-17.5) gm/dL Hct 31.2 L (39.0-53.0) % RDW 21.1 H (11.5-15.5) % Plt Count 111 L (150-450) k/uL Lymphocytes # 0.9 L (1.0-4.8) k/uL Microbiology - Last 24 Hours (Table) 04/09/19 06:42 Blood Culture - Preliminary Blood No Growth after 48 hours Diabetes panel 04/11/19 Range/Units 07:30 Sodium 139 (137-145) mmol/L Potassium 3.8 (3.5-5.1) mmol/L Chloride 107 (98-107) mmol/L Carbon Dioxide 28 (22-30) mmol/L BUN 15 (9-20) mg/dL Creatinine 0.78 (0.66-1.25) mg/dL Glucose 74 (74-99) mg/dL Calcium 8.4 (8.4-10.2) mg/dL Calcium panel 04/11/19 Range/Units 07:30 Calcium 8.4 (8.4-10.2) mg/dL Pituitary panel 04/11/19 Range/Units 07:30 Sodium 139 (137-145) mmol/L Potassium 3.8 (3.5-5.1) mmol/L Chloride 107 (98-107) mmol/L Carbon Dioxide 28 (22-30) mmol/L BUN 15 (9-20) mg/dL Creatinine 0.78 (0.66-1.25) mg/dL Glucose 74 (74-99) mg/dL Calcium 8.4 (8.4-10.2) mg/dL Adrenal panel 04/11/19 Range/Units 07:30 Sodium 139 (137-145) mmol/L Potassium 3.8 (3.5-5.1) mmol/L Chloride 107 (98-107) mmol/L Carbon Dioxide 28 (22-30) mmol/L BUN 15 (9-20) mg/dL Creatinine 0.78 (0.66-1.25) mg/dL Glucose 74 (74-99) mg/dL Calcium 8.4 (8.4-10.2) mg/dL Assessment and Plan Assessment: Anemia. The patient will undergo EGD once his pneumothorax and Pleur-evac have resolved. We will follow with you
[2019-04-11] MEDS: guaiFENesin-DM 100-10MG/5ML 10 ML CUP PO PRN (21:27)
[2019-04-12] MEDS: KETOROLAC 30 MG/ML 1 ML VIAL IVP SCH ×4 (00:04→18:31)
[2019-04-12 02:13] LABS: Glucose,Whole Blood 92 mg/dL (75-99)
--- NOTE | 2019-04-12 02:57 | XR ---
EXAM: XR Chest, 1 View CLINICAL HISTORY: ITS.REASON XR Reason: short of breathe low pulse ox TECHNIQUE: Frontal view of the chest. COMPARISON: Chest x-ray dated 04/09/2019. FINDINGS: Lungs: See below. Pleural space: Reidentified large right-sided pneumothorax, similar to the prior exam, with what appears to be a pleural drainage catheter. There is marked new subcutaneous emphysema throughout the right chest wall inferior right neck compared the prior exam. Heart: Unremarkable. No cardiomegaly. Mediastinum: Unremarkable. Bones/joints: Unremarkable. Tubes, lines and devices: Right chest port is unchanged in position. Other findings: Apparent postsurgical or neoplastic changes in the left chest, not well characterized on this exam. IMPRESSION: 1. Reidentified large right-sided pneumothorax, similar to the prior exam, with what appears to be a pleural drainage catheter. There is marked new subcutaneous emphysema throughout the right chest wall inferior right neck compared the prior exam. 2. Apparent postsurgical or neoplastic changes in the left chest, not well characterized on this exam.
--- NOTE | 2019-04-12 04:35 | XR ---
EXAM: XR Chest, 1 View CLINICAL HISTORY: ITS.REASON XR Reason: shortness of breathe TECHNIQUE: Frontal view of the chest. COMPARISON: Chest x-ray dated 04/09/2019. FINDINGS: Lungs: Reidentified nonspecific patchy spiculated opacity in the left suprahilar region. Pleural space: Interval reexpansion of the right lung without evidence of residual pneumothorax on this exam. Heart: Unremarkable. No cardiomegaly. Mediastinum: Unremarkable. Bones/joints: Unremarkable. Soft tissues: Grossly unchanged subcutaneous emphysema throughout the right chest wall. Tubes, lines and devices: Right-sided chest port is unchanged in position. Reidentified right-sided pleural drainage catheter. IMPRESSION: 1. Interval reexpansion of the right lung without evidence of residual pneumothorax on this exam. 2. Grossly unchanged subcutaneous emphysema throughout the right chest wall. 3. Reidentified nonspecific patchy spiculated opacity in the left suprahilar region.
[2019-04-12] MEDS: SODIUM CHLORIDE 0.9% 1,000 ML IV SCH ×2 (06:29→16:54)
[2019-04-12] MEDS: IPRATROPIUM-ALBUTEROL 3 ML NEB INHALATION SCH ×3 (07:23→20:24)
[2019-04-12] MEDS: BUDESONIDE 0.5 MG/2 ML NEBU INHALATION SCH ×2 (07:23→20:24)
[2019-04-12] MEDS: FORMOTEROL FUMARATE 20 MCG/2 ML NEBU INHALATION SCH ×2 (07:23→20:24)
--- NOTE | 2019-04-12 08:19 | P.PN ---
Subjective Progress Note Date: 04/12/19 Principal diagnosis: Spontaneous right pneumothorax. History of metastatic lung adenocarcinoma, stage IV with chemo/radiation/immunosuppressive therapy, recent history of Pseudomonas pneumonia, previous tobacco dependence, severe COPD, asthma, chronic anemia, hypertension, gastroesophageal reflux disease, and family history of cancer. POD #3 placement of right-sided thoravent by the emergency room physicians The patient is currently sitting up in bed in no acute distress. Denies pain, shortness of breath. He had an episode last night of hypoxia with significant shortness of breath, chest x-ray was completed demonstrating right-sided pneumothorax. A-team was called, thoravent was manipulated as previous, repeat chest x-ray demonstrated re-expansion of the right lung, patient's hypoxia and shortness of breath resolved. Right sided Thoravent remains to continuous wall suction, no air leak present. Objective - Vital Signs Vital signs: Vital Signs Temp 97.8 F 04/12/19 05:00 Pulse 112 H 04/12/19 07:50 Resp 18 04/12/19 05:00 BP 133/82 04/12/19 05:00 Pulse Ox 100 04/12/19 05:00 Intake & Output 04/11/19 04/12/19 04/12/19 18:59 06:59 18:59 Intake Total 800 1450 Output Total 0 1075 Balance 800 375 Intake: Intake, IV Titration 800 950 Amount Sodium Chloride 0.9% 1, 750 900 000 ml @ 100 mls/hr IV . Q10H LONG Rx#:[id number] ceFAZolin 1,000 mg In 50 50 Sodium Chloride 0.9% 50 ml @ 100 mls/hr IVPB Q8HR LONG Rx#:[id number] Oral 500 Output: Chest Tube Drainage 0 0 Thora-Vent Right 0 0 Urine 1075 Other: Voiding Method Urinal Urinal - Constitutional General appearance: Present: cooperative, no acute distress, obese - Respiratory Details: Lung sounds clear but diminished bilaterally. Respirations even, non-labored. Currently on 5 LPM NC with oxygen saturation 100%. Right sided Thoravent to continuous wall suction, 20 mL total serous drainage since insertion, no air leak present. Strong cough. - Cardiovascular Details: S1, S2 present. Tachycardic but regular rate/rhythm, sinus tach on telemetry. Palpable pulses bilaterally. No edema present. No calf pain or tenderness noted. - Gastrointestinal Gastrointestinal Comment(s): Abdomen soft, non-tender, non-distended. Active bowel sounds present x 4 quadrants. Tolerating diet. - Genitourinary Genitourinary Comment(s): Voiding clear, yellow urine per urinal. - Integumentary Integumentary Comment(s): Skin is warm and dry with evidence of good perfusion. - Neurologic Neurologic: Present: CNII-XII intact - Musculoskeletal Musculoskeletal: Present: strength equal bilaterally - Psychiatric Psychiatric: Present: A&O x's 3, appropriate affect, intact judgment & insight - Allied health notes Allied health notes reviewed: nursing - Labs CBC & Chem 7: 04/11/19 07:30 04/11/19 07:30 Labs: Microbiology - Last 24 Hours (Table) 04/09/19 06:42 Blood Culture - Preliminary Blood No Growth after 48 hours - Imaging and Cardiology Chest x-ray: report reviewed, image reviewed Assessment and Plan Assessment: 1. Spontaneous right pneumothorax, status post thoravent placement 2. Metastatic lung adenocarcinoma, stage IV with jose mo/radiation/immunosuppressive therapy 3. Recent history of Pseudomonas pneumonia 4. Previous tobacco dependence 5. Severe COPD, asthma 6. Chronic anemia 7. Hypertension 8. GERD 9. Family history of cancer Plan: 1. Will keep right Thoravent tube to continuous -20 cm wall suction. Patient may take longer to heal due to Avastin in his medication regimen per oncology. 2. Wean oxygen as tolerated. Encourage use of his incentive spirometry 10 x every hour while awake. 3. Pulmonary management recommendations per Dr. Soto. 4. Medical management and other comorbidities per primary care service. 5. Pain management per current medication regimen. 6. More recommendations to follow based on patient's clinical course. Time with Patient: Greater than 30
--- NOTE | 2019-04-12 08:42 | XR ---
EXAMINATION TYPE: XR chest 1V portable DATE OF EXAM: 04/12/2019 COMPARISON: 04/12/2019 chest x-ray and CT dated 04/10/2019 HISTORY: Pneumothorax. [place] exam. TECHNIQUE: Single frontal view of the chest is obtained. FINDINGS: Left upper lobe spiculated masslike density and surgical sutures represent the patient's k nown prior surgical site when compared with the chest CT of 04/10/2019. There is resolution of the pre viously seen right-sided pneumothorax status post thoravent placement. Right-sided Mediport is again noted. No new focal consolidation, pleural effusion or pneumothorax. Stable right chest wall and supr aclavicular subcutaneous emphysema. Cardia mediastinal silhouette is within normal limits. IMPRESSION: Stable right chest wall subcutaneous emphysema. No recurrent pneumothorax.
[2019-04-12] MEDS: CHOLECALCIFEROL 1,000 UNIT TAB PO SCH ×2 (08:45→08:47)
[2019-04-12] MEDS: FAMOTIDINE 20 MG TAB PO SCH ×2 (08:46→21:06)
[2019-04-12] MEDS: LEVOFLOXACIN 500 MG TAB PO SCH (08:46)
[2019-04-12] MEDS: predniSONE 10 MG TAB PO SCH (08:47)
[2019-04-12] MEDS: METOPROLOL TARTRATE 25 MG TAB PO SCH ×2 (08:47→21:06)
[2019-04-12] MEDS: MULTIVITAMINS, THERA 1 EACH TAB PO SCH (08:47)
[2019-04-12] MEDS: LORATADINE 10 MG TAB PO SCH (08:47)
[2019-04-12 09:44] LABS: Anisocytosis Moderate; Basophils % (A) 0 %; Eosinophils % (A) 0 %; HCT 31.8 % (39.0-53.0); HGB 10.2 gm/dL (13.0-17.5); Lymphocytes # (A) 0.9 k/uL (1.0-4.8); Lymphocytes % (A) 15 %; MCH 30.8 pg (25.0-35.0); MCHC 32.1 g/dL (31.0-37.0); MCV 95.7 fL (80.0-100.0); Macrocytosis Slight; Mean Platelet Volume 7.9; Monocytes # (A) 0.4 k/uL (0-1.0); Monocytes % (A) 6 %; Neutrophils # (A) 4.6 k/uL (1.3-7.7); Neutrophils % (A) 78 %; Platelet Count 119 k/uL (150-450); RBC 3.32 m/uL (4.30-5.90); RDW 20.3 % (11.5-15.5); WBC 5.9 k/uL (3.8-10.6)
[2019-04-12 10:12] LABS: African American GFR (CKD) >90 (>60 ml/min/1.73 sqM); Anion Gap 6 mmol/L; Blood Urea Nitrogen 15 mg/dL (9-20); Calcium 8.4 mg/dL (8.4-10.2); Carbon Dioxide 29 mmol/L (22-30); Chloride 105 mmol/L (98-107); Glucose 123 mg/dL (74-99); Potassium 3.6 mmol/L (3.5-5.1); Sodium 140 mmol/L (137-145)
--- NOTE | 2019-04-12 11:23 | P.PN ---
Progress Note - Text Progress Note Date: 04/12/19 The patient is resting comfortably in his bed. Apparently an 18 was called last night due to a possible tension pneumothorax. His pneumothorax has resolved this morning. On exam his vital signs are stable. His abdomen soft. Patient with history of metastatic lung cancer and pneumothorax. The patient has shown no signs of GI bleed. He'll be observed. Currently we have no plans for EGD.
--- NOTE | 2019-04-12 12:37 | P.PN ---
Subjective Progress Note Date: 04/12/19 This is a 58-year-old gentleman with history of left-sided lung mass, recurrent metastatic stage IV lung CA, adenocarcinoma history of laparoscopic wedge resection, recently hospitalized Pseudomonas pneumonia presented to the area with worsening shortness of breath awakening him from sleep at 2 AM. Reports right chest pain with sudden onset accompanied by a severe shortness of breath upon awakening. Denies recent trauma. Denies chest pain, palpitations. Denies fever or chills. Reports occasional productive cough. EKG reporting sinus tachycardia, heart rates in the 120s. Troponin 0.041. Chest x-ray reporting a large right-sided tension pneumothorax, increased hemothorax volume on the right, shift of the mediastinum, left suprahilar mass density again seen. Thoravent tube placed-to low intermittent suction, chest x-ray post procedure reporting interval improvement in right-sided pneumothorax. Cardiothoracic surgery and pulmonary consulted. 04/10/2019 maintaining O2 sats in the mid 90s on 2 L nasal cannula. IS up to 1500.Complains of wheezing, denies shortness of breath. Denies pain. Chest x- ray reporting increasing subcutaneous emphysema, persistent possibly increased bibasilar right pneumothorax. Thoravent this morning presented with no drainage, no air leak. Manipulated by cardiothoracic surgery, reconnected to low intermittent suction, air leak returned. Chest CT ordered post manipulation/reinsertion, pending. Afebrile, preliminary blood cultures negative at 24 hours. 04/11/[address] reported moderate to advanced emphysema with small right-sided pneumothorax approximately 5% with pleural catheter in place, previous surgery medial left upper lobe with associated consolidation and volume loss with pleural density slight decreased bulk from prior, moderate to severe circumferential thickening of the mid to distal thoracic esophagus-esophagitis versus radiation change versus neoplasm. chest x-ray reporting resolution of right-sided pneumothorax. Breathing improving, maintaining 100% O2 sat on 2 L nasal cannula. IS up to 2200. Afebrile, preliminary blood cultures negative at 48 hours. Telemetry sinus rhythm to sinus tach with mild tachycardia, heart rates in the low 100s. 04/12/2018 last night, developed significant respiratory distress, A team called. Chest x-ray reporting reoccurrence of right-sided pneumothorax. Thoravent manipulated with repeat x-ray reporting reexpansion of right lung. Respiratory distress/hypoxia subsided. Currently on 4 L nasal cannula maintaining O2 sats of high 90s. Tachycardic, heart rate decreased down to 88 after beta janny administered. Evaluated by surgery regarding esophagus thickening, potential EGD after pulmonary status stabilizes. Objective - Vital Signs Vital signs: Vital Signs Temp 97.8 F 04/12/19 05:00 Pulse 112 H 04/12/19 07:50 Resp 18 04/12/19 05:00 BP 133/82 04/12/19 05:00 Pulse Ox 100 04/12/19 05:00 Intake & Output 04/11/19 04/12/19 04/12/19 18:59 06:59 18:59 Intake Total 800 1450 Output Total 0 1075 Balance 800 375 Intake: Intake, IV Titration 800 950 Amount Sodium Chloride 0.9% 1, 750 900 000 ml @ 100 mls/hr IV . Q10H LONG Rx#:[id number] ceFAZolin 1,000 mg In 50 50 Sodium Chloride 0.9% 50 ml @ 100 mls/hr IVPB Q8HR LONG Rx#:[id number] Oral 500 Output: Chest Tube Drainage 0 0 Thora-Vent Right 0 0 Urine 1075 Other: Voiding Method Urinal Urinal - Exam VITAL SIGNS: As above GENERAL: Sitting up in bed, no acute distress. HEENT: Conjunctivae normal. eyes normal. Trachea midline. NECK: No JVD. No thyroid enlargement. Right chest thoravent present. Mild subcu emphysema CARDIOVASCULAR: S1, S2 regular. Mild Tachycardia No murmur. RESPIRATION: Essentially clear with bilateral bases diminished No rhonchi, righ t basilar crackles crackles, no wheezing. Right chest pleural Thoravent to LIS, no air leak, serous drainage. ABDOMEN: Soft, nontender . No guarding. no masses palpable.positive bowel sounds. LEGS: No edema. no swelling. PSYCHIATRY: Alert and oriented X3, mood and affect normal. NERVOUS SYSTEM: Cranial N 2-12 grossly normal. Moves all 4 limbs. Diffuse weakness No focal deficits. Strength and sensation grossly intact.. Skin: no lesions, no rash - Labs CBC & Chem 7: 04/12/19 08:58 04/12/19 08:58 Labs: Microbiology - Last 24 Hours (Table) 04/09/19 06:42 Blood Culture - Preliminary Blood No Growth after 48 hours Assessment and Plan Assessment: -Spontaneous Right pneumothorax, status post right Thoravent placement. -Possible underlying acute COPD exacerbation in a patient with moderate to advanced emphysema-CT -Possible left lower lobe pneumonia, possible atelectasis in a patient with history [id number] lung mass,Recurrent metastatic lung CA, adenocarc inoma,Stage IV. -Esophagitis versus radiation change versus neoplasm; moderate to severe circumferential thickening of the mid to distal thoracic esophagus per CT -history of laparoscopic wedge resection. -Recent Pseudomonas pneumonia -Chronic persistent asthma Plan: Continue on current medication regime ,monitoring and symptomatic treatment. Continue nebulized bronchodilators, steroids, antibiotics. Maintain aggressive pulmonary toileting with incentive spirometer reinforced. Evaluated by surgery with EGD after improvement in pulmonary function regarding esophageal thickening per CT. Thoravent being maintained to LIS. Follow closely with cardiothoracic surgery and pulmonary. Prognosis guarded given multiple complex medical issues. Further recommendations to follow. . The impression and plan of care has been dictated as directed. : I performed a history and examination of this patient, discussed the same with the dictator. I agree with the dictator's note ,documented as a scribe. Any additional findings or plans will be noted. Time taken: 35 minutes
[2019-04-12] MEDS ORDERED: BENZOCAINE 20% HEMORRHOIDAL OINT 28GM RECTAL PRN (14:56)
--- NOTE | 2019-04-12 15:59 | P.PN ---
Subjective Progress Note Date: 04/12/19 Principal diagnosis: Right-sided spontaneous tension pneumothorax, severe COPD, left lower lobe pneumonia, leukocytosis, lung cancer, possible left lower lobe atelectasis, chronic persistent asthma, hypertension hypertensive cardiovascular disease, severe COPD 04/12/2019, patient seen and evaluated examined doing better today denies any chest pain shortness of breath even from earlier this morning noted, this morning around 2 AM patient develop shortness of breath and some chest discomfort and repeat x-ray showed a significant right-sided pneumothorax the pleural vent has been adjusted, reexpansion on chest x-ray is noted on 3 x-ray have been reviewed labs reviewed as well currently patient is comfortable denies any chest pain no air leak is present we will observe closely 04/11/2019, patient seen eval reexamined during the rounds, doing well slightly short of breath denies any chest pain some cough and congestion is present no sputum production, noted slight air leak is present 04/10/2019, patient seen and evaluated examined during the rounds breathing more comfortably denies any chest pain cough and congestion improved feeling little bit better compared yesterday patient had a computed tomography scan performed which reviewed it very minimal pneumothorax is present with residual subcutaneous emphysema on the right side left-sided lung mass appeared to have shrunk, 58-year-old male who has a history of lung cancer with recurrence stage IV patient has a MediPort on the right side of the chest has been on immunotherapy patient also has severe COPD has been discovered history of health until about 2:30 this morning developed severe shortness of breath and chest pain up to 0.K mid to the hospital a chest x-ray showed total collapse of the lung with tension pneumothorax on the right side patient has a history of left lower lobe resection for lung cancer patient underwent Thoravent on the right side all 3 x- ray have been reviewed there is a small residual 20% to 30% pneumothorax on the right side, patient is being admitted thoracic surgery is on consult Objective - Vital Signs Vital signs: Vital Signs Temp 98.4 F 04/12/19 11:42 Pulse 100 04/12/19 12:16 Resp 16 04/12/19 11:42 BP 109/64 04/12/19 11:42 Pulse Ox 98 04/12/19 11:42 Intake & Output 04/11/19 04/12/19 04/12/19 18:59 06:59 18:59 Intake Total 800 1450 Output Total 0 1075 0 Balance 800 375 0 Intake: Intake, IV Titration 800 950 Amount Sodium Chloride 0.9% 1, 750 900 000 ml @ 100 mls/hr IV . Q10H LONG Rx#:[id number] ceFAZolin 1,000 mg In 50 50 Sodium Chloride 0.9% 50 ml @ 100 mls/hr IVPB Q8HR LONG Rx#:[id number] Oral 500 Output: Chest Tube Drainage 0 0 0 Thora-Vent Right 0 0 0 Urine 1075 Other: Voiding Method Urinal Urinal - Exam - Constitutional General appearance: average body habitus, disheveled, mild distress, morbidly obese - EENT Eyes: EOMI, PERRLA, poor dentition, normal appearance Ears: bilateral: normal - Neck Neck: lymphadenopathy Carotids: bilateral: upstroke normal Thyroid: bilateral: normal size - Respiratory Respiratory: right: diminished, negative: dullness, rales, rhonchi, wheezing, prolonged expiration - Cardiovascular Rhythm: irregularly irregular Heart sounds: normal: S1, S2 - Gastrointestinal General gastrointestinal: decreased bowel sounds, distended, soft - Integumentary Integumentary: calor - Neurologic Neurologic: CNII-XII intact - Musculoskeletal Musculoskeletal: gait normal, generalized weakness, strength equal bilaterally - Psychiatric Psychiatric: A&O x's 3, appropriate affect, intact judgment & insight - Labs CBC & Chem 7: 04/12/19 08:58 04/12/19 08:58 Labs: Abnormal Lab Results - Last 24 Hours (Table) 04/12/19 04/12/19 Range/Units 08:58 08:58 RBC 3.32 L (4.30-5.90) m/uL Hgb 10.2 L (13.0-17.5) gm/dL Hct 31.8 L (39.0-53.0) % RDW 20.3 H (11.5-15.5) % Plt Count 119 L (150-450) k/uL Lymphocytes # 0.9 L (1.0-4.8) k/uL Glucose 123 H (74-99) mg/dL Microbiology - Last 24 Hours (Table) 04/09/19 06:42 Blood Culture - Preliminary Blood No Growth after 72 hours Assessment and Plan Assessment: Right-sided tension pneumothorax, with recurrence probably secondary due to plugged THORAVENT radiographically and clinically improved Bilateral wheezing probably COPD exacerbation Left lower lobe pneumonia versus atelectasis Leukocytosis Stage IV lung cancer on immunotherapy Left lower lobe resection Chronic persistent asthma COPD Hypertension hypertensive cardiovascular disease Plan: Fairly is still present continue section through the chest tube Bronchodilator Inhaled via nebulizer steroids Pain control Broad-spectrum antibiotics Hold steroids for now we'll treat COPD exacerbation with breathing treatments and inhaled corticosteroid patient appears to be responding
[2019-04-12] MEDS: HYDROCORTISONE SUPPOSITORY 25 MG SUPP RECTAL SCH ×3 (16:54→21:06)
[2019-04-12] MEDS: SENNOSIDES-DOCUSATE SODIUM 1 EACH TAB PO SCH (21:05)
[2019-04-13] MEDS: KETOROLAC 30 MG/ML 1 ML VIAL IVP SCH ×2 (00:08→06:25)
[2019-04-13] MEDS: SODIUM CHLORIDE 0.9% 1,000 ML IV SCH ×2 (03:33→12:43)
--- NOTE | 2019-04-13 06:39 | XR ---
EXAMINATION TYPE: XR chest 1V portable DATE OF EXAM: 04/13/2019 HISTORY: Tube placement. REFERENCE: Previous study dated 04/12/2019. FINDINGS: There is a MediPort in place via a right internal jugular approach. Its tip is in the super ior vena cava. Lung volumes are prominent. Heart size is normal. There is continuing right-sided subcutaneous emphys jenniffer. No definite residual pneumothorax is seen. The patient's right pleural drain remains in place. IMPRESSION: NO SIGNIFICANT INTERVAL CHANGE IN THE APPEARANCE OF THE CHEST.
[2019-04-13] MEDS: IPRATROPIUM-ALBUTEROL 3 ML NEB INHALATION SCH ×3 (07:55→20:50)
[2019-04-13] MEDS: FORMOTEROL FUMARATE 20 MCG/2 ML NEBU INHALATION SCH ×2 (07:55→20:50)
[2019-04-13] MEDS: BUDESONIDE 0.5 MG/2 ML NEBU INHALATION SCH ×2 (07:55→20:50)
--- NOTE | 2019-04-13 09:10 | P.PN ---
Subjective Progress Note Date: 04/13/19 Principal diagnosis: Spontaneous right pneumothorax. History of metastatic lung adenocarcinoma, stage IV with chemo/radiation/immunosuppressive therapy, recent history of Pseudomonas pneumonia, previous tobacco dependence, severe COPD, asthma, chronic anemia, hypertension, gastroesophageal reflux disease, and family history of cancer. POD #4 placement of right-sided thoravent by the emergency room physicians The patient is currently sitting up in bed in no acute distress. Denies pain, shortness of breath. No further episodes of hypoxia or shortness of breath. CXR this morning demonstrates full lung expansion. Oxygen has been weaned down to 2 LPM and patient is actively using his incentive spirometry. Right sided Thoravent remains to continuous wall suction, no air leak present. No new complaints. Objective - Vital Signs Vital signs: Vital Signs Temp 97.9 F 04/13/19 04:46 Pulse 88 04/13/19 08:16 Resp 16 04/13/19 04:46 BP 133/85 04/13/19 04:46 Pulse Ox 99 04/13/19 04:46 Intake & Output 04/12/19 04/13/19 04/13/19 18:59 06:59 18:59 Intake Total 300 Output Total 0 1375 Balance 0 -1075 Intake: Intake, IV Titration 50 Amount ceFAZolin 1,000 mg In 50 Sodium Chloride 0.9% 50 ml @ 100 mls/hr IVPB Q8HR [facility] Rx#:[id number] Oral 250 Output: Chest Tube Drainage 0 0 Thora-Vent Right 0 0 Urine 1375 Other: Voiding Method Urinal Urinal # Voids 3 - Constitutional General appearance: Present: cooperative, no acute distress, obese - Respiratory Details: Lung sounds clear but diminished bilaterally. Respirations even, non-labored. Currently on 2 LPM NC with oxygen saturation 99%. Right sided Thoravent to continuous wall suction, 20 mL total serous drainage since insertion, no air leak present. Strong cough. - Cardiovascular Details: S1, S2 present. Tachycardic but regular rate/rhythm, sinus tach on telemetry. Palpable pulses bilaterally. No edema present. No calf pain or tenderness noted. - Gastrointestinal Gastrointestinal Comment(s): Abdomen soft, non-tender, non-distended. Active bowel sounds present x 4 quadrants. Tolerating diet. - Genitourinary Genitourinary Comment(s): Voiding clear, yellow urine per urinal. - Integumentary Integumentary Comment(s): Skin is warm and dry with evidence of good perfusion. - Neurologic Neurologic: Present: CNII-XII intact - Musculoskeletal Musculoskeletal: Present: gait normal, strength equal bilaterally - Psychiatric Psychiatric: Present: A&O x's 3, appropriate affect, intact judgment & insight - Allied health notes Allied health notes reviewed: nursing - Labs CBC & Chem 7: 04/12/19 08:58 04/12/19 08:58 Labs: Abnormal Lab Results - Last 24 Hours (Table) 04/12/19 04/12/19 Range/Units 08:58 08:58 RBC 3.32 L (4.30-5.90) m/uL Hgb 10.2 L (13.0-17.5) gm/dL Hct 31.8 L (39.0-53.0) % RDW 20.3 H (11.5-15.5) % Plt Count 119 L (150-450) k/uL Lymphocytes # 0.9 L (1.0-4.8) k/uL Glucose 123 H (74-99) mg/dL Microbiology - Last 24 Hours (Table) 04/09/19 06:42 Blood Culture - Preliminary Blood No Growth after 96 hours - Imaging and Cardiology Chest x-ray: report reviewed, image reviewed Assessment and Plan Assessment: 1. Spontaneous right pneumothorax, status post thoravent placement 2. Metastatic lung adenocarcinoma, stage IV with chemo/radiation/immuno suppressive therapy 3. Recent history of Pseudomonas pneumonia 4. Previous tobacco dependence 5. Severe COPD, asthma 6. Chronic anemia 7. Hypertension 8. GERD 9. Family history of cancer Plan: 1. Will keep right Thoravent tube to continuous -20 cm wall suction. Will place atrium to water seal @ 0500 04/14/19 before morning x-ray to evaluate for microscopic air leak. If patient gets into distress or CXR demonstrates pneumothorax, will place atrium back to suction. If no distress or air leak, will leave to water seal. This was discussed in detail with nursing. 2. Wean oxygen as tolerated. Encourage use of his incentive spirometry 10 x every hour while awake. 3. Pulmonary management recommendations per Dr. Soto. 4. Medical management and other comorbidities per primary care service. 5. Pain management per current medication regimen. 6. More recommendations to follow based on patient's clinical course. Time with Patient: Greater than 30
[2019-04-13] MEDS: MULTIVITAMINS, THERA 1 EACH TAB PO SCH (09:13)
[2019-04-13] MEDS: LORATADINE 10 MG TAB PO SCH (09:13)
[2019-04-13] MEDS: CHOLECALCIFEROL 1,000 UNIT TAB PO SCH (09:13)
[2019-04-13] MEDS: FAMOTIDINE 20 MG TAB PO SCH ×2 (09:13→21:18)
[2019-04-13] MEDS: METOPROLOL TARTRATE 25 MG TAB PO SCH ×2 (09:13→21:18)
[2019-04-13] MEDS: HYDROCORTISONE SUPPOSITORY 25 MG SUPP RECTAL SCH ×2 (09:14→21:18)
[2019-04-13] MEDS: predniSONE 10 MG TAB PO SCH (09:14)
[2019-04-13] MEDS: LEVOFLOXACIN 500 MG TAB PO SCH (09:19)
[2019-04-13 09:45] LABS: Anisocytosis Moderate; Basophils % (A) 0 %; Eosinophils % (A) 1 %; HCT 31.3 % (39.0-53.0); Lymphocytes # (A) 0.9 k/uL (1.0-4.8); Lymphocytes % (A) 17 %; MCH 30.8 pg (25.0-35.0); MCHC 31.9 g/dL (31.0-37.0); MCV 96.7 fL (80.0-100.0); Macrocytosis Slight; Mean Platelet Volume 7.9; Monocytes # (A) 0.3 k/uL (0-1.0); Monocytes % (A) 6 %; Neutrophils # (A) 4.1 k/uL (1.3-7.7); Neutrophils % (A) 75 %; RBC 3.23 m/uL (4.30-5.90); RDW 20.9 % (11.5-15.5); WBC 5.5 k/uL (3.8-10.6)
[2019-04-13 09:52] LABS: African American GFR (CKD) >90 (>60 ml/min/1.73 sqM); Anion Gap 8 mmol/L; Blood Urea Nitrogen 14 mg/dL (9-20); Calcium 8.6 mg/dL (8.4-10.2); Carbon Dioxide 28 mmol/L (22-30); Chloride 103 mmol/L (98-107); Glucose 135 mg/dL (74-99); Potassium 3.7 mmol/L (3.5-5.1); Sodium 139 mmol/L (137-145)
[2019-04-13 10:32] LABS: Platelet Count 98 k/uL (150-450)
--- NOTE | 2019-04-13 12:35 | P.PN ---
Subjective Progress Note Date: 04/13/19 Principal diagnosis: Right-sided spontaneous tension pneumothorax, severe COPD, left lower lobe pneumonia, leukocytosis, lung cancer, possible left lower lobe atelectasis, chronic persistent asthma, hypertension hypertensive cardiovascular disease, severe COPD 04/13/2019, patient seen and evaluated examined she is doing very well with her incentive spirometry almost went have treated her breathing has improved lungs are more clear now less congestion is present, there is no air leak is present patient will be planned for chest x-[facility] on [facility] tomorrow 04/12/2019, patient seen and evaluated examined doing better today denies any chest pain shortness of breath even from earlier this morning noted, this morning around 2 AM patient develop shortness of breath and some chest discomfort and repeat x-ray showed a significant right-sided pneumothorax the pleural vent has been adjusted, reexpansion on chest x-ray is noted on 3 x-ray have been reviewed labs reviewed as well currently patient is comfortable denies any chest pain no air leak is present we will observe closely 04/11/2019, patient seen eval reexamined during the rounds, doing well slightly short of breath denies any chest pain some cough and congestion is present no sputum production, noted slight air leak is present 04/10/2019, patient seen and evaluated examined during the rounds breathing more comfortably denies any chest pain cough and congestion improved feeling little bit better compared yesterday patient had a computed tomography scan performed which reviewed it very minimal pneumothorax is present with residual subcutaneous emphysema on the right side left-sided lung mass appeared to have shrunk, 58-year-old male who has a history of lung cancer with recurrence stage IV patient has a MediPort on the right side of the chest has been on immunotherapy patient also has severe COPD has been discovered history of health until about 2:30 this morning developed severe shortness of breath and chest pain up to 0.K mid to the hospital a chest x-ray showed total collapse of the lung with tension pneumothorax on the right side patient has a history of left lower lobe resection for lung cancer patient underwent Thoravent on the right side all 3 x- ray have been reviewed there is a small residual 20% to 30% pneumothorax on the right side, patient is being admitted thoracic surgery is on consult Objective - Vital Signs Vital signs: Vital Signs Temp 98.4 F 04/13/19 11:30 Pulse 80 04/13/19 12:25 Resp 16 04/13/19 11:30 BP 127/67 04/13/19 11:30 Pulse Ox 98 04/13/19 11:30 Intake & Output 04/12/19 04/13/19 04/13/19 18:59 06:59 18:59 Intake Total 300 Output Total 0 1375 0 Balance 0 -1075 0 Intake: Intake, IV Titration 50 Amount ceFAZolin 1,000 mg In 50 Sodium Chloride 0.9% 50 ml @ 100 mls/hr IVPB Q8HR [facility] Rx#:[id number] Oral 250 Output: Chest Tube Drainage 0 0 0 Thora-Vent Right 0 0 0 Urine 1375 Other: Voiding Method Urinal Urinal Urinal # Voids 3 - Exam - Constitutional General appearance: average body habitus, disheveled, mild distress, morbidly obese - EENT Eyes: EOMI, PERRLA, poor dentition, normal appearance Ears: bilateral: normal - Neck Neck: lymphadenopathy Carotids: bilateral: upstroke normal Thyroid: bilateral: normal size - Respiratory Respiratory: right: diminished, negative: dullness, rales, rhonchi, wheezing, prolonged expiration - Cardiovascular Rhythm: irregularly irregular Heart sounds: normal: S1, S2 - Gastrointestinal General gastrointestinal: decreased bowel sounds, distended, soft - Integumentary Integumentary: calor - Neurologic Neurologic: CNII-XII intact - Musculoskeletal Musculoskeletal: gait normal, generalized weakness, strength equal bilaterally - Psychiatric Psychiatric: A&O x's 3, appropriate affect, intact judgment & insight - Labs CBC & Chem 7: 04/13/19 09:10 04/13/19 09:10 Labs: Abnormal Lab Results - Last 24 Hours (Table) 04/13/19 04/13/19 Range/Units 09:10 09:10 RBC 3.23 L (4.30-5.90) m/uL Hgb 10.0 L (13.0-17.5) gm/dL Hct 31.3 L (39.0-53.0) % RDW 20.9 H (11.5-15.5) % Plt Count 98 L (150-450) k/uL Lymphocytes # 0.9 L (1.0-4.8) k/uL Glucose 135 H (74-99) mg/dL Microbiology - Last 24 Hours (Table) 04/09/19 06:42 Blood Culture - Preliminary Blood No Growth after 96 hours Assessment and Plan Assessment: Right-sided tension pneumothorax, with recurrence probably secondary due to plugged THORAVENT radiographically and clinically improved Bilateral wheezing probably COPD exacerbation Left lower lobe pneumonia versus atelectasis Leukocytosis Stage IV lung cancer on immunotherapy Left lower lobe resection Chronic persistent asthma COPD Hypertension hypertensive cardiovascular disease Plan: Fairly is still present continue section through the chest tube Bronchodilator Inhaled via nebulizer steroids Pain control Broad-spectrum antibiotics Hold steroids for now we'll treat COPD exacerbation with breathing treatments and inhaled corticosteroid patient appears to be responding Time with Patient: Greater than 30
[2019-04-13] MEDS: SENNOSIDES-DOCUSATE SODIUM 1 EACH TAB PO SCH (21:18)
[2019-04-13] MEDS: guaiFENesin-DM 100-10MG/5ML 10 ML CUP PO PRN (21:40)
--- NOTE | 2019-04-14 00:30 | PN ---
PROGRESS NOTE SUBJECTIVE: 58-year-old white male with pneumothorax with chest tube in place, They are trying him off suction on his thoracotomy tube, try to wean down. His chest x-ray is normal today. Vital signs stable. He is still on 2 L. Cardiovascular S1-S2. Lungs decreased breath sounds x4. Hematology negative Homans. Psych: Fair mood and affect. ASSESSMENT: 1. Dyspnea. 2. Pneumothorax. 3. Metastatic lung cancer. 4. Pleural effusion, pneumothorax. Continue current treatments. Continue to try to wean off thoracotomy. Possible discharge home in a few days. MMODL / IJN: [id number] /
[2019-04-14] MEDS: ACETAMINOPHEN TAB 325 MG TAB PO PRN (01:39)
[2019-04-14] MEDS: SODIUM CHLORIDE 0.9% 1,000 ML IV SCH ×3 (04:16→21:13)
[2019-04-14] MEDS: IPRATROPIUM-ALBUTEROL 3 ML NEB INHALATION SCH ×3 (07:43→20:42)
[2019-04-14] MEDS: BUDESONIDE 0.5 MG/2 ML NEBU INHALATION SCH ×2 (07:43→20:42)
[2019-04-14] MEDS: FORMOTEROL FUMARATE 20 MCG/2 ML NEBU INHALATION SCH ×2 (07:43→20:42)
--- NOTE | 2019-04-14 08:04 | XR ---
EXAMINATION TYPE: XR chest 1V portable DATE OF EXAM: 04/14/2019 HISTORY: pneumothorax. REFERENCE: Previous study dated 04/13/2019. FINDINGS: Right pleural drain remains in place. A MediPort is in place via a right internal jugular a pproach. Its tip is in the superior vena cava. Lung volumes are prominent. The heart is not enlarged. No pneumothorax is seen. There is retraction o f the left hilum superiorly. There is volume loss in the left lung. No definite pleural fluid is seen . IMPRESSION: 1. COPD. 2. VOLUME LOSS IN THE LEFT LUNG WITH RETRACTION OF THE LEFT HILUM SUPERIORLY.
[2019-04-14 09:03] LABS: Anisocytosis Slight; Basophils % (A) 0 %; Eosinophils # (A) 0.1 k/uL (0-0.7); Eosinophils % (A) 1 %; HCT 32.3 % (39.0-53.0); HGB 10.3 gm/dL (13.0-17.5); Lymphocytes # (A) 1.2 k/uL (1.0-4.8); Lymphocytes % (A) 21 %; MCHC 31.8 g/dL (31.0-37.0); MCV 97.3 fL (80.0-100.0); Macrocytosis Slight; Mean Platelet Volume 7.3; Monocytes # (A) 0.4 k/uL (0-1.0); Monocytes % (A) 7 %; Neutrophils # (A) 3.9 k/uL (1.3-7.7); Neutrophils % (A) 68 %; Platelet Count 115 k/uL (150-450); RBC 3.31 m/uL (4.30-5.90); RDW 19.9 % (11.5-15.5); WBC 5.7 k/uL (3.8-10.6)
[2019-04-14 09:13] LABS: African American GFR (CKD) >90 (>60 ml/min/1.73 sqM); Anion Gap 5 mmol/L; Blood Urea Nitrogen 11 mg/dL (9-20); Calcium 8.7 mg/dL (8.4-10.2); Carbon Dioxide 31 mmol/L (22-30); Chloride 104 mmol/L (98-107); Glucose 76 mg/dL (74-99); Potassium 3.8 mmol/L (3.5-5.1); Sodium 140 mmol/L (137-145)
--- NOTE | 2019-04-14 09:45 | P.PN ---
Subjective Progress Note Date: 04/14/19 Principal diagnosis: Spontaneous right pneumothorax. History of metastatic lung adenocarcinoma, stage IV with chemo/radiation/immunosuppressive therapy, recent history of Pseudomonas pneumonia, previous tobacco dependence, severe COPD, asthma, chronic anemia, hypertension, gastroesophageal reflux disease, and family history of cancer. POD #5 placement of right-sided thoravent by the emergency room physicians The patient is currently sitting up in bed in no acute distress. Denies pain, shortness of breath. Thoravent was disconnected from suction at 5 AM, repeat chest x-ray completed at 8 AM demonstrates no pneumothorax, however there is fluctuation in the right diaphragm of the thoravent indicating air leak. The patient's currently on room air actively using his incentive spirometry. He has been ambulating to and from the bathroom without distress. Objective - Vital Signs Vital signs: Vital Signs Temp 97.8 F 04/14/19 04:37 Pulse 88 04/14/19 07:55 Resp 18 04/14/19 04:37 BP 133/84 04/14/19 04:37 Pulse Ox 97 04/14/19 04:37 Intake & Output 04/13/19 04/14/19 04/14/19 18:59 06:59 18:59 Intake Total 400 900 Output Total 0 1805 Balance 400 -905 Intake: Intake, IV Titration 400 900 Amount Sodium Chloride 0.9% 1, 400 900 000 ml @ 100 mls/hr IV . Q10H [facility] Rx#:[id number] Output: Chest Tube Drainage 0 5 Thora-Vent Right 0 5 Urine 1800 Other: Voiding Method Urinal Urinal - Constitutional General appearance: Present: cooperative, no acute distress - Respiratory Details: Lung sounds clear but diminished bilaterally. Respirations even, non-labored. Currently on room air with oxygen saturation 97%. Right sided Thoravent to waterseal, 20 mL total serous drainage since insertion, positive air leak present demonstrated by fluctuation in the right diaphragm. Strong cough. - Cardiovascular Details: S1, S2 present. Regular rate/rhythm, sinus rhythm on telemetry. Palpable pulses bilaterally. No edema present. No calf pain or tenderness noted. - Gastrointestinal Gastrointestinal Comment(s): Abdomen soft, non-tender, non-distended. Active bowel sounds present x 4 quadrants. Tolerating diet. - Genitourinary Genitourinary Comment(s): Voiding clear, yellow urine per urinal. - Integumentary Integumentary Comment(s): Skin is warm and dry with evidence of good perfusion. - Neurologic Neurologic: Present: CNII-XII intact - Musculoskeletal Musculoskeletal: Present: gait normal, strength equal bilaterally - Psychiatric Psychiatric: Present: A&O x's 3, appropriate affect, intact judgment & insight - Allied health notes Allied health notes reviewed: nursing - Labs CBC & Chem 7: 04/14/19 08:18 04/14/19 08:18 Labs: Abnormal Lab Results - Last 24 Hours (Table) 04/13/19 04/13/19 04/14/19 Range/Units 09:10 09:10 08:18 RBC 3.23 L 3.31 L (4.30-5.90) m/uL Hgb 10.0 L 10.3 L (13.0-17.5) gm/dL Hct 31.3 L 32.3 L (39.0-53.0) % RDW 20.9 H 19.9 H (11.5-15.5) % Plt Count 98 L 115 L (150-450) k/uL Lymphocytes # 0.9 L (1.0-4.8) k/uL Carbon Dioxide (22-30) mmol/L Glucose 135 H (74-99) mg/dL 04/14/19 Range/Units 08:18 RBC (4.30-5.90) m/uL Hgb (13.0-17.5) gm/dL Hct (39.0-53.0) % RDW (11.5-15.5) % Plt Count (150-450) k/uL Lymphocytes # (1.0-4.8) k/uL Carbon Dioxide 31 H (22-30) mmol/L Glucose (74-99) mg/dL Microbiology - Last 24 Hours (Table) 04/09/19 06:42 Blood Culture - Preliminary Blood No Growth after 120 hours - Imaging and Cardiology Chest x-ray: report reviewed, image reviewed Assessment and Plan Assessment: 1. Spontaneous right pneumothorax, status post thoravent placement 2. Metastatic lung adenocarcinoma, stage IV with chemo/radiation/immunosuppressive therapy 3. Recent history of Pseudomonas pneumonia 4. Previous tobacco dependence 5. Severe COPD, asthma 6. Chronic anemia 7. Hypertension 8. GERD 9. Family history of cancer Plan: 1. Will keep right Thora-vent tube to waterseal. If patient develops respiratory distress atrium is to be placed back to suction. If the patient remains stable for the next 24 hours the Thora-vent may be capped and the patient may be discharged to home when okay with other services. The patient and his have been taught what to examine on the Thora-vent at home and given explicit instructions to call the surgery office when no fluctuation is seen in the red diaphragm of the Thora-vent for greater than 24 hours. He will need a repeat chest x-ray prior to removal and this can be arranged by our office. Instructions for home Thora-vent care were placed on his discharge plan as well as contact information for cardiothoracic surgery. 2. Continue to encourage use of his incentive spirometry 10 x every hour while awake. 3. Pulmonary management recommendations per Dr. Soto. 4. Medical management and other comorbidities per primary care service. 5. Pain management per current medication regimen. 6. More recommendations to follow based on patient's clinical course. Time with Patient: Greater than 30
[2019-04-14] MEDS: MULTIVITAMINS, THERA 1 EACH TAB PO SCH (09:51)
[2019-04-14] MEDS: CHOLECALCIFEROL 1,000 UNIT TAB PO SCH (09:51)
[2019-04-14] MEDS: HYDROCORTISONE SUPPOSITORY 25 MG SUPP RECTAL SCH ×2 (09:51→21:12)
[2019-04-14] MEDS: LORATADINE 10 MG TAB PO SCH (09:51)
[2019-04-14] MEDS: FAMOTIDINE 20 MG TAB PO SCH ×2 (09:51→20:33)
[2019-04-14] MEDS: METOPROLOL TARTRATE 25 MG TAB PO SCH ×2 (09:51→20:33)
[2019-04-14] MEDS: LEVOFLOXACIN 500 MG TAB PO SCH (09:51)
[2019-04-14] MEDS: HYDROmorphone 1 MG/ML 1 ML SYRINGE IVP PRN ×2 (14:02→21:56)
[2019-04-14] MEDS: SENNOSIDES-DOCUSATE SODIUM 1 EACH TAB PO SCH (20:33)
[2019-04-14] MEDS: guaiFENesin-DM 100-10MG/5ML 10 ML CUP PO PRN (20:36)
--- NOTE | 2019-04-14 21:42 | PN ---
PROGRESS NOTE DATE OF SERVICE: 04/14/2019. He continues to have a right-sided chest tube. It is not put to suction at this time. It seems to be working well with no air leak. On physical examination, blood pressure is 121/77, respiratory rate of 16, pulse rate 90, temperature 98.2, blood pressure is 133/84, O2 saturation on room air is 97%. HEENT is unremarkable. Chest with decreased breath sounds on the right chest but fair air entry. Cardiovascular system is S1, S2. Abdomen is soft. There is no edema. White count is 5.7, hemoglobin of 10.3. Chest x-ray shows no pneumothorax seen. There is some retraction of the left hilum with volume loss in the left lung. IMPRESSION: At this time is: 1. Pneumothorax on the right side. 2. Metastatic lung cancer. 3. Pleural effusion. Hopefully thoracostomy tube will be removed tomorrow if he is otherwise doing well. MMODL / IJN: [id number] /
[2019-04-15] MEDS: SODIUM CHLORIDE 0.9% 1,000 ML IV SCH ×2 (03:49→15:36)
--- NOTE | 2019-04-15 09:06 | P.PN ---
Subjective Progress Note Date: 04/15/19 Principal diagnosis: Spontaneous right pneumothorax, history of metastatic lung adenocarcinoma, stage IV with history of chemo/radiation/immunosuppressive therapy, recent history of Pseudomonas pneumonia, chronic anemia, hypertension, asthma, remote history of tobacco abuse quit in 2014, and gastroesophageal reflux disease. POD #6 placement of right-sided thoravent by the emergency room physicians. The patient is currently lying in bed on the third floor oncology unit. Denies any complaints of pain, although he reports episodes of shortness of breath with activity. Currently, his right anterior chest Thoravent is on waterseal with no air leak present. His chest x-ray this morning demonstrates a right pneumothorax. The chest tube was placed back to continuous wall suction -20 cm H2O. Once the chest tube was placed back to wall suction and air leak was present. Oxygen saturations are 95% on room air. He is achieving 2000 mL on his incentive spirometry. He reports that he has been ambulating in his room in the hallway without difficulty. Objective - Vital Signs Vital signs: Vital Signs Temp 98.0 F 04/15/19 04:51 Pulse 91 04/15/19 04:51 Resp 16 04/15/19 04:51 BP 128/82 04/15/19 04:51 Pulse Ox 98 04/15/19 04:51 Intake & Output 04/14/19 04/15/19 04/15/19 18:59 06:59 18:59 Intake Total 1230 Output Total 15 Balance 1215 Intake: Intake, IV Titration 50 Amount ceFAZolin 1,000 mg In 50 Sodium Chloride 0.9% 50 ml @ 100 mls/hr IVPB Q8HR [facility] Rx#:[id number] Oral 1180 Output: Chest Tube Drainage 15 Thora-Vent Right 15 Other: Voiding Method Urinal Urinal # Voids 4 3 - Constitutional General appearance: Present: cooperative, no acute distress, obese - Respiratory Details: Lung sounds are essentially clear throughout, diminished to his right lower lobe. Respirations are symmetrical and nonlabored. Oxygen saturation are 95% on room air. Achieving 2000 mL on his incentive spirometry. Right anterior chest Thoravent in place to low continuous wall suction -20 cm H2O. Air leak is present. No drainage is noted. Scant subcutaneous emphysema present to his right chest. - Cardiovascular Details: Regular rhythm and rate. S1 and S2 present, negative for S3, gallop or murmur. Remote telemetry showing normal sinus rhythm heart rate 90. No edema present. - Gastrointestinal Gastrointestinal Comment(s): Abdomen is soft, nontender and nondistended. Active bowel sounds all 4 abdominal quadrants. No guarding or rigidity. No organomegaly. - Genitourinary Genitourinary Comment(s): Voiding clear yellow urine. - Integumentary Integumentary Comment(s): Skin is warm and dry. No clubbing or cyanosis is present. No rash or abnormal pigmentation is present. - Neurologic Neurologic: Present: CNII-XII intact - Musculoskeletal Musculoskeletal: Present: gait normal, strength equal bilaterally - Psychiatric Psychiatric: Present: A&O x's 3, appropriate affect, intact judgment & insight - Allied health notes Allied health notes reviewed: nursing - Labs CBC & Chem 7: 04/14/19 08:18 04/14/19 08:18 Labs: Abnormal Lab Results - Last 24 Hours (Table) 04/14/19 04/14/19 Range/Units 08:18 08:18 RBC 3.31 L (4.30-5.90) m/uL Hgb 10.3 L (13.0-17.5) gm/dL Hct 32.3 L (39.0-53.0) % RDW 19.9 H (11.5-15.5) % Plt Count 115 L (150-450) k/uL Carbon Dioxide 31 H (22-30) mmol/L Microbiology - Last 24 Hours (Table) 04/09/19 06:42 Blood Culture - Preliminary Blood No Growth after 120 hours - Imaging and Cardiology Chest x-ray: image reviewed Assessment and Plan Assessment: 1. Spontaneous right pneumothorax 2. Metastatic lung adenocarcinoma, stage IV 3. Recent history of Pseudomonas pneumonia 4. Previous tobacco dependence 5. Severe COPD, asthma 6. Chronic anemia 7. Hypertension 8. GERD 9. Family history of cancer Plan: 1. Due to the patient's chest x-ray this morning showing a right pneumothorax, his right Thoravent chest tube was placed back to low continuous wall suction - 20 cm H2O. We placed his Thoravent back to waterseal in the a.m. and obtain a chest x-ray, if the right lung recall abscess we will place back to low continuous wall suction. Once the pneumothorax has resolved he can be discharged home with the Thoravent in place and seen as an outpatient. 2. Encourage use of his incentive spirometry every hour while awake. 3. Encourage continued smoking cessation. 4. Pulmonary management recommendations per Dr. Soto. 5. Medical management and other comorbidities per primary care service. 6. Pain management per current medication regimen. 7. More recommendations to follow based on patient's clinical course. Time with Patient: Greater than 30
[2019-04-15] MEDS: HYDROCORTISONE SUPPOSITORY 25 MG SUPP RECTAL SCH ×2 (09:09→20:00)
[2019-04-15] MEDS: FAMOTIDINE 20 MG TAB PO SCH ×2 (09:10→19:59)
[2019-04-15] MEDS: MULTIVITAMINS, THERA 1 EACH TAB PO SCH (09:10)
[2019-04-15] MEDS: CHOLECALCIFEROL 1,000 UNIT TAB PO SCH (09:10)
[2019-04-15] MEDS: METOPROLOL TARTRATE 25 MG TAB PO SCH ×2 (09:10→19:59)
[2019-04-15] MEDS: LEVOFLOXACIN 500 MG TAB PO SCH (09:10)
[2019-04-15] MEDS: LORATADINE 10 MG TAB PO SCH (09:11)
[2019-04-15] MEDS: ACETAMINOPHEN TAB 325 MG TAB PO PRN (09:13)
[2019-04-15] MEDS: BUDESONIDE 0.5 MG/2 ML NEBU INHALATION SCH ×2 (09:29→20:47)
[2019-04-15] MEDS: FORMOTEROL FUMARATE 20 MCG/2 ML NEBU INHALATION SCH ×2 (09:29→20:47)
[2019-04-15] MEDS: IPRATROPIUM-ALBUTEROL 3 ML NEB INHALATION SCH ×3 (09:29→20:47)
--- NOTE | 2019-04-15 11:03 | XR ---
EXAMINATION TYPE: XR chest 2V DATE OF EXAM: 04/15/2019 COMPARISON: Prior chest x-ray 04/14/2019 HISTORY: Pneumothorax, chest tube TECHNIQUE: Frontal and lateral views of the chest are obtained. FINDINGS: There is been recurrence of the basilar pneumothorax inferior right hemithorax. Pleural dr ainage catheter remains in place, Port-A-Cath again noted. Abnormalities in the left chest are stable . There is subcutaneous emphysema. Heart size is stable. IMPRESSION: Recurrent basilar right pneumothorax has increased compared to prior chest x-ray.
--- NOTE | 2019-04-15 14:12 | P.PN ---
Subjective Progress Note Date: 04/14/19 Principal diagnosis: Right-sided spontaneous tension pneumothorax, severe COPD, left lower lobe pneumonia, leukocytosis, lung cancer, possible left lower lobe atelectasis, chronic persistent asthma, hypertension hypertensive cardiovascular disease, severe COPD 04/14/2019, patient seen and evaluated examined during the rounds, patient developed recurrence of pneumothorax on water seal chest tube connected to suction again, denies any chest pain shortness of breath 04/13/2019, patient seen and evaluated examined she is doing very well with her incentive spirometry almost went have treated her breathing has improved lungs are more clear now less congestion is present, there is no air leak is present patient will be planned for chest x-[facility] on the [facility] tomorrow 04/12/2019, patient seen and evaluated examined doing better today denies any chest pain shortness of breath even from earlier this morning noted, this morning around 2 AM patient develop shortness of breath and some chest discomfort and repeat x-ray showed a significant right-sided pneumothorax the pleural vent has been adjusted, reexpansion on chest x-ray is noted on 3 x-ray have been reviewed labs reviewed as well currently patient is comfortable denies any chest pain no air leak is present we will observe closely 04/11/2019, patient seen eval reexamined during the rounds, doing well slightly short of breath denies any chest pain some cough and congestion is present no sputum production, noted slight air leak is present 04/10/2019, patient seen and evaluated examined during the rounds breathing more comfortably denies any chest pain cough and congestion improved feeling little bit better compared yesterday patient had a computed tomography scan performed which reviewed it very minimal pneumothorax is present with residual subcutaneous emphysema on the right side left-sided lung mass appeared to have shrunk, 58-year-old male who has a history of lung cancer with recurrence stage IV sera ent has a MediPort on the right side of the chest has been on immunotherapy patient also has severe COPD has been discovered history of health until about 2:30 this morning developed severe shortness of breath and chest pain up to 0.K mid to the hospital a chest x-ray showed total collapse of the lung with tension pneumothorax on the right side patient has a history of left lower lobe resection for lung cancer patient underwent Thoravent on the right side all 3 x- ray have been reviewed there is a small residual 20% to 30% pneumothorax on the right side, patient is being admitted thoracic surgery is on consult Objective - Vital Signs Vital signs: Vital Signs Temp 98.1 F 04/14/19 21:00 Pulse 84 04/14/19 21:04 Resp 16 04/14/19 21:00 BP 137/85 04/14/19 21:00 Pulse Ox 99 04/14/19 21:00 Intake & Output 04/14/19 04/14/19 04/15/19 06:59 18:59 06:59 Intake Total 900 Output Total 1805 Balance -905 Intake: Intake, IV Titration 900 Amount Sodium Chloride 0.9% 1, 900 000 ml @ 100 mls/hr IV . Q10H [facility] Rx#:[id number] Output: Chest Tube Drainage 5 Thora-Vent Right 5 Urine 1800 Other: Voiding Method Urinal Urinal # Voids 4 - Exam - Constitutional General appearance: average body habitus, disheveled, mild distress, morbidly obese - EENT Eyes: EOMI, PERRLA, poor dentition, normal appearance Ears: bilateral: normal - Neck Neck: lymphadenopathy Carotids: bilateral: upstroke normal Thyroid: bilateral: normal size - Respiratory Respiratory: right: diminished, negative: dullness, rales, rhonchi, wheezing, prolonged expiration - Cardiovascular Rhythm: irregularly irregular Heart sounds: normal: S1, S2 - Gastrointestinal General gastrointestinal: decreased bowel sounds, distended, soft - Integumentary Integumentary: calor - Neurologic Neurologic: CNII-XII intact - Musculoskeletal Musculoskeletal: gait normal, generalized weakness, strength equal bilaterally - Psychiatric Psychiatric: A&O x's 3, appropriate affect, intact judgment & insight - Labs CBC & Chem 7: 04/14/19 08:18 04/14/19 08:18 Labs: Abnormal Lab Results - Last 24 Hours (Table) 04/14/19 04/14/19 Range/Units 08:18 08:18 RBC 3.31 L (4.30-5.90) m/uL Hgb 10.3 L (13.0-17.5) gm/dL Hct 32.3 L (39.0-53.0) % RDW 19.9 H (11.5-15.5) % Plt Count 115 L (150-450) k/uL Carbon Dioxide 31 H (22-30) mmol/L Microbiology - Last 24 Hours (Table) 04/09/19 06:42 Blood Culture - Preliminary Blood No Growth after 120 hours Assessment and Plan Assessment: Right-sided tension pneumothorax, with recurrence probably secondary due to plugged THORAVENT radiographically and clinically improved Bilateral wheezing probably COPD exacerbation Left lower lobe pneumonia versus atelectasis Leukocytosis Stage IV lung cancer on immunotherapy Left lower lobe resection Chronic persistent asthma COPD Hypertension hypertensive cardiovascular disease Plan: Small air leak still present continue section through the chest tube Bronchodilator Inhaled via nebulizer steroids Pain control Broad-spectrum antibiotics Hold steroids for now we'll treat COPD exacerbation with breathing treatments and inhaled corticosteroid patient appears to be responding Time with Patient: Greater than 30
--- NOTE | 2019-04-15 14:15 | P.PN ---
Subjective Progress Note Date: 04/15/19 Principal diagnosis: Right-sided spontaneous tension pneumothorax, severe COPD, left lower lobe pneumonia, leukocytosis, lung cancer, possible left lower lobe atelectasis, chronic persistent asthma, hypertension hypertensive cardiovascular disease, severe COPD 04/15/2019, patient seen and evaluated examined during the rounds denies any chest pain or shortness of breath patient is back on suction as recurrence of the pneumothorax occurred, additional complaint has been noted as he is having problem with swallowing food yesterday was mild today is moderate seems like oral thrush has been developing or put him on Diflucan and nystatin swish and swallow 04/14/2019, patient seen and evaluated examined during the rounds, patient developed recurrence of pneumothorax on water seal chest tube connected to suction again, denies any chest pain shortness of breath 04/13/2019, patient seen and evaluated examined she is doing very well with her incentive spirometry almost went have treated her breathing has improved lungs are more clear now less congestion is present, there is no air leak is present patient will be planned for chest x-ray on [facility] tomorrow 04/12/2019, patient seen and evaluated examined doing better today denies any chest pain shortness of breath even from earlier this morning noted, this morning around 2 AM patient develop shortness of breath and some chest discomfort and repeat x-ray showed a significant right-sided pneumothorax the pleural vent has been adjusted, reexpansion on chest x-ray is noted on 3 x-ray have been reviewed labs reviewed as well currently patient is comfortable denies any chest pain no air leak is present we will observe closely 04/11/2019, patient seen eval reexamined during the rounds, doing well slightly short of breath denies any chest pain some cough and congestion is present no sputum production, noted slight air leak is present 04/10/2019, patient seen and evaluated examined during the rounds breathing more comfortably denies any chest pain cough and congestion improved feeling little bit better compared yesterday patient had a computed tomography scan performed which reviewed it very minimal pneumothorax is present with residual subcutaneous emphysema on the right side left-sided lung mass appeared to have shrunk, 58-year-old male who has a history of lung cancer with recurrence stage IV patient has a MediPort on the right side of the chest has been on immunotherapy patient also has severe COPD has been discovered history of health until about 2:30 this morning developed severe shortness of breath and chest pain up to 0.K mid to the hospital a chest x-ray showed total collapse of the lung with tension pneumothorax on the right side patient has a history of left lower lobe resection for lung cancer patient underwent Thoravent on the right side all 3 x- ray have been reviewed there is a small residual 20% to 30% pneumothorax on the right side, patient is being admitted thoracic surgery is on consult Objective - Vital Signs Vital signs: Vital Signs Temp 97.8 F 04/15/19 11:47 Pulse 92 04/15/19 11:47 Resp 18 04/15/19 11:47 BP 123/82 04/15/19 11:47 Pulse Ox 96 04/15/19 11:47 Intake & Output 04/14/19 04/15/19 04/15/19 18:59 06:59 18:59 Intake Total 1230 Output Total 15 Balance 1215 Intake: Intake, IV Titration 50 Amount ceFAZolin 1,000 mg In 50 Sodium Chloride 0.9% 50 ml @ 100 mls/hr IVPB Q8HR [facility] Rx#:[id number] Oral 1180 Output: Chest Tube Drainage 15 Thora-Vent Right 15 Other: Voiding Method Urinal Urinal Urinal # Voids 4 3 # Bowel Movements 2 - Exam - Constitutional General appearance: average body habitus, disheveled, mild distress, morbidly obese - EENT Eyes: EOMI, PERRLA, poor dentition, normal appearance Ears: bilateral: normal Throat/pharynx, thrush is present with some extension into the time - Neck Neck: lymphadenopathy Carotids: bilateral: upstroke normal Thyroid: bilateral: normal size - Respiratory Respiratory: right: diminished, negative: dullness, rales, rhonchi, wheezing, prolonged expiration - Cardiovascular Rhythm: irregularly irregular Heart sounds: normal: S1, S2 - Gastrointestinal General gastrointestinal: decreased bowel sounds, distended, soft - Integumentary Integumentary: calor - Neurologic Neurologic: CNII-XII intact - Musculoskeletal Musculoskeletal: gait normal, generalized weakness, strength equal bilaterally - Psychiatric Psychiatric: A&O x's 3, appropriate affect, intact judgment & insight - Labs CBC & Chem 7: 04/14/19 08:18 04/14/19 08:18 Labs: Microbiology - Last 24 Hours (Table) 04/09/19 06:42 Blood Culture - Final Blood No Growth after 144 hours Assessment and Plan Assessment: Oral thrush Right-sided tension pneumothorax, with recurrence probably secondary due to plu gged THORAVENT radiographically and clinically improved Bilateral wheezing probably COPD exacerbation Left lower lobe pneumonia versus atelectasis Leukocytosis Stage IV lung cancer on immunotherapy Left lower lobe resection Chronic persistent asthma COPD Hypertension hypertensive cardiovascular disease Plan: Small air leak still present continue section through the chest tube Bronchodilator Inhaled via nebulizer steroids Pain control Broad-spectrum antibiotics Trial of oral Diflucan and nystatin swish and swallow Hold steroids for now we'll treat COPD exacerbation with breathing treatments and inhaled corticosteroid patient appears to be responding Time with Patient: Greater than 30
[2019-04-15] MEDS: NYSTATIN 100,000 UNIT/ML SUSP 500,000 UNIT/5 ML CUP PO SCH ×2 (15:36→19:58)
[2019-04-15] MEDS: guaiFENesin-DM 100-10MG/5ML 10 ML CUP PO PRN (15:36)
[2019-04-15] MEDS: FLUCONAZOLE 100 MG TAB PO SCH (15:36)
--- NOTE | 2019-04-15 16:00 | P.PN ---
Subjective Progress Note Date: 04/15/19 This is a 58-year-old gentleman with history of left-sided lung mass, recurrent metastatic stage IV lung CA, adenocarcinoma history of laparoscopic wedge resection, recently hospitalized Pseudomonas pneumonia presented to the area with worsening shortness of breath awakening him from sleep at 2 AM. Reports right chest pain with sudden onset accompanied by a severe shortness of breath upon awakening. Denies recent trauma. Denies chest pain, palpitations. Denies fever or chills. Reports occasional productive cough. EKG reporting sinus tachycardia, heart rates in the 120s. Troponin 0.041. Chest x-ray reporting a large right-sided tension pneumothorax, increased hemothorax volume on the right, shift of the mediastinum, left suprahilar mass density again seen. Thoravent tube placed-to low intermittent suction, chest x-ray post procedure reporting interval improvement in right-sided pneumothorax. Cardiothoracic surgery and pulmonary consulted. 04/10/2019 maintaining O2 sats in the mid 90s on 2 L nasal cannula. IS up to 1500.Complains of wheezing, denies shortness of breath. Denies pain. Chest x- ray reporting increasing subcutaneous emphysema, persistent possibly increased bibasilar right pneumothorax. Thoravent this morning presented with no drainage, no air leak. Manipulated by cardiothoracic surgery, reconnected to low intermittent suction, air leak returned. Chest CT ordered post manipulation/reinsertion, pending. Afebrile, preliminary blood cultures negative at 24 hours. 04/11/[address] reported moderate to advanced emphysema with small right-sided pneumothorax approximately 5% with pleural catheter in place, previous surgery medial left upper lobe with associated consolidation and volume loss with pleural density slight decreased bulk from prior, moderate to severe circumferential thickening of the mid to distal thoracic esophagus-esophagitis versus radiation change versus neoplasm. chest x-ray reporting resolution of right-sided pneumothorax. Breathing improving, maintaining 100% O2 sat on 2 L nasal cannula. IS up to 2200. Afebrile, preliminary blood cultures negative at 48 hours. Telemetry sinus rhythm to sinus tach with mild tachycardia, heart rates in the low 100s. 04/12/2018 last night, developed significant respiratory distress, A team called. Chest x-ray reporting reoccurrence of right-sided pneumothorax. Thoravent manipulated with repeat x-ray reporting reexpansion of right lung. Respiratory distress/hypoxia subsided. Currently on 4 L nasal cannula maintaining O2 sats of high 90s. Tachycardic, heart rate decreased down to 88 after beta janny administered. Evaluated by surgery regarding esophagus thickening, potential EGD after pulmonary status stabilizes. 04/15/2019 complains of exertional shortness of breath, maintaining O2 sats of mid 90s on room air. Incentive spirometer up to 1999. Chest x-ray reporting recurrent increased basilar right pneumothorax with subcutaneous emphysema. Patient's chest tube was to waterseal, now converted/placed back to low intermittent suction. Objective - Vital Signs Vital signs: Vital Signs Temp 98.0 F 04/15/19 04:51 Pulse 91 04/15/19 04:51 Resp 16 04/15/19 04:51 BP 128/82 04/15/19 04:51 Pulse Ox 98 04/15/19 04:51 Intake & Output 04/14/19 04/15/19 04/15/19 18:59 06:59 18:59 Intake Total 1230 Output Total 15 Balance 1215 Intake: Intake, IV Titration 50 Amount ceFAZolin 1,000 mg In 50 Sodium Chloride 0.9% 50 ml @ 100 mls/hr IVPB Q8HR [facility] Rx#:[id number] Oral 1180 Output: Chest Tube Drainage 15 Thora-Vent Right 15 Other: Voiding Method Urinal Urinal # Voids 4 3 - Exam VITAL SIGNS: As above GENERAL: Sitting up in bed, no acute distress. HEENT: Conjunctivae normal. eyes normal. Trachea midline. Oral mucosa moist NECK: No JVD. No thyroid enlargement. Right chest thoravent present. Mild subcu emphysema right chest. CARDIOVASCULAR: S1, S2 regular. No murmur. RESPIRATION: Essentially clear with right base diminished No rhonchi, crackles, wheezing. Right chest pleural Thoravent to LIS, no air leak, serous drainage. ABDOMEN: Soft, nontender . No guarding. no masses palpable.positive bowel sounds. LEGS: No edema. no swelling. PSYCHIATRY: Alert and oriented X3, mood and affect normal. NERVOUS SYSTEM: Cranial N 2-12 grossly normal. Moves all 4 limbs. Diffuse weakness No focal deficits. Strength and sensation grossly intact. Skin: no lesions, no rash - Labs CBC & Chem 7: 04/14/19 08:18 04/14/19 08:18 Labs: Microbiology - Last 24 Hours (Table) 04/09/19 06:42 Blood Culture - Final Blood No Growth after 144 hours Assessment and Plan Assessment: -Spontaneous Right pneumothorax, status post right Thoravent placement. -Possible underlying acute COPD exacerbation in a patient with moderate to advanced emphysema-CT -Possible left lower lobe pneumonia, possible atelectasis in a patient with history [id number] lung mass,Recurrent metastatic lung CA, adenocarcinoma,Stage IV. -Esophagitis versus radiation change versus neoplasm; moderate to severe circumferential thickening of the mid to distal thoracic esophagus per CT -history of laparoscopic wedge resection. -Recent Pseudomonas pneumonia -Chronic persistent asthma Plan: Continue on current medication regime ,monitoring and symptomatic treatment. Thoravent placed back to LIS as per cardiothoracic surgery. Maintained nebulized bronchodilators, steroids, antibiotics. Evaluated by surgery with EGD after improvement in pulmonary function regarding esophageal thickening per CT. Follow closely with cardiothoracic surgery and pulmonary. Prognosis guarded given multiple complex medical issues. Further recommendations to follow. . The impression and plan of care has been dictated as directed. : I performed a history and examination of this patient, discussed the same with the dictator. I agree with the dictator's note ,documented as a scribe. Any additional findings or plans will be noted. Time taken: 35 minutes
--- NOTE | 2019-04-15 16:06 | P.PN ---
Subjective Progress Note Date: 04/15/19 Principal diagnosis: spontaneous pneumothorax, non-small cell lung adenocarcinoma on treatment In follow-up today patient is stable-had a rough day yesterday, had to be placed back on suction. He continues to have coughing spells which cause him to lose his breath, he is only using the cough syrup at HS. No fevers, cont using incentive spirometry, no current chest pain or palpitations today Objective - Vital Signs Vital signs: Vital Signs Temp 97.8 F 04/15/19 11:47 Pulse 92 04/15/19 11:47 Resp 18 04/15/19 11:47 BP 123/82 04/15/19 11:47 Pulse Ox 96 04/15/19 11:47 Intake & Output 04/14/19 04/15/19 04/15/19 18:59 06:59 18:59 Intake Total 1230 800 Output Total 15 Balance 1215 800 Intake: Intake, IV Titration 50 800 Amount Sodium Chloride 0.9% 1, 750 000 ml @ 100 mls/hr IV . Q10H [facility] Rx#:[id number] ceFAZolin 1,000 mg In 50 50 Sodium Chloride 0.9% 50 ml @ 100 mls/hr IVPB Q8HR [facility] Rx#:[id number] Oral 1180 Output: Chest Tube Drainage 15 Thora-Vent Right 15 Other: Voiding Method Urinal Urinal Urinal # Voids 4 3 # Bowel Movements 2 - Constitutional General appearance: Present: cooperative, no acute distress, obese - EENT Eyes: Present: anicteric sclerae, edentulous, EOMI ENT: Present: hearing grossly normal, normal oropharynx - Respiratory Respiratory: bilateral: CTA - Cardiovascular Heart sounds: normal: S1, S2 Abnormal Heart Sounds: Absent: systolic murmur, diastolic murmur, rub, S3 Gallop, S4 Gallop, click, other - Peripheral edema leg Peripheral Edema: bilateral: None - Gastrointestinal General gastrointestinal: Present: normal bowel sounds, soft - Integumentary Integumentary: Present: normal turgor - Neurologic Neurologic: Present: CNII-XII intact - Musculoskeletal Musculoskeletal: Present: strength equal bilaterally - Psychiatric Psychiatric: Present: A&O x's 3, appropriate affect, intact judgment & insight - Labs CBC & Chem 7: 04/14/19 08:18 04/14/19 08:18 Labs: Microbiology - Last 24 Hours (Table) 04/09/19 06:42 Blood Culture - Final Blood No Growth after 144 hours Assessment and Plan (1) Pneumothorax on right Narrative/Plan: Ongoing thoravent mgmt to Cardiothoracic team. Patient may require extended healing time due to recent treatment with Avastin. Avastin will be held for 8-12 weeks post thoravent. Patient is aware of the same. Cough syrup changed to scheduled to see if it helps. Current Visit: Yes Status: Acute Priority: High Code(s): J93.9 - PNEUMOTHORAX, UNSPECIFIED SNOMED Code(s): 089463833 (2) Recurrent non-small cell lung cancer (NSCLC) Narrative/Plan: Currently s/p 5 carbo/taxol/avastin treatments with plans for re-scan after cycle #6. Patient has recently received Avastin. This is going to prolong healing time for the patient. Avastin will be held to allow for adequate healing time. I discussed this with the patient and his today. They verbalized understanding. Current Visit: Yes Status: Chronic Priority: Medium Code(s): C34.90 - MALIGNANT NEOPLASM OF UNSP PART OF UNSP BRONCHUS OR LUNG SNOMED Code(s): 314783121 Plan: Dysphagia/odynophagia: Discussed case with Radiation Oncologist, He reviewed the images personally. Patient has had esophageal thickening, current images are not suggestive of progression, no acute intervention, this will cont to be monitored. I was incorrect to say the patient is asymptomatic. Patient does have difficulty with swallowing, painful swallowing and certain fluids he "chokes on". When talking with his today, she states that this is been a problem long before his diagnosis or treatment for cancer. Have requested speech therapy to see the patient, he could benefit from thickened fluids or a texture change. Will await their evaluation and recommendations.
[2019-04-15] MEDS: SENNOSIDES-DOCUSATE SODIUM 1 EACH TAB PO SCH (19:58)
[2019-04-15] MEDS: guaiFENesin-DM 100-10MG/5ML 10 ML CUP PO SCH (23:55)
[2019-04-16] MEDS: SODIUM CHLORIDE 0.9% 1,000 ML IV SCH ×3 (04:17→20:54)
--- NOTE | 2019-04-16 08:19 | XR ---
EXAMINATION TYPE: XR chest 1V DATE OF EXAM: 04/16/2019 COMPARISON: Prior chest x-ray 04/16/2019 HISTORY: Chest 2 shortness of breath TECHNIQUE: Single frontal view of the chest is obtained. FINDINGS: Patient is rotated. Thoracic vent shows the distal tip coursing towards the mid chest. Por t-A-Cath is stable. Finding loss present in the left hemithorax, difficult to exclude tension from re current right-sided pneumothorax which shows redevelopment at the right lung base laterally. Subcutan eous emphysema again noted. IMPRESSION: Rotated exam. Difficult to exclude tension pneumothorax. A Red level critical message alert has been initiated for Cheng Burroughs MD via the [employer] Critical Results System on 04/16/2019 8:16 AM. This message alert has been sent to Cheng Burroughs MD via the preferences provided by the clinician for the receipt of Radiology Critical Findings. Message ID [id number].
[2019-04-16] MEDS: METOPROLOL TARTRATE 25 MG TAB PO SCH ×2 (08:30→20:54)
[2019-04-16] MEDS: FAMOTIDINE 20 MG TAB PO SCH ×2 (08:30→20:54)
[2019-04-16] MEDS: FLUCONAZOLE 100 MG TAB PO SCH (08:30)
[2019-04-16] MEDS: HYDROCORTISONE SUPPOSITORY 25 MG SUPP RECTAL SCH ×2 (08:30→20:54)
[2019-04-16] MEDS: MULTIVITAMINS, THERA 1 EACH TAB PO SCH (08:30)
[2019-04-16] MEDS: CHOLECALCIFEROL 1,000 UNIT TAB PO SCH (08:30)
[2019-04-16] MEDS: LORATADINE 10 MG TAB PO SCH (08:30)
[2019-04-16] MEDS: guaiFENesin-DM 100-10MG/5ML 10 ML CUP PO SCH ×3 (08:30→23:01)
[2019-04-16] MEDS ORDERED: ALPRAZolam 0.5 MG TAB PO PRN (08:32)
[2019-04-16] MEDS: NYSTATIN 100,000 UNIT/ML SUSP 500,000 UNIT/5 ML CUP PO SCH ×4 (08:34→20:54)
--- NOTE | 2019-04-16 08:41 | XR ---
EXAMINATION TYPE: XR chest 1V portable DATE OF EXAM: 04/16/2019 COMPARISON: Prior chest x-ray 04/15/2019 HISTORY: Pneumothorax, chest tube TECHNIQUE: frontal view of the chest is obtained on 2 images. FINDINGS: The right-sided chest tube is noted and the pneumothorax has resolved. No other significan t interval change. IMPRESSION: Improvement in patient's right-sided pneumothorax.
[2019-04-16] MEDS: IPRATROPIUM-ALBUTEROL 3 ML NEB INHALATION SCH ×3 (09:06→19:47)
[2019-04-16] MEDS: FORMOTEROL FUMARATE 20 MCG/2 ML NEBU INHALATION SCH ×2 (09:06→19:46)
[2019-04-16] MEDS: BUDESONIDE 0.5 MG/2 ML NEBU INHALATION SCH ×2 (09:06→19:47)
--- NOTE | 2019-04-16 15:19 | P.PN ---
Subjective Progress Note Date: 04/16/19 This is a 58-year-old gentleman with history of left-sided lung mass, recurrent metastatic stage IV lung CA, adenocarcinoma history of laparoscopic wedge resection, recently hospitalized Pseudomonas pneumonia presented to the area with worsening shortness of breath awakening him from sleep at 2 AM. Reports right chest pain with sudden onset accompanied by a severe shortness of breath upon awakening. Denies recent trauma. Denies chest pain, palpitations. Denies fever or chills. Reports occasional productive cough. EKG reporting sinus tachycardia, heart rates in the 120s. Troponin 0.041. Chest x-ray reporting a large right-sided tension pneumothorax, increased hemothorax volume on the right, shift of the mediastinum, left suprahilar mass density again seen. Thoravent tube placed-to low intermittent suction, chest x-ray post procedure reporting interval improvement in right-sided pneumothorax. Cardiothoracic surgery and pulmonary consulted. 04/10/2019 maintaining O2 sats in the mid 90s on 2 L nasal cannula. IS up to 1500.Complains of wheezing, denies shortness of breath. Denies pain. Chest x- ray reporting increasing subcutaneous emphysema, persistent possibly increased bibasilar right pneumothorax. Thoravent this morning presented with no drainage, no air leak. Manipulated by cardiothoracic surgery, reconnected to low intermittent suction, air leak returned. Chest CT ordered post manipulation/reinsertion, pending. Afebrile, preliminary blood cultures negative at 24 hours. 04/11/[address] reported moderate to advanced emphysema with small right-sided pneumothorax approximately 5% with pleural catheter in place, previous surgery medial left upper lobe with associated consolidation and volume loss with pleural density slight decreased bulk from prior, moderate to severe circumferential thickening of the mid to distal thoracic esophagus-esophagitis versus radiation change versus neoplasm. chest x-ray reporting resolution of right-sided pneumothorax. Breathing improving, maintaining 100% O2 sat on 2 L nasal cannula. IS up to 2200. Afebrile, preliminary blood cultures negative at 48 hours. Telemetry sinus rhythm to sinus tach with mild tachycardia, heart rates in the low 100s. 04/12/2018 last night, developed significant respiratory distress, A team called. Chest x-ray reporting reoccurrence of right-sided pneumothorax. Thoravent manipulated with repeat x-ray reporting reexpansion of right lung. Respiratory distress/hypoxia subsided. Currently on 4 L nasal cannula maintaining O2 sats of high 90s. Tachycardic, heart rate decreased down to 88 after beta janny administered. Evaluated by surgery regarding esophagus thickening, potential EGD after pulmonary status stabilizes. 04/15/2019 complains of exertional shortness of breath, maintaining O2 sats of mid 90s on room air. Incentive spirometer up to 2000. Chest x-ray reporting recurrent increased basilar right pneumothorax with subcutaneous emphysema. Patient's chest tube was to waterseal, now converted/placed back to low intermittent suction. 04/16/2019 chest x-ray earlier this morning reported improvement/resolution of right-sided pneumothorax. Patient was disconnected from low intermittent suction to facilitate bathroom visit. Patient became short of breath, hypoxic-desatted to 82%, tachycardic heart rate in the 130s. Follow up Chest x-ray performed reporting recurrent right-sided pneumothorax, suggestive of tension pneumothorax. Patient was reconnected to low intermittent suction, symptoms began resolving. Objective - Vital Signs Vital signs: Vital Signs Temp 98.0 F 04/16/19 05:00 Pulse 120 H 04/16/19 09:07 Resp 16 04/16/19 05:00 BP 142/81 04/16/19 05:00 Pulse Ox 98 04/16/19 09:10 Intake & Output 04/15/19 04/16/19 04/16/19 18:59 06:59 18:59 Intake Total 800 Output Total 300 1600 Balance 500 -1600 Intake: Intake, IV Titration 800 Amount Sodium Chloride 0.9% 1, 750 000 ml @ 100 mls/hr IV . Q10H LONG Rx#:[id number] ceFAZolin 1,000 mg In 50 Sodium Chloride 0.9% 50 ml @ 100 mls/hr IVPB Q8HR LONG Rx#:[id number] Output: Urine 300 1600 Other: Voiding Method Urinal Urinal # Bowel Movements 2 - Exam VITAL SIGNS: As above GENERAL: Sitting up in bed, respiratory effort increased HEENT: Conjunctivae normal. eyes normal. Trachea midline. NECK: No JVD. No thyroid enlargement. Right chest thoravent present. Mild subcu emphysema right chest. CARDIOVASCULAR: S1, S2 regular. Tachycardic No murmur. RESPIRATION: Essentially clear with right base diminished. No rhonchi, crackles, wheezing. Right chest pleural Thoravent recently reconnected to LIS, positive air leak ABDOMEN: Soft, nondistended, nontender . No guarding. no masses palpable.positive bowel sounds. LEGS: No edema. no swelling. PSYCHIATRY: Alert and oriented X3, mood and affect normal. NERVOUS SYSTEM: Cranial N 2-12 grossly normal. Moves all 4 limbs. Diffuse weakness No focal deficits. Strength and sensation grossly intact. Skin: no lesions, no rash - Labs CBC & Chem 7: 04/14/19 08:18 04/14/19 08:18 Labs: Microbiology - Last 24 Hours (Table) 04/09/19 06:42 Blood Culture - Final Blood No Growth after 144 hours Assessment and Plan Assessment: Recurrent-Spontaneous Right pneumothorax, status post right Thoravent placement. -Possible underlying acute COPD exacerbation in a patient with moderate to advanced emphysema-CT -Possible left lower lobe pneumonia, possible atelectasis in a patient with history [id number] lung mass,Recurrent metastatic lung CA, adenocarcinoma,Stage IV. -Esophagitis versus radiation change versus neoplasm; moderate to severe circumferential thickening of the mid to distal thoracic esophagus per CT -history of laparoscopic wedge resection. -Recent Pseudomonas pneumonia -Chronic persistent asthma Plan: Continue on current medication regime ,monitoring and symptomatic treatment. Discussed with cardiothoracic surgery TRAVEL SALES CONSULTANT ,requesting chest tube placement vs. larger thoravent; TRAVEL SALES CONSULTANT to discuss with Dr. Alvarez with further recommendations pending .Maintained nebulized bronchodilators, steroids, antibiotics. Follow closely with cardiothoracic surgery and pulmonary. Prognosis guarded given multiple complex medical issues. Further recommendations to follow. . The impression and plan of care has been dictated as directed. : I performed a history and examination of this patient, discussed the same with the dictator. I agree with the dictator's note ,documented as a scribe. Any additional findings or plans will be noted. Time taken: 35 minutes
--- NOTE | 2019-04-16 17:36 | P.PN ---
Subjective Progress Note Date: 04/16/19 Principal diagnosis: Spontaneous right pneumothorax, history of metastatic lung adenocarcinoma, stage IV with history of chemo/radiation/immunosuppressive therapy, recent history of Pseudomonas pneumonia, chronic anemia, hypertension, asthma, remote history of tobacco abuse quit in 2014, and gastroesophageal reflux disease. POD #7 placement of right-sided thoravent by the emergency room physicians. The patient is currently lying in bed on the third floor oncology unit. The patient's nurse Ivelisse called this morning reporting that the patient was having complaints of right-sided chest discomfort and complaints of shortness of breath. Currently, the patient reports his shortness of breath has improved, his oxygen saturations are 93% on 3 L nasal cannula and his right chest Thoravent remains to low continuous wall suction. The patient reports when he got up to use the restroom this morning he became quite short of breath with activity. A chest x-ray was completed early this morning which did not demonstrate any right sided pneumothorax. When the patient became symptomatic a repeat chest x-ray was completed which demonstrated a recurrent right-sided pneumothorax. The right chest Thoravent remains to low continuous wall suction -20 cm H2O and currently has a continuous air leak present. The patient continues to use his incentive spirometry and is achieving 8731-7626 mL. Objective - Vital Signs Vital signs: Vital Signs Temp 98.0 F 04/16/19 05:00 Pulse 111 H 04/16/19 09:31 Resp 16 04/16/19 05:00 BP 142/81 04/16/19 05:00 Pulse Ox 98 04/16/19 09:10 Intake & Output 04/15/19 04/16/19 04/16/19 18:59 06:59 18:59 Intake Total 800 Output Total 300 1600 Balance 500 -1600 Intake: Intake, IV Titration 800 Amount Sodium Chloride 0.9% 1, 750 000 ml @ 100 mls/hr IV . Q10H LONG Rx#:[id number] ceFAZolin 1,000 mg In 50 Sodium Chloride 0.9% 50 ml @ 100 mls/hr IVPB Q8HR LONG Rx#:[id number] Output: Urine 300 1600 Other: Voiding Method Urinal Urinal # Bowel Movements 2 - Constitutional Constitutional Comment(s): Episodes of anxiety. General appearance: Present: cooperative, no acute distress, obese - Respiratory Details: Lungs sounds are essentially clear to his bilateral upper lobes, diminished to his right lower lobe. Respirations are symmetrical and nonlabored. Oxygen saturation are 93% on 3 L nasal cannula. Achieving 0533-6414 mL on his incentive spirometry. Right anterior chest Thoravent remains in place to low continuous wall suction at -20 cm H2O. No drainage is present. Continuous air leak is present. - Cardiovascular Details: Regular rhythm and tachycardic rate. S1 and S2 present, negative for S3, gallop or murmur. Remote telemetry showing sinus tachycardia heart rate 111. Trace edema to his bilateral lower extremities. - Gastrointestinal Gastrointestinal Comment(s): Abdomen is soft, nontender and nondistended. Active bowel sounds all 4 abdominal quadrants. No guarding or rigidity. No organomegaly. - Genitourinary Genitourinary Comment(s): Voiding clear chun urine. - Integumentary Integumentary Comment(s): Skin is warm and dry. No clubbing or cyanosis was present. No rash or abnormal pigmentation is present. - Neurologic Neurologic: Present: CNII-XII intact - Musculoskeletal Musculoskeletal: Present: gait normal, generalized weakness, strength equal bilaterally - Psychiatric Psychiatric: Present: A&O x's 3, appropriate affect, intact judgment & insight - Allied health notes Allied health notes reviewed: nursing - Labs CBC & Chem 7: 04/14/19 08:18 04/14/19 08:18 Labs: Microbiology - Last 24 Hours (Table) 04/09/19 06:42 Blood Culture - Final Blood No Growth after 144 hours - Imaging and Cardiology Chest x-ray: report reviewed, image reviewed Assessment and Plan Assessment: 1. Spontaneous right pneumothorax 2. Metastatic lung adenocarcinoma, stage IV 3. Recent history of Pseudomonas pneumonia 4. Previous tobacco dependence 5. Severe COPD, asthma 6. Chronic anemia 7. Hypertension 8. GERD 9. Family history of cancer Plan: 1. The patient's repeat chest x-ray this morning showed a recurrent right-sided pneumothorax. Due to the patient's recurrent pneumothorax, the nursing staff has been instructed to keep the Thoravent to continuous low wall suction -20 cm H2O.we will continue to monitor the Thoravent airleak on a daily basis. No plan for chest tube placement at this time. 2. Encourage use of his incentive spirometry every hour while awake. 3. Encourage continued smoking cessation. 4. Pulmonary management recommendations per Dr. Soto. 5. Medical management and other comorbidities per primary care service. 6. Pain management per current medication regimen. 7. More recommendations to follow based on patient's clinical course. Time with Patient: Greater than 30
--- NOTE | 2019-04-16 18:45 | P.PN ---
Subjective Progress Note Date: 04/16/19 Principal diagnosis: Right-sided spontaneous tension pneumothorax, severe COPD, left lower lobe pneumonia, leukocytosis, lung cancer, possible left lower lobe atelectasis, chronic persistent asthma, hypertension hypertensive cardiovascular disease, severe COPD 04/16/2019, patient seen eval reexamined during the rounds care plan discussed with patient at length problem with swallowing dysfunction is improved patient is on nystatin swish and swallow along with Diflucan slightly more congested today but with breathing treatments improve, patient had recurrent right-sided pneumothorax this morning Drs. Marx is managing her chest tube 04/15/2019, patient seen and evaluated examined during the rounds denies any chest pain or shortness of breath patient is back on suction as recurrence of the pneumothorax occurred, additional complaint has been noted as he is having problem with swallowing food yesterday was mild today is moderate seems like oral thrush has been developing or put him on Diflucan and nystatin swish and swallow 04/14/2019, patient seen and evaluated examined during the rounds, patient developed recurrence of pneumothorax on water seal chest tube connected to suction again, denies any chest pain shortness of breath 04/13/2019, patient seen and evaluated examined she is doing very well with her incentive spirometry almost went have treated her breathing has improved lungs are more clear now less congestion is present, there is no air leak is present patient will be planned for chest x-ray on [facility] tomorrow 04/12/2019, patient seen and evaluated examined doing better today denies any chest pain shortness of breath even from earlier this morning noted, this morning around 2 AM patient develop shortness of breath and some chest discomfo rt and repeat x-ray showed a significant right-sided pneumothorax the pleural vent has been adjusted, reexpansion on chest x-ray is noted on 3 x-ray have been reviewed labs reviewed as well currently patient is comfortable denies any chest pain no air leak is present we will observe closely 04/11/2019, patient seen eval reexamined during the rounds, doing well slightly short of breath denies any chest pain some cough and congestion is present no sputum production, noted slight air leak is present 04/10/2019, patient seen and evaluated examined during the rounds breathing more comfortably denies any chest pain cough and congestion improved feeling little bit better compared yesterday patient had a computed tomography scan performed which reviewed it very minimal pneumothorax is present with residual subcutaneous emphysema on the right side left-sided lung mass appeared to have shrunk, 58-year-old male who has a history of lung cancer with recurrence stage IV patient has a MediPort on the right side of the chest has been on immunotherapy patient also has severe COPD has been discovered history of health until about 2:30 this morning developed severe shortness of breath and chest pain up to 0.K mid to the hospital a chest x-ray showed total collapse of the lung with tension pneumothorax on the right side patient has a history of left lower lobe resection for lung cancer patient underwent Thoravent on the right side all 3 x- ray have been reviewed there is a small residual 20% to 30% pneumothorax on the right side, patient is being admitted thoracic surgery is on consult Objective - Vital Signs Vital signs: Vital Signs Temp 97.9 F 04/16/19 12:46 Pulse 109 H 04/16/19 13:55 Resp 20 04/16/19 12:46 BP 103/71 04/16/19 12:46 Pulse Ox 94 L 04/16/19 12:46 Intake & Output 04/15/19 04/16/19 04/16/19 18:59 06:59 18:59 Intake Total 800 425 Output Total 300 1600 Balance 500 -1600 425 Weight 104.326 kg Intake: Intake, IV Titration 800 425 Amount Sodium Chloride 0.9% 1, 750 375 000 ml @ 100 mls/hr IV . Q10H LONG Rx#:[id number] ceFAZolin 1,000 mg In 50 50 Sodium Chloride 0.9% 50 ml @ 100 mls/hr IVPB Q8HR OLNG Rx#:[id number] Output: Urine 300 1600 Other: Voiding Method Urinal Urinal Urinal # Bowel Movements 2 - Exam - Constitutional General appearance: average body habitus, disheveled, mild distress, morbidly obese - EENT Eyes: EOMI, PERRLA, poor dentition, normal appearance Ears: bilateral: normal Throat/pharynx, thrush is present with some extension into the time - Neck Neck: lymphadenopathy Carotids: bilateral: upstroke normal Thyroid: bilateral: normal size - Respiratory Respiratory: right: diminished, negative: dullness, rales, rhonchi, wheezing, prolonged expiration - Cardiovascular Rhythm: irregularly irregular Heart sounds: normal: S1, S2 - Gastrointestinal General gastrointestinal: decreased bowel sounds, distended, soft - Integumentary Integumentary: calor - Neurologic Neurologic: CNII-XII intact - Musculoskeletal Musculoskeletal: gait normal, generalized weakness, strength equal bilaterally - Psychiatric Psychiatric: A&O x's 3, appropriate affect, intact judgment & insight - Labs CBC & Chem 7: 04/14/19 08:18 04/14/19 08:18 Assessment and Plan Assessment: Oral thrush Right-sided tension pneumothorax, with recurrence probably secondary due to plugged THORAVENT radiographically and clinically improved concerned about patient will likely need a bigger chest tube as thoravent clogged frequently but will defer to his expertise of thoracic surgery Bilateral wheezing probably COPD exacerbation Left lower lobe pneumonia versus atelectasis Leukocytosis Stage IV lung cancer on immunotherapy Left lower lobe resection Chronic persistent asthma COPD Hypertension hypertensive cardiovascular disease Plan: Small air leak still present continue section through the chest tube Bronchodilator Inhaled via nebulizer steroids Pain control Broad-spectrum antibiotics Trial of oral Diflucan and nystatin swish and swallow Hold steroids for now we'll treat COPD exacerbation with breathing treatments and inhaled corticosteroid patient appears to be responding Time with Patient: Greater than 30
[2019-04-16] MEDS: SENNOSIDES-DOCUSATE SODIUM 1 EACH TAB PO SCH (20:54)
[2019-04-17] MEDS: SODIUM CHLORIDE 0.9% 1,000 ML IV SCH ×2 (05:01→15:57)
[2019-04-17] MEDS: IPRATROPIUM-ALBUTEROL 3 ML NEB INHALATION SCH ×3 (08:13→20:54)
[2019-04-17] MEDS: FORMOTEROL FUMARATE 20 MCG/2 ML NEBU INHALATION SCH ×2 (08:13→20:53)
[2019-04-17] MEDS: BUDESONIDE 0.5 MG/2 ML NEBU INHALATION SCH ×2 (08:13→20:53)
[2019-04-17] MEDS: HYDROCORTISONE SUPPOSITORY 25 MG SUPP RECTAL SCH ×2 (08:55→21:26)
[2019-04-17] MEDS: guaiFENesin-DM 100-10MG/5ML 10 ML CUP PO SCH ×4 (08:57→23:30)
[2019-04-17] MEDS: METOPROLOL TARTRATE 25 MG TAB PO SCH ×2 (08:57→21:26)
[2019-04-17] MEDS: FLUCONAZOLE 100 MG TAB PO SCH (08:57)
[2019-04-17] MEDS: NYSTATIN 100,000 UNIT/ML SUSP 500,000 UNIT/5 ML CUP PO SCH ×4 (08:57→21:26)
[2019-04-17] MEDS: LORATADINE 10 MG TAB PO SCH (08:57)
[2019-04-17] MEDS: FAMOTIDINE 20 MG TAB PO SCH ×2 (08:57→21:26)
[2019-04-17] MEDS: MULTIVITAMINS, THERA 1 EACH TAB PO SCH (08:57)
[2019-04-17] MEDS: CHOLECALCIFEROL 1,000 UNIT TAB PO SCH (08:57)
--- NOTE | 2019-04-17 09:12 | XR ---
EXAMINATION TYPE: XR chest 1V portable DATE OF EXAM: 04/17/2019 COMPARISON: Prior chest x-ray 04/16/2019 HISTORY: Right pneumothorax with chest tube TECHNIQUE: Single frontal view of the chest is obtained. FINDINGS: Interval resolution of the basilar pneumothorax is noted. Right-sided chest tube remains i n place, minimal apical pneumothorax suspected. There is subcutaneous emphysema. Pleural parenchymal changes are otherwise stable. Heart is unchanged. IMPRESSION: Improved right pneumothorax
--- NOTE | 2019-04-17 09:56 | P.PN ---
Subjective Progress Note Date: 04/17/19 Principal diagnosis: Spontaneous right pneumothorax, history of metastatic lung adenocarcinoma, stage IV with history of chemo/radiation/immunosuppressive therapy, recent history of Pseudomonas pneumonia, chronic anemia, hypertension, asthma, remote history of tobacco abuse quit in 2014, and gastroesophageal reflux disease. POD #8 placement of right-sided thoravent by the emergency room physicians. The patient is currently sitting on the bedside edge eating his breakfast. He denies any complaints of pain or shortness of breath. X-ray this morning demonstrates resolution of the right pneumothorax. A right anterior chest Thoravent remains in place to low continuous wall suction -20 cm H2O. Continuous air leak is present. The patient reports that he feels much improved today compared to yesterday. Oxygen saturation are 99% on 2 L nasal cannula and he is achieving 2000 mL on his incentive spirometry. Objective - Vital Signs Vital signs: Vital Signs Temp 98.3 F 04/17/19 05:00 Pulse 92 04/17/19 08:35 Resp 16 04/17/19 05:00 BP 108/70 04/17/19 05:00 Pulse Ox 99 04/17/19 08:13 Intake & Output 04/16/19 04/17/19 04/17/19 18:59 06:59 18:59 Intake Total 425 590 Output Total 400 Balance 425 190 Weight 104.326 kg Intake: Intake, IV Titration 425 Amount Sodium Chloride 0.9% 1, 375 000 ml @ 100 mls/hr IV . Q10H LONG Rx#:[id number] ceFAZolin 1,000 mg In 50 Sodium Chloride 0.9% 50 ml @ 100 mls/hr IVPB Q8HR LONG Rx#:[id number] Oral 590 Output: Urine 400 Other: Voiding Method Urinal - Constitutional General appearance: Present: cooperative, no acute distress, obese - Respiratory Details: Lung sounds with few expiratory wheezes throughout, diminished to his bilateral bases. Respirations are symmetrical and nonlabored. Oxygen saturation are 99% on 2 L nasal cannula. Achieving 2000 mL on his incentive spirometry. Right anterior chest Thoravent in place to low continuous wall suction -20 cm H2O. Continuous air leak is present. 10 mL output of thin serosanguineous drainage in the last 24 hours. - Cardiovascular Details: Regular rhythm and rate. S1 and S2 present, negative for S3, gallop or murmur. Remote telemetry showing sinus tachycardia heart rate 109. - Gastrointestinal Gastrointestinal Comment(s): Abdomen is soft, nontender and nondistended. Active bowel sounds all 4 abdominal quadrants. No guarding or rigidity. No organomegaly. Tolerating oral intake. - Genitourinary Genitourinary Comment(s): Voiding clear chun urine. - Integumentary Integumentary Comment(s): Skin is warm and dry. No clubbing or cyanosis is present. No rash or abnormal pigmentation is present. Some scant subcutaneous emphysema present to his right chest and neck. - Musculoskeletal Musculoskeletal: Present: gait normal, generalized weakness, strength equal bila terally - Psychiatric Psychiatric: Present: A&O x's 3, appropriate affect, intact judgment & insight - Allied health notes Allied health notes reviewed: nursing - Labs CBC & Chem 7: 04/14/19 08:18 04/14/19 08:18 - Imaging and Cardiology Chest x-ray: report reviewed, image reviewed Assessment and Plan Assessment: 1. Spontaneous right pneumothorax 2. Metastatic lung adenocarcinoma, stage IV 3. Recent history of Pseudomonas pneumonia 4. Previous tobacco dependence 5. Severe COPD, asthma 6. Chronic anemia 7. Hypertension 8. GERD 9. Family history of cancer Plan: 1. The patient's chest x-ray from this morning shows resolution of the right pneumothorax. Due to the continuous air leak from the Thoravent we will keep the Thoravent placed to low continuous wall suction -20 cm H2O. The nurses have been instructed not to disconnect the chest tube from the wall suction. 2. Encourage use of his incentive spirometry every hour while awake. 3. Encourage continued smoking cessation. 4. Pulmonary management recommendations per Dr. Soto. 5. Medical management and other comorbidities per primary care service. 6. Pain management per current medication regimen. 7. We will continue to monitor the daily chest x-rays. 8. More recommendations to follow based on patient's clinical course. Time with Patient: Greater than 30
--- NOTE | 2019-04-17 12:51 | P.PN ---
Subjective Progress Note Date: 04/17/19 This is a 58-year-old gentleman with history of left-sided lung mass, recurrent metastatic stage IV lung CA, adenocarcinoma history of laparoscopic wedge resection, recently hospitalized Pseudomonas pneumonia presented to the area with worsening shortness of breath awakening him from sleep at 2 AM. Reports right chest pain with sudden onset accompanied by a severe shortness of breath upon awakening. Denies recent trauma. Denies chest pain, palpitations. Denies fever or chills. Reports occasional productive cough. EKG reporting sinus tachycardia, heart rates in the 120s. Troponin 0.041. Chest x-ray reporting a large right-sided tension pneumothorax, increased hemothorax volume on the right, shift of the mediastinum, left suprahilar mass density again seen. Thoravent tube placed-to low intermittent suction, chest x-ray post procedure reporting interval improvement in right-sided pneumothorax. Cardiothoracic surgery and pulmonary consulted. 04/10/2019 maintaining O2 sats in the mid 90s on 2 L nasal cannula. IS up to 1500.Complains of wheezing, denies shortness of breath. Denies pain. Chest x- ray reporting increasing subcutaneous emphysema, persistent possibly increased bibasilar right pneumothorax. Thoravent this morning presented with no drainage, no air leak. Manipulated by cardiothoracic surgery, reconnected to low intermittent suction, air leak returned. Chest CT ordered post manipulation/reinsertion, pending. Afebrile, preliminary blood cultures negative at 24 hours. 04/11/[address] reported moderate to advanced emphysema with small right-sided pneumothorax approximately 5% with pleural catheter in place, previous surgery medial left upper lobe with associated consolidation and volume loss with pleural density slight decreased bulk from prior, moderate to severe circumferential thickening of the mid to distal thoracic esophagus-esophagitis versus radiation change versus neoplasm. chest x-ray reporting resolution of right-sided pneumothorax. Breathing improving, maintaining 100% O2 sat on 2 L nasal cannula. IS up to 2200. Afebrile, preliminary blood cultures negative at 48 hours. Telemetry sinus rhythm to sinus tach with mild tachycardia, heart rates in the low 100s. 04/12/2018 last night, developed significant respiratory distress, A team called. Chest x-ray reporting reoccurrence of right-sided pneumothorax. Thoravent manipulated with repeat x-ray reporting reexpansion of right lung. Respiratory distress/hypoxia subsided. Currently on 4 L nasal cannula maintaining O2 sats of high 90s. Tachycardic, heart rate decreased down to 88 after beta janny administered. Evaluated by surgery regarding esophagus thickening, potential EGD after pulmonary status stabilizes. 04/15/2019 complains of exertional shortness of breath, maintaining O2 sats of mid 90s on room air. Incentive spirometer up to 2000. Chest x-ray reporting recurrent increased basilar right pneumothorax with subcutaneous emphysema. Patient's chest tube was to waterseal, now converted/placed back to low intermittent suction. 04/16/2019 chest x-ray earlier this morning reported improvement/resolution of right-sided pneumothorax. Patient was disconnected from low intermittent suction to facilitate bathroom visit. Patient became short of breath, hypoxic-desatted to 82%, tachycardic heart rate in the 130s. Follow up Chest x-ray performed reporting recurrent right-sided pneumothorax, suggestive of tension pneumothorax. Patient was reconnected to low intermittent suction, symptoms began resolving. 04/17/2019 Thoravent remains to low intermittent suction with air leak. Reports slept well last night with no further shortness of breath. IS up to 2000. Occasional productive cough with clear to pale yellow sputum. Afebrile, normal WBC. Maintaining O2 sats in the high 90s on 2 L nasal cannula No tachycardia. Chest x-ray reporting resolution of bibasilar pneumothorax with minimal apical Pneumothorax suspected. Objective - Vital Signs Vital signs: Vital Signs Temp 98.3 F 04/17/19 05:00 Pulse 90 04/17/19 08:23 Resp 16 04/17/19 05:00 BP 108/70 04/17/19 05:00 Pulse Ox 99 04/17/19 08:13 Intake & Output 04/16/19 04/17/19 04/17/19 18:59 06:59 18:59 Intake Total 425 590 Output Total 400 Balance 425 190 Weight 104.326 kg Intake: Intake, IV Titration 425 Amount Sodium Chloride 0.9% 1, 375 000 ml @ 100 mls/hr IV . Q10H [facility] Rx#:[id number] ceFAZolin 1,000 mg In 50 Sodium Chloride 0.9% 50 ml @ 100 mls/hr IVPB Q8HR [facility] Rx#:[id number] Oral 590 Output: Urine 400 Other: Voiding Method Urinal - Exam VITAL SIGNS: As above GENERAL: Sitting up in bed, no acute distress HEENT: Conjunctivae normal. eyes normal. Trachea midline. Oral mucosa moist NECK: No JVD. No thyroid enlargement. Right chest thoravent present. Decreasing Mild subcu emphysema right chest. CARDIOVASCULAR: S1, S2 regular. No murmur. RESPIRATION: Essentially clear with bilateral bases diminished. No rhonchi, crac kles, occasional scattered expiratory wheezing. Right chest pleural Thoravent to LIS, positive air leak ABDOMEN: Soft, nondistended, nontender . No guarding. no masses palpable.positive bowel sounds. LEGS: No edema. no swelling. PSYCHIATRY: Alert and oriented X3, mood and affect normal. NERVOUS SYSTEM: Cranial N 2-12 grossly normal. Moves all 4 limbs. Diffuse weakness No focal deficits. Strength and sensation grossly intact. Skin: no lesions, no rash - Labs CBC & Chem 7: 04/14/19 08:18 04/14/19 08:18 Assessment and Plan Assessment: Recurrent-Spontaneous Right pneumothorax, status post right Thoravent placement. -Possible underlying acute COPD exacerbation in a patient with moderate to advanced emphysema-CT -Possible left lower lobe pneumonia, possible atelectasis in a patient with history [id number] lung mass,Recurrent metastatic lung CA, adenocarcinoma,Stage IV. -Esophagitis versus radiation change versus neoplasm; moderate to severe circumferential thickening of the mid to distal thoracic esophagus per CT. Endoscopy once pulmonary status improves. -history of laparoscopic wedge resection. -Recent Pseudomonas pneumonia -Chronic persistent asthma Plan: Continue on current medication regime ,monitoring and symptomatic treatment. Thoravent to LIS, not to be disconnected from suction as per cardiothoracic surgery .aggressive pulmonary toileting with highest reinforced,continue nebulized bronchodilators, steroids, antibiotics. Chest x- ray in a.m. Follow closely with cardiothoracic surgery and pulmonary. Prognosis guarded given multiple complex medical issues. Further recommendations to follow. . The impression and plan of care has been dictated as directed. : I performed a history and examination of this patient, discussed the same with the dictator. I agree with the dictator's note ,documented as a scribe. Any additional findings or plans will be noted. Time taken: 35 minutes
--- NOTE | 2019-04-17 13:43 | P.PN ---
Subjective Progress Note Date: 04/17/19 Principal diagnosis: Right-sided spontaneous tension pneumothorax, severe COPD, left lower lobe pneumonia, leukocytosis, lung cancer, possible left lower lobe atelectasis, chronic persistent asthma, hypertension hypertensive cardiovascular disease, severe COPD 04/17/2019, patient seen and evaluated examined during the rounds swallowing function improved significantly decreased cough and congestion are present patient remains on suction chest x-ray from today reviewed, pneumothorax continued to improve slowly some residual pneumothorax still there 04/16/2019, patient seen eval reexamined during the rounds care plan discussed with patient at length problem with swallowing dysfunction is improved patient is on nystatin swish and swallow along with Diflucan slightly more congested today but with breathing treatments improve, patient had recurrent right-sided pneumothorax this morning Drs. Marx is managing her chest tube 04/15/2019, patient seen and evaluated examined during the rounds denies any chest pain or shortness of breath patient is back on suction as recurrence of the pneumothorax occurred, additional complaint has been noted as he is having problem with swallowing food yesterday was mild today is moderate seems like oral thrush has been developing or put him on Diflucan and nystatin swish and swallow 04/14/2019, patient seen and evaluated examined during the rounds, patient developed recurrence of pneumothorax on water seal chest tube connected to suction again, denies any chest pain shortness of breath 04/13/2019, patient seen and evaluated examined she is doing very well with her incentive spirometry almost went have treated her breathing has improved lungs are more clear now less congestion is present, there is no air leak is present patient will be planned for chest x-ray on [facility] tomorrow 04/12/2019, patient seen and evaluated examined doing better today denies any chest pain shortness of breath even from earlier this morning noted, this morning around 2 AM patient develop shortness of breath and some chest discomfort and repeat x-ray showed a significant right-sided pneumothorax the pleural vent has been adjusted, reexpansion on chest x-ray is noted on 3 x-ray have been reviewed labs reviewed as well currently patient is comfortable denies any chest pain no air leak is present we will observe closely 04/11/2019, patient seen eval reexamined during the rounds, doing well slightly short of breath denies any chest pain some cough and congestion is present no sputum production, noted slight air leak is present 04/10/2019, patient seen and evaluated examined during the rounds breathing more comfortably denies any chest pain cough and congestion improved feeling little bit better compared yesterday patient had a computed tomography scan performed which reviewed it very minimal pneumothorax is present with residual subcutaneous emphysema on the right side left-sided lung mass appeared to have shrunk, 58-year-old male who has a history of lung cancer with recurrence stage IV patient has a MediPort on the right side of the chest has been on immunotherapy patient also has severe COPD has been discovered history of health until about 2:30 this morning developed severe shortness of breath and chest pain up to 0.K mid to the hospital a chest x-ray showed total collapse of the lung with tension pneumothorax on the right side patient has a history of left lower lobe resection for lung cancer patient underwent Thoravent on the right side all 3 x- ray have been reviewed there is a small residual 20% to 30% pneumothorax on the right side, patient is being admitted thoracic surgery is on consult Objective - Vital Signs Vital signs: Vital Signs Temp 98.2 F 04/17/19 13:00 Pulse 92 04/17/19 13:28 Resp 20 04/17/19 13:00 BP 105/54 04/17/19 13:00 Pulse Ox 97 04/17/19 13:00 Intake & Output 04/16/19 04/17/19 04/17/19 18:59 06:59 18:59 Intake Total 425 590 Output Total 400 Balance 425 190 Weight 104.326 kg Intake: Intake, IV Titration 425 Amount Sodium Chloride 0.9% 1, 375 000 ml @ 100 mls/hr IV . Q10H [facility] Rx#:[id number] ceFAZolin 1,000 mg In 50 Sodium Chloride 0.9% 50 ml @ 100 mls/hr IVPB Q8HR [facility] Rx#:[id number] Oral 590 Output: Urine 400 Other: Voiding Method Urinal Urinal - Exam - Constitutional General appearance: average body habitus, disheveled, mild distress, morbidly obese - EENT Eyes: EOMI, PERRLA, poor dentition, normal appearance Ears: bilateral: normal Throat/pharynx, thrush is present with some extension into the time - Neck Neck: lymphadenopathy Carotids: bilateral: upstroke normal Thyroid: bilateral: normal size - Respiratory Respiratory: right: diminished, negative: dullness, rales, rhonchi, wheezing, prolonged expiration - Cardiovascular Rhythm: irregularly irregular Heart sounds: normal: S1, S2 - Gastrointestinal General gastrointestinal: decreased bowel sounds, distended, soft - Integumentary Integumentary: calor - Neurologic Neurologic: CNII-XII intact - Musculoskeletal Musculoskeletal: gait normal, generalized weakness, strength equal bilaterally - Psychiatric Psychiatric: A&O x's 3, appropriate affect, intact judgment & insight - Labs CBC & Chem 7: 04/14/19 08:18 04/14/19 08:18 Assessment and Plan Assessment: Oral thrush clinically improved Right-sided tension pneumothorax, with recurrence probably secondary due to plugged THORAVENT radiographically and clinically improved Bilateral wheezing probably COPD exacerbation Left lower lobe pneumonia versus atelectasis Leukocytosis Stage IV lung cancer on immunotherapy Left lower lobe resection Chronic persistent asthma COPD Hypertension hypertensive cardiovascular disease Plan: Small air leak still present continue section through the chest tube Bronchodilator Inhaled via nebulizer steroids Pain control Broad-spectrum antibiotics Trial of oral Diflucan and nystatin swish and swallow Hold steroids for now we'll treat COPD exacerbation with breathing treatments and inhaled corticosteroid patient appears to be responding Time with Patient: Greater than 30
--- NOTE | 2019-04-17 15:44 | P.PN ---
Subjective Progress Note Date: 04/17/19 Principal diagnosis: spontaneous pneumothorax, non-small cell lung adenocarcinoma on treatment Pt feels better today, breathing improved, no chest pain, cough is better, sore throat is improved with cools solution. Objective - Vital Signs Vital signs: Vital Signs Temp 98.2 F 04/17/19 13:00 Pulse 92 04/17/19 13:41 Resp 20 04/17/19 13:00 BP 105/54 04/17/19 13:00 Pulse Ox 97 04/17/19 13:00 Intake & Output 04/16/19 04/17/19 04/17/19 18:59 06:59 18:59 Intake Total 425 590 400 Output Total 400 0 Balance 425 190 400 Weight 104.326 kg Intake: Intake, IV Titration 425 400 Amount Sodium Chloride 0.9% 1, 375 400 000 ml @ 100 mls/hr IV . Q10H [facility] Rx#:[id number] ceFAZolin 1,000 mg In 50 Sodium Chloride 0.9% 50 ml @ 100 mls/hr IVPB Q8HR LONG Rx#:[id number] Oral 590 Output: Chest Tube Drainage 0 Thora-Vent Right 0 Urine 400 Other: Voiding Method Urinal Urinal # Voids 3 - Exam WDWN, A&Ox4, NAD, right breath sounds upper 2/3rd clear, diminished in lwer 1/3rd, left lung clear, oral mucosa normal, no BLE swelling - Labs CBC & Chem 7: 04/14/19 08:18 04/14/19 08:18 Assessment and Plan (1) Pneumothorax on right Narrative/Plan: Ongoing thoravent mgmt to Cardiothoracic team. Patient may require extended healing time due to recent treatment with Avastin. Avastin will be held for 8-12 weeks post thoravent. Patient is aware of the same. Current Visit: Yes Status: Acute Priority: High Code(s): J93.9 - PNEUMOTHORAX, UNSPECIFIED SNOMED Code(s): 384423179 (2) Recurrent non-small cell lung cancer (NSCLC) Narrative/Plan: Currently s/p 5 carbo/taxol/avastin treatments with plans for re-scan after cycle #6. Patient has recently received Avastin. This is going to prolong healing time for the patient. Avastin will be held to allow for adequate healing time. Current Visit: Yes Status: Chronic Priority: Medium Code(s): C34.90 - MALIGNANT NEOPLASM OF UNSP PART OF UNSP BRONCHUS OR LUNG SNOMED Code(s): 535674285
[2019-04-17] MEDS: SENNOSIDES-DOCUSATE SODIUM 1 EACH TAB PO SCH (21:25)
[2019-04-18] MEDS: SODIUM CHLORIDE 0.9% 1,000 ML IV SCH ×2 (01:55→14:25)
[2019-04-18] MEDS: MULTIVITAMINS, THERA 1 EACH TAB PO SCH (07:49)
[2019-04-18] MEDS: HYDROCORTISONE SUPPOSITORY 25 MG SUPP RECTAL SCH ×2 (07:49→21:26)
[2019-04-18] MEDS: CHOLECALCIFEROL 1,000 UNIT TAB PO SCH (07:49)
[2019-04-18] MEDS: LORATADINE 10 MG TAB PO SCH (07:49)
[2019-04-18] MEDS: METOPROLOL TARTRATE 25 MG TAB PO SCH ×2 (07:49→21:23)
[2019-04-18] MEDS: NYSTATIN 100,000 UNIT/ML SUSP 500,000 UNIT/5 ML CUP PO SCH ×4 (07:50→21:23)
[2019-04-18] MEDS: guaiFENesin-DM 100-10MG/5ML 10 ML CUP PO SCH ×3 (07:50→21:22)
[2019-04-18] MEDS: FLUCONAZOLE 100 MG TAB PO SCH (07:50)
[2019-04-18] MEDS: FAMOTIDINE 20 MG TAB PO SCH ×2 (07:50→21:22)
--- NOTE | 2019-04-18 07:55 | XR ---
EXAMINATION TYPE: XR chest 1V portable DATE OF EXAM: 04/18/2019 COMPARISON: Prior chest x-ray 04/17/2019 HISTORY: Chest tube, pneumothorax TECHNIQUE: Single frontal view of the chest is obtained. FINDINGS: Findings are essentially stable. IMPRESSION: Right chest tube in place. Pleural parenchymal changes are stable. No sizable pneumothor ax.
[2019-04-18] MEDS: FORMOTEROL FUMARATE 20 MCG/2 ML NEBU INHALATION SCH ×2 (07:56→19:36)
[2019-04-18] MEDS: BUDESONIDE 0.5 MG/2 ML NEBU INHALATION SCH ×2 (07:56→19:36)
[2019-04-18] MEDS: IPRATROPIUM-ALBUTEROL 3 ML NEB INHALATION SCH ×3 (07:56→19:42)
[2019-04-18 09:42] LABS: Anisocytosis Slight; Basophils % (A) 0 %; Eosinophils # (A) 0.2 k/uL (0-0.7); Eosinophils % (A) 3 %; HCT 35.3 % (39.0-53.0); Lymphocytes # (A) 0.9 k/uL (1.0-4.8); Lymphocytes % (A) 16 %; MCH 31.1 pg (25.0-35.0); MCHC 31.3 g/dL (31.0-37.0); MCV 99.3 fL (80.0-100.0); Macrocytosis Slight; Mean Platelet Volume 8.2; Monocytes # (A) 0.4 k/uL (0-1.0); Monocytes % (A) 7 %; Neutrophils % (A) 71 %; Platelet Count 132 k/uL (150-450); RBC 3.55 m/uL (4.30-5.90); RDW 19.3 % (11.5-15.5); WBC 5.6 k/uL (3.8-10.6)
[2019-04-18 09:53] LABS: African American GFR (CKD) >90 (>60 ml/min/1.73 sqM); Anion Gap 7 mmol/L; Blood Urea Nitrogen 10 mg/dL (9-20); Calcium 8.8 mg/dL (8.4-10.2); Carbon Dioxide 29 mmol/L (22-30); Chloride 104 mmol/L (98-107); Glucose 105 mg/dL (74-99); Potassium 3.8 mmol/L (3.5-5.1); Sodium 140 mmol/L (137-145)
--- NOTE | 2019-04-18 11:59 | P.PN ---
Subjective Progress Note Date: 04/18/19 Principal diagnosis: Spontaneous right pneumothorax, history of metastatic lung adenocarcinoma, stage IV with history of chemo/radiation/immunosuppressive therapy, recent history of Pseudomonas pneumonia, chronic anemia, hypertension, asthma, remote history of tobacco abuse quit in 2014, and gastroesophageal reflux disease. POD #9 placement of right-sided thoravent by the emergency room physicians. The patient is currently laying in bed on the oncology unit. He is in no acute distress. He denies any complaints of pain or shortness of breath. X-ray this morning showing that his right Thoravent tube is in place with no sizable pneumothorax. A right anterior chest Thoravent remains in place to low continuous wall suction -20 cm H2O. Continuous air leak is present. Oxygen saturation are 97% on room air and he is achieving 2000 mL on his incentive spirometry. Objective - Vital Signs Vital signs: Vital Signs Temp 97 F L 04/18/19 11:46 Pulse 85 04/18/19 11:48 Resp 20 04/18/19 11:46 BP 114/76 04/18/19 11:46 Pulse Ox 97 04/18/19 11:46 Intake & Output 04/17/19 04/18/19 04/18/19 18:59 06:59 18:59 Intake Total 400 1470 Output Total 0 400 Balance 400 1070 Intake: Intake, IV Titration 400 400 Amount Sodium Chloride 0.9% 1, 400 400 000 ml @ 100 mls/hr IV . [facility]H [facility] Rx#:[id number] Oral 1070 Output: Chest Tube Drainage 0 Thora-Vent Right 0 Urine 400 Other: Voiding Method Urinal Urinal Urinal # Voids 3 2 - Constitutional General appearance: Present: cooperative, no acute distress, obese - Respiratory Details: Lung sounds with few expiratory wheezes throughout, diminished to his bilateral bases. Respirations are symmetrical and nonlabored. Oxygen saturation are 97% on room air. Achieving 2000 mL on his incentive spirometry. Right anterior chest Thoravent in place to low continuous wall suction -20 cm H2O. Continuous air leak is present. - Cardiovascular Details: Regular rhythm and rate. S1 and S2 present, negative for S3, gallop or murmur. Remote telemetry showing normal sinus rhythm heart rate 90 BPM. No edema present. - Gastrointestinal Gastrointestinal Comment(s): Abdomen is soft, nontender and nondistended. Active bowel sounds all 4 abdominal quadrants. No guarding or rigidity. No organomegaly. Tolerating oral intake. - Genitourinary Genitourinary Comment(s): Voiding clear yellow urine. - Integumentary Integumentary Comment(s): Skin is warm and dry. No clubbing or cyanosis is present. No rash or abnormal pigmentation is present. Scant subcutaneous emphysema present to his right chest and right neck. - Neurologic Neurologic: Present: CNII-XII intact - Musculoskeletal Musculoskeletal: Present: gait normal, strength equal bilaterally - Psychiatric Psychiatric: Present: A&O x's 3, appropriate affect, intact judgment & insight - Allied health notes Allied health notes reviewed: nursing - Labs CBC & Chem 7: 04/18/19 09:27 04/18/19 09:27 Labs: Abnormal Lab Results - Last 24 Hours (Table) 04/18/19 04/18/19 Range/Units 09:27 09:27 RBC 3.55 L (4.30-5.90) m/uL Hgb 11.0 L (13.0-17.5) gm/dL Hct 35.3 L (39.0-53.0) % RDW 19.3 H (11.5-15.5) % Plt Count 132 L (150-450) k/uL Lymphocytes # 0.9 L (1.0-4.8) k/uL Glucose 105 H (74-99) mg/dL - Imaging and Cardiology Chest x-ray: report reviewed, image reviewed Assessment and Plan Assessment: 1. Spontaneous right pneumothorax 2. Metastatic lung adenocarcinoma, stage IV 3. Recent history of Pseudomonas pneumonia 4. Previous tobacco dependence 5. Severe COPD, asthma 6. Chronic anemia 7. Hypertension 8. GERD 9. Family history of cancer Plan: 1. The patient's chest x-ray from this morning shows no sizable pneumothorax. Due to the continuous air leak from the Thoravent we will keep the Thoravent placed to low continuous wall suction, although we will turn it down to -10 cm H2O. Reinforced with the nurses importance of keeping the chest tube connected to low continuous wall suction. 2. Encourage use of his incentive spirometry every hour while awake. 3. Encourage continued smoking cessation. 4. Pulmonary management recommendations per Dr. Soto. 5. Medical management and other comorbidities per primary care service. 6. Pain management per current medication regimen. 7. We will continue to monitor the daily chest x-rays. 8. More recommendations to follow based on patient's clinical course. Time with Patient: Greater than 30
--- NOTE | 2019-04-18 12:16 | P.PN ---
Subjective Progress Note Date: 04/18/19 This is a 58-year-old gentleman with history of left-sided lung mass, recurrent metastatic stage IV lung CA, adenocarcinoma history of laparoscopic wedge resection, recently hospitalized Pseudomonas pneumonia presented to the area with worsening shortness of breath awakening him from sleep at 2 AM. Reports right chest pain with sudden onset accompanied by a severe shortness of breath upon awakening. Denies recent trauma. Denies chest pain, palpitations. Denies fever or chills. Reports occasional productive cough. EKG reporting sinus tachycardia, heart rates in the 120s. Troponin 0.041. Chest x-ray reporting a large right-sided tension pneumothorax, increased hemothorax volume on the right, shift of the mediastinum, left suprahilar mass density again seen. Thoravent tube placed-to low intermittent suction, chest x-ray post procedure reporting interval improvement in right-sided pneumothorax. Cardiothoracic surgery and pulmonary consulted. 04/10/2019 maintaining O2 sats in the mid 90s on 2 L nasal cannula. IS up to 1500.Complains of wheezing, denies shortness of breath. Denies pain. Chest x- ray reporting increasing subcutaneous emphysema, persistent possibly increased bibasilar right pneumothorax. Thoravent this morning presented with no drainage, no air leak. Manipulated by cardiothoracic surgery, reconnected to low intermittent suction, air leak returned. Chest CT ordered post manipulation/reinsertion, pending. Afebrile, preliminary blood cultures negative at 24 hours. 04/11/[address] reported moderate to advanced emphysema with small right-sided pneumothorax approximately 5% with pleural catheter in place, previous surgery medial left upper lobe with associated consolidation and volume loss with pleural density slight decreased bulk from prior, moderate to severe circumferential thickening of the mid to distal thoracic esophagus-esophagitis versus radiation change versus neoplasm. chest x-ray reporting resolution of right-sided pneumothorax. Breathing improving, maintaining 100% O2 sat on 2 L nasal cannula. IS up to 2200. Afebrile, preliminary blood cultures negative at 48 hours. Telemetry sinus rhythm to sinus tach with mild tachycardia, heart rates in the low 100s. 04/12/2018 last night, developed significant respiratory distress, A team called. Chest x-ray reporting reoccurrence of right-sided pneumothorax. Thoravent manipulated with repeat x-ray reporting reexpansion of right lung. Respiratory distress/hypoxia subsided. Currently on 4 L nasal cannula maintaining O2 sats of high 90s. Tachycardic, heart rate decreased down to 88 after beta janny administered. Evaluated by surgery regarding esophagus thickening, potential EGD after pulmonary status stabilizes. 04/15/2019 complains of exertional shortness of breath, maintaining O2 sats of mid 90s on room air. Incentive spirometer up to 2000. Chest x-ray reporting recurrent increased basilar right pneumothorax with subcutaneous emphysema. Patient's chest tube was to waterseal, now converted/placed back to low intermittent suction. 04/16/2019 chest x-ray earlier this morning reported improvement/resolution of right-sided pneumothorax. Patient was disconnected from low intermittent suction to facilitate bathroom visit. Patient became short of breath, hypoxic-desatted to 82%, tachycardic heart rate in the 130s. Follow up Chest x-ray performed reporting recurrent right-sided pneumothorax, suggestive of tension pneumothorax. Patient was reconnected to low intermittent suction, symptoms began resolving. 04/17/2019 Thoravent remains to low intermittent suction with air leak. Reports slept well last night with no further shortness of breath. IS up to 2000. Occasional productive cough with clear to pale yellow sputum. Afebrile, normal WBC. Maintaining O2 sats in the high 90s on 2 L nasal cannula No tachycardia. Chest x-ray reporting resolution of bibasilar pneumothorax with minimal apical Pneumothorax suspected. 04/18/2019 reports rough night sleeping, related to coughing and unable to receive his cough medicine prior to bedtime. Denies shortness of breath this morning. X-ray reporting no sizable pneumothorax.Thoravent remains to LIS with positive air leak. IS up to 2000. Maintaining O2 sats in the high 90s on room air. Afebrile. Scant subcu emphysema. Telemetry sinus rhythm. Denies chest pain, palpitations. Denies nausea, vomiting. Stools loose. Denies abdominal pain. Objective - Vital Signs Vital signs: Vital Signs Temp 98.5 F 04/18/19 05:00 Pulse 82 04/18/19 08:11 Resp 16 04/18/19 05:00 BP 124/79 04/18/19 05:00 Pulse Ox 94 L 04/18/19 05:00 Intake & Output 04/17/19 04/18/19 04/18/19 18:59 06:59 18:59 Intake Total 400 1470 Output Total 0 400 Balance 400 1070 Intake: Intake, IV Titration 400 400 Amount Sodium Chloride 0.9% 1, 400 400 000 ml @ 100 mls/hr IV . Q10H LONG Rx#:[id number] Oral 1070 Output: Chest Tube Drainage 0 Thora-Vent Right 0 Urine 400 Other: Voiding Method Urinal Urinal Urinal # Voids 3 2 - Exam VITAL SIGNS: As above GENERAL: Sitting up in bed, no acute distress HEENT: Conjunctivae normal. eyes normal. Trachea midline. Oral mucosa moist NECK: No JVD. No thyroid enlargement. Right chest thoravent present. Scant subcu emphysema right chest. CARDIOVASCULAR: S1, S2 regular. No murmur. RESPIRATION: Essentially clear with bilateral bases diminished. No rhonchi, crackles, occasional scattered fine expiratory wheezing. Right chest Thoravent to LIS, positive air leak ABDOMEN: Soft, nondistended, nontender . No guarding. no masses palpable.positive bowel sounds. LEGS: No edema. no swelling. PSYCHIATRY: Alert and oriented X3, mood and affect normal. NERVOUS SYSTEM: Cranial N 2-12 grossly normal. Moves all 4 limbs. Diffuse weakness No focal deficits. Strength and sensation grossly intact. Skin: no lesions, no rash . - Labs CBC & Chem 7: 04/18/19 09:27 04/18/19 09:27 Assessment and Plan Assessment: Recurrent-Spontaneous Right pneumothorax, status post right Thoravent placement. -Possible underlying acute COPD exacerbation in a patient with moderate to advanced emphysema-CT -Possible left lower lobe pneumonia, possible atelectasis in a patient with hi story [id number] lung mass,Recurrent metastatic lung CA, adenocarcinoma,Stage IV. -Esophagitis versus radiation change versus neoplasm; moderate to severe circumferential thickening of the mid to distal thoracic esophagus per CT. Endoscopy once pulmonary status improves. -history of laparoscopic wedge resection. -Recent Pseudomonas pneumonia -Chronic persistent asthma Plan: Continue on current medication regime ,monitoring and symptomatic treatment. Senokot S discontinued secondary to loose stools.Thoravent to LIS, chest tube to remain connected to low intermittent suction at all times - management as per cardiothoracic surgery .aggressive pulmonary toileting with IS reinforced. Maintain nebulized bronchodilators, steroids. Cough medicine scheduled for patients bedtime at 1999.Follow closely with cardiothoracic surgery and pulmonary. Prognosis guarded given multiple complex medical issues. Further recommendations to follow. . The impression and plan of care has been dictated as directed. : I performed a history and examination of this patient, discussed the same with the dictator. I agree with the dictator's note ,documented as a scribe. Any additional findings or plans will be noted. Time taken: 35 minutes
--- NOTE | 2019-04-18 15:42 | P.PN ---
Subjective Progress Note Date: 04/18/19 Principal diagnosis: Right-sided spontaneous tension pneumothorax, severe COPD, left lower lobe pneumonia, leukocytosis, lung cancer, possible left lower lobe atelectasis, chronic persistent asthma, hypertension hypertensive cardiovascular disease, severe COPD 04/18/2019, patient seen and evaluated examined during the rounds x-ray reviewed patient suction has been lowered down repeat x-ray from tomorrow is pending swallowing function is improved care plan discussed with thoracic surgery plan is to do VATS in case if continue to get recurrent pneumothorax 04/17/2019, patient seen and evaluated examined during the rounds swallowing function improved significantly decreased cough and congestion are present patient remains on suction chest x-ray from today reviewed, pneumothorax continued to improve slowly some residual pneumothorax still there 04/16/2019, patient seen eval reexamined during the rounds care plan discussed with patient at length problem with swallowing dysfunction is improved patient is on nystatin swish and swallow along with Diflucan slightly more congested today but with breathing treatments improve, patient had recurrent right-sided pneumothorax this morning Drs. Marx is managing her chest tube 04/15/2019, patient seen and evaluated examined during the rounds denies any chest pain or shortness of breath patient is back on suction as recurrence of the pneumothorax occurred, additional complaint has been noted as he is having problem with swallowing food yesterday was mild today is moderate seems like oral thrush has been developing or put him on Diflucan and nystatin swish and swallow 04/14/2019, patient seen and evaluated examined during the rounds, patient developed recurrence of pneumothorax on water seal chest tube connected to suction again, denies any chest pain shortness of breath 04/13/2019, patient seen and evaluated examined she is doing very well with her incentive spirometry almost went have treated her breathing has improved lungs are more clear now less congestion is present, there is no air leak is present p atient will be [facility] 04/12/2019, patient seen and evaluated examined doing better today denies any chest pain shortness of breath even from earlier this morning noted, this morning around 2 AM patient develop shortness of breath and some chest discomfort and repeat x-ray showed a significant right-sided pneumothorax the pleural vent has been adjusted, reexpansion on chest x-ray is noted on 3 x-ray have been reviewed labs reviewed as well currently patient is comfortable denies any chest pain no air leak is present we will observe closely 04/11/2019, patient seen eval reexamined during the rounds, doing well slightly short of breath denies any chest pain some cough and congestion is present no sputum production, noted slight air leak is present 04/10/2019, patient seen and evaluated examined during the rounds breathing more comfortably denies any chest pain cough and congestion improved feeling little bit better compared yesterday patient had a computed tomography scan performed which reviewed it very minimal pneumothorax is present with residual subcutaneous emphysema on the right side left-sided lung mass appeared to have shrunk, 58-year-old male who has a history of lung cancer with recurrence stage IV patient has a MediPort on the right side of the chest has been on immunotherapy patient also has severe COPD has been discovered history of health until about 2:30 this morning developed severe shortness of breath and chest pain up to 0.K mid to the hospital a chest x-ray showed total collapse of the lung with tension pneumothorax on the right side patient has a history of left lower lobe resection for lung cancer patient underwent Thoravent on the right side all 3 x- ray have been reviewed there is a small residual 20% to 30% pneumothorax on the right side, patient is being admitted thoracic surgery is on consult Objective - Vital Signs Vital signs: Vital Signs Temp 97 F L 04/18/19 11:46 Pulse 85 04/18/19 11:48 Resp 20 04/18/19 11:46 BP 114/76 04/18/19 11:46 Pulse Ox 97 04/18/19 11:46 Intake & Output 04/17/19 04/18/19 04/18/19 18:59 06:59 18:59 Intake Total 400 1470 400 Output Total 0 400 Balance 400 1070 400 Intake: Intake, IV Titration 400 400 400 Amount Sodium Chloride 0.9% 1, 400 400 400 000 ml @ 100 mls/hr IV . Q10H LONG Rx#:[id number] Oral 1070 Output: Chest Tube Drainage 0 Thora-Vent Right 0 Urine 400 Other: Voiding Method Urinal Urinal Urinal # Voids 3 2 - Exam - Constitutional General appearance: average body habitus, disheveled, mild distress, morbidly obese - EENT Eyes: EOMI, PERRLA, poor dentition, normal appearance Ears: bilateral: normal Throat/pharynx, thrush is present with some extension into the time - Neck Neck: lymphadenopathy Carotids: bilateral: upstroke normal Thyroid: bilateral: normal size - Respiratory Respiratory: right: diminished, negative: dullness, rales, rhonchi, wheezing, prolonged expiration - Cardiovascular Rhythm: irregularly irregular Heart sounds: normal: S1, S2 - Gastrointestinal General gastrointestinal: decreased bowel sounds, distended, soft - Integumentary Integumentary: calor - Neurologic Neurologic: CNII-XII intact - Musculoskeletal Musculoskeletal: gait normal, generalized weakness, strength equal bilaterally - Psychiatric Psychiatric: A&O x's 3, appropriate affect, intact judgment & insight - Labs CBC & Chem 7: 04/18/19 09:27 04/18/19 09:27 Labs: Abnormal Lab Results - Last 24 Hours (Table) 04/18/19 04/18/19 Range/Units 09: 09:27 RBC 3.55 L (4.30-5.90) m/uL Hgb 11.0 L (13.0-17.5) gm/dL Hct 35.3 L (39.0-53.0) % RDW 19.3 H (11.5-15.5) % Plt Count 132 L (150-450) k/uL Lymphocytes # 0.9 L (1.0-4.8) k/uL Glucose 105 H (74-99) mg/dL Assessment and Plan Assessment: Oral thrush clinically improved Right-sided tension pneumothorax, with recurrence probably secondary due to plugged THORAVENT radiographically and clinically improved Bilateral wheezing probably COPD exacerbation Left lower lobe pneumonia versus atelectasis Leukocytosis Stage IV lung cancer on immunotherapy Left lower lobe resection Chronic persistent asthma COPD Hypertension hypertensive cardiovascular disease Plan: Small air leak still present continue section through the chest tube Bronchodilator Inhaled via nebulizer steroids Pain control Broad-spectrum antibiotics Trial of oral Diflucan and nystatin swish and swallow Hold steroids for now we'll treat COPD exacerbation with breathing treatments and inhaled corticosteroid patient appears to be responding Time with Patient: Greater than 30
[2019-04-19] MEDS: guaiFENesin-DM 100-10MG/5ML 10 ML CUP PO SCH ×4 (00:56→20:24)
--- NOTE | 2019-04-19 07:23 | XR ---
EXAMINATION TYPE: XR chest 1V portable DATE OF EXAM: 04/19/2019 Comparison: 04/18/2019 Clinical history: 58-year-old male pneumothorax Findings: A right-sided engorgement is present. This seems to enter the first intercostal space. Associated sub cutaneous emphysema. No sizable pneumothorax is seen. Right anterior chest wall injection port with c atheter tip at the mid SVC level. Stable postsurgical change and volume loss at the left apex with up blanco left hilar retraction and focal opacity. Mild patchy density for 4 right mid lung and some impro ving aeration at the left upper lobe. Hyperinflation. No pleural effusion. Impression: 1. Right-sided Thoravent remains in place. It seems to enter the first intercostal space. Associated subcutaneous emphysema persists. No sizable pneumothorax. 2. Volume loss and postsurgical change at the left apex with focal left suprahilar opacity is similar , likely site of treated disease. Improving aeration in the left upper lobe. 3. Slight increased patchy density right midlung could represent atelectasis or early developing infi ltrate. 4. Moderate to advanced emphysema.
[2019-04-19] MEDS: SODIUM CHLORIDE 0.9% 1,000 ML IV SCH ×2 (08:38→08:40)
[2019-04-19] MEDS: METOPROLOL TARTRATE 25 MG TAB PO SCH ×2 (08:39→19:59)
[2019-04-19] MEDS: FLUCONAZOLE 100 MG TAB PO SCH (08:39)
[2019-04-19] MEDS: NYSTATIN 100,000 UNIT/ML SUSP 500,000 UNIT/5 ML CUP PO SCH ×4 (08:39→19:59)
[2019-04-19] MEDS: MULTIVITAMINS, THERA 1 EACH TAB PO SCH (08:39)
[2019-04-19] MEDS: CHOLECALCIFEROL 1,000 UNIT TAB PO SCH (08:39)
[2019-04-19] MEDS: LORATADINE 10 MG TAB PO SCH (08:39)
[2019-04-19] MEDS: FAMOTIDINE 20 MG TAB PO SCH ×2 (08:39→19:59)
[2019-04-19] MEDS: HYDROCORTISONE SUPPOSITORY 25 MG SUPP RECTAL SCH ×2 (08:40→20:31)
[2019-04-19] MEDS: IPRATROPIUM-ALBUTEROL 3 ML NEB INHALATION SCH ×3 (08:56→20:01)
[2019-04-19] MEDS: FORMOTEROL FUMARATE 20 MCG/2 ML NEBU INHALATION SCH ×2 (08:56→20:01)
[2019-04-19] MEDS: BUDESONIDE 0.5 MG/2 ML NEBU INHALATION SCH ×2 (08:56→20:01)
--- NOTE | 2019-04-19 10:49 | P.PN ---
Subjective Progress Note Date: 04/19/19 This is a 58-year-old gentleman with history of left-sided lung mass, recurrent metastatic stage IV lung CA, adenocarcinoma history of laparoscopic wedge resection, recently hospitalized Pseudomonas pneumonia presented to the area with worsening shortness of breath awakening him from sleep at 2 AM. Reports right chest pain with sudden onset accompanied by a severe shortness of breath upon awakening. Denies recent trauma. Denies chest pain, palpitations. Denies fever or chills. Reports occasional productive cough. EKG reporting sinus tachycardia, heart rates in the 120s. Troponin 0.041. Chest x-ray reporting a large right-sided tension pneumothorax, increased hemothorax volume on the right, shift of the mediastinum, left suprahilar mass density again seen. Thoravent tube placed-to low intermittent suction, chest x-ray post procedure reporting interval improvement in right-sided pneumothorax. Cardiothoracic surgery and pulmonary consulted. 04/10/2019 maintaining O2 sats in the mid 90s on 2 L nasal cannula. IS up to 1500.Complains of wheezing, denies shortness of breath. Denies pain. Chest x- ray reporting increasing subcutaneous emphysema, persistent possibly increased bibasilar right pneumothorax. Thoravent this morning presented with no drainage, no air leak. Manipulated by cardiothoracic surgery, reconnected to low intermittent suction, air leak returned. Chest CT ordered post manipulation/reinsertion, pending. Afebrile, preliminary blood cultures negative at 24 hours. 04/11/[address] reported moderate to advanced emphysema with small right-sided pneumothorax approximately 5% with pleural catheter in place, previous surgery medial left upper lobe with associated consolidation and volume loss with pleural density slight decreased bulk from prior, moderate to severe circumferential thickening of the mid to distal thoracic esophagus-esophagitis versus radiation change versus neoplasm. chest x-ray reporting resolution of right-sided pneumothorax. Breathing improving, maintaining 100% O2 sat on 2 L nasal cannula. IS up to 2200. Afebrile, preliminary blood cultures negative at 48 hours. Telemetry sinus rhythm to sinus tach with mild tachycardia, heart rates in the low 100s. 04/12/2018 last night, developed significant respiratory distress, A team called. Chest x-ray reporting reoccurrence of right-sided pneumothorax. Thoravent manipulated with repeat x-ray reporting reexpansion of right lung. Respiratory distress/hypoxia subsided. Currently on 4 L nasal cannula maintaining O2 sats of high 90s. Tachycardic, heart rate decreased down to 88 after beta janny administered. Evaluated by surgery regarding esophagus thickening, potential EGD after pulmonary status stabilizes. 04/15/2019 complains of exertional shortness of breath, maintaining O2 sats of mid 90s on room air. Incentive spirometer up to 2000. Chest x-ray reporting recurrent increased basilar right pneumothorax with subcutaneous emphysema. Patient's chest tube was to waterseal, now converted/placed back to low intermittent suction. 04/16/2019 chest x-ray earlier this morning reported improvement/resolution of right-sided pneumothorax. Patient was disconnected from low intermittent suction to facilitate bathroom visit. Patient became short of breath, hypoxic-desatted to 82%, tachycardic heart rate in the 130s. Follow up Chest x-ray performed reporting recurrent right-sided pneumothorax, suggestive of tension pneumothorax. Patient was reconnected to low intermittent suction, symptoms began resolving. 04/17/2019 Thoravent remains to low intermittent suction with air leak. Reports slept well last night with no further shortness of breath. IS up to 2000. Occasional productive cough with clear to pale yellow sputum. Afebrile, normal WBC. Maintaining O2 sats in the high 90s on 2 L nasal cannula No tachycardia. Chest x-ray reporting resolution of bibasilar pneumothorax with minimal apical Pneumothorax suspected. 04/18/2019 reports rough night sleeping, related to coughing and unable to receive his cough medicine prior to bedtime. Denies shortness of breath this morning. X-ray reporting no sizable pneumothorax.Thoravent remains to LIS with positive air leak. IS up to 2000. Maintaining O2 sats in the high 90s on room air. Afebrile. Scant subcu emphysema. Telemetry sinus rhythm. Denies chest pain, palpitations. Denies nausea, vomiting. Stools loose. Denies abdominal pain. 04/19/2019 maintaining sats in the 90s on room air.IS between 2200 & 2500. Afebrile. Labs pending.Thoravent to LIS, decreased to -10 yesterday, tolerating well. Chest x-ray reporting Thoravent in place, subcutaneous emphysema, no sizable pneumothorax, slight increased patchy density right mid lung possible atelectasis versus early infiltrate, moderate to advanced emphysema. Objective - Vital Signs Vital signs: Vital Signs Temp 98.1 F 04/19/19 04:43 Pulse 90 04/19/19 09:19 Resp 16 04/19/19 04:43 BP 114/77 04/19/19 04:43 Pulse Ox 92 L 04/19/19 04:43 Intake & Output 04/18/19 04/19/19 04/19/19 18:59 06:59 18:59 Intake Total 400 1100 Balance 400 1100 Intake: Intake, IV Titration 400 1100 Amount Sodium Chloride 0.9% 1, 400 1100 000 ml @ 100 mls/hr IV . Q10H LONG Rx#:[id number] Other: Voiding Method Urinal Urinal Urinal - Exam VITAL SIGNS: As above GENERAL: Sitting up in bed, no acute distress HEENT: Conjunctivae normal. eyes normal. Trachea midline. Oral mucosa moist NECK: No JVD. No thyroid enlargement. Right chest thoravent present. Scant subcu emphysema right chest. CARDIOVASCULAR: S1, S2 regular. No murmur. RESPIRATION: Essentially clear with bilateral bases diminished. No rhonchi, crackles, occasional scattered fine expiratory wheezing. Right chest Thoravent to LIS. ABDOMEN: Soft, nondistended, nontender . No guarding. no masses palpable.positive bowel sounds. LEGS: No edema. no swelling. PSYCHIATRY: Alert and oriented X3, mood and affect normal. NERVOUS SYSTEM: Cranial N 2-12 grossly normal. Moves all 4 limbs. Diffuse weakness No focal deficits. Strength and sensation grossly intact. Skin: no lesions, no rash . - Labs CBC & Chem 7: 04/18/19 09:27 04/18/19 09:27 Assessment and Plan Assessment: Recurrent-Spontaneous Right pneumothorax, status post right Thoravent placement. -Possible underlying acute COPD exacerbation in a patient with moderate to advanced emphysema-CT -Possible left lower lobe pneumonia, possible atelectasis in a patient with history [id number] lung mass,Recurrent metastatic lung CA, adenocarcinom a,Stage IV. -Esophagitis versus radiation change versus neoplasm; moderate to severe circumferential thickening of the mid to distal thoracic esophagus per CT. Endoscopy once pulmonary status improves. -history of laparoscopic wedge resection. -Recent Pseudomonas pneumonia -Chronic persistent asthma Plan: Continue on current medication regime ,monitoring and symptomatic treatment. Thoravent to LIS, chest tube to remain connected to low intermittent suction at all times /management as per cardiothoracic surgery .Aggressive pulmonary toileting with IS reinforced. Maintain nebulized bronchodilators. Prognosis guarded given multiple complex medical issues. . The impression and plan of care has been dictated as directed. : I performed a history and examination of this patient, discussed the same with the dictator. I agree with the dictator's note ,documented as a scribe. Any additional findings or plans will be noted. Time taken: 35 minutes
[2019-04-19 11:59] LABS: Anisocytosis Slight; Basophils % (A) 0 %; Eosinophils # (A) 0.2 k/uL (0-0.7); Eosinophils % (A) 3 %; HCT 33.6 % (39.0-53.0); HGB 10.8 gm/dL (13.0-17.5); Lymphocytes # (A) 1.3 k/uL (1.0-4.8); Lymphocytes % (A) 24 %; MCH 31.6 pg (25.0-35.0); MCV 98.8 fL (80.0-100.0); Macrocytosis Slight; Mean Platelet Volume 7.9; Monocytes # (A) 0.4 k/uL (0-1.0); Monocytes % (A) 7 %; Neutrophils # (A) 3.4 k/uL (1.3-7.7); Neutrophils % (A) 63 %; Platelet Count 139 k/uL (150-450); RDW 19.7 % (11.5-15.5); WBC 5.3 k/uL (3.8-10.6)
--- NOTE | 2019-04-19 14:46 | P.PN ---
Subjective Progress Note Date: 04/19/19 Principal diagnosis: Spontaneous right pneumothorax. History of metastatic lung adenocarcinoma, stage IV with chemo/radiation/immunosuppressive therapy, recent history of Pseudomonas pneumonia, previous tobacco dependence, severe COPD, asthma, chronic anemia, hypertension, gastroesophageal reflux disease, and family history of cancer. POD #10 placement of right-sided thoravent by the emergency room physicians The patient is currently sitting up in bed in no acute distress. Denies pain, shortness of breath. Thoravent continues to be connected to wall suction, was decreased to -10 cm yesterday, continuous air leak remains present. Objective - Vital Signs Vital signs: Vital Signs Temp 98.1 F 04/19/19 12:08 Pulse 84 04/19/19 12:35 Resp 20 04/19/19 12:08 BP 109/74 04/19/19 12:08 Pulse Ox 97 04/19/19 12:08 Intake & Output 04/18/19 04/19/19 04/19/19 18:59 06:59 18:59 Intake Total 400 1100 Balance 400 1100 Intake: Intake, IV Titration 400 1100 Amount Sodium Chloride 0.9% 1, 400 1100 000 ml @ 100 mls/hr IV . Q10H [facility] Rx#:[id number] Other: Voiding Method Urinal Urinal Urinal - Constitutional General appearance: Present: cooperative, no acute distress - Respiratory Details: Lungs sounds diminished bilaterally. Respirations even, nonlabored. Currently on room air with oxygen saturation 97%. Able to achieve 2000 mL on his in centive spirometry. Right anterior chest wall pleura vent present, connected to -10 cm wall suction, minimal serous output, continuous air leak present. - Cardiovascular Details: S1, S2 present. Regular rate and rhythm, sinus rhythm on telemetry. Palpable peripheral pulses bilaterally. No edema present. No calf pain or tenderness noted. - Gastrointestinal Gastrointestinal Comment(s): Abdomen soft, nontender, nondistended. Active bowel sounds present 4 quadrants. Tolerating diet. - Genitourinary Genitourinary Comment(s): Continues to void clear, yellow urine. - Integumentary Integumentary Comment(s): Skin is warm and dry with evidence of good perfusion. - Neurologic Neurologic: Present: CNII-XII intact - Musculoskeletal Musculoskeletal: Present: gait normal, strength equal bilaterally - Psychiatric Psychiatric: Present: A&O x's 3, appropriate affect, intact judgment & insight - Allied health notes Allied health notes reviewed: nursing - Labs CBC & Chem 7: 04/19/19 10:06 04/18/19 09:27 Labs: Abnormal Lab Results - Last 24 Hours (Table) 04/19/19 Range/Units 10:06 RBC 3.40 L (4.30-5.90) m/uL Hgb 10.8 L (13.0-17.5) gm/dL Hct 33.6 L (39.0-53.0) % RDW 19.7 H (11.5-15.5) % Plt Count 139 L (150-450) k/uL - Imaging and Cardiology Chest x-ray: report reviewed, image reviewed Assessment and Plan Assessment: 1. Spontaneous right pneumothorax, status post thoravent placement 2. Metastatic lung adenocarcinoma, stage IV with chemo/radiation/immunosuppressive therapy 3. Recent history of Pseudomonas pneumonia 4. Previous tobacco dependence 5. Severe COPD, asthma 6. Chronic anemia 7. Hypertension 8. GERD 9. Family history of cancer Plan: 1. Will continue thoravent to -10 cm wall suction for another 24 hours. This gentleman will take longer to heal. Likely will trial waterseal again in the near future. 2. Continue to encourage use of his incentive spirometry 10 x every hour while awake. 3. Pulmonary management recommendations per Dr. Soto. 4. Medical management and other comorbidities per primary care service. 5. Pain management per current medication regimen. 6. Will continue to monitor daily x-rays. 7. More recommendations to follow based on patient's clinical course. Time with Patient: Greater than 30
--- NOTE | 2019-04-19 15:26 | P.PN ---
Subjective Progress Note Date: 04/19/19 Principal diagnosis: Right-sided spontaneous tension pneumothorax, severe COPD, left lower lobe pneumonia, leukocytosis, lung cancer, possible left lower lobe atelectasis, chronic persistent asthma, hypertension hypertensive cardiovascular disease, severe COPD 04/19/2019, patient seen and evaluated examined during the rounds denies any chest pain or shortness of breath cough and swallowing function improved still connected to suction decrease to 10 cm a liter still present intermittently patient is being considered for VATS next week in case of air leak not resolved 04/18/2019, patient seen and evaluated examined during the rounds x-ray reviewed patient suction has been lowered down repeat x-ray from tomorrow is pending swallowing function is improved care plan discussed with thoracic surgery plan is to do VATS in case if continue to get recurrent pneumothorax 04/17/2019, patient seen and evaluated examined during the rounds swallowing function improved significantly decreased cough and congestion are present patient remains on suction chest x-ray from today reviewed, pneumothorax continued to improve slowly some residual pneumothorax still there 04/16/2019, patient seen eval reexamined during the rounds care plan discussed with patient at length problem with swallowing dysfunction is improved patient is on nystatin swish and swallow along with Diflucan slightly more congested today but with breathing treatments improve, patient had recurrent right-sided pneumothorax this morning Drs. Marx is managing her chest tube 04/15/2019, patient seen and evaluated examined during the rounds denies any chest pain or shortness of breath patient is back on suction as recurrence of the pneumothorax occurred, additional complaint has been noted as he is having problem with swallowing food yesterday was mild today is moderate seems like oral thrush has been developing or put him on Diflucan and nystatin swish and swallow 04/14/2019, patient seen and evaluated examined during the rounds, patient developed recurrence of pneumothorax on water seal chest tube connected to suction again, denies any chest pain shortness of breath 04/13/2019, patient seen and evaluated examined she is doing very well with her incentive spirometry almost went have treated her breathing has improved lungs are more clear now less congestion is present, there is no air leak is present patient will be planned for chest x-ray on [facility] tomorrow 04/12/2019, patient seen and evaluated examined doing better today denies any chest pain shortness of breath even from earlier this morning noted, this morning around 2 AM patient develop shortness of breath and some chest di scomfort and repeat x-ray showed a significant right-sided pneumothorax the pleural vent has been adjusted, reexpansion on chest x-ray is noted on 3 x-ray have been reviewed labs reviewed as well currently patient is comfortable denies any chest pain no air leak is present we will observe closely 04/11/2019, patient seen eval reexamined during the rounds, doing well slightly short of breath denies any chest pain some cough and congestion is present no sputum production, noted slight air leak is present 04/10/2019, patient seen and evaluated examined during the rounds breathing more comfortably denies any chest pain cough and congestion improved feeling little bit better compared yesterday patient had a computed tomography scan performed which reviewed it very minimal pneumothorax is present with residual subcutaneous emphysema on the right side left-sided lung mass appeared to have shrunk, 58-year-old male who has a history of lung cancer with recurrence stage IV patient has a MediPort on the right side of the chest has been on immunotherapy patient also has severe COPD has been discovered history of health until about 2:30 this morning developed severe shortness of breath and chest pain up to 0.K mid to the hospital a chest x-ray showed total collapse of the lung with tension pneumothorax on the right side patient has a history of left lower lobe resection for lung cancer patient underwent Thoravent on the right side all 3 x- ray have been reviewed there is a small residual 20% to 30% pneumothorax on the right side, patient is being admitted thoracic surgery is on consult Objective - Vital Signs Vital signs: Vital Signs Temp 98.1 F 04/19/19 12:08 Pulse 84 04/19/19 12:35 Resp 20 04/19/19 12:08 BP 109/74 04/19/19 12:08 Pulse Ox 97 04/19/19 12:08 Intake & Output 04/18/19 04/19/19 04/19/19 18:59 06:59 18:59 Intake Total 400 1100 400 Balance 400 1100 400 Intake: Intake, IV Titration 400 1100 400 Amount Sodium Chloride 0.9% 1, 400 1100 400 000 ml @ 100 mls/hr IV . Q10H [facility] Rx#:[id number] Other: Voiding Method Urinal Urinal Urinal - Exam - Constitutional General appearance: average body habitus, disheveled, mild distress, morbidly obese - EENT Eyes: EOMI, PERRLA, poor dentition, normal appearance Ears: bilateral: normal Throat/pharynx, thrush is present with some extension into the time - Neck Neck: lymphadenopathy Carotids: bilateral: upstroke normal Thyroid: bilateral: normal size - Respiratory Respiratory: right: diminished, negative: dullness, rales, rhonchi, wheezing, prolonged expiration - Cardiovascular Rhythm: irregularly irregular Heart sounds: normal: S1, S2 - Gastrointestinal General gastrointestinal: decreased bowel sounds, distended, soft - Integumentary Integumentary: calor - Neurologic Neurologic: CNII-XII intact - Musculoskeletal Musculoskeletal: gait normal, generalized weakness, strength equal bilaterally - Psychiatric Psychiatric: A&O x's 3, appropriate affect, intact judgment & insight - Labs CBC & Chem 7: 04/19/19 10:06 04/18/19 09:27 Labs: Abnormal Lab Results - Last 24 Hours (Table) 04/19/19 Range/Units 10:06 RBC 3.40 L (4.30-5.90) m/uL Hgb 10.8 L (13.0-17.5) gm/dL Hct 33.6 L (39.0-53.0) % RDW 19.7 H (11.5-15.5) % Plt Count 139 L (150-450) k/uL Assessment and Plan Assessment: Oral thrush clinically improved Right-sided tension pneumothorax, with recurrence probably secondary due to plugged THORAVENT radiographically and clinically improved Bilateral wheezing probably COPD exacerbation Left lower lobe pneumonia versus atelectasis Leukocytosis Stage IV lung cancer on immunotherapy Left lower lobe resection Chronic persistent asthma COPD Hypertension hypertensive cardiovascular disease Plan: Small air leak still present continue section through the chest tube, agree with plans about VATS Bronchodilator Inhaled via nebulizer steroids Pain control Broad-spectrum antibiotics Trial of oral Diflucan and nystatin swish and swallow Hold steroids for now we'll treat COPD exacerbation with breathing treatments and inhaled corticosteroid patient appears to be responding
[2019-04-20] MEDS: SODIUM CHLORIDE 0.9% 1,000 ML IV SCH ×4 (01:03→23:42)
[2019-04-20] MEDS: guaiFENesin-DM 100-10MG/5ML 10 ML CUP PO SCH ×5 (01:03→23:41)
--- NOTE | 2019-04-20 06:54 | XR ---
EXAMINATION TYPE: XR chest 1V portable DATE OF EXAM: 04/20/2019 HISTORY: pneumothorax. REFERENCE: Previous study dated 04/19/2019. FINDINGS: There is a Mediport in place via a right internal jugular approach. Its tip is in the super ior vena cava. There is a for involvement right-sided chest tube in place. There is associated right- sided subcutaneous emphysema. I do not see evidence of pneumothorax this time. The lungs appear overinflated. The heart is not enlarged. Pleural spaces are clear. There is some sup erior retraction of the left hilum. IMPRESSION: NO SIGNIFICANT INTERVAL CHANGE IN THE APPEARANCE OF THE CHEST.
[2019-04-20] MEDS: LORATADINE 10 MG TAB PO SCH (08:43)
[2019-04-20] MEDS: FAMOTIDINE 20 MG TAB PO SCH ×2 (08:43→21:14)
[2019-04-20] MEDS: CHOLECALCIFEROL 1,000 UNIT TAB PO SCH (08:43)
[2019-04-20] MEDS: MULTIVITAMINS, THERA 1 EACH TAB PO SCH (08:43)
[2019-04-20] MEDS: METOPROLOL TARTRATE 25 MG TAB PO SCH ×2 (08:43→21:14)
[2019-04-20] MEDS: NYSTATIN 100,000 UNIT/ML SUSP 500,000 UNIT/5 ML CUP PO SCH ×4 (08:44→21:15)
[2019-04-20] MEDS: HYDROCORTISONE SUPPOSITORY 25 MG SUPP RECTAL SCH ×3 (08:45→21:16)
[2019-04-20] MEDS: FLUCONAZOLE 100 MG TAB PO SCH (08:45)
[2019-04-20] MEDS: IPRATROPIUM-ALBUTEROL 3 ML NEB INHALATION SCH ×3 (09:00→20:04)
[2019-04-20] MEDS: BUDESONIDE 0.5 MG/2 ML NEBU INHALATION SCH ×2 (09:00→20:04)
[2019-04-20] MEDS: FORMOTEROL FUMARATE 20 MCG/2 ML NEBU INHALATION SCH ×2 (09:01→20:04)
--- NOTE | 2019-04-20 09:53 | P.PN ---
Subjective Progress Note Date: 04/20/19 Principal diagnosis: Spontaneous right pneumothorax. History of metastatic lung adenocarcinoma, stage IV with chemo/radiation/immunosuppressive therapy, recent history of Pseudomonas pneumonia, previous tobacco dependence, severe COPD, asthma, chronic anemia, hypertension, gastroesophageal reflux disease, and family history of cancer. POD #11 placement of right-sided thoravent by the emergency room physicians Continuous air leak from chest tube site, expected The patient is currently sitting up in bed in no acute distress. Denies pain, shortness of breath. Thoravent continues to be connected to wall suction, continuous air leak remains present. Objective - Vital Signs Vital signs: Vital Signs Temp 97.6 F 04/20/19 05:00 Pulse 89 04/20/19 09:22 Resp 16 04/20/19 05:00 BP 141/74 04/20/19 05:00 Pulse Ox 95 04/20/19 05:00 Intake & Output 04/19/19 04/20/19 04/20/19 18:59 06:59 18:59 Intake Total 400 Output Total 700 Balance 400 -700 Intake: Intake, IV Titration 400 Amount Sodium Chloride 0.9% 1, 400 000 ml @ 100 mls/hr IV . Q10H [facility] Rx#:[id number] Output: Urine 700 Other: Voiding Method Urinal Urinal # Voids 1 - Constitutional General appearance: Present: cooperative, no acute distress, obese - Respiratory Details: Lungs sounds diminished bilaterally. Respirations even, nonlabored. Currently on room air with oxygen saturation 95%. Able to achieve 2000 mL on his incentive spirometry. Right anterior chest wall pleura vent present, connected to -10 cm wall suction, minimal serous output, continuous air leak present. - Cardiovascular Details: S1, S2 present. Regular rate and rhythm, sinus rhythm on telemetry. Palpable peripheral pulses bilaterally. No edema present. No calf pain or tenderness noted. - Gastrointestinal Gastrointestinal Comment(s): Abdomen soft, nontender, nondistended. Active bowel sounds present 4 quadrants. Tolerating diet. - Genitourinary Genitourinary Comment(s): Continues to void clear, yellow urine. - Integumentary Integumentary Comment(s): Skin is warm and dry with evidence of good perfusion. - Neurologic Neurologic: Present: CNII-XII intact - Musculoskeletal Musculoskeletal: Present: gait normal, strength equal bilaterally - Psychiatric Psychiatric Comment(s): Slightly down and frustrated as he would really like to be up to home Psychiatric: Present: A&O x's 3, appropriate affect, intact judgment & insight - Allied health notes Allied health notes reviewed: nursing - Labs CBC & Chem 7: 04/19/19 10:06 04/18/19 09:27 Labs: Abnormal Lab Results - Last 24 Hours (Table) 04/19/19 Range/Units 10:06 RBC 3.40 L (4.30-5.90) m/uL Hgb 10.8 L (13.0-17.5) gm/dL Hct 33.6 L (39.0-53.0) % RDW 19.7 H (11.5-15.5) % Plt Count 139 L (150-450) k/uL - Imaging and Cardiology Chest x-ray: report reviewed, image reviewed Assessment and Plan Assessment: 1. Spontaneous right pneumothorax, status post thoravent placement 2. Metastatic lung adenocarcinoma, stage IV with chemo/radiation/immunosuppressive therapy 3. Recent history of Pseudomonas pneumonia 4. Previous tobacco dependence 5. Severe COPD, asthma 6. Chronic anemia 7. Hypertension 8. GERD 9. Family history of cancer Plan: 1. Will continue thoravent to -10 cm wall suction for another 24 hours. This gentleman will take longer to heal. Likely will trial waterseal again in the near future. 2. Continue to encourage use of his incentive spirometry 10 x every hour while awake. 3. Pulmonary management recommendations per Dr. Soto. 4. Medical management and other comorbidities per primary care service. 5. Pain management per current medication regimen. 6. Will continue to monitor daily x-rays. 7. More recommendations to follow based on patient's clinical course. Time with Patient: Greater than 30
--- NOTE | 2019-04-20 20:34 | P.PN ---
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 bronchopleural fistula current chest x-ray does not show pneumothorax, but lungs are inflated follow closely it appears that patient probably require VATS procedure down the road 04/19/2019, patient seen and evaluated examined during the rounds denies any chest pain or shortness of breath cough and swallowing function improved still connected to suction decrease to 10 cm a liter still present intermittently patient is being considered for VATS next week in case of air leak not resolved 04/18/2019, patient seen and evaluated examined during the rounds x-ray reviewed patient suction has been lowered down repeat x-ray from tomorrow is pending swallowing function is improved care plan discussed with thoracic surgery plan is to do VATS in case if continue to get recurrent pneumothorax 04/17/2019, patient seen and evaluated examined during the rounds swallowing function improved significantly decreased cough and congestion are present patient remains on suction chest x-ray from today reviewed, pneumothorax continued to improve slowly some residual pneumothorax still there 04/16/2019, patient seen eval reexamined during the rounds care plan discussed with patient at length problem with swallowing dysfunction is improved patient is on nystatin swish and swallow along with Diflucan slightly more congested today but with breathing treatments improve, patient had recurrent right-sided pneumothorax this morning Drs. Marx is managing her chest tube 04/15/2019, patient seen and evaluated examined during the rounds denies any chest pain or shortness of breath patient is back on suction as recurrence of the pneumothorax occurred, additional complaint has been noted as he is having p roblem with swallowing food yesterday was mild today is moderate seems like oral thrush has been developing or put him on Diflucan and nystatin swish and swallow 04/14/2019, patient seen and evaluated examined during the rounds, patient developed recurrence of pneumothorax on water seal chest tube connected to suction again, denies any chest pain shortness of breath 04/13/2019, patient seen and evaluated examined she is doing very well with her incentive spirometry almost went have treated her breathing has improved lungs are more clear now less congestion is present, there is no air leak is present patient will be planned for chest x-ray on [facility] tomorrow 04/12/2019, patient seen and evaluated examined doing better today denies any chest pain shortness of breath even from earlier this morning noted, this morning around 2 AM patient develop shortness of breath and some chest disco mfort and repeat x-ray showed a significant right-sided pneumothorax the pleural vent has been adjusted, reexpansion on chest x-ray is noted on 3 x-ray have been reviewed labs reviewed as well currently patient is comfortable denies any chest pain no air leak is present we will observe closely 04/11/2019, patient seen eval reexamined during the rounds, doing well slightly short of breath denies any chest pain some cough and congestion is present no sputum production, noted slight air leak is present 04/10/2019, patient seen and evaluated examined during the rounds breathing more comfortably denies any chest pain cough and congestion improved feeling little bit better compared yesterday patient had a computed tomography scan performed which reviewed it very minimal pneumothorax is present with residual subcutaneous emphysema on the right side left-sided lung mass appeared to have shrunk, 58-year-old male who has a history of lung cancer with recurrence stage IV patient has a MediPort on the right side of the chest has been on immunotherapy patient also has severe COPD has been discovered history of health until about 2:30 this morning developed severe shortness of breath and chest pain up to 0.K mid to the hospital a chest x-ray showed total collapse of the lung with tension pneumothorax on the right side patient has a history of left lower lobe resection for lung cancer patient underwent Thoravent on the right side all 3 x- ray have been reviewed there is a small residual 20% to 30% pneumothorax on the right side, patient is being admitted thoracic surgery is on consult Objective - Vital Signs Vital signs: Vital Signs Temp 98.5 F 04/20/19 12:54 Pulse 104 H 04/20/19 20:25 Resp 17 04/20/19 15:39 BP 135/78 04/20/19 12:54 Pulse Ox 96 04/20/19 20:06 Intake & Output 04/20/19 04/20/19 04/21/19 06:59 18:59 06:59 Intake Total 1320 Output Total 700 800 Balance -700 520 Intake: Oral 1320 Output: Urine 700 800 Other: Voiding Method Urinal Urinal # Voids 1 1 - Exam - Constitutional General appearance: average body habitus, disheveled, mild distress, morbidly obese - EENT Eyes: EOMI, PERRLA, poor dentition, normal appearance Ears: bilateral: normal Throat/pharynx, thrush is present with some extension into the time - Neck Neck: lymphadenopathy Carotids: bilateral: upstroke normal Thyroid: bilateral: normal size - Respiratory Respiratory: right: diminished, negative: dullness, rales, rhonchi, wheezing, prolonged expiration - Cardiovascular Rhythm: irregularly irregular Heart sounds: normal: S1, S2 - Gastrointestinal General gastrointestinal: decreased bowel sounds, distended, soft - Integumentary Integumentary: calor - Neurologic Neurologic: CNII-XII intact - Musculoskeletal Musculoskeletal: gait normal, generalized weakness, strength equal bilaterally - Psychiatric Psychiatric: A&O x's 3, appropriate affect, intact judgment & insight - Labs CBC & Chem 7: 04/19/19 10:06 04/18/19 09:27 Assessment and Plan Assessment: Oral thrush clinically improved Right-sided tension pneumothorax, with recurrence probably secondary due to plugged THORAVENT radiographically and clinically improved Bilateral wheezing probably COPD exacerbation Left lower lobe pneumonia versus atelectasis Leukocytosis Stage IV lung cancer on immunotherapy Left lower lobe resection Chronic persistent asthma COPD Hypertension hypertensive cardiovascular disease Plan: Small air leak still present continue section through the chest tube, agree with plans about VATS Bronchodilator Inhaled via nebulizer steroids Pain control Broad-spectrum antibiotics Trial of oral Diflucan and nystatin swish and swallow Hold steroids for now we'll treat COPD exacerbation with breathing treatments and inhaled corticosteroid patient appears to be responding
--- NOTE | 2019-04-21 06:15 | XR ---
EXAMINATION TYPE: XR chest 1V portable DATE OF EXAM: 04/21/2019 HISTORY: pneumothorax. REFERENCE: Previous study dated 04/20/2019. FINDINGS: Right pleural drain remains in place. I do not see evidence of residual pneumothorax. There continues to be subcutaneous emphysema on the right. There is a Mediport in place on the right. Ther e is retraction of the left hilum. Heart size is within normal limits. There has been no interval danielle nge in the appearance of the chest. IMPRESSION: NO SIGNIFICANT INTERVAL CHANGE IN THE APPEARANCE OF THE CHEST.
--- NOTE | 2019-04-21 07:25 | XR ---
EXAMINATION TYPE: XR chest 1V portable DATE OF EXAM: 04/21/2019 HISTORY: pneumo off chest tube suction. REFERENCE: Previous study of 04/21/2019. FINDINGS: Right pleural drain remains in place. There is been reaccumulation of the patient's pneumot horax which now approaches 70% by volume. A Mediport in place on the right, unchanged in appearance. Heart size is normal. There is retraction of the left hilum. IMPRESSION: REFORMATION OF THE PATIENT'S RIGHT-SIDED PNEUMOTHORAX WHICH IS NOW APPROXIMATELY 70% BY VOLUME.
[2019-04-21] MEDS: guaiFENesin-DM 100-10MG/5ML 10 ML CUP PO SCH ×3 (07:41→20:37)
[2019-04-21] MEDS: NYSTATIN 100,000 UNIT/ML SUSP 500,000 UNIT/5 ML CUP PO SCH ×4 (07:42→21:48)
[2019-04-21] MEDS: FAMOTIDINE 20 MG TAB PO SCH ×2 (07:42→20:36)
[2019-04-21] MEDS: LORATADINE 10 MG TAB PO SCH (07:42)
[2019-04-21] MEDS: FLUCONAZOLE 100 MG TAB PO SCH (07:42)
[2019-04-21] MEDS: CHOLECALCIFEROL 1,000 UNIT TAB PO SCH (07:42)
[2019-04-21] MEDS: HYDROmorphone 0.5 MG/0.5 ML SYRINGE IVP PRN (07:42)
[2019-04-21] MEDS: MULTIVITAMINS, THERA 1 EACH TAB PO SCH (07:42)
[2019-04-21] MEDS: METOPROLOL TARTRATE 25 MG TAB PO SCH ×2 (07:42→20:36)
[2019-04-21] MEDS: SODIUM CHLORIDE 0.9% 1,000 ML IV SCH ×2 (07:44→17:59)
[2019-04-21] MEDS: FORMOTEROL FUMARATE 20 MCG/2 ML NEBU INHALATION SCH ×2 (07:49→20:10)
[2019-04-21] MEDS: IPRATROPIUM-ALBUTEROL 3 ML NEB INHALATION SCH ×3 (07:49→20:10)
[2019-04-21] MEDS: BUDESONIDE 0.5 MG/2 ML NEBU INHALATION SCH ×2 (07:49→20:10)
[2019-04-21] MEDS: HYDROCORTISONE SUPPOSITORY 25 MG SUPP RECTAL SCH ×2 (07:51→20:44)
--- NOTE | 2019-04-21 08:48 | P.PN ---
Subjective Progress Note Date: 04/21/19 Principal diagnosis: Spontaneous right pneumothorax. History of metastatic lung adenocarcinoma, stage IV with chemo/radiation/immunosuppressive therapy, recent history of Pseudomonas pneumonia, previous tobacco dependence, severe COPD, asthma, chronic anemia, hypertension, gastroesophageal reflux disease, and family history of cancer. POD #12 placement of right-sided thoravent by the emergency room physicians Continuous air leak from chest tube site, expected The patient is currently sitting up in bed on the medical oncology unit. This morning his chest x-ray demonstrated no pneumothorax and his thoravent was placed to waterseal. Within half an hour the patient developed respiratory distress and oxygen desaturation. Chest x-ray was obtained demonstrating recurrence of right-sided pneumothorax approximately 70% by volume per radiology read. Thoravent was placed back to wall suction with continuous air leak. The patient is feeling better currently. Objective - Vital Signs Vital signs: Vital Signs Temp 98.0 F 04/21/19 05:00 Pulse 84 04/21/19 05:00 Resp 16 04/21/19 05:00 BP 120/66 04/21/19 05:00 Pulse Ox 96 04/21/19 05:00 Intake & Output 04/20/19 04/21/19 04/21/19 18:59 06:59 18:59 Intake Total 1320 1000 Output Total 800 Balance 520 1000 Intake: Intake, IV Titration 1000 Amount Sodium Chloride 0.9% 1, 1000 000 ml @ 100 mls/hr IV . Q10H [facility] Rx#:[id number] Oral 1320 Output: Urine 800 Other: Voiding Method Urinal Bedside Commode Urinal # Voids 1 - Constitutional General appearance: Present: cooperative, mild distress - Respiratory Details: Lungs sounds diminished bilaterally. Respirations even, nonlabored. Currently on 2 L nasal cannula with oxygen saturation 96%. Able to achieve 2000 mL on his incentive spirometry. Right anterior chest wall pleura vent present, connected to -20 cm wall suction, no output, continuous air leak present. - Cardiovascular Details: S1, S2 present. Regular rate and rhythm, sinus rhythm to sinus tach on telemetry. Palpable peripheral pulses bilaterally. No edema present. No calf pain or tenderness noted. - Gastrointestinal Gastrointestinal Comment(s): Abdomen soft, nontender, nondistended. Active bowel sounds present 4 quadrants. Tolerating diet. - Genitourinary Genitourinary Comment(s): Continues to void clear, yellow urine. - Integumentary Integumentary Comment(s): Skin is warm and dry with evidence of good perfusion. - Neurologic Neurologic: Present: CNII-XII intact - Musculoskeletal Musculoskeletal: Present: gait normal, strength equal bilaterally - Psychiatric Psychiatric: Present: A&O x's 3, appropriate affect, intact judgment & insight - Allied health notes Allied health notes reviewed: nursing - Labs CBC & Chem 7: 04/19/19 10:06 04/18/19 09:27 - Imaging and Cardiology Chest x-ray: report reviewed, image reviewed Assessment and Plan Assessment: 1. Spontaneous right pneumothorax, status post thoravent placement 2. Metastatic lung adenocarcinoma, stage IV with chemo/radiation/immunosuppressive therapy 3. Recent history of Pseudomonas pneumonia 4. Previous tobacco dependence 5. Severe COPD, asthma 6. Chronic anemia 7. Hypertension 8. GERD 9. Family history of cancer Plan: 1. Continue thoravent to -20 cm wall suction for now. Dr. Cueto will take patient to the OR tomorrow for talc pleurodesis, this was discussed in detail with the patient and his , all risks and benefits were explained, and the patient does consent to surgery. He will be nothing by mouth after midnight. 2. Continue to encourage use of his incentive spirometry 10 x every hour while awake. 3. Pulmonary management recommendations per Dr. Soto. 4. Medical management and other comorbidities per primary care service. 5. Pain management per current medication regimen. 6. Will continue to monitor daily x-rays. 7. More recommendations to follow based on patient's clinical course. Time with Patient: Greater than 30
--- NOTE | 2019-04-21 13:27 | PN ---
PROGRESS NOTE DATE OF SERVICE: 04/20/2019 This is a white male with recurrent right-sided spontaneous pneumothorax secondary to COPD, left lower lobe pneumonia and lung cancer, COPD. 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 A current chest x-ray does not show a pneumothorax. Lungs are breathing better. He is unable to take the suction off his thoracic tube. Possible VATS procedure this week. Cardiovascular S1-S2. Lungs transmitted upper airway sounds. Hematology negative Homans. Psych: Fair mood and affect. Chest wall has a thoracic tube in his right chest. Psych: Alert and oriented. Cranial nerves are intact. Integument: Normal. White count 5.3, hemoglobin is 10.3. ASSESSMENT: 1. Oral thrush improved. 2. Right-sided tension pneumothorax, recurrent pneumothorax due to blocked Thoravent x2 or 3 times. 3. He has left lower lobe pneumonia. 4. Chronic obstructive pulmonary disease exacerbation. 5. Stage IV lung cancer on immunotherapy, left lower lobe resection. PLAN: Continue with steroids, pain control, antibiotics. Possible VATS procedure as soon as possible so we can get him home. Continue with Diflucan and thrush medication. MMODL / IJN: [id number] /
--- NOTE | 2019-04-21 14:38 | P.PN ---
Subjective Progress Note Date: 04/21/19 Principal diagnosis: Right-sided spontaneous tension pneumothorax, severe COPD, left lower lobe pneumonia, leukocytosis, lung cancer, possible left lower lobe atelectasis, chronic persistent asthma, hypertension hypertensive cardiovascular disease, severe COPD 04/21/2019, patient seen eval reexamined during the rounds shortness of breath mild is present denies any chest pain on clamping chest tube pneumothorax recurs patient has a persistent air leak as per discussion with thoracic surgery plan is for VATS tomorrow 04/20/2019, patient seen and evaluated examined during the rounds swallowing function will improve the breathing is better but patient has continuous air leak present in the chest tube indicating possible presence of bronchopleural fistula current chest x-ray does not show pneumothorax, but lungs are inflated follow closely it appears that patient probably require VATS procedure down the road 04/19/2019, patient seen and evaluated examined during the rounds denies any chest pain or shortness of breath cough and swallowing function improved still connected to suction decrease to 10 cm a liter still present intermittently patient is being considered for VATS next week in case of air leak not resolved 04/18/2019, patient seen and evaluated examined during the rounds x-ray reviewed patient suction has been lowered down repeat x-ray from tomorrow is pending swallowing function is improved care plan discussed with thoracic surgery plan is to do VATS in case if continue to get recurrent pneumothorax 04/17/2019, patient seen and evaluated examined during the rounds swallowing function improved significantly decreased cough and congestion are present patient remains on suction chest x-ray from today reviewed, pneumothorax continued to improve slowly some residual pneumothorax still there 04/16/2019, patient seen eval reexamined during the rounds care plan discussed with patient at length problem with swallowing dysfunction is improved patient is on nystatin swish and swallow along with Diflucan slightly more congested today but with breathing treatments improve, patient had recurrent right-sided pneumothorax this morning Drs. Marx is managing her chest tube 04/15/2019, patient seen and evaluated examined during the rounds denies any chest pain or shortness of breath patient is back on suction as recurrence of the pneumothorax occurred, additional complaint has been noted as he is having problem with swallowing food yesterday was mild today is moderate seems like oral thrush has been developing or put him on Diflucan and nystatin swish and swallow 04/14/2019, patient seen and evaluated examined during the rounds, patient d eveloped recurrence of pneumothorax on water seal chest tube connected to suction again, denies any chest pain shortness of breath 04/13/2019, patient seen and evaluated examined she is doing very well with her incentive spirometry almost went have treated her breathing has improved lungs are more clear now less congestion is present, there is no air leak is present patient will be planned for chest x-[facility] tomorrow 04/12/2019, patient seen and evaluated examined doing better today denies any chest pain shortness of breath even from earlier this morning noted, this morning around 2 AM patient develop shortness of breath and some chest discomfort and repeat x-ray showed a significant right-sided pneumothorax the pleural vent has been adjusted, reexpansion on chest x-ray is noted on 3 x-ray have been reviewed labs reviewed as well currently patient is comfortable denies any chest pain no air leak is present we will observe closely 04/11/2019, patient seen eval reexamined during the rounds, doing well slightly short of breath denies any chest pain some cough and congestion is present no sputum production, noted slight air leak is present 04/10/2019, patient seen and evaluated examined during the rounds breathing more comfortably denies any chest pain cough and congestion improved feeling little bit better compared yesterday patient had a computed tomography scan performed which reviewed it very minimal pneumothorax is present with residual subcutaneous emphysema on the right side left-sided lung mass appeared to have shrunk, 58-year-old male who has a history of lung cancer with recurrence stage IV patient has a MediPort on the right side of the chest has been on immunotherapy patient also has severe COPD has been discovered history of health until about 2:30 this morning developed severe shortness of breath and chest pain up to 0.K mid to the hospital a chest x-ray showed total collapse of the lung with tension pneumothorax on the right side patient has a history of left lower lobe resection for lung cancer patient underwent Thoravent on the right side all 3 x- ray have been reviewed there is a small residual 20% to 30% pneumothorax on the right side, patient is being admitted thoracic surgery is on consult Objective - Vital Signs Vital signs: Vital Signs Temp 97.7 F 04/21/19 13:00 Pulse 86 04/21/19 13:00 Resp 16 04/21/19 13:00 BP 139/78 04/21/19 13:00 Pulse Ox 96 04/21/19 13:00 Intake & Output 04/20/19 04/21/19 04/21/19 18:59 06:59 18:59 Intake Total 1320 1000 Output Total 800 Balance 520 1000 Intake: Intake, IV Titration 1000 Amount Sodium Chloride 0.9% 1, 1000 000 ml @ 100 mls/hr IV . Q10H [facility] Rx#:[id number] Oral 1320 Output: Urine 800 Other: Voiding Method Urinal Bedside Commode Bedside Commode Urinal Urinal # Voids 1 - Exam - Constitutional General appearance: average body habitus, disheveled, mild distress, morbidly obese - EENT Eyes: EOMI, PERRLA, poor dentition, normal appearance Ears: bilateral: normal Throat/pharynx, thrush is present with some extension into the time - Neck Neck: lymphadenopathy Carotids: bilateral: upstroke normal Thyroid: bilateral: normal size - Respiratory Respiratory: right: diminished, negative: dullness, rales, rhonchi, wheezing, prolonged expiration - Cardiovascular Rhythm: irregularly irregular Heart sounds: normal: S1, S2 - Gastrointestinal General gastrointestinal: decreased bowel sounds, distended, soft - Integumentary Integumentary: calor - Neurologic Neurologic: CNII-XII intact - Musculoskeletal Musculoskeletal: gait normal, generalized weakness, strength equal bilaterally - Psychiatric Psychiatric: A&O x's 3, appropriate affect, intact judgment & insight - Labs CBC & Chem 7: 04/19/19 10:06 04/18/19 09:27 Assessment and Plan Assessment: Oral thrush clinically improved Right-sided tension pneumothorax, with recurrence probably secondary due to plugged THORAVENT radiographically and clinically improved however persistent air leak is present suggestive of ongoing bronchopleural fistula Bilateral wheezing probably COPD exacerbation Left lower lobe pneumonia versus atelectasis Leukocytosis Stage IV lung cancer on immunotherapy Left lower lobe resection Chronic persistent asthma COPD Hypertension hypertensive cardiovascular disease Plan: Small air leak still present continue section through the chest tube, agree with plans about VATS tomorrow Bronchodilator Inhaled via nebulizer steroids Pain control Broad-spectrum antibiotics Trial of oral Diflucan and nystatin swish and swallow Hold steroids for now we'll treat COPD exacerbation with breathing treatments and inhaled corticosteroid patient appears to be responding Time with Patient: Greater than 30
--- NOTE | 2019-04-21 23:24 | PN ---
PROGRESS NOTE SUBJECTIVE: This is a white male who had his thoracic vent for pneumothorax air pressure stopped today, he had a pneumothorax reinflated after pressures popped back on. The patient is continuing to have a VATS procedure in the morning as he has had 4 pneumothoraces with the thoracotomy tube intact. Cardiovascular S1, S2. GI soft. Hematology negative Homans. LUNGS: Show decreased breath sounds on the right side. ASSESSMENT: 1. Recurrent pneumothorax. 2. Lung cancer. 3. Pleural effusion. Continue with thoracotomy vent. VATS procedure in the morning. MMODL / IJN: [id number] /
[2019-04-22] MEDS: SODIUM CHLORIDE 0.9% 1,000 ML IV SCH ×2 (00:13→15:03)
[2019-04-22] MEDS: guaiFENesin-DM 100-10MG/5ML 10 ML CUP PO SCH ×5 (01:28→23:59)
[2019-04-22] MEDS ORDERED: STERILE TALC 3 GM POWDER W/BLOWER KIT INTRAPLEUR ONE (06:00)
[2019-04-22] MEDS ORDERED: ceFAZolin IN SWFI 2 GM/20 ML SYRINGE IVP ONE (07:04)
[2019-04-22] MEDS ORDERED: LACTATED RINGERS 1,000 ML IV ONE ×2 (07:12→12:22)
[2019-04-22] MEDS ORDERED: ONDANSETRON 4 MG/2 ML VIAL IVP ONE (07:27)
[2019-04-22] MEDS ORDERED: DEXAMETHASONE SOD PHOS (MDV) 100 MG/10 ML VIAL IVP ONE (07:27)
[2019-04-22] MEDS ORDERED: FAMOTIDINE 20 MG/2 ML VIAL IVP ONE (07:28)
[2019-04-22] MEDS ORDERED: PROPOFOL 10 MG/ML 20 ML VIAL IV ONE (07:58)
[2019-04-22] MEDS ORDERED: MIDAZOLAM 2 MG/2 ML VIAL ONE (07:58)
[2019-04-22] MEDS ORDERED: ROCURONIUM BROMIDE 10 MG/ML 10 ML VIAL IV ONE (07:58)
[2019-04-22] MEDS ORDERED: fentaNYL (PF) 50 MCG/ML 2 ML AMP ONE (07:58)
[2019-04-22] MEDS ORDERED: NEOSTIGMINE 1 MG/ML 10 ML VIAL ONE (07:58)
[2019-04-22] MEDS ORDERED: GLYCOPYRROLATE 0.2 MG/ML 2 ML VIAL ONE (07:58)
[2019-04-22] MEDS ORDERED: HYDROmorphone (PF) 1 MG/ML ONE (07:58)
[2019-04-22] MEDS: FORMOTEROL FUMARATE 20 MCG/2 ML NEBU INHALATION SCH ×2 (08:16→20:40)
[2019-04-22] MEDS: IPRATROPIUM-ALBUTEROL 3 ML NEB INHALATION SCH ×3 (08:16→20:40)
[2019-04-22] MEDS: BUDESONIDE 0.5 MG/2 ML NEBU INHALATION SCH ×2 (08:16→20:40)
[2019-04-22] MEDS ORDERED: BUPIVACAINE (PF) 0.5% 30 ML VIAL SQ ONE (08:41)
[2019-04-22] MEDS: HYDROmorphone 1 MG/ML 1 ML SYRINGE IVP ONE ×7 (09:02→12:05)
--- NOTE | 2019-04-22 09:25 | P.OP ---
Date of Procedure: 04/22/19 Preoperative Diagnosis: Lung Cancer, Spontaneous pneumothorax, Right bronchopleural fistula Postoperative Diagnosis: Same Procedure(s) Performed: Right thoracoscopy, staple blebs, Talc pleurodesis Anesthesia: CIRILO Spare Hand #1: Miguel Angel Cueto Estimated Blood Loss (ml): 5 IV fluids (ml): 200 Pathology: other (Right upper lobe bleb for permanent section) Condition: stable Disposition: PACU Indications for Procedure: 58-year-old male with stage IV lung cancer presented with right spontaneous pneumothorax. Thora vent was placed with good lung expansion. Patient had persistent air leak and did not tolerate removal of the Thora vent to suction without developing significant recurrent pneumothorax. Eventually the need for surgery was considered and the patient was scheduled. Operative Findings: There were apical adhesions. There was a large bleb complex on the lateral aspect of the right upper lobe. Description of Procedure: The patient was brought to the operating room, placed supine on the operating table, anesthetized and intubated. Incision was made in the midaxillary line in the sixth interspace and the video thoracoscope was introduced. There was a large bleb complex evident on the lateral wall of the upper lobe with relatively normal appearing underlying lung parenchyma. A second incision was made anteriorly in the seventh interspace. Through this incision the stapler was fired across the base of the blebs and the blebs were resected. 2 firings of a Endo KENDALL 45 mm medium thick stapler were used. The blebs were removed and sent for permanent section. 3 g of sterile talc was now insufflated into the chest cavity. A 28-Ch[place]an chest tube was placed through the anterior incision and positioned posterio-apically. The lung was reinflated. The chest tube was secured with 0 Ethibond suture. The incisions were closed with layers of Vicryl suture. Rib blocks were performed at the level of the incisions with half percent Marcaine. Skin glue and dressings were applied and the patient was turned supine. For vent was removed and a Tegaderm placed at the site. Patient was extubated and transferred to recovery in stable condition.
--- NOTE | 2019-04-22 09:54 | XR ---
EXAMINATION TYPE: XR chest 1V portable DATE OF EXAM: 04/22/2019 COMPARISON: Prior chest x-ray 04/21/2019 HISTORY: Status post VATS, chest tube TECHNIQUE: Single frontal view of the chest is obtained. FINDINGS: There is been interval removal of the thoracic vent and placement of a right-sided chest t ube. The pneumothorax has improved, minimal residual pneumothorax noted. There is a right-sided Port- A-Cath in place as on prior. There are overlying cardiac leads. Apical density extending towards the left hilar region is stable on the left. No evident effusion. Heart size is stable. Patient is rotate d. Subcutaneous emphysema is again noted. IMPRESSION: Interval chest tube placement as described.
[2019-04-22] MEDS ORDERED: HYDROmorphone 1 MG/ML 1 ML SYRINGE IVP ONE ×2 (12:40→12:52)
--- NOTE | 2019-04-22 13:20 | P.PN ---
Subjective Progress Note Date: 04/22/19 This is a 58-year-old gentleman with history of left-sided lung mass, recurrent metastatic stage IV lung CA, adenocarcinoma history of laparoscopic wedge resection, recently hospitalized Pseudomonas pneumonia presented to the area with worsening shortness of breath awakening him from sleep at 2 AM. Reports right chest pain with sudden onset accompanied by a severe shortness of breath upon awakening. Denies recent trauma. Denies chest pain, palpitations. Denies fever or chills. Reports occasional productive cough. EKG reporting sinus tachycardia, heart rates in the 120s. Troponin 0.041. Chest x-ray reporting a large right-sided tension pneumothorax, increased hemothorax volume on the right, shift of the mediastinum, left suprahilar mass density again seen. Thoravent tube placed-to low intermittent suction, chest x-ray post procedure reporting interval improvement in right-sided pneumothorax. Cardiothoracic surgery and pulmonary consulted. 04/10/2019 maintaining O2 sats in the mid 90s on 2 L nasal cannula. IS up to 1500.Complains of wheezing, denies shortness of breath. Denies pain. Chest x- ray reporting increasing subcutaneous emphysema, persistent possibly increased bibasilar right pneumothorax. Thoravent this morning presented with no drainage, no air leak. Manipulated by cardiothoracic surgery, reconnected to low intermittent suction, air leak returned. Chest CT ordered post manipulation/reinsertion, pending. Afebrile, preliminary blood cultures negative at 24 hours. 04/11/[address] reported moderate to advanced emphysema with small right-sided pneumothorax approximately 5% with pleural catheter in place, previous surgery medial left upper lobe with associated consolidation and volume loss with pleural density slight decreased bulk from prior, moderate to severe circumferential thickening of the mid to distal thoracic esophagus-esophagitis versus radiation change versus neoplasm. chest x-ray reporting resolution of right-sided pneumothorax. Breathing improving, maintaining 100% O2 sat on 2 L nasal cannula. IS up to 2200. Afebrile, preliminary blood cultures negative at 48 hours. Telemetry sinus rhythm to sinus tach with mild tachycardia, heart rates in the low 100s. 04/12/2018 last night, developed significant respiratory distress, A team called. Chest x-ray reporting reoccurrence of right-sided pneumothorax. Thoravent manipulated with repeat x-ray reporting reexpansion of right lung. Respiratory distress/hypoxia subsided. Currently on 4 L nasal cannula maintaining O2 sats of high 90s. Tachycardic, heart rate decreased down to 88 after beta janny administered. Evaluated by surgery regarding esophagus thickening, potential EGD after pulmonary status stabilizes. 04/15/2019 complains of exertional shortness of breath, maintaining O2 sats of mid 90s on room air. Incentive spirometer up to 2000. Chest x-ray reporting recurrent increased basilar right pneumothorax with subcutaneous emphysema. Patient's chest tube was to waterseal, now converted/placed back to low intermittent suction. 04/16/2019 chest x-ray earlier this morning reported improvement/resolution of right-sided pneumothorax. Patient was disconnected from low intermittent suction to facilitate bathroom visit. Patient became short of breath, hypoxic-desatted to 82%, tachycardic heart rate in the 130s. Follow up Chest x-ray performed reporting recurrent right-sided pneumothorax, suggestive of tension pneumothorax. Patient was reconnected to low intermittent suction, symptoms began resolving. 04/17/2019 Thoravent remains to low intermittent suction with air leak. Reports slept well last night with no further shortness of breath. IS up to 2000. Occasional productive cough with clear to pale yellow sputum. Afebrile, normal WBC. Maintaining O2 sats in the high 90s on 2 L nasal cannula No tachycardia. Chest x-ray reporting resolution of bibasilar pneumothorax with minimal apical Pneumothorax suspected. 04/18/2019 reports rough night sleeping, related to coughing and unable to receive his cough medicine prior to bedtime. Denies shortness of breath this morning. X-ray reporting no sizable pneumothorax.Thoravent remains to LIS with positive air leak. IS up to 2000. Maintaining O2 sats in the high 90s on room air. Afebrile. Scant subcu emphysema. Telemetry sinus rhythm. Denies chest pain, palpitations. Denies nausea, vomiting. Stools loose. Denies abdominal pain. 04/19/2019 maintaining sats in the 90s on room air.IS between 2200 & 2500. Afebrile. Labs pending.Thoravent to LIS, decreased to -10 yesterday, tolerating well. Chest x-ray reporting Thoravent in place, subcutaneous emphysema, no sizable pneumothorax, slight increased patchy density right mid lung possible atelectasis versus early infiltrate, moderate to advanced emphysema. 04/22/2019 significant recurrent pneumothorax with removal of Thoravent to low intermittent suction, status post right thoracoscopy, stapled blebs, 28-Angolan chest tube placed with talc pleurodesis this morning, tolerated procedure well.Currently in Phase 1 recovery, pain controlled, recently medicated. Objective - Vital Signs Vital signs: Vital Signs Temp 97.8 F 04/22/19 09:00 Pulse 97 04/22/19 09:00 Resp 18 04/22/19 09:00 BP 158/72 04/22/19 09:00 Pulse Ox 95 04/22/19 09:00 Intake & Output 04/21/19 04/22/19 04/22/19 18:59 06:59 18:59 Intake Total 1600 1300 150 Output Total 4000 700 5 Balance -2400 600 145 Intake: IV 150 Intake, IV Titration 1300 Amount Sodium Chloride 0.9% 1, 1300 000 ml @ 100 mls/hr IV . Q10H LONG Rx#:[id number] Oral 1600 Output: Urine 4000 700 Estimated Blood Loss 5 Other: Voiding Method Bedside Commode Urinal Urinal # Voids 1 - Exam VITAL SIGNS: As above GENERAL: Sitting up in stretcher, no acute distress HEENT: Conjunctivae normal. eyes normal. Trachea midline. Oral mucosa moist NECK: No JVD. No thyroid enlargement. Right chest thoravent present. Scant subcu emphysema right chest. CARDIOVASCULAR: S1, S2 regular. No murmur. RESPIRATION: Essentially clear with bilateral bases diminished. Occasional scattered rhonchi, occasional scattered fine basilar crackles. Right pleural CT present with sanguinous drainage. ABDOMEN: Soft, nondistended, nontender . No guarding. no masses palpabl e.positive bowel sounds. LEGS: No edema. no swelling. PSYCHIATRY: Alert and oriented X3, mood and affect normal. NERVOUS SYSTEM: Cranial N 2-12 grossly normal. Moves all 4 limbs. Diffuse weakness No focal deficits. Skin: no lesions, no rash. - Labs CBC & Chem 7: 04/19/19 10:06 04/18/19 09:27 Assessment and Plan Assessment: -Spontaneous right tension pneumothorax, status post thoravent placement -Significant recurrent tension pneumothorax with removal of Thoravent to low intermittent suction, status post right thoracoscopy, stapled blebs, 28-Angolan chest tube placed with talc pleurodesis. -Underlying acute COPD exacerbation in a patient with moderate to advanced emphysema-CT -Possible Left lower lobe pneumonia, possible atelectasis in a patient with history op-Tapa-zlssd lung mass,Recurrent metastatic lung CA, adenocarcinoma,Stage IV. -Esophagitis versus radiation change versus neoplasm; moderate to severe circumferential thickening of the mid to distal thoracic esophagus per CT. Endoscopy once pulmonary status improves. -history of laparoscopic wedge resection. -Recent Pseudomonas pneumonia -Chronic persistent asthma -Hypertension Plan: Continue on current medication regime ,Doxycycline,monitoring and symptomatic treatment. Blebs sent for pathology. Pain management as per cardioth oracic surgery.Aggressive pulmonary toileting. Antibiotics as per pulmonary.Maintain nebulized bronchodilators. Currently in PACU, awaiting a bed on Telemetry. Prognosis guarded given multiple complex medical issues. . The impression and plan of care has been dictated as directed. : I performed a history and examination of this patient, discussed the same with the dictator. I agree with the dictator's note ,documented as a scribe. Any additional findings or plans will be noted. Time taken: 35 minutes
[2019-04-22] MEDS: HYDROmorphone 1 MG/ML 1 ML SYRINGE IVP PRN ×2 (15:05→20:10)
[2019-04-22] MEDS: MULTIVITAMINS, THERA 1 EACH TAB PO SCH (15:51)
[2019-04-22] MEDS: CHOLECALCIFEROL 1,000 UNIT TAB PO SCH (15:51)
[2019-04-22] MEDS: NYSTATIN 100,000 UNIT/ML SUSP 500,000 UNIT/5 ML CUP PO SCH ×4 (15:51→23:58)
[2019-04-22] MEDS: HYDROCORTISONE SUPPOSITORY 25 MG SUPP RECTAL SCH ×2 (15:53→23:59)
[2019-04-22] MEDS: METOPROLOL TARTRATE 25 MG TAB PO SCH ×2 (16:04→21:51)
[2019-04-22] MEDS: FLUCONAZOLE 100 MG TAB PO SCH (16:04)
[2019-04-22] MEDS: KETOROLAC 30 MG/ML 1 ML VIAL IVP SCH ×2 (16:04→17:49)
[2019-04-22] MEDS: FAMOTIDINE 20 MG TAB PO SCH ×2 (16:04→21:52)
[2019-04-22] MEDS: LORATADINE 10 MG TAB PO SCH (16:04)
--- NOTE | 2019-04-22 17:39 | P.PN ---
Subjective Progress Note Date: 04/22/19 Principal diagnosis: Right-sided spontaneous tension pneumothorax, severe COPD, left lower lobe pneumonia, leukocytosis, lung cancer, possible left lower lobe atelectasis, chronic persistent asthma, hypertension hypertensive cardiovascular disease, severe COPD 04/22/2019, patient seen and evaluated examined during the rounds patient underwent VATS procedure by thoracic surgery patient underwent right thoracoscopy with antonio blab and talc pleurodesis patient has a chest tube on the right side intermittent leak is present he is comfortable and does not have any pain 04/21/2019, patient seen eval reexamined during the rounds shortness of breath mild is present denies any chest pain on clamping chest tube pneumothorax recurs patient has a persistent air leak as per discussion with thoracic surgery plan is for VATS tomorrow 04/20/2019, patient seen and evaluated examined during the rounds swallowing function will improve the breathing is better but patient has continuous air leak present in the chest tube indicating possible presence of bronchopleural fistula current chest x-ray does not show pneumothorax, but lungs are inflated follow closely it appears that patient probably require VATS procedure down the road 04/19/2019, patient seen and evaluated examined during the rounds denies any chest pain or shortness of breath cough and swallowing function improved still connected to suction decrease to 10 cm a liter still present intermittently patient is being considered for VATS next week in case of air leak not resolved 04/18/2019, patient seen and evaluated examined during the rounds x-ray reviewed patient suction has been lowered down repeat x-ray from tomorrow is pending swallowing function is improved care plan discussed with thoracic surgery plan is to do VATS in case if continue to get recurrent pneumothorax 04/17/2019, patient seen and evaluated examined during the rounds swallowing function improved significantly decreased cough and congestion are present patient remains on suction chest x-ray from today reviewed, pneumothorax continued to improve slowly some residual pneumothorax still there 04/16/2019, patient seen eval reexamined during the rounds care plan discussed with patient at length problem with swallowing dysfunction is improved patient is on nystatin swish and swallow along with Diflucan slightly more congested today but with breathing treatments improve, patient had recurrent right-sided pneumothorax this morning Drs. Marx is managing her chest tube 04/15/2019, patient seen and evaluated examined during the rounds denies any chest pain or shortness of breath patient is back on suction as recurrence of the pneumothorax occurred, additional complaint has been noted as he is having problem with swallowing food yesterday was mild today is moderate seems like oral thrush has been developing or put him on Diflucan and nystatin swish and swallow 04/14/2019, patient seen and evaluated examined during the rounds, patient developed recurrence of pneumothorax on water seal chest tube connected to suction again, denies any chest pain shortness of breath 04/13/2019, patient seen and evaluated examined she is doing very well with her incentive spirometry almost went have treated her breathing has improved lungs are more clear now less congestion is present, there is no air leak is present patient will be planned for chest x-[facility] on the [facility] tomorrow 04/12/2019, patient seen and evaluated examined doing better today denies any chest pain shortness of breath even from earlier this morning noted, this mo rning around 2 AM patient develop shortness of breath and some chest discomfort and repeat x-ray showed a significant right-sided pneumothorax the pleural vent has been adjusted, reexpansion on chest x-ray is noted on 3 x-ray have been reviewed labs reviewed as well currently patient is comfortable denies any chest pain no air leak is present we will observe closely 04/11/2019, patient seen eval reexamined during the rounds, doing well slightly short of breath denies any chest pain some cough and congestion is present no sputum production, noted slight air leak is present 04/10/2019, patient seen and evaluated examined during the rounds breathing more comfortably denies any chest pain cough and congestion improved feeling little bit better compared yesterday patient had a computed tomography scan performed which reviewed it very minimal pneumothorax is present with residual subcutaneou s emphysema on the right side left-sided lung mass appeared to have shrunk, 58-year-old male who has a history of lung cancer with recurrence stage IV patient has a MediPort on the right side of the chest has been on immunotherapy patient also has severe COPD has been discovered history of health until about 2:30 this morning developed severe shortness of breath and chest pain up to 0.K mid to the hospital a chest x-ray showed total collapse of the lung with tension pneumothorax on the right side patient has a history of left lower lobe resection for lung cancer patient underwent Thoravent on the right side all 3 x- ray have been reviewed there is a small residual 20% to 30% pneumothorax on the right side, patient is being admitted thoracic surgery is on consult Objective - Vital Signs Vital signs: Vital Signs Temp 98 F 04/22/19 14:30 Pulse 117 H 04/22/19 15:49 Resp 20 04/22/19 15:49 BP 137/89 04/22/19 15:49 Pulse Ox 94 L 04/22/19 15:49 Intake & Output 04/21/19 04/22/19 04/22/19 18:59 06:59 18:59 Intake Total 1600 1300 450 Output Total 4000 700 625 Balance -2400 600 -175 Intake: IV 450 Intake, IV Titration 1300 Amount Sodium Chloride 0.9% 1, 1300 000 ml @ 100 mls/hr IV . Q10H LONG Rx#:[id number] Oral 1600 Output: Drainage 95 Right Chest 95 Urine 4000 700 525 Estimated Blood Loss 5 Other: Voiding Method Bedside Commode Urinal Urinal Urinal # Voids 1 - Exam - Constitutional General appearance: average body habitus, disheveled, mild distress, morbidly obese - EENT Eyes: EOMI, PERRLA, poor dentition, normal appearance Ears: bilateral: normal Throat/pharynx, thrush is present with some extension into the time - Neck Neck: lymphadenopathy Carotids: bilateral: upstroke normal Thyroid: bilateral: normal size - Respiratory Respiratory: right: diminished, negative: dullness, rales, rhonchi, wheezing, prolonged expiration - Cardiovascular Rhythm: irregularly irregular Heart sounds: normal: S1, S2 - Gastrointestinal General gastrointestinal: decreased bowel sounds, distended, soft - Integumentary Integumentary: calor - Neurologic Neurologic: CNII-XII intact - Musculoskeletal Musculoskeletal: gait normal, generalized weakness, strength equal bilaterally - Psychiatric Psychiatric: A&O x's 3, appropriate affect, intact judgment & insight - Labs CBC & Chem 7: 04/19/19 10:06 04/18/19 09:27 Assessment and Plan Assessment: Status post right thoracoscopy with stapling of blebs on the right side and talc pleurodesis Right-sided tension pneumothorax, with recurrence probably secondary due to plugged THORAVENT radiographically and clinically improved however persistent air leak is present suggestive of ongoing bronchopleural fistula Bilateral wheezing probably COPD exacerbation Left lower lobe pneumonia versus atelectasis Leukocytosis Stage IV lung cancer on immunotherapy Left lower lobe resection Chronic persistent asthma COPD Hypertension hypertensive cardiovascular disease Oral thrush clinically improved Plan: Small air leak still present continue section through the chest tube, status post VATS Bronchodilator Inhaled via nebulizer steroids Pain control Broad-spectrum antibiotics Trial of oral Diflucan and nystatin swish and swallow Hold steroids for now we'll treat COPD exacerbation with breathing treatments and inhaled corticosteroid patient appears to be responding Time with Patient: Greater than 30
[2019-04-22] MEDS: DOXYCYCLINE 100 MG CAP PO SCH ×2 (17:46→23:59)
[2019-04-22] MEDS: ACETAMINOPHEN TAB 325 MG TAB PO PRN (20:04)
[2019-04-23] MEDS: KETOROLAC 30 MG/ML 1 ML VIAL IVP SCH ×4 (00:04→17:34)
[2019-04-23] MEDS: SODIUM CHLORIDE 0.9% 1,000 ML IV SCH ×2 (00:15→10:14)
[2019-04-23] MEDS: ACETAMINOPHEN TAB 325 MG TAB PO PRN ×3 (04:32→19:47)
[2019-04-23] MEDS: HYDROmorphone 1 MG/ML 1 ML SYRINGE IVP PRN ×3 (04:33→19:49)
--- NOTE | 2019-04-23 08:11 | XR ---
EXAMINATION TYPE: XR chest 1V portable DATE OF EXAM: 04/23/2019 COMPARISON: Prior chest x-ray 04/22/2019 HISTORY: Status post VATS, chest tube TECHNIQUE: Single frontal view of the chest is obtained. FINDINGS: Right-sided chest tube is in place. Port-A-Cath is stable. Left lung shows stable abnormal findings with abnormal density in the suprahilar location. There is subcutaneous emphysema. No sizab le pneumothorax is evident. Minimal residual apical pneumothorax is suspected. Patient is rotated. He art size is stable. IMPRESSION: Findings are similar to prior exam. Chest tube with minimal right-sided pneumothorax.
[2019-04-23] MEDS: BUDESONIDE 0.5 MG/2 ML NEBU INHALATION SCH ×2 (08:16→20:14)
[2019-04-23] MEDS: IPRATROPIUM-ALBUTEROL 3 ML NEB INHALATION SCH ×3 (08:16→20:14)
[2019-04-23] MEDS: FORMOTEROL FUMARATE 20 MCG/2 ML NEBU INHALATION SCH ×2 (08:16→20:27)
[2019-04-23 08:19] LABS: Anisocytosis Slight; Basophils % (A) 0 %; Eosinophils # (A) 0.1 k/uL (0-0.7); Eosinophils % (A) 1 %; HCT 33.6 % (39.0-53.0); HGB 10.7 gm/dL (13.0-17.5); Lymphocytes % (A) 11 %; MCHC 31.8 g/dL (31.0-37.0); MCV 100.7 fL (80.0-100.0); Macrocytosis Moderate; Mean Platelet Volume 8.1; Monocytes # (A) 0.5 k/uL (0-1.0); Monocytes % (A) 5 %; Neutrophils # (A) 7.2 k/uL (1.3-7.7); Neutrophils % (A) 80 %; Platelet Count 164 k/uL (150-450); RBC 3.34 m/uL (4.30-5.90); WBC 9.1 k/uL (3.8-10.6)
[2019-04-23 08:28] LABS: African American GFR (CKD) >90 (>60 ml/min/1.73 sqM); Anion Gap 8 mmol/L; Blood Urea Nitrogen 15 mg/dL (9-20); Calcium 8.5 mg/dL (8.4-10.2); Carbon Dioxide 27 mmol/L (22-30); Chloride 101 mmol/L (98-107); Glucose 110 mg/dL (74-99); Potassium 4.3 mmol/L (3.5-5.1); Sodium 136 mmol/L (137-145)
[2019-04-23] MEDS: METOPROLOL TARTRATE 25 MG TAB PO SCH ×2 (09:12→21:15)
[2019-04-23] MEDS: FLUCONAZOLE 100 MG TAB PO SCH (09:12)
[2019-04-23] MEDS: CHOLECALCIFEROL 1,000 UNIT TAB PO SCH (09:12)
[2019-04-23] MEDS: MULTIVITAMINS, THERA 1 EACH TAB PO SCH (09:12)
[2019-04-23] MEDS: FAMOTIDINE 20 MG TAB PO SCH ×2 (09:13→21:15)
[2019-04-23] MEDS: LORATADINE 10 MG TAB PO SCH (09:13)
[2019-04-23] MEDS: NYSTATIN 100,000 UNIT/ML SUSP 500,000 UNIT/5 ML CUP PO SCH ×4 (09:14→21:13)
[2019-04-23] MEDS: DOXYCYCLINE 100 MG CAP PO SCH ×2 (09:14→21:14)
[2019-04-23] MEDS: HYDROCORTISONE SUPPOSITORY 25 MG SUPP RECTAL SCH ×2 (09:14→21:14)
[2019-04-23 11:50] VITALS: BMI 31.9
--- NOTE | 2019-04-23 12:15 | P.PN ---
Subjective Progress Note Date: 04/23/19 Principal diagnosis: Spontaneous right pneumothorax, bronchopleural fistula. History of metastatic lung adenocarcinoma, stage IV with chemo/radiation/immunosuppressive therapy, re cent history of Pseudomonas pneumonia, previous tobacco dependence, severe COPD, asthma, chronic anemia, hypertension, gastroesophageal reflux disease, and family history of cancer. POD #14 placement of right-sided thoravent by the emergency room physicians Continuous air leak from chest tube site, expected POD #1 right thoracoscopy, staple blebs, talc pleurodesis The patient is currently sitting up in bed on the cardiac stepdown unit. He does complain of incisional type pain which is tolerable on current medication regimen, denies shortness of breath. Right pleural chest tube remains to continuous wall suction with air leak present. Actively using incentive spirometry. No new concerns. Objective - Vital Signs Vital signs: Vital Signs Temp 97.9 F 04/23/19 08:00 Pulse 112 H 04/23/19 08:30 Resp 20 04/23/19 08:00 BP 118/66 04/23/19 08:00 Pulse Ox 96 04/23/19 08:00 Intake & Output 04/22/19 04/23/19 04/23/19 18:59 06:59 18:59 Intake Total 600 1240 Output Total 810 675 250 Balance -210 -675 990 Weight 101.1 kg 101.1 kg Intake: IV 450 1000 Sodium Chloride 0.9% 1, 1000 000 ml @ 100 mls/hr IV . Q10H LONG Rx#:[id number] Oral 150 240 Output: Chest Tube Drainage 35 Chest Tube Right Lateral 35 Chest Drainage 95 Right Chest 95 Urine 675 675 250 Estimated Blood Loss 5 Other: Voiding Method Urinal Urinal # Voids 1 - Constitutional General appearance: Present: cooperative, no acute distress, obese - Respiratory Details: Lungs sounds diminished bilaterally. Respirations even, nonlabored. Currently on 2 L nasal cannula with oxygen saturation 98%. Able to achieve 2250 mL on his incentive spirometry. Right pleural chest tube present, connected to -20 cm wall suction, 180 mL serosanguineous output since surgery, continuous air leak present. Right-sided thoravent was discontinued yesterday in surgery. - Cardiovascular Details: S1, S2 present. Regular rate and rhythm, sinus rhythm tach on telemetry. Palpable peripheral pulses bilaterally. No edema present. No calf pain or tenderness noted. - Gastrointestinal Gastrointestinal Comment(s): Abdomen soft, nontender, nondistended. Active bowel sounds present 4 quadrants. Tolerating diet. - Genitourinary Genitourinary Comment(s): Continues to void clear, yellow urine. - Integumentary Integumentary Comment(s): Skin is warm and dry with evidence of good perfusion. - Neurologic Neurologic: Present: CNII-XII intact - Musculoskeletal Musculoskeletal: Present: gait normal, strength equal bilaterally - Psychiatric Psychiatric: Present: A&O x's 3, appropriate affect, intact judgment & insight - Allied health notes Allied health notes reviewed: nursing - Labs CBC & Chem 7: 04/23/19 07:01 04/23/19 07:01 Labs: Abnormal Lab Results - Last 24 Hours (Table) 04/23/19 04/23/19 Range/Units 07:01 07:01 RBC 3.34 L (4.30-5.90) m/uL Hgb 10.7 L (13.0-17.5) gm/dL Hct 33.6 L (39.0-53.0) % MCV 100.7 H (80.0-100.0) fL RDW 19.0 H (11.5-15.5) % Sodium 136 L (137-145) mmol/L Glucose 110 H (74-99) mg/dL - Imaging and Cardiology Chest x-ray: report reviewed, image reviewed Assessment and Plan Assessment: 1. Spontaneous right pneumothorax, status post thoravent placement, status post thoracoscopy with stapling of blebs and talc pleurodesis 2. Metastatic lung adenocarcinoma, stage IV with chemo/radiation/ immunosuppressive therapy 3. Recent history of Pseudomonas pneumonia 4. Previous tobacco dependence 5. Severe COPD, asthma 6. Chronic anemia 7. Hypertension 8. GERD 9. Family history of cancer Plan: 1. Continue right-sided pleural chest tube to -20 cm wall suction. Watch for resolution of air leak. 2. Continue to encourage use of his incentive spirometry 10 x every hour while awake. 3. Pulmonary management recommendations per Dr. Soto. 4. Medical management and other comorbidities per primary care service. 5. Pain management per current medication regimen. 6. Will continue to monitor daily x-rays. 7. Patient may go back to oncology floor without telemetry. 8. More recommendations to follow based on patient's clinical course. Time with Patient: Greater than 30
--- NOTE | 2019-04-23 14:07 | P.PN ---
Subjective Progress Note Date: 04/23/19 Principal diagnosis: Right-sided spontaneous tension pneumothorax, severe COPD, left lower lobe pneumonia, leukocytosis, lung cancer, possible left lower lobe atelectasis, chronic persistent asthma, hypertension hypertensive cardiovascular disease, severe COPD 04/23/2019, patient seen eval examined during the rounds denies any chest pain denies any shortness of breath still have significant air leak is present her swallowing dysfunction and improved back to baseline 04/22/2019, patient seen and evaluated examined during the rounds patient underwent VATS procedure by thoracic surgery patient underwent right thoracoscopy with antonio blab and talc pleurodesis patient has a chest tube on the right side intermittent leak is present he is comfortable and does not have any pain 04/21/2019, patient seen eval reexamined during the rounds shortness of breath mild is present denies any chest pain on clamping chest tube pneumothorax recurs patient has a persistent air leak as per discussion with thoracic surgery plan is for VATS tomorrow 04/20/2019, patient seen and evaluated examined during the rounds swallowing function will improve the breathing is better but patient has continuous air leak present in the chest tube indicating possible presence of bronchopleural fi stula current chest x-ray does not show pneumothorax, but lungs are inflated follow closely it appears that patient probably require VATS procedure down the road 04/19/2019, patient seen and evaluated examined during the rounds denies any chest pain or shortness of breath cough and swallowing function improved still connected to suction decrease to 10 cm a liter still present intermittently patient is being considered for VATS next week in case of air leak not resolved 04/18/2019, patient seen and evaluated examined during the rounds x-ray reviewed patient suction has been lowered down repeat x-ray from tomorrow is pending swallowing function is improved care plan discussed with thoracic surgery plan is to do VATS in case if continue to get recurrent pneumothorax 04/17/2019, patient seen and evaluated examined during the rounds swallowing function improved significantly decreased cough and congestion are present patient remains on suction chest x-ray from today reviewed, pneumothorax continued to improve slowly some residual pneumothorax still there 04/16/2019, patient seen eval reexamined during the rounds care plan discussed with patient at length problem with swallowing dysfunction is improved patient is on nystatin swish and swallow along with Diflucan slightly more congested today but with breathing treatments improve, patient had recurrent right-sided pneumothorax this morning Drs. Marx is managing her chest tube 04/15/2019, patient seen and evaluated examined during the rounds denies any chest pain or shortness of breath patient is back on suction as recurrence of the pneumothorax occurred, additional complaint has been noted as he is having problem with swallowing food yesterday was mild today is moderate seems like oral thrush has been developing or put him on Diflucan and nystatin swish and swallow 04/14/2019, patient seen and evaluated examined during the rounds, patient developed recurrence of pneumothorax on water seal chest tube connected to amaya ction again, denies any chest pain shortness of breath 04/13/2019, patient seen and evaluated examined she is doing very well with her incentive spirometry almost went have treated her breathing has improved lungs are more clear now less congestion is present, there is no air leak is present patient will be planned for chest x-ray on [facility] tomorrow 04/12/2019, patient seen and evaluated examined doing better today denies any chest pain shortness of breath even from earlier this morning noted, this morning around 2 AM patient develop shortness of breath and some chest discomfort and repeat x-ray showed a significant right-sided pneumothorax the pleural vent has been adjusted, reexpansion on chest x-ray is noted on 3 x-ray have been reviewed labs reviewed as well currently patient is comfortable denies any chest pain no air leak is present we will observe closely 04/11/2019, patient seen eval reexamined during the rounds, doing well slightly short of breath denies any chest pain some cough and congestion is present no sputum production, noted slight air leak is present 04/10/2019, patient seen and evaluated examined during the rounds breathing more comfortably denies any chest pain cough and congestion improved feeling little bit better compared yesterday patient had a computed tomography scan performed which reviewed it very minimal pneumothorax is present with residual subcutaneous emphysema on the right side left-sided lung mass appeared to have shrunk, 58-year-old male who has a history of lung cancer with recurrence stage IV patient has a MediPort on the right side of the chest has been on immunotherapy patient also has severe COPD has been discovered history of health until about 2:30 this morning developed severe shortness of breath and chest pain up to 0.K mid to the hospital a chest x-ray showed total collapse of the lung with tension pneumothorax on the right side patient has a history of left lower lobe resection for lung cancer patient underwent Thoravent on the right side all 3 x- ray have been reviewed there is a small residual 20% to 30% pneumothorax on the right side, patient is being admitted thoracic surgery is on consult Objective - Vital Signs Vital signs: Vital Signs Temp 98.2 F 04/23/19 12:00 Pulse 106 H 04/23/19 13:44 Resp 16 04/23/19 12:00 BP 129/72 04/23/19 12:00 Pulse Ox 96 04/23/19 12:00 Intake & Output 04/22/19 04/23/19 04/23/19 18:59 06:59 18:59 Intake Total 600 1480 Output Total 810 675 250 Balance -210 -675 1230 Weight 101.1 kg 101.1 kg Intake: IV 450 1000 Sodium Chloride 0.9% 1, 1000 000 ml @ 100 mls/hr IV . Q10H [facility] Rx#:[id number] Oral 150 480 Output: Chest Tube Drainage 35 Chest Tube Right Lateral 35 Chest Drainage 95 Right Chest 95 Urine 675 675 250 Estimated Blood Loss 5 Other: Voiding Method Urinal Urinal # Voids 1 - Exam - Constitutional General appearance: average body habitus, disheveled, mild distress, morbidly obese - EENT Eyes: EOMI, PERRLA, poor dentition, normal appearance Ears: bilateral: normal Throat/pharynx, thrush is present with some extension into the time - Neck Neck: lymphadenopathy Carotids: bilateral: upstroke normal Thyroid: bilateral: normal size - Respiratory Respiratory: right: diminished, negative: dullness, rales, rhonchi, wheezing, prolonged expiration - Cardiovascular Rhythm: irregularly irregular Heart sounds: normal: S1, S2 - Gastrointestinal General gastrointestinal: decreased bowel sounds, distended, soft - Integumentary Integumentary: calor - Neurologic Neurologic: CNII-XII intact - Musculoskeletal Musculoskeletal: gait normal, generalized weakness, strength equal bilaterally - Psychiatric Psychiatric: A&O x's 3, appropriate affect, intact judgment & insight - Labs CBC & Chem 7: 04/23/19 07:01 04/23/19 07:01 Labs: Abnormal Lab Results - Last 24 Hours (Table) 04/23/19 04/23/19 Range/Units 07:01 07:01 RBC 3.34 L (4.30-5.90) m/uL Hgb 10.7 L (13.0-17.5) gm/dL Hct 33.6 L (39.0-53.0) % MCV 100.7 H (80.0-100.0) fL RDW 19.0 H (11.5-15.5) % Sodium 136 L (137-145) mmol/L Glucose 110 H (74-99) mg/dL Assessment and Plan Assessment: Status post right thoracoscopy with stapling of blebs on the right side and talc pleurodesis Right-sided tension pneumothorax, with recurrence status post VATS Bilateral wheezing probably COPD exacerbation, improved now Left lower lobe pneumonia versus atelectasis Leukocytosis Stage IV lung cancer on immunotherapy Left lower lobe resection Chronic persistent asthma COPD Hypertension hypertensive cardiovascular disease Oral thrush clinically improved Plan: Small air leak still present continue section through the chest tube, status post VATS Bronchodilator Inhaled via nebulizer steroids Pain control Broad-spectrum antibiotics Trial of oral Diflucan and nystatin swish and swallow Hold steroids for now we'll treat COPD exacerbation with breathing treatments and inhaled corticosteroid patient appears to be responding Time with Patient: Greater than 30
[2019-04-23] MEDS: guaiFENesin-DM 100-10MG/5ML 10 ML CUP PO SCH ×4 (16:55→21:15)
--- NOTE | 2019-04-23 16:58 | P.PN ---
Subjective Progress Note Date: 04/23/19 This is a 58-year-old gentleman with history of left-sided lung mass, recurrent metastatic stage IV lung CA, adenocarcinoma history of laparoscopic wedge resection, recently hospitalized Pseudomonas pneumonia presented to the area with worsening shortness of breath awakening him from sleep at 2 AM. Reports right chest pain with sudden onset accompanied by a severe shortness of breath upon awakening. Denies recent trauma. Denies chest pain, palpitations. Denies fever or chills. Reports occasional productive cough. EKG reporting sinus tachycardia, heart rates in the 120s. Troponin 0.041. Chest x-ray reporting a large right-sided tension pneumothorax, increased hemothorax volume on the right, shift of the mediastinum, left suprahilar mass density again seen. Thoravent tube placed-to low intermittent suction, chest x-ray post procedure reporting interval improvement in right-sided pneumothorax. Cardiothoracic surgery and pulmonary consulted. 04/10/2019 maintaining O2 sats in the mid 90s on 2 L nasal cannula. IS up to 1500.Complains of wheezing, denies shortness of breath. Denies pain. Chest x- ray reporting increasing subcutaneous emphysema, persistent possibly increased bibasilar right pneumothorax. Thoravent this morning presented with no drainage, no air leak. Manipulated by cardiothoracic surgery, reconnected to low intermittent suction, air leak returned. Chest CT ordered post manipulation/reinsertion, pending. Afebrile, preliminary blood cultures negative at 24 hours. 04/11/[address] reported moderate to advanced emphysema with small right-sided pneumothorax approximately 5% with pleural catheter in place, previous surgery medial left upper lobe with associated consolidation and volume loss with pleural density slight decreased bulk from prior, moderate to severe circumferential thickening of the mid to distal thoracic esophagus-esophagitis versus radiation change versus neoplasm. chest x-ray reporting resolution of right-sided pneumothorax. Breathing improving, maintaining 100% O2 sat on 2 L nasal cannula. IS up to 2200. Afebrile, preliminary blood cultures negative at 48 hours. Telemetry sinus rhythm to sinus tach with mild tachycardia, heart rates in the low 100s. 04/12/2018 last night, developed significant respiratory distress, A team called. Chest x-ray reporting reoccurrence of right-sided pneumothorax. Thoravent manipulated with repeat x-ray reporting reexpansion of right lung. Respiratory distress/hypoxia subsided. Currently on 4 L nasal cannula maintaining O2 sats of high 90s. Tachycardic, heart rate decreased down to 88 after beta janny administered. Evaluated by surgery regarding esophagus thickening, potential EGD after pulmonary status stabilizes. 04/15/2019 complains of exertional shortness of breath, maintaining O2 sats of mid 90s on room air. Incentive spirometer up to 2000. Chest x-ray reporting recurrent increased basilar right pneumothorax with subcutaneous emphysema. Patient's chest tube was to waterseal, now converted/placed back to low intermittent suction. 04/16/2019 chest x-ray earlier this morning reported improvement/resolution of right-sided pneumothorax. Patient was disconnected from low intermittent suction to facilitate bathroom visit. Patient became short of breath, hypoxic-desatted to 82%, tachycardic heart rate in the 130s. Follow up Chest x-ray performed reporting recurrent right-sided pneumothorax, suggestive of tension pneumothorax. Patient was reconnected to low intermittent suction, symptoms began resolving. 04/17/2019 Thoravent remains to low intermittent suction with air leak. Reports slept well last night with no further shortness of breath. IS up to 2000. Occasional productive cough with clear to pale yellow sputum. Afebrile, normal WBC. Maintaining O2 sats in the high 90s on 2 L nasal cannula No tachycardia. Chest x-ray reporting resolution of bibasilar pneumothorax with minimal apical Pneumothorax suspected. 04/18/2019 reports rough night sleeping, related to coughing and unable to receive his cough medicine prior to bedtime. Denies shortness of breath this morning. X-ray reporting no sizable pneumothorax.Thoravent remains to LIS with positive air leak. IS up to 2000. Maintaining O2 sats in the high 90s on room air. Afebrile. Scant subcu emphysema. Telemetry sinus rhythm. Denies chest pain, palpitations. Denies nausea, vomiting. Stools loose. Denies abdominal pain. 04/19/2019 maintaining sats in the 90s on room air.IS between 2200 & 2500. Afebrile. Labs pending.Thoravent to LIS, decreased to -10 yesterday, tolerating well. Chest x-ray reporting Thoravent in place, subcutaneous emphysema, no sizable pneumothorax, slight increased patchy density right mid lung possible atelectasis versus early infiltrate, moderate to advanced emphysema. 04/22/2019 significant recurrent pneumothorax with removal of Thoravent to low intermittent suction, status post right thoracoscopy, stapled blebs, 28-[place] chest tube placed with talc pleurodesis this morning, tolerated procedure well.Currently in Phase 1 recovery, pain controlled, recently medicated. 04/23/2019 maintaining O2 sats of 96% on 2 L nasal cannula. Mild tachycardia. Complains of pain at chest tube insertion site.Right pleural chest tube to LIS, positive airleak. Incentive spirometer between 1999 and 2500. Denies chest pain, palpitations or shortness of breath. Afebrile. Tolerating diet, no nausea vomiting or diarrhea. Objective - Vital Signs Vital signs: Vital Signs Temp 97.9 F 04/23/19 08:00 Pulse 112 H 04/23/19 08:30 Resp 20 04/23/19 08:00 BP 118/66 04/23/19 08:00 Pulse Ox 96 04/23/19 08:00 Intake & Output 04/22/19 04/23/19 04/23/19 18:59 06:59 18:59 Intake Total 600 240 Output Total 810 675 Balance -210 -675 240 Weight 101.1 kg Intake: IV 450 Oral 150 240 Output: Chest Tube Drainage 35 Chest Tube Right Lateral 35 Chest Drainage 95 Right Chest 95 Urine 675 675 Estimated Blood Loss 5 Other: Voiding Method Urinal # Voids 1 - Exam VITAL SIGNS: As above GENERAL: Sitting up in stretcher, no acute distress HEENT: Conjunctivae normal. eyes normal. Trachea midline. Oral mucosa moist NECK: No JVD. No thyroid enlargement. Right chest thoravent present. Scant subcu emphysema right chest. CARDIOVASCULAR: S1, S2 regular. Mild tachycardia, No murmur. RESPIRATION: Nonlabored. Essentially clear with bilateral bases diminished. Right pleural CT to LIS, airleak present, serosanguinous drainage. ABDOMEN: Soft, nondistended, nontender . No guarding. no masses palpable.positive bowel sounds. LEGS: No edema. no swelling. PSYCHIATRY: Alert and oriented X3, mood and affect normal. NERVOUS SYSTEM: Cranial N 2-12 grossly normal. Moves all 4 limbs. Diffuse weakness No focal deficits. Skin: no lesions, no rash. - Labs CBC & Chem 7: 04/23/19 07:01 04/23/19 07:01 Labs: Abnormal Lab Results - Last 24 Hours (Table) 04/23/19 04/23/19 Range/Units 07:01 07:01 RBC 3.34 L (4.30-5.90) m/uL Hgb 10.7 L (13.0-17.5) gm/dL Hct 33.6 L (39.0-53.0) % MCV 100.7 H (80.0-100.0) fL RDW 19.0 H (11.5-15.5) % Sodium 136 L (137-145) mmol/L Glucose 110 H (74-99) mg/dL Assessment and Plan Assessment: -Spontaneous right tension pneumothorax, status post thoravent placement.Thoravent dc'd with placement of right pleural chest tube. -Significant recurrent tension pneumothorax with removal of Thoravent to low intermittent suction, status post right thoracoscopy, stapled blebs, 28-[place] chest tube placed with talc pleurodesis. -Underlying acute COPD exacerbation in a patient with moderate to advanced emphysema-CT -Possible Left lower lobe pneumonia, possible atelectasis in a patient with history [id number] lung mass,Recurrent metastatic lung CA, adenocarcinoma,Stage IV. -Esophagitis versus radiation change versus neoplasm; moderate to severe circumferential thickening of the mid to distal thoracic esophagus per CT. Endoscopy once pulmonary status improves. -history of laparoscopic wedge resection. -Recent Pseudomonas pneumonia -Chronic persistent asthma -Hypertension Plan: Continue on current medication regime ,Doxycycline,monitoring and symptomatic treatment. Aggressive pulmonary toileting with incentive spirometer reinforced. Continue nebulized bronchodilators. Pain management. Pathology pending. Follow closely with cardiothoracic surgery. . The impression and plan of care has been dictated as directed. : I performed a history and examination of this patient, discussed the same with the dictator. I agree with the dictator's note ,documented as a scribe. Any additional findings or plans will be noted. Time taken: 35 minutes
[2019-04-24] MEDS: KETOROLAC 30 MG/ML 1 ML VIAL IVP SCH ×5 (00:18→23:18)
[2019-04-24] MEDS: ACETAMINOPHEN TAB 325 MG TAB PO PRN (05:12)
[2019-04-24] MEDS: HYDROmorphone 1 MG/ML 1 ML SYRINGE IVP PRN ×3 (07:51→16:49)
[2019-04-24] MEDS: FAMOTIDINE 20 MG TAB PO SCH ×2 (07:52→21:06)
[2019-04-24] MEDS: FLUCONAZOLE 100 MG TAB PO SCH (07:52)
[2019-04-24] MEDS: LORATADINE 10 MG TAB PO SCH (07:52)
[2019-04-24] MEDS: NYSTATIN 100,000 UNIT/ML SUSP 500,000 UNIT/5 ML CUP PO SCH ×4 (07:52→21:07)
[2019-04-24] MEDS: METOPROLOL TARTRATE 25 MG TAB PO SCH ×2 (07:52→21:07)
[2019-04-24] MEDS: guaiFENesin-DM 100-10MG/5ML 10 ML CUP PO SCH ×4 (07:52→23:19)
[2019-04-24] MEDS: CHOLECALCIFEROL 1,000 UNIT TAB PO SCH (07:52)
[2019-04-24] MEDS: DOXYCYCLINE 100 MG CAP PO SCH ×2 (07:52→21:07)
[2019-04-24] MEDS: MULTIVITAMINS, THERA 1 EACH TAB PO SCH (07:53)
[2019-04-24] MEDS: HYDROCORTISONE SUPPOSITORY 25 MG SUPP RECTAL SCH ×2 (07:54→21:07)
[2019-04-24] MEDS: BUDESONIDE 0.5 MG/2 ML NEBU INHALATION SCH ×2 (07:56→19:52)
[2019-04-24] MEDS: IPRATROPIUM-ALBUTEROL 3 ML NEB INHALATION SCH ×3 (07:56→19:52)
[2019-04-24] MEDS: FORMOTEROL FUMARATE 20 MCG/2 ML NEBU INHALATION SCH ×2 (07:56→19:52)
--- NOTE | 2019-04-24 08:46 | XR ---
EXAMINATION TYPE: XR chest 1V portable DATE OF EXAM: 04/24/2019 COMPARISON: 04/23/2019 HISTORY: Post VATS TECHNIQUE: Single frontal view of the chest is obtained. FINDINGS: Right-sided chest tube is in place. Port-A-Cath is stable. Left lung shows stable abnormal findings with abnormal density in the suprahilar location. There is subcutaneous emphysema. No sizab le pneumothorax is evident. Minimal residual apical pneumothorax is suspected. Patient is rotated. He art size is stable. IMPRESSION: Findings are similar to prior exam. Chest tube with minimal right- sided pneumothorax
--- NOTE | 2019-04-24 09:31 | P.PN ---
Subjective Progress Note Date: 04/24/19 Principal diagnosis: Spontaneous right pneumothorax, bronchopleural fistula. History of metastatic lung adenocarcinoma, stage IV with chemo/radiation/immunosuppressive therapy, re cent history of Pseudomonas pneumonia, remote history of tobacco dependence quit in 2014, COPD, asthma, chronic anemia, hypertension, gastroesophageal reflux disease, and family history of cancer. POD #15 placement of right-sided thoravent by the emergency room physicians. POD #2 right thoracoscopic surgery with stapling of blebs and talc pleurodesis. Continuous air leak from chest tube site, an expected outcome. The patient is currently laying in bed on the cardiac stepdown unit. He is in no acute distress. He denies any complaints of pain or shortness of breath. X- ray this morning demonstrates a right sided chest tube in place with no sizable pneumothorax, subcutaneous emphysema. Right pleural chest tube remains to low continuous wall suction -20 cm H2O. Intermediate air leak is present. Oxygen saturation are 95% on room air. Achieving 2500 mL on his incentive spirometry. Tolerating oral intake. He remains afebrile. Objective - Vital Signs Vital signs: Vital Signs Temp 98.1 F 04/24/19 07:49 Pulse 108 H 04/24/19 08:18 Resp 18 04/24/19 07:49 BP 126/75 04/24/19 07:49 Pulse Ox 97 04/24/19 07:49 Intake & Output 04/23/19 04/24/19 04/24/19 18:59 06:59 18:59 Intake Total 2320 400 240 Output Total 1475 200 Balance 845 200 240 Weight 101.1 kg Intake: IV 1600 Sodium Chloride 0.9% 1, 1600 000 ml @ 100 mls/hr IV . Q10H [facility] Rx#:[id number] Oral 720 400 240 Output: Drainage 125 Right Chest 125 Urine 1350 200 Other: Voiding Method Urinal # Voids 1 - Constitutional General appearance: Present: cooperative, no acute distress, obese - Respiratory Details: Lungs sounds essentially clear to his bilateral upper lobes, few scattered crackles to his bilateral bases. Respirations are symmetrical and nonlabored. Oxygen saturation are 95% on room air. Achieving 2500 mL on his incentive spirometry. Right pleural chest tube in place to low continuous wall suction at -20 cm H2O. Intermittent air leak is present. 50 mL output of thin serosanguineous drainage in the last 24 hours from his right pleural chest tube. Subcutaneous emphysema present to his right chest and right neck. - Cardiovascular Details: Regular rhythm and rate. S1 and S2 present, negative for S3, gallop or murmur. No edema present. Knee-high CLEMENT hose and sequential compression devices in place to his bilateral lower extremities. - Gastrointestinal Gastrointestinal Comment(s): Abdomen is soft, nontender and nondistended. Hypoactive bowel sounds to all 4 abdominal quadrants. No guarding or rigidity. No organomegaly. Tolerating oral intake. - Genitourinary Genitourinary Comment(s): Voiding clear yellow urine. - Integumentary Integumentary Comment(s): Skin is warm and dry. No clubbing or cyanosis is present. No rash or abnormal pigmentation is present. Right pleural chest tube insertion site with dressing clean, dry and intact. No drainage or redness is present. - Neurologic Neurologic: Present: CNII-XII intact - Musculoskeletal Musculoskeletal: Present: gait normal, generalized weakness, strength equal bilaterally - Psychiatric Psychiatric: Present: A&O x's 3, appropriate affect, intact judgment & insight - Allied health notes Allied health notes reviewed: nursing - Labs CBC & Chem 7: 04/23/19 07:01 04/23/19 07:01 - Imaging and Cardiology Chest x-ray: report reviewed, image reviewed Assessment and Plan Assessment: 1. Spontaneous right pneumothorax, status post Thoravent placement, status post right thoracoscopic surgery with stapling of blebs and talc pleurodesis 2. Metastatic lung adenocarcinoma, stage IV, with history of chemo, radiation, and immunosuppressive therapy 3. Recent history of Pseudomonas pneumonia 4. Previous tobacco dependence, quit in 2014 5. Severe COPD, asthma 6. Chronic anemia 7. Hypertension 8. GERD 9. Family history of cancer Plan: 1. Keep right pleural chest tube in place today, place right pleural chest tube to waterseal. 2. Encourage use of his incentive spirometry every hour while awake. 3. Encourage continued smoking cessation. 4. Pulmonary management recommendations per Dr. Soto. 5. Medical management and other comorbidities per primary care service. 6. Pain management per current medication regimen. 7. We will continue to monitor the daily chest x-rays. We will repeat the chest x-ray today after we place the right pleural chest tube to waterseal. 8. Encourage activity as tolerated, encourage ambulation. 9. Patient may be transferred back to the oncology unit without telemetry per the cardiothoracic surgery standpoint. 10. More recommendations to follow based on patient's clinical course. Time with Patient: Greater than 30
--- NOTE | 2019-04-24 10:34 | XR ---
EXAMINATION TYPE: XR chest 1V portable DATE OF EXAM: 04/24/2019 COMPARISON: 04/24/2019 HISTORY: Right pneumothorax TECHNIQUE: Single frontal view of the chest is obtained. FINDINGS: Right-sided chest tube is in place. Port-A-Cath is stable. Left lung shows stable abnormal findings with abnormal density in the suprahilar location which could been the basis of a mass. Ther e is subcutaneous emphysema. No sizable pneumothorax is evident. Minimal residual apical pneumothorax is suspected. Patient is rotated. Heart size is stable. Chronic elevation the right clavicle. Correl ate for previous AC joint injury. IMPRESSION: Findings are similar to prior exam. Chest tube with minimal right- sided pneumothorax
--- NOTE | 2019-04-24 12:45 | P.PN ---
Subjective Progress Note Date: 04/24/19 Principal diagnosis: Right-sided spontaneous tension pneumothorax, severe COPD, left lower lobe pneumonia, leukocytosis, lung cancer, possible left lower lobe atelectasis, chronic persistent asthma, hypertension hypertensive cardiovascular disease, severe COPD April, patient seen and evaluated examined during the rounds he is in good distress denies any chest pain or shortness of breath he still have air leak is present on the through the chest tube patient is status post VATS and pleurodesis with talc, swallowing function have improved 04/23/2019, patient seen eval examined during the rounds denies any chest pain denies any shortness of breath still have significant air leak is present her swallowing dysfunction and improved back to baseline 04/22/2019, patient seen and evaluated examined during the rounds patient underwent VATS procedure by thoracic surgery patient underwent right thoracoscopy with antonio blab and talc pleurodesis patient has a chest tube on the right side intermittent leak is present he is comfortable and does not have any pain 04/21/2019, patient seen eval reexamined during the rounds shortness of breath mild is present denies any chest pain on clamping chest tube pneumothorax recurs patient has a persistent air leak as per discussion with thoracic surgery plan is for VATS tomorrow 04/20/2019, patient seen and evaluated examined during the rounds swallowing function will improve the breathing is better but patient has continuous air leak present in the chest tube indicating possible presence of bronchopleural fistula current chest x-ray does not show pneumothorax, but lungs are inflated follow closely it appears that patient probably require VATS procedure down the road 04/19/2019, patient seen and evaluated examined during the rounds denies any chest pain or shortness of breath cough and swallowing function improved still connected to suction decrease to 10 cm a liter still present intermittently patient is being considered for VATS next week in case of air leak not resolved 04/18/2019, patient seen and evaluated examined during the rounds x-ray reviewed patient suction has been lowered down repeat x-ray from tomorrow is pending swallowing function is improved care plan discussed with thoracic surgery plan is to do VATS in case if continue to get recurrent pneumothorax 04/17/2019, patient seen and evaluated examined during the rounds swallowing function improved significantly decreased cough and congestion are present patient remains on suction chest x-ray from today reviewed, pneumothorax cont inued to improve slowly some residual pneumothorax still there 04/16/2019, patient seen eval reexamined during the rounds care plan discussed with patient at length problem with swallowing dysfunction is improved patient is on nystatin swish and swallow along with Diflucan slightly more congested t corky but with breathing treatments improve, patient had recurrent right-sided pneumothorax this morning Drs. Marx is managing her chest tube 04/15/2019, patient seen and evaluated examined during the rounds denies any chest pain or shortness of breath patient is back on suction as recurrence of th e pneumothorax occurred, additional complaint has been noted as he is having problem with swallowing food yesterday was mild today is moderate seems like oral thrush has been developing or put him on Diflucan and nystatin swish and swallow 04/14/2019, patient seen and evaluated examined during the rounds, patient developed recurrence of pneumothorax on water seal chest tube connected to suction again, denies any chest pain shortness of breath 04/13/2019, patient seen and evaluated examined she is doing very well with her incentive spirometry almost went have treated her breathing has improved lungs are more clear now less congestion is present, there is no air leak is present patient will be planned for chest x-ray on [facility] tomorrow 04/12/2019, patient seen and evaluated examined doing better today denies any chest pain shortness of breath even from earlier this morning noted, this morning around 2 AM patient develop shortness of breath and some chest discomfort and repeat x-ray showed a significant right-sided pneumothorax the pleural vent has been adjusted, reexpansion on chest x-ray is noted on 3 x-ray have been reviewed labs reviewed as well currently patient is comfortable denies any chest pain no air leak is present we will observe closely 04/11/2019, patient seen eval reexamined during the rounds, doing well slightly short of breath denies any chest pain some cough and congestion is present no sputum production, noted slight air leak is present 04/10/2019, patient seen and evaluated examined during the rounds breathing more comfortably denies any chest pain cough and congestion improved feeling little bit better compared yesterday patient had a computed tomography scan performed which reviewed it very minimal pneumothorax is present with residual subcuta neous emphysema on the right side left-sided lung mass appeared to have shrunk, 58-year-old male who has a history of lung cancer with recurrence stage IV patient has a MediPort on the right side of the chest has been on immunotherapy patient also has severe COPD has been discovered history of health until about 2:30 this morning developed severe shortness of breath and chest pain up to 0.K mid to the hospital a chest x-ray showed total collapse of the lung with tension pneumothorax on the right side patient has a history of left lower lobe resection for lung cancer patient underwent Thoravent on the right side all 3 x- ray have been reviewed there is a small residual 20% to 30% pneumothorax on the right side, patient is being admitted thoracic surgery is on consult Objective - Vital Signs Vital signs: Vital Signs Temp 98.1 F 04/24/19 11:07 Pulse 96 04/24/19 12:37 Resp 18 04/24/19 11:07 BP 122/79 04/24/19 11:07 Pulse Ox 96 04/24/19 11:07 Intake & Output 04/23/19 04/24/19 04/24/19 18:59 06:59 18:59 Intake Total 2320 400 240 Output Total 1475 200 Balance 845 200 240 Weight 101.1 kg Intake: IV 1600 Sodium Chloride 0.9% 1, 1600 000 ml @ 100 mls/hr IV . Q10H [facility] Rx#:[id number] Oral 720 400 240 Output: Drainage 125 Right Chest 125 Urine 1350 200 Other: Voiding Method Urinal # Voids 1 - Exam - Constitutional General appearance: average body habitus, disheveled, mild distress, morbidly obese - EENT Eyes: EOMI, PERRLA, poor dentition, normal appearance Ears: bilateral: normal Throat/pharynx, thrush is present with some extension into the time - Neck Neck: lymphadenopathy Carotids: bilateral: upstroke normal Thyroid: bilateral: normal size - Respiratory Respiratory: right: diminished, negative: dullness, rales, rhonchi, wheezing, prolonged expiration - Cardiovascular Rhythm: irregularly irregular Heart sounds: normal: S1, S2 - Gastrointestinal General gastrointestinal: decreased bowel sounds, distended, soft - Integumentary Integumentary: calor - Neurologic Neurologic: CNII-XII intact - Musculoskeletal Musculoskeletal: gait normal, generalized weakness, strength equal bilaterally - Psychiatric Psychiatric: A&O x's 3, appropriate affect, intact judgment & insight - Labs CBC & Chem 7: 04/23/19 07:01 07/02/19 07:01 Assessment and Plan Assessment: Status post right thoracoscopy with stapling of blebs on the right side and talc pleurodesis Right-sided tension pneumothorax, with recurrence status post VATS Bilateral wheezing probably COPD exacerbation, improved now Left lower lobe pneumonia versus atelectasis Leukocytosis Stage IV lung cancer on immunotherapy Left lower lobe resection Chronic persistent asthma COPD Hypertension hypertensive cardiovascular disease Oral thrush clinically improved Plan: Small air leak still present continue section through the chest tube, status post VATS Bronchodilator Inhaled via nebulizer steroids Pain control Broad-spectrum antibiotics Trial of oral Diflucan and nystatin swish and swallow Hold steroids for now we'll treat COPD exacerbation with breathing treatments and inhaled corticosteroid patient appears to be responding
--- NOTE | 2019-04-24 16:57 | P.PN ---
Subjective Progress Note Date: 04/24/19 This is a 58-year-old gentleman with history of left-sided lung mass, recurrent metastatic stage IV lung CA, adenocarcinoma history of laparoscopic wedge resection, recently hospitalized Pseudomonas pneumonia presented to the area with worsening shortness of breath awakening him from sleep at 2 AM. Reports right chest pain with sudden onset accompanied by a severe shortness of breath upon awakening. Denies recent trauma. Denies chest pain, palpitations. Denies fever or chills. Reports occasional productive cough. EKG reporting sinus tachycardia, heart rates in the 120s. Troponin 0.041. Chest x-ray reporting a large right-sided tension pneumothorax, increased hemothorax volume on the right, shift of the mediastinum, left suprahilar mass density again seen. Thoravent tube placed-to low intermittent suction, chest x-ray post procedure reporting interval improvement in right-sided pneumothorax. Cardiothoracic surgery and pulmonary consulted. 04/10/2019 maintaining O2 sats in the mid 90s on 2 L nasal cannula. IS up to 1500.Complains of wheezing, denies shortness of breath. Denies pain. Chest x- ray reporting increasing subcutaneous emphysema, persistent possibly increased bibasilar right pneumothorax. Thoravent this morning presented with no drainage, no air leak. Manipulated by cardiothoracic surgery, reconnected to low intermittent suction, air leak returned. Chest CT ordered post manipulation/reinsertion, pending. Afebrile, preliminary blood cultures negative at 24 hours. 04/11/[address] reported moderate to advanced emphysema with small right-sided pneumothorax approximately 5% with pleural catheter in place, previous surgery medial left upper lobe with associated consolidation and volume loss with pleural density slight decreased bulk from prior, moderate to severe circumferential thickening of the mid to distal thoracic esophagus-esophagitis versus radiation change versus neoplasm. chest x-ray reporting resolution of right-sided pneumothorax. Breathing improving, maintaining 100% O2 sat on 2 L nasal cannula. IS up to 2200. Afebrile, preliminary blood cultures negative at 48 hours. Telemetry sinus rhythm to sinus tach with mild tachycardia, heart rates in the low 100s. 04/12/2018 last night, developed significant respiratory distress, A team called. Chest x-ray reporting reoccurrence of right-sided pneumothorax. Thoravent manipulated with repeat x-ray reporting reexpansion of right lung. Respiratory distress/hypoxia subsided. Currently on 4 L nasal cannula maintaining O2 sats of high 90s. Tachycardic, heart rate decreased down to 88 after beta janny administered. Evaluated by surgery regarding esophagus thickening, potential EGD after pulmonary status stabilizes. 04/15/2019 complains of exertional shortness of breath, maintaining O2 sats of mid 90s on room air. Incentive spirometer up to 2000. Chest x-ray reporting recurrent increased basilar right pneumothorax with subcutaneous emphysema. Patient's chest tube was to waterseal, now converted/placed back to low intermittent suction. 04/16/2019 chest x-ray earlier this morning reported improvement/resolution of right-sided pneumothorax. Patient was disconnected from low intermittent suction to facilitate bathroom visit. Patient became short of breath, hypoxic-desatted to 82%, tachycardic heart rate in the 130s. Follow up Chest x-ray performed reporting recurrent right-sided pneumothorax, suggestive of tension pneumothorax. Patient was reconnected to low intermittent suction, symptoms began resolving. 04/17/2019 Thoravent remains to low intermittent suction with air leak. Reports slept well last night with no further shortness of breath. IS up to 2000. Occasional productive cough with clear to pale yellow sputum. Afebrile, normal WBC. Maintaining O2 sats in the high 90s on 2 L nasal cannula No tachycardia. Chest x-ray reporting resolution of bibasilar pneumothorax with minimal apical Pneumothorax suspected. 04/18/2019 reports rough night sleeping, related to coughing and unable to receive his cough medicine prior to bedtime. Denies shortness of breath this morning. X-ray reporting no sizable pneumothorax.Thoravent remains to LIS with positive air leak. IS up to 2000. Maintaining O2 sats in the high 90s on room air. Afebrile. Scant subcu emphysema. Telemetry sinus rhythm. Denies chest pain, palpitations. Denies nausea, vomiting. Stools loose. Denies abdominal pain. 04/19/2019 maintaining sats in the 90s on room air.IS between 2200 & 2500. Afebrile. Labs pending.Thoravent to LIS, decreased to -10 yesterday, tolerating well. Chest x-ray reporting Thoravent in place, subcutaneous emphysema, no sizable pneumothorax, slight increased patchy density right mid lung possible atelectasis versus early infiltrate, moderate to advanced emphysema. 04/22/2019 significant recurrent pneumothorax with removal of Thoravent to low intermittent suction, status post right thoracoscopy, stapled blebs, 28-Bahraini chest tube placed with talc pleurodesis this morning, tolerated procedure well.Currently in Phase 1 recovery, pain controlled, recently medicated. 04/23/2019 maintaining O2 sats of 96% on 2 L nasal cannula. Mild tachycardia. Complains of pain at chest tube insertion site.Right pleural chest tube to LIS, positive airleak. Incentive spirometer between 2000 and 2500. Denies chest pain, palpitations or shortness of breath. Afebrile. Tolerating diet, no nausea vomiting or diarrhea. 04/24/19 Chest x-ray reporting right-sided chest tube in place, stable port a cath, lungs reporting stable abnormal density in the suprahilar location, subcutaneous emphysema with no sizable pneumothorax. Right pleural chest tube placed to waterseal. Follow-up chest x-ray reporting similar findings with minimal right-sided pneumothorax. Tolerated well. Incentive spirometer between 2500 and 3,000. Maintaining O2 sats in the mid 90s on room air. Afebrile. Pathology reporting Subpleural bullous cyst with associated pleuritis,reactive mesothelial hyperplasia and fibrosis. Objective - Vital Signs Vital signs: Vital Signs Temp 98.1 F 04/24/19 07:49 Pulse 108 H 04/24/19 08:18 Resp 18 04/24/19 08:00 BP 126/75 04/24/19 07:49 Pulse Ox 97 04/24/19 07:49 Intake & Output 04/23/19 04/24/19 04/24/19 18:59 06:59 18:59 Intake Total 2320 400 240 Output Total 1475 200 Balance 845 200 240 Weight 101.1 kg Intake: IV 1600 Sodium Chloride 0.9% 1, 1600 000 ml @ 100 mls/hr IV . Q10H [facility] Rx#:[id number] Oral 720 400 240 Output: Drainage 125 Right Chest 125 Urine 1350 200 Other: Voiding Method Urinal # Voids 1 - Exam VITAL SIGNS: As above GENERAL: Sitting up in stretcher, no acute distress HEENT: Conjunctivae normal. eyes normal. Trachea midline. Oral mucosa moist NECK: No JVD. No thyroid enlargement. CARDIOVASCULAR: S1, S2 regular. Mild tachycardia, No murmur. RESPIRATION: Nonlabored. Essentially clear with bilateral bases diminished. Occasional fine, bibasilar crackles.Right pleural CT to waterseal , minimal serosanguinous drainage. Trace subcutaneous emphysema right chest/right neck area. ABDOMEN: Soft, nondistended, nontender . No guarding. no masses palpable.positive bowel sounds. LEGS: No edema. no swelling. PSYCHIATRY: Alert and oriented X3, mood and affect normal. NERVOUS SYSTEM: Cranial N 2-12 grossly normal. Moves all 4 limbs. Diffuse weakness No focal deficits. Skin: no lesions, no rash. - Labs CBC & Chem 7: 04/23/19 07:01 04/23/19 07:01 Assessment and Plan Assessment: -Spontaneous right tension pneumothorax, status post thoravent p lacement.Thoravent dc'd with placement of right pleural chest tube. -Significant recurrent tension pneumothorax with removal of Thoravent to low intermittent suction, status post right thoracoscopy, stapled blebs, 28-Bahraini chest tube placed with talc pleurodesis. -Pathology reporting: Subpleural bullous cyst with associated pleuritis, reactive mesothelial hyperplasia and fibrosis. -Underlying acute COPD exacerbation in a patient with moderate to advanced emphysema-CT -Possible Left lower lobe pneumonia, possible atelectasis in a patient with history [id number] lung mass,Recurrent metastatic lung CA, adenocarcinoma,Stage IV. -Esophagitis versus radiation change versus neoplasm; moderate to severe circumferential thickening of the mid to distal thoracic esophagus per CT. Endoscopy once pulmonary status improves. -history of laparoscopic wedge resection. -Recent Pseudomonas pneumonia -Chronic persistent asthma -Hypertension Plan: Continue on current medication regime ,Doxycycline,monitoring and symptomatic treatment. Patient may transfer to [facility] if bed needed.Aggressive pulmonary toileting with incentive spirometer reinforced. Continue nebulized b ronchodilators. Pain management. Potential DC of pleural catheter in a.m. Follow closely with cardiothoracic surgery. . The impression and plan of care has been dictated as directed. : I performed a history and examination of this patient, discussed the same with the dictator. I agree with the dictator's note ,documented as a scribe. Any additional findings or plans will be noted. Time taken: 35 minutes
[2019-04-24] MEDS: HYDROmorphone 0.5 MG/0.5 ML SYRINGE IVP PRN (21:07)
[2019-04-24] MEDS: DOCUSATE 100 MG CAP PO PRN (21:07)
[2019-04-25] MEDS: KETOROLAC 30 MG/ML 1 ML VIAL IVP SCH ×4 (05:18→23:44)
--- NOTE | 2019-04-25 07:42 | XR ---
EXAMINATION TYPE: XR chest 1V portable DATE OF EXAM: 04/25/2019 COMPARISON: 04/24/2019 HISTORY: Abnormal x-ray TECHNIQUE: Single frontal view of the chest is obtained. FINDINGS: Right-sided chest tube is in place. Port-A-Cath is stable. Left lung shows stable abnormal findings with abnormal density in the suprahilar location which could been the basis of a mass. Ther e is diffuse right-sided subcutaneous emphysema. Stable small right pneumothorax. Patient is rotated. Heart size is stable. Chronic elevation the rig ht clavicle. Correlate for previous AC joint injury. IMPRESSION: Findings are similar to prior exam. Chest tube with stable small right- sided pneumothora x
--- NOTE | 2019-04-25 09:01 | P.PN ---
Subjective Progress Note Date: 04/25/19 Principal diagnosis: Spontaneous right pneumothorax, bronchopleural fistula. History of metastatic lung adenocarcinoma, stage IV with chemo/radiation/immunosuppressive therapy, re cent history of Pseudomonas pneumonia, previous tobacco dependence, severe COPD, asthma, chronic anemia, hypertension, gastroesophageal reflux disease, and family history of cancer. POD #16 placement of right-sided thoravent by the emergency room physicians Continuous air leak from chest tube site, expected POD #3 right thoracoscopy, staple blebs, talc pleurodesis The patient is currently sitting up in bed on the cardiac stepdown unit. States pain is controlled on current medication regimen, denies shortness of breath. Right pleural chest tube remains to continuous wall suction with intermittent air leak present. Actively using incentive spirometry. No new concerns. Objective - Vital Signs Vital signs: Vital Signs Temp 98.0 F 04/25/19 04:00 Pulse 111 H 04/25/19 04:00 Resp 24 04/25/19 04:00 BP 157/85 04/25/19 04:00 Pulse Ox 93 L 04/25/19 04:00 Intake & Output 04/24/19 04/25/19 04/25/19 18:59 06:59 18:59 Intake Total 480 Output Total 0 Balance 480 0 Weight 102.1 kg Intake: Oral 480 Output: Chest Tube Drainage 0 Chest Tube Right Lateral 0 Chest Other: Voiding Method Urinal # Voids 1 - Constitutional General appearance: Present: cooperative, no acute distress, obese - Respiratory Details: Lungs sounds diminished bilaterally with faint expiratory wheezes present. Respirations even, nonlabored. Currently on room air with oxygen saturation 93%. Able to achieve 2500 mL on his incentive spirometry. Right pleural chest tube present to water seal for the last 24 hours, no output in the last 24 hours, intermittent air leak present. Subcutaneous emphysema present to right neck, no increase in amount. - Cardiovascular Details: S1, S2 present. Regular rate and rhythm. Palpable peripheral pulses bilaterally. No edema present. No calf pain or tenderness noted. SCDs present. - Gastrointestinal Gastrointestinal Comment(s): Abdomen soft, nontender, nondistended. Active bowel sounds present 4 quadrants. Tolerating diet. Positive bowel movement. - Genitourinary Genitourinary Comment(s): Continues to void clear, yellow urine. - Integumentary Integumentary Comment(s): Skin is warm and dry with evidence of good perfusion. - Neurologic Neurologic: Present: CNII-XII intact - Musculoskeletal Musculoskeletal: Present: gait normal, strength equal bilaterally - Psychiatric Psychiatric: Present: A&O x's 3, appropriate affect, intact judgment & insight - Allied health notes Allied health notes reviewed: nursing - Labs CBC & Chem 7: 04/23/19 07:01 04/23/19 07:01 - Imaging and Cardiology Chest x-ray: report reviewed, image reviewed Assessment and Plan Assessment: 1. Spontaneous right pneumothorax, status post thoravent placement, status post thoracoscopy with stapling of blebs and talc pleurodesis 2. Metastatic lung adenocarcinoma, stage IV with chemo/radiation/im munosuppressive therapy 3. Recent history of Pseudomonas pneumonia 4. Previous tobacco dependence 5. Severe COPD, asthma 6. Chronic anemia 7. Hypertension 8. GERD 9. Family history of cancer Plan: 1. Continue right-sided pleural chest tube to water seal. Watch for resolution of air leak. 2. Continue to encourage use of his incentive spirometry 10 x every hour while awake. 3. Pulmonary management recommendations per Dr. Soto. 4. Medical management and other comorbidities per primary care service. 5. Pain management per current medication regimen. 6. Will continue to monitor daily x-rays. 7. Patient may go back to oncology floor without telemetry. 8. More recommendations to follow based on patient's clinical course. Time with Patient: Greater than 30
[2019-04-25] MEDS: MULTIVITAMINS, THERA 1 EACH TAB PO SCH (09:05)
[2019-04-25] MEDS: FAMOTIDINE 20 MG TAB PO SCH ×2 (09:05→20:58)
[2019-04-25] MEDS: METOPROLOL TARTRATE 25 MG TAB PO SCH ×2 (09:05→20:58)
[2019-04-25] MEDS: FLUCONAZOLE 100 MG TAB PO SCH (09:05)
[2019-04-25] MEDS: LORATADINE 10 MG TAB PO SCH (09:05)
[2019-04-25] MEDS: CHOLECALCIFEROL 1,000 UNIT TAB PO SCH (09:05)
[2019-04-25] MEDS: NYSTATIN 100,000 UNIT/ML SUSP 500,000 UNIT/5 ML CUP PO SCH ×4 (09:06→20:59)
[2019-04-25] MEDS: DOXYCYCLINE 100 MG CAP PO SCH ×2 (09:06→20:57)
[2019-04-25] MEDS: HYDROCORTISONE SUPPOSITORY 25 MG SUPP RECTAL SCH ×2 (09:06→20:58)
[2019-04-25] MEDS: guaiFENesin-DM 100-10MG/5ML 10 ML CUP PO SCH ×4 (09:06→23:46)
[2019-04-25] MEDS: IPRATROPIUM-ALBUTEROL 3 ML NEB INHALATION SCH ×3 (09:26→20:13)
[2019-04-25] MEDS: BUDESONIDE 0.5 MG/2 ML NEBU INHALATION SCH ×2 (09:26→20:13)
[2019-04-25] MEDS: FORMOTEROL FUMARATE 20 MCG/2 ML NEBU INHALATION SCH ×2 (09:26→20:13)
--- NOTE | 2019-04-25 12:01 | P.PN ---
Subjective Progress Note Date: 04/25/19 This is a 58-year-old gentleman with history of left-sided lung mass, recurrent metastatic stage IV lung CA, adenocarcinoma history of laparoscopic wedge resection, recently hospitalized Pseudomonas pneumonia presented to the area with worsening shortness of breath awakening him from sleep at 2 AM. Reports right chest pain with sudden onset accompanied by a severe shortness of breath upon awakening. Denies recent trauma. Denies chest pain, palpitations. Denies fever or chills. Reports occasional productive cough. EKG reporting sinus tachycardia, heart rates in the 120s. Troponin 0.041. Chest x-ray reporting a large right-sided tension pneumothorax, increased hemothorax volume on the right, shift of the mediastinum, left suprahilar mass density again seen. Thoravent tube placed-to low intermittent suction, chest x-ray post procedure reporting interval improvement in right-sided pneumothorax. Cardiothoracic surgery and pulmonary consulted. 04/10/2019 maintaining O2 sats in the mid 90s on 2 L nasal cannula. IS up to 1500.Complains of wheezing, denies shortness of breath. Denies pain. Chest x- ray reporting increasing subcutaneous emphysema, persistent possibly increased bibasilar right pneumothorax. Thoravent this morning presented with no drainage, no air leak. Manipulated by cardiothoracic surgery, reconnected to low intermittent suction, air leak returned. Chest CT ordered post manipulation/reinsertion, pending. Afebrile, preliminary blood cultures negative at 24 hours. 04/11/[address] reported moderate to advanced emphysema with small right-sided pneumothorax approximately 5% with pleural catheter in place, previous surgery medial left upper lobe with associated consolidation and volume loss with pleural density slight decreased bulk from prior, moderate to severe circumferential thickening of the mid to distal thoracic esophagus-esophagitis versus radiation change versus neoplasm. chest x-ray reporting resolution of right-sided pneumothorax. Breathing improving, maintaining 100% O2 sat on 2 L nasal cannula. IS up to 2200. Afebrile, preliminary blood cultures negative at 48 hours. Telemetry sinus rhythm to sinus tach with mild tachycardia, heart rates in the low 100s. 04/12/2018 last night, developed significant respiratory distress, A team called. Chest x-ray reporting reoccurrence of right-sided pneumothorax. Thoravent manipulated with repeat x-ray reporting reexpansion of right lung. Respiratory distress/hypoxia subsided. Currently on 4 L nasal cannula maintaining O2 sats of high 90s. Tachycardic, heart rate decreased down to 88 after beta janny administered. Evaluated by surgery regarding esophagus thickening, potential EGD after pulmonary status stabilizes. 04/15/2019 complains of exertional shortness of breath, maintaining O2 sats of mid 90s on room air. Incentive spirometer up to 2000. Chest x-ray reporting recurrent increased basilar right pneumothorax with subcutaneous emphysema. Patient's chest tube was to waterseal, now converted/placed back to low intermittent suction. 04/16/2019 chest x-ray earlier this morning reported improvement/resolution of right-sided pneumothorax. Patient was disconnected from low intermittent suction to facilitate bathroom visit. Patient became short of breath, hypoxic-desatted to 82%, tachycardic heart rate in the 130s. Follow up Chest x-ray performed reporting recurrent right-sided pneumothorax, suggestive of tension pneumothorax. Patient was reconnected to low intermittent suction, symptoms began resolving. 04/17/2019 Thoravent remains to low intermittent suction with air leak. Reports slept well last night with no further shortness of breath. IS up to 2000. Occasional productive cough with clear to pale yellow sputum. Afebrile, normal WBC. Maintaining O2 sats in the high 90s on 2 L nasal cannula No tachycardia. Chest x-ray reporting resolution of bibasilar pneumothorax with minimal apical Pneumothorax suspected. 04/18/2019 reports rough night sleeping, related to coughing and unable to receive his cough medicine prior to bedtime. Denies shortness of breath this morning. X-ray reporting no sizable pneumothorax.Thoravent remains to LIS with positive air leak. IS up to 2000. Maintaining O2 sats in the high 90s on room air. Afebrile. Scant subcu emphysema. Telemetry sinus rhythm. Denies chest pain, palpitations. Denies nausea, vomiting. Stools loose. Denies abdominal pain. 04/19/2019 maintaining sats in the 90s on room air.IS between 2200 & 2500. Afebrile. Labs pending.Thoravent to LIS, decreased to -10 yesterday, tolerating well. Chest x-ray reporting Thoravent in place, subcutaneous emphysema, no sizable pneumothorax, slight increased patchy density right mid lung possible atelectasis versus early infiltrate, moderate to advanced emphysema. 04/22/2019 significant recurrent pneumothorax with removal of Thoravent to low intermittent suction, status post right thoracoscopy, stapled blebs, 28-Latvian chest tube placed with talc pleurodesis this morning, tolerated procedure well.Currently in Phase 1 recovery, pain controlled, recently medicated. 04/23/2019 maintaining O2 sats of 96% on 2 L nasal cannula. Mild tachycardia. Complains of pain at chest tube insertion site.Right pleural chest tube to LIS, positive airleak. Incentive spirometer between 2000 and 2500. Denies chest pain, palpitations or shortness of breath. Afebrile. Tolerating diet, no nausea vomiting or diarrhea. 04/24/19 Chest x-ray reporting right-sided chest tube in place, stable port a cath, lungs reporting stable abnormal density in the suprahilar location, subcutaneous emphysema with no sizable pneumothorax. Right pleural chest tube placed to waterseal. Follow-up chest x-ray reporting similar findings with minimal right-sided pneumothorax. Tolerated well. Incentive spirometer between 2500 and 3,000. Maintaining O2 sats in the mid 90s on room air. Afebrile. Pathology reporting Subpleural bullous cyst with associated pleuritis,reactive mesothelial hyperplasia and fibrosis. 04/25/2019 chest x-ray similar, maintaining O2 sats of 93-96% on room air. Compliant with using IS, 2500. Ambulating in hallway, tolerating exertion well. Right pleural chest tube site Pain controlled. Presents with occasional airleak, Objective - Vital Signs Vital signs: Vital Signs Temp 98.0 F 04/25/19 04:00 Pulse 111 H 04/25/19 04:00 Resp 24 04/25/19 04:00 BP 157/85 04/25/19 04:00 Pulse Ox 93 L 04/25/19 04:00 Intake & Output 04/24/19 04/25/19 04/25/19 18:59 06:59 18:59 Intake Total 480 Output Total 0 Balance 480 0 Weight 102.1 kg Intake: Oral 480 Output: Chest Tube Drainage 0 Chest Tube Right Lateral 0 Chest Other: Voiding Method Urinal # Voids 1 - Exam VITAL SIGNS: As above GENERAL: Sitting up in stretcher, no acute distress HEENT: Conjunctivae normal. eyes normal. Trachea midline. Oral mucosa moist NECK: No JVD. No thyroid enlargement. CARDIOVASCULAR: S1, S2 regular. Mild tachycardia, No murmur. RESPIRATION: Nonlabored. Essentially clear with bilateral bases diminished. Occasional fine, bibasilar crackles.Right pleural CT, occ. airleak,Trace subcutaneous emphysema right chest/right neck area. ABDOMEN: Soft, nondistended, nontender . No guarding. no masses palpable .positive bowel sounds. LEGS: No edema. no swelling. PSYCHIATRY: Alert and oriented X3, mood and affect normal. NERVOUS SYSTEM: Cranial N 2-12 grossly normal. Moves all 4 limbs. Diffuse weakness No focal deficits. Skin: no lesions, no rash. - Labs CBC & Chem 7: 04/23/19 07:01 04/23/19 07:01 Assessment and Plan Assessment: -Spontaneous right tension pneumothorax, status post thoravent placement.Thoravent dc'd with placement of right pleural chest tube. -Significant recurrent tension pneumothorax with removal of Thoravent to low intermittent suction, status post right thoracoscopy, stapled blebs, 28-Latvian chest tube placed with talc pleurodesis. -Pathology reporting: Subpleural bullous cyst with associated pleuritis, reactive mesothelial hyperplasia and fibrosis. -Underlying acute COPD exacerbation in a patient with moderate to advanced emphysema-CT -Possible Left lower lobe pneumonia, possible atelectasis in a patient with history [id number] lung mass,Recurrent metastatic lung CA, adenocarcinoma,Stage IV. -Esophagitis versus radiation change versus neoplasm; moderate to severe circumferential thickening of the mid to distal thoracic esophagus per CT. Endoscopy once pulmonary status improves. -history of laparoscopic wedge resection. -Recent Pseudomonas pneumonia -Chronic persistent asthma -Hypertension Plan: Continue on current medication regime,Doxycycline,monitoring and symptomatic treatment. Potential DC of chest tube in a.m. pending air leak resolution. Aggressive pulmonary toileting with incentive spirometer reinforced. Maintain nebulized bronchodilators. Pain management. Follow closely with cardiothoracic surgery.Patient may transfer to [facility] if bed needed. . The impression and plan of care has been dictated as directed. : I performed a history and examination of this patient, discussed the same with the dictator. I agree with the dictator's note ,documented as a scribe. Any additional findings or plans will be noted. Time taken: 35 minutes
[2019-04-25] MEDS: DOCUSATE 100 MG CAP PO PRN (13:00)
--- NOTE | 2019-04-25 13:22 | P.PN ---
Subjective Progress Note Date: 04/25/19 Principal diagnosis: Right-sided spontaneous tension pneumothorax, severe COPD, left lower lobe pneumonia, leukocytosis, lung cancer, possible left lower lobe atelectasis, chronic persistent asthma, hypertension hypertensive cardiovascular disease, severe COPD 04/25/2019, patient seen and evaluated examined in the rounds breathing has been stable denies any chest pain or shortness of breath patient is status post VATS still have air leak through right chest tube, small stable pneumothorax on x-ray done today April, patient seen and evaluated examined during the rounds he is in good distress denies any chest pain or shortness of breath he still have air leak is present on the through the chest tube patient is status post VATS and pleurodesis with talc, swallowing function have improved 04/23/2019, patient seen eval examined during the rounds denies any chest pain denies any shortness of breath still have significant air leak is present her swallowing dysfunction and improved back to baseline 04/22/2019, patient seen and evaluated examined during the rounds patient underwent VATS procedure by thoracic surgery patient underwent right thoracoscopy with antonio blab and talc pleurodesis patient has a chest tube on the right side intermittent leak is present he is comfortable and does not have any pain 04/21/2019, patient seen eval reexamined during the rounds shortness of breath mild is present denies any chest pain on clamping chest tube pneumothorax recurs patient has a persistent air leak as per discussion with thoracic surgery plan is for VATS tomorrow 04/20/2019, patient seen and evaluated examined during the rounds swallowing function will improve the breathing is better but patient has continuous air leak present in the chest tube indicating possible presence of bronchopleural fistula current chest x-ray does not show pneumothorax, but lungs are inflated follow closely it appears that patient probably require VATS procedure down the road 04/19/2019, patient seen and evaluated examined during the rounds denies any chest pain or shortness of breath cough and swallowing function improved still connected to suction decrease to 10 cm a liter still present intermittently patient is being considered for VATS next week in case of air leak not resolved 04/18/2019, patient seen and evaluated examined during the rounds x-ray reviewed patient suction has been lowered down repeat x-ray from tomorrow is pending swallowing function is improved care plan discussed with thoracic surgery plan is to do VATS in case if continue to get recurrent pneumothorax 04/17/2019, patient seen and evaluated examined during the rounds swallowing function improved significantly decreased cough and congestion are present patient remains on suction chest x-ray from today reviewed, pneumothorax continued to improve slowly some residual pneumothorax still there 04/16/2019, patient seen eval reexamined during the rounds care plan discussed with patient at length problem with swallowing dysfunction is improved patient is on nystatin swish and swallow along with Diflucan slightly more congested today but with breathing treatments improve, patient had recurrent right-sided pneumothorax this morning Drs. Marx is managing her chest tube 04/15/2019, patient seen and evaluated examined during the rounds denies any chest pain or shortness of breath patient is back on suction as recurrence of the pneumothorax occurred, additional complaint has been noted as he is having problem with swallowing food yesterday was mild today is moderate seems like oral thrush has been developing or put him on Diflucan and nystatin swish and swallow 04/14/2019, patient seen and evaluated examined during the rounds, patient developed recurrence of pneumothorax on water seal chest tube connected to suction again, denies any chest pain shortness of breath 04/13/2019, patient seen and evaluated examined she is doing very well with her incentive spirometry almost went have treated her breathing has improved lungs are more clear now less congestion is present, there is no air leak is present patient will be planned for chest x-[facility] tomorrow 04/12/2019, patient seen and evaluated examined doing better today denies any chest pain shortness of breath even from earlier this morning noted, this morning around 2 AM patient develop shortness of breath and some chest discomfort and repeat x-ray showed a significant right-sided pneumothorax the pleural vent has been adjusted, reexpansion on chest x-ray is noted on 3 x-ray have been reviewed labs reviewed as well currently patient is comfortable denies any chest pain no air leak is present we will observe closely 04/11/2019, patient seen eval reexamined during the rounds, doing well slightly short of breath denies any chest pain some cough and congestion is present no sputum production, noted slight air leak is present 04/10/2019, patient seen and evaluated examined during the rounds breathing more comfortably denies any chest pain cough and congestion improved feeling little b it better compared yesterday patient had a computed tomography scan performed which reviewed it very minimal pneumothorax is present with residual subcutaneous emphysema on the right side left-sided lung mass appeared to have shrunk, 58-year-old male who has a history of lung cancer with recurrence stage IV patient has a MediPort on the right side of the chest has been on immunotherapy patient also has severe COPD has been discovered history of health until about 2:30 this morning developed severe shortness of breath and chest pain up to 0.K mid to the hospital a chest x-ray showed total collapse of the lung with tension pneumothorax on the right side patient has a history of left lower lobe resection for lung cancer patient underwent Thoravent on the right side all 3 x- ray have been reviewed there is a small residual 20% to 30% pneumothorax on the right side, patient is being admitted thoracic surgery is on consult Objective - Vital Signs Vital signs: Vital Signs Temp 98.0 F 04/25/19 04:00 Pulse 81 04/25/19 12:55 Resp 24 04/25/19 04:00 BP 157/85 04/25/19 04:00 Pulse Ox 98 04/25/19 09:29 Intake & Output 04/24/19 04/25/19 04/25/19 18:59 06:59 18:59 Intake Total 480 360 Output Total 0 Balance 480 0 360 Weight 102.1 kg Intake: Oral 480 360 Output: Chest Tube Drainage 0 Chest Tube Right Lateral 0 Chest Other: Voiding Method Urinal # Voids 1 0 - Exam - Constitutional General appearance: average body habitus, disheveled, mild distress, morbidly obese - EENT Eyes: EOMI, PERRLA, poor dentition, normal appearance Ears: bilateral: normal Throat/pharynx, thrush is present with some extension into the time - Neck Neck: lymphadenopathy Carotids: bilateral: upstroke normal Thyroid: bilateral: normal size - Respiratory Respiratory: right: diminished, negative: dullness, rales, rhonchi, wheezing, prolonged expiration - Cardiovascular Rhythm: irregularly irregular Heart sounds: normal: S1, S2 - Gastrointestinal General gastrointestinal: decreased bowel sounds, distended, soft - Integumentary Integumentary: calor - Neurologic Neurologic: CNII-XII intact - Musculoskeletal Musculoskeletal: gait normal, generalized weakness, strength equal bilaterally - Psychiatric Psychiatric: A&O x's 3, appropriate affect, intact judgment & insight - Labs CBC & Chem 7: 04/23/19 07:01 04/23/19 07:01 Assessment and Plan Assessment: Status post right thoracoscopy with stapling of blebs on the right side and talc pleurodesis Right-sided tension pneumothorax, with recurrence status post VATS Bilateral wheezing probably COPD exacerbation, improved now Left lower lobe pneumonia versus atelectasis Leukocytosis Stage IV lung cancer on immunotherapy Left lower lobe resection Chronic persistent asthma COPD Hypertension hypertensive cardiovascular disease Oral thrush clinically improved Plan: Small air leak still present continue section through the chest tube, status post VATS Bronchodilator Inhaled via nebulizer steroids Pain control Broad-spectrum antibiotics Trial of oral Diflucan and nystatin swish and swallow Hold steroids for now we'll treat COPD exacerbation with breathing treatments and inhaled corticosteroid patient appears to be responding Time with Patient: Greater than 30
[2019-04-26] MEDS: KETOROLAC 30 MG/ML 1 ML VIAL IVP SCH ×4 (06:04→23:31)
[2019-04-26] MEDS: BUDESONIDE 0.5 MG/2 ML NEBU INHALATION SCH ×2 (08:47→20:39)
[2019-04-26] MEDS: FORMOTEROL FUMARATE 20 MCG/2 ML NEBU INHALATION SCH ×2 (08:47→20:39)
[2019-04-26] MEDS: IPRATROPIUM-ALBUTEROL 3 ML NEB INHALATION SCH ×3 (08:47→20:39)
--- NOTE | 2019-04-26 08:53 | XR ---
EXAMINATION TYPE: XR chest 2V DATE OF EXAM: 04/26/2019 COMPARISON: 04/25/2019 TECHNIQUE: PA and lateral views submitted. HISTORY: Chest tube FINDINGS: Right-sided chest tube is in place. Port-A-Cath is stable. Left lung shows stable abnormal findings w ith abnormal density in the suprahilar location which could be on the basis of a mass. There is diffu se right-sided subcutaneous emphysema. Stable small right pneumothorax. Patient is rotated. Heart siz e is stable. Chronic elevation the right clavicle. Correlate for previous AC joint injury. IMPRESSION: Findings are similar to prior exam. Chest tube with stable small right- sided pneumothora x
[2019-04-26] MEDS: CHOLECALCIFEROL 1,000 UNIT TAB PO SCH (09:01)
[2019-04-26] MEDS: FAMOTIDINE 20 MG TAB PO SCH ×2 (09:01→21:08)
[2019-04-26] MEDS: FLUCONAZOLE 100 MG TAB PO SCH (09:01)
[2019-04-26] MEDS: MULTIVITAMINS, THERA 1 EACH TAB PO SCH (09:01)
[2019-04-26] MEDS: LORATADINE 10 MG TAB PO SCH (09:01)
[2019-04-26] MEDS: guaiFENesin-DM 100-10MG/5ML 10 ML CUP PO SCH ×4 (09:01→23:31)
[2019-04-26] MEDS: DOXYCYCLINE 100 MG CAP PO SCH ×2 (09:01→21:07)
[2019-04-26] MEDS: HYDROCORTISONE SUPPOSITORY 25 MG SUPP RECTAL SCH ×2 (09:02→21:08)
[2019-04-26] MEDS: METOPROLOL TARTRATE 25 MG TAB PO SCH ×2 (09:02→21:08)
[2019-04-26] MEDS: NYSTATIN 100,000 UNIT/ML SUSP 500,000 UNIT/5 ML CUP PO SCH ×4 (09:02→21:08)
--- NOTE | 2019-04-26 10:12 | P.PN ---
Subjective Progress Note Date: 04/26/19 Principal diagnosis: Spontaneous right pneumothorax, bronchopleural fistula. History of metastatic lung adenocarcinoma, stage IV with chemo/radiation/immunosuppressive therapy, re cent history of Pseudomonas pneumonia, previous tobacco dependence, severe COPD, asthma, chronic anemia, hypertension, gastroesophageal reflux disease, and family history of cancer. POD #17 placement of right-sided thoravent by the emergency room physicians Continuous air leak from chest tube site, expected POD #4 right thoracoscopy, staple blebs, talc pleurodesis The patient is currently sitting up in bed on the cardiac stepdown unit. States pain is controlled on current medication regimen, denies shortness of breath. Right pleural chest tube remains to continuous wall suction with no air leak present. Actively using incentive spirometry. Ambulating without difficulty. No new concerns. Objective - Vital Signs Vital signs: Vital Signs Temp 98.6 F 04/26/19 04:00 Pulse 81 04/26/19 04:00 Resp 20 04/26/19 04:00 BP 126/78 04/26/19 04:00 Pulse Ox 96 04/26/19 04:00 Intake & Output 04/25/19 04/26/19 04/26/19 18:59 06:59 18:59 Intake Total 820 340 Output Total 0 Balance 820 340 Weight 100.7 kg Intake: Oral 820 340 Output: Chest Tube Drainage 0 Chest Tube Right Lateral 0 Chest Other: Voiding Method Urinal # Voids 0 1 # Bowel Movements 0 - Constitutional General appearance: Present: cooperative, no acute distress, obese - Respiratory Details: Lungs sounds diminished bilaterally. Respirations even, nonlabored. Currently on room air with oxygen saturation 96%. Able to achieve 2500 mL on his incentive spirometry. Right pleural chest tube present to water seal for 48 hours, 50 mL serous output in the last 24 hours, no air leak present. Subcutaneous emphysema present to right neck, decreased in amount. - Cardiovascular Details: S1, S2 present. Regular rate and rhythm. Palpable peripheral pulses bilaterally. No edema present. No calf pain or tenderness noted. SCDs pr esent. - Gastrointestinal Gastrointestinal Comment(s): Abdomen soft, nontender, nondistended. Active bowel sounds present 4 quadrants. Tolerating diet. Positive bowel movement. - Genitourinary Genitourinary Comment(s): Continues to void clear, yellow urine. - Integumentary Integumentary Comment(s): Skin is warm and dry with evidence of good perfusion. - Neurologic Neurologic: Present: CNII-XII intact - Musculoskeletal Musculoskeletal: Present: gait normal, strength equal bilaterally - Psychiatric Psychiatric: Present: A&O x's 3, appropriate affect, intact judgment & insight - Allied health notes Allied health notes reviewed: nursing - Labs CBC & Chem 7: 04/23/19 07:01 04/23/19 07:01 - Imaging and Cardiology Chest x-ray: image reviewed Assessment and Plan Assessment: 1. Spontaneous right pneumothorax, status post thoravent placement, status post thoracoscopy with stapling of blebs and talc pleurodesis 2. Metastatic lung adenocarcinoma, stage IV with chemo/radiation/immunosupp ressive therapy 3. Recent history of Pseudomonas pneumonia 4. Previous tobacco dependence 5. Severe COPD, asthma 6. Chronic anemia 7. Hypertension 8. GERD 9. Family history of cancer Plan: 1. CT clamped to test for air-leak. Will unclamp, if no air-leak will disco ntinue right-sided pleural chest tube. If air-leak still present, will continue CT for another 24 hours. Chest x-ray post removal, if stable may discharge to home from our standpoint when okay with other services 2. Continue to encourage use of his incentive spirometry 10 x every hour while awake. 3. Pulmonary management recommendations per Dr. Soto. 4. Medical management and other comorbidities per primary care service. 5. Pain management per current medication regimen. 6. Patient may go back to oncology floor without telemetry. 7. More recommendations to follow based on patient's clinical course. Time with Patient: Greater than 30
--- NOTE | 2019-04-26 14:32 | P.PN ---
Subjective Progress Note Date: 04/26/19 This is a 58-year-old gentleman with history of left-sided lung mass, recurrent metastatic stage IV lung CA, adenocarcinoma history of laparoscopic wedge resection, recently hospitalized Pseudomonas pneumonia presented to the area with worsening shortness of breath awakening him from sleep at 2 AM. Reports right chest pain with sudden onset accompanied by a severe shortness of breath upon awakening. Denies recent trauma. Denies chest pain, palpitations. Denies fever or chills. Reports occasional productive cough. EKG reporting sinus tachycardia, heart rates in the 120s. Troponin 0.041. Chest x-ray reporting a large right-sided tension pneumothorax, increased hemothorax volume on the right, shift of the mediastinum, left suprahilar mass density again seen. Thoravent tube placed-to low intermittent suction, chest x-ray post procedure reporting interval improvement in right-sided pneumothorax. Cardiothoracic surgery and pulmonary consulted. 04/10/2019 maintaining O2 sats in the mid 90s on 2 L nasal cannula. IS up to 1500.Complains of wheezing, denies shortness of breath. Denies pain. Chest x- ray reporting increasing subcutaneous emphysema, persistent possibly increased bibasilar right pneumothorax. Thoravent this morning presented with no drainage, no air leak. Manipulated by cardiothoracic surgery, reconnected to low intermittent suction, air leak returned. Chest CT ordered post manipulation/reinsertion, pending. Afebrile, preliminary blood cultures negative at 24 hours. 04/11/[address] reported moderate to advanced emphysema with small right-sided pneumothorax approximately 5% with pleural catheter in place, previous surgery medial left upper lobe with associated consolidation and volume loss with pleural density slight decreased bulk from prior, moderate to severe circumferential thickening of the mid to distal thoracic esophagus-esophagitis versus radiation change versus neoplasm. chest x-ray reporting resolution of right-sided pneumothorax. Breathing improving, maintaining 100% O2 sat on 2 L nasal cannula. IS up to 2200. Afebrile, preliminary blood cultures negative at 48 hours. Telemetry sinus rhythm to sinus tach with mild tachycardia, heart rates in the low 100s. 04/12/2018 last night, developed significant respiratory distress, A team called. Chest x-ray reporting reoccurrence of right-sided pneumothorax. Thoravent manipulated with repeat x-ray reporting reexpansion of right lung. Respiratory distress/hypoxia subsided. Currently on 4 L nasal cannula maintaining O2 sats of high 90s. Tachycardic, heart rate decreased down to 88 after beta janny administered. Evaluated by surgery regarding esophagus thickening, potential EGD after pulmonary status stabilizes. 04/15/2019 complains of exertional shortness of breath, maintaining O2 sats of mid 90s on room air. Incentive spirometer up to 2000. Chest x-ray reporting recurrent increased basilar right pneumothorax with subcutaneous emphysema. Patient's chest tube was to waterseal, now converted/placed back to low intermittent suction. 04/16/2019 chest x-ray earlier this morning reported improvement/resolution of right-sided pneumothorax. Patient was disconnected from low intermittent suction to facilitate bathroom visit. Patient became short of breath, hypoxic-desatted to 82%, tachycardic heart rate in the 130s. Follow up Chest x-ray performed reporting recurrent right-sided pneumothorax, suggestive of tension pneumothorax. Patient was reconnected to low intermittent suction, symptoms began resolving. 04/17/2019 Thoravent remains to low intermittent suction with air leak. Reports slept well last night with no further shortness of breath. IS up to 2000. Occasional productive cough with clear to pale yellow sputum. Afebrile, normal WBC. Maintaining O2 sats in the high 90s on 2 L nasal cannula No tachycardia. Chest x-ray reporting resolution of bibasilar pneumothorax with minimal apical Pneumothorax suspected. 04/18/2019 reports rough night sleeping, related to coughing and unable to receive his cough medicine prior to bedtime. Denies shortness of breath this morning. X-ray reporting no sizable pneumothorax.Thoravent remains to LIS with positive air leak. IS up to 2000. Maintaining O2 sats in the high 90s on room air. Afebrile. Scant subcu emphysema. Telemetry sinus rhythm. Denies chest pain, palpitations. Denies nausea, vomiting. Stools loose. Denies abdominal pain. 04/19/2019 maintaining sats in the 90s on room air.IS between 2200 & 2500. Afebrile. Labs pending.Thoravent to LIS, decreased to -10 yesterday, tolerating well. Chest x-ray reporting Thoravent in place, subcutaneous emphysema, no sizable pneumothorax, slight increased patchy density right mid lung possible atelectasis versus early infiltrate, moderate to advanced emphysema. 04/22/2019 significant recurrent pneumothorax with removal of Thoravent to low intermittent suction, status post right thoracoscopy, stapled blebs, 28-Belarusian chest tube placed with talc pleurodesis this morning, tolerated procedure well.Currently in Phase 1 recovery, pain controlled, recently medicated. 04/23/2019 maintaining O2 sats of 96% on 2 L nasal cannula. Mild tachycardia. Complains of pain at chest tube insertion site.Right pleural chest tube to LIS, positive airleak. Incentive spirometer between 2000 and 2500. Denies chest pain, palpitations or shortness of breath. Afebrile. Tolerating diet, no nausea vomiting or diarrhea. 04/24/19 Chest x-ray reporting right-sided chest tube in place, stable port a cath, lungs reporting stable abnormal density in the suprahilar location, subcutaneous emphysema with no sizable pneumothorax. Right pleural chest tube placed to waterseal. Follow-up chest x-ray reporting similar findings with minimal right-sided pneumothorax. Tolerated well. Incentive spirometer between 2500 and 3,000. Maintaining O2 sats in the mid 90s on room air. Afebrile. Pathology reporting Subpleural bullous cyst with associated pleuritis,reactive mesothelial hyperplasia and fibrosis. 04/25/2019 Chest x-ray similar, maintaining O2 sats of 93-96% on room air. Compliant with using IS, 2500. Ambulating in hallway, tolerating exertion well. Right pleural chest tube site Pain controlled. Presents with occasional airleak, 04/26/2019 chest x-ray similar ,chest tube clamped; potential DC of chest tube if airleak resolved. Maintaining O2 sats of 96 on room air. Denies chest pain, palpitations or increased shortness of breath. Objective - Vital Signs Vital signs: Vital Signs Temp 97.2 F L 04/26/19 08:00 Pulse 80 04/26/19 09:10 Resp 20 04/26/19 04:00 BP 119/76 04/26/19 08:00 Pulse Ox 100 04/26/19 08:00 Intake & Output 04/25/19 04/26/19 04/26/19 18:59 06:59 18:59 Intake Total 820 340 600 Output Total 0 Balance 820 340 600 Weight 100.7 kg Intake: Oral 820 340 600 Output: Chest Tube Drainage 0 Chest Tube Right Lateral 0 Chest Other: Voiding Method Urinal # Voids 0 1 # Bowel Movements 0 - Labs CBC & Chem 7: 04/23/19 07:01 04/23/19 07:01 Assessment and Plan Assessment: -Spontaneous right tension pneumothorax, status post thoravent placement.Thoravent dc'd with placement of right pleural chest tube. -Significant recurrent tension pneumothorax with removal of Thoravent to low intermittent suction, status post right thoracoscopy, stapled blebs, 28-Belarusian chest tube placed with talc pleurodesis. -Pathology reporting: Subpleural bullous cyst with associated pleuritis, reactive mesothelial hyperplasia and fibrosis. -Underlying acute COPD exacerbation in a patient with moderate to advanced emphysema-CT -Possible Left lower lobe pneumonia, possible atelectasis in a patient with history ss-Sziy-dywhf lung mass,Recurrent metastatic lung CA, adenocarcinoma,Stage IV. -Esophagitis versus radiation change versus neoplasm; moderate to severe circumferential thickening of the mid to distal thoracic esophagus per CT. Endoscopy once pulmonary status improves. -history of laparoscopic wedge resection. -Recent Pseudomonas pneumonia -Chronic persistent asthma -Hypertension Plan: Continue on current medication regime,Doxycycline,monitoring and symptomatic treatment. Potential DC of chest tube today ,pending air leak resolution. Aggressive pulmonary toileting with incentive spirometer reinforced. Maintain nebulized bronchodilators. Follow closely with cardiothoracic surgery. . The impression and plan of care has been dictated as directed. : I performed a history and examination of this patient, discussed the same with the dictator. I agree with the dictator's note ,documented as a scribe. Any additional findings or plans will be noted. Time taken: 35 minutes
[2019-04-26 20:35] LABS: Glucose,Whole Blood 114 mg/dL (75-99)
--- NOTE | 2019-04-26 20:39 | P.PN ---
Subjective Progress Note Date: 04/26/19 Principal diagnosis: Right-sided spontaneous tension pneumothorax, severe COPD, left lower lobe pneumonia, leukocytosis, lung cancer, possible left lower lobe atelectasis, chronic persistent asthma, hypertension hypertensive cardiovascular disease, severe COPD 04/26/20002018, patient seen and evaluated examined during the rounds doing well denies any chest pain shortness of breath his a right-sided chest tube has been pulled x-rays pending for tomorrow denies any chest pain 04/25/2019, patient seen and evaluated examined in the rounds breathing has been stable denies any chest pain or shortness of breath patient is status post VATS still have air leak through right chest tube, small stable pneumothorax on x-ray done today April, patient seen and evaluated examined during the rounds he is in good distress denies any chest pain or shortness of breath he still have air leak is present on the through the chest tube patient is status post VATS and pleurodesis with talc, swallowing function have improved 04/23/2019, patient seen eval examined during the rounds denies any chest pain denies any shortness of breath still have significant air leak is present her swallowing dysfunction and improved back to baseline 04/22/2019, patient seen and evaluated examined during the rounds patient underwent VATS procedure by thoracic surgery patient underwent right thoracoscopy with antonio blab and talc pleurodesis patient has a chest tube on the right side intermittent leak is present he is comfortable and does not have any pain 04/21/2019, patient seen eval reexamined during the rounds shortness of breath mild is present denies any chest pain on clamping chest tube pneumothorax recurs patient has a persistent air leak as per discussion with thoracic surgery plan is for VATS tomorrow 04/20/2019, patient seen and evaluated examined during the rounds swallowing function will improve the breathing is better but patient has continuous air leak present in the chest tube indicating possible presence of bronchopleural fistula current chest x-ray does not show pneumothorax, but lungs are inflated follow closely it appears that patient probably require VATS procedure down the road 04/19/2019, patient seen and evaluated examined during the rounds denies any chest pain or shortness of breath cough and swallowing function improved still connected to suction decrease to 10 cm a liter still present intermittently patient is being considered for VATS next week in case of air leak not resolved 04/18/2019, patient seen and evaluated examined during the rounds x-ray reviewed patient suction has been lowered down repeat x-ray from tomorrow is pending swallowing function is improved care plan discussed with thoracic surgery plan is to do VATS in case if continue to get recurrent pneumothorax 04/17/2019, patient seen and evaluated examined during the rounds swallowing function improved significantly decreased cough and congestion are present pat ient remains on suction chest x-ray from today reviewed, pneumothorax continued to improve slowly some residual pneumothorax still there 04/16/2019, patient seen eval reexamined during the rounds care plan discussed with patient at length problem with swallowing dysfunction is improved patient is on nystatin swish and swallow along with Diflucan slightly more congested today but with breathing treatments improve, patient had recurrent right-sided pneumothorax this morning Drs. Marx is managing her chest tube 04/15/2019, patient seen and evaluated examined during the rounds denies any chest pain or shortness of breath patient is back on suction as recurrence of the pneumothorax occurred, additional complaint has been noted as he is having problem with swallowing food yesterday was mild today is moderate seems like oral thrush has been developing or put him on Diflucan and nystatin swish and swallow 04/14/2019, patient seen and evaluated examined during the rounds, patient developed recurrence of pneumothorax on water seal chest tube connected to suction again, denies any chest pain shortness of breath 04/13/2019, patient seen and evaluated examined she is doing very well with her incentive spirometry almost went have treated her breathing has improved lungs are more clear now less congestion is present, there is no air leak is present patient will be planned for chest x-ray on [facility] tomorrow 04/12/2019, patient seen and evaluated examined doing better today denies any chest pain shortness of breath even from earlier this morning noted, this morning around 2 AM patient develop shortness of breath and some chest discomfort and repeat x-ray showed a significant right-sided pneumothorax the pleural vent has been adjusted, reexpansion on chest x-ray is noted on 3 x-ray have been reviewed labs reviewed as well currently patient is comfortable denies any chest pain no air leak is present we will observe closely 04/11/2019, patient seen eval reexamined during the rounds, doing well slightly short of breath denies any chest pain some cough and congestion is present no sputum production, noted slight air leak is present 04/10/2019, patient seen and evaluated examined during the rounds breathing more comfortably denies any chest pain cough and congestion improved feeling little bit better compared yesterday patient had a computed tomography scan performed which reviewed it very minimal pneumothorax is present with residual subcutaneous emphysema on the right side left-sided lung mass appeared to have shrunk, 58-year-old male who has a history of lung cancer with recurrence stage IV patient has a MediPort on the right side of the chest has been on immunotherapy patient also has severe COPD has been discovered history of health until about 2:30 this morning developed severe shortness of breath and chest pain up to 0.K mid to the hospital a chest x-ray showed total collapse of the lung with tension pneumothorax on the right side patient has a history of left lower lobe resection for lung cancer patient underwent Thoravent on the right side all 3 x- ray have been reviewed there is a small residual 20% to 30% pneumothorax on the right side, patient is being admitted thoracic surgery is on consult Objective - Vital Signs Vital signs: Vital Signs Temp 97.2 F L 04/26/19 08:00 Pulse 86 04/26/19 16:43 Resp 20 04/26/19 04:00 BP 116/68 04/26/19 16:00 Pulse Ox 100 04/26/19 16:00 Intake & Output 04/26/19 04/26/19 04/27/19 06:59 18:59 06:59 Intake Total 340 922 Output Total 0 Balance 340 922 Weight 100.7 kg Intake: Oral 340 922 Output: Chest Tube Drainage 0 Chest Tube Right Lateral 0 Chest Other: Voiding Method Urinal # Voids 1 # Bowel Movements 0 - Exam - Constitutional General appearance: average body habitus, disheveled, mild distress, morbidly obese - EENT Eyes: EOMI, PERRLA, poor dentition, normal appearance Ears: bilateral: normal Throat/pharynx, thrush is present with some extension into the time - Neck Neck: lymphadenopathy Carotids: bilateral: upstroke normal Thyroid: bilateral: normal size - Respiratory Respiratory: right: diminished, negative: dullness, rales, rhonchi, wheezing, prolonged expiration - Cardiovascular Rhythm: irregularly irregular Heart sounds: normal: S1, S2 - Gastrointestinal General gastrointestinal: decreased bowel sounds, distended, soft - Integumentary Integumentary: calor - Neurologic Neurologic: CNII-XII intact - Musculoskeletal Musculoskeletal: gait normal, generalized weakness, strength equal bilaterally - Psychiatric Psychiatric: A&O x's 3, appropriate affect, intact judgment & insight - Labs CBC & Chem 7: 04/23/19 07:01 04/23/19 07:01 Labs: Abnormal Lab Results - Last 24 Hours (Table) 04/26/19 Range/Units 20:31 POC Glucose (mg/dL) 114 H (75-99) mg/dL Assessment and Plan Assessment: Status post right thoracoscopy with stapling of blebs on the right side and talc pleurodesis Right-sided tension pneumothorax, with recurrence status post VATS Bilateral wheezing probably COPD exacerbation, improved now Left lower lobe pneumonia versus atelectasis Leukocytosis Stage IV lung cancer on immunotherapy Left lower lobe resection Chronic persistent asthma COPD Hypertension hypertensive cardiovascular disease Oral thrush clinically improved Plan: Chest x-ray tomorrow, off of the chest tube status post VATS Bronchodilator Inhaled via nebulizer steroids Pain control Broad-spectrum antibiotics Trial of oral Diflucan and nystatin swish and swallow Hold steroids for now we'll treat COPD exacerbation with breathing treatments and inhaled corticosteroid patient appears to be responding Time with Patient: Greater than 30
[2019-04-27 06:12] VITALS: RESP 20
[2019-04-27] MEDS: KETOROLAC 30 MG/ML 1 ML VIAL IVP SCH ×2 (06:12→13:05)
--- NOTE | 2019-04-27 07:27 | XR ---
EXAMINATION TYPE: XR chest 2V DATE OF EXAM: 04/27/2019 COMPARISON: [id number] TECHNIQUE: PA and lateral views submitted. HISTORY: Chest tube removal FINDINGS: Diffuse subcutaneous emphysema on the right noted. Chest tube is been removed. Left upper lobe massli ke consolidation stable. Mediport catheter seen. No signs lucencies on the lateral view overlying the mediastinum likely related to subcutaneous emphysema rather than cystitis correlate clinically. Hear t size stable. No new consolidation. No sizable pleural effusion. Biapical pleural thickening. Suspec t COPD. IMPRESSION: Chest tube removal sizable pneumothorax. Diffuse subcutaneous emphysema parenchymal pulmo nary changes are stable.
[2019-04-27] MEDS: BUDESONIDE 0.5 MG/2 ML NEBU INHALATION SCH (07:55)
[2019-04-27] MEDS: IPRATROPIUM-ALBUTEROL 3 ML NEB INHALATION SCH (07:55)
[2019-04-27] MEDS: FORMOTEROL FUMARATE 20 MCG/2 ML NEBU INHALATION SCH (07:55)
--- NOTE | 2019-04-27 08:06 | P.PN ---
Subjective Progress Note Date: 04/27/19 Principal diagnosis: Right-sided spontaneous tension pneumothorax, severe COPD, left lower lobe pneumonia, leukocytosis, lung cancer, possible left lower lobe atelectasis, chronic persistent asthma, hypertension hypertensive cardiovascular disease, severe COPD 04/27/2019, patient seen and evaluated examined during the rounds denies any chest pain shortness of breath chest x-ray done today which I reviewed it subcu emphysema on the right side is stable no clear-cut pneumothorax is seen, doing well 04/26/2019, patient seen and evaluated examined during the rounds doing well denies any chest pain shortness of breath his a right-sided chest tube has been pulled x-rays pending for tomorrow denies any chest pain 04/25/2019, patient seen and evaluated examined in the rounds breathing has been stable denies any chest pain or shortness of breath patient is status post VATS still have air leak through right chest tube, small stable pneumothorax on x-ray done today April, patient seen and evaluated examined during the rounds he is in good distress denies any chest pain or shortness of breath he still have air leak is present on the through the chest tube patient is status post VATS and pleurodesis with talc, swallowing function have improved 04/23/2019, patient seen eval examined during the rounds denies any chest pain denies any shortness of breath still have significant air leak is present her swallowing dysfunction and improved back to baseline 04/22/2019, patient seen and evaluated examined during the rounds patient underwent VATS procedure by thoracic surgery patient underwent right thoracoscopy with antonio blab and talc pleurodesis patient has a chest tube on the right side intermittent leak is present he is comfortable and does not have any pain 04/21/2019, patient seen eval reexamined during the rounds shortness of breath mild is present denies any chest pain on clamping chest tube pneumothorax recurs patient has a persistent air leak as per discussion with thoracic surgery plan is for VATS tomorrow 04/20/2019, patient seen and evaluated examined during the rounds swallowing function will improve the breathing is better but patient has continuous air leak present in the chest tube indicating possible presence of bronchopleural fistula current chest x-ray does not show pneumothorax, but lungs are inflated follow closely it appears that patient probably require VATS procedure down the road 04/19/2019, patient seen and evaluated examined during the rounds denies any chest pain or shortness of breath cough and swallowing function improved still connected to suction decrease to 10 cm a liter still present intermittently p atient is being considered for VATS next week in case of air leak not resolved 04/18/2019, patient seen and evaluated examined during the rounds x-ray reviewed patient suction has been lowered down repeat x-ray from tomorrow is pending swallowing function is improved care plan discussed with thoracic surgery plan is to do VATS in case if continue to get recurrent pneumothorax 04/17/2019, patient seen and evaluated examined during the rounds swallowing function improved significantly decreased cough and congestion are present patient remains on suction chest x-ray from today reviewed, pneumothorax continued to improve slowly some residual pneumothorax still there 04/16/2019, patient seen eval reexamined during the rounds care plan discussed with patient at length problem with swallowing dysfunction is improved patient is on nystatin swish and swallow along with Diflucan slightly more congested today but with breathing treatments improve, patient had recurrent right-sided pneumothorax this morning Drs. Marx is managing her chest tube 04/15/2019, patient seen and evaluated examined during the rounds denies any chest pain or shortness of breath patient is back on suction as recurrence of the pneumothorax occurred, additional complaint has been noted as he is having problem with swallowing food yesterday was mild today is moderate seems like oral thrush has been developing or put him on Diflucan and nystatin swish and swallow 04/14/2019, patient seen and evaluated examined during the rounds, patient developed recurrence of pneumothorax on water seal chest tube connected to suction again, denies any chest pain shortness of breath 04/13/2019, patient seen and evaluated examined she is doing very well with her incentive spirometry almost went have treated her breathing has improved lungs are more clear now less congestion is present, there is no air leak is present patient will be planned for chest x-[facility] on [facility] tomorrow 04/12/2019, patient seen and evaluated examined doing better today denies any chest pain shortness of breath even from earlier this morning noted, this morning around 2 AM patient develop shortness of breath and some chest discomfort and repeat x-ray showed a significant right-sided pneumothorax the pleural vent has been adjusted, reexpansion on chest x-ray is noted on 3 x-ray have been reviewed labs reviewed as well currently patient is comfortable denies any chest pain no air leak is present we will observe closely 04/11/2019, patient seen eval reexamined during the rounds, doing well slightly short of breath denies any chest pain some cough and congestion is present no sputum production, noted slight air leak is present 04/10/2019, patient seen and evaluated examined during the rounds breathing more comfortably denies any chest pain cough and congestion improved feeling little bit better compared yesterday patient had a computed tomography scan performed which reviewed it very minimal pneumothorax is present with residual subcutaneous emphysema on the right side left-sided lung mass appeared to have shrunk, 58-year-old male who has a history of lung cancer with recurrence stage IV patient has a MediPort on the right side of the chest has been on immunotherapy patient also has severe COPD has been discovered history of health until about 2:30 this morning developed severe shortness of breath and chest pain up to 0.K mid to the hospital a chest x-ray showed total collapse of the lung with tension pneumothorax on the right side patient has a history of left lower lobe resection for lung cancer patient underwent Thoravent on the right side all 3 x- ray have been reviewed there is a small residual 20% to 30% pneumothorax on the right side, patient is being admitted thoracic surgery is on consult Objective - Vital Signs Vital signs: Vital Signs Temp 97.9 F 04/27/19 04:00 Pulse 76 04/27/19 07:55 Resp 20 04/27/19 04:00 BP 137/83 04/27/19 04:00 Pulse Ox 98 04/27/19 04:00 Intake & Output 04/26/19 04/27/19 04/27/19 18:59 06:59 18:59 Intake Total 922 600 Balance 922 600 Intake: Oral 922 600 Other: Voiding Method Toilet Urinal # Voids 3 - Exam - Constitutional General appearance: average body habitus, disheveled, mild distress, morbidly obese - EENT Eyes: EOMI, PERRLA, poor dentition, normal appearance Ears: bilateral: normal Throat/pharynx, thrush is present with some extension into the time - Neck Neck: lymphadenopathy Carotids: bilateral: upstroke normal Thyroid: bilateral: normal size - Respiratory Respiratory: right: diminished, negative: dullness, rales, rhonchi, wheezing, prolonged expiration roof exam compared to yesterday - Cardiovascular Rhythm: irregularly irregular Heart sounds: normal: S1, S2 - Gastrointestinal General gastrointestinal: decreased bowel sounds, distended, soft - Integumentary Integumentary: calor - Neurologic Neurologic: CNII-XII intact - Musculoskeletal Musculoskeletal: gait normal, generalized weakness, strength equal bilaterally - Psychiatric Psychiatric: A&O x's 3, appropriate affect, intact judgment & insight - Labs CBC & Chem 7: 04/23/19 07:01 04/23/19 07:01 Labs: Abnormal Lab Results - Last 24 Hours (Table) 04/26/19 Range/Units 20:31 POC Glucose (mg/dL) 114 H (75-99) mg/dL Assessment and Plan Assessment: Status post right thoracoscopy with stapling of blebs on the right side and talc pleurodesis Right-sided tension pneumothorax, with recurrence status post VATS Ammann appears to have resolved and today's x-ray Bilateral wheezing probably COPD exacerbation, improved now Left lower lobe pneumonia versus atelectasis Leukocytosis Stage IV lung cancer on immunotherapy Left lower lobe resection Chronic persistent asthma COPD Hypertension hypertensive cardiovascular disease Oral thrush clinically improved Plan: Doing well stable for discharge if okay with thoracic surgery and primary service, status post VATS Bronchodilator Inhaled via nebulizer steroids Pain control Broad-spectrum antibiotics Trial of oral Diflucan and nystatin swish and swallow Hold steroids for now we'll treat COPD exacerbation with breathing treatments and inhaled corticosteroid patient appears to be responding Time with Patient: Greater than 30
[2019-04-27] MEDS: NYSTATIN 100,000 UNIT/ML SUSP 500,000 UNIT/5 ML CUP PO SCH ×2 (09:24→13:05)
[2019-04-27] MEDS: guaiFENesin-DM 100-10MG/5ML 10 ML CUP PO SCH (09:24)
[2019-04-27] MEDS: METOPROLOL TARTRATE 25 MG TAB PO SCH (09:25)
[2019-04-27] MEDS: FLUCONAZOLE 100 MG TAB PO SCH (09:25)
[2019-04-27] MEDS: LORATADINE 10 MG TAB PO SCH (09:25)
[2019-04-27] MEDS: HYDROCORTISONE SUPPOSITORY 25 MG SUPP RECTAL SCH (09:25)
[2019-04-27] MEDS: DOXYCYCLINE 100 MG CAP PO SCH (09:25)
[2019-04-27] MEDS: MULTIVITAMINS, THERA 1 EACH TAB PO SCH (09:25)
[2019-04-27] MEDS: CHOLECALCIFEROL 1,000 UNIT TAB PO SCH (09:25)
[2019-04-27] MEDS: FAMOTIDINE 20 MG TAB PO SCH (09:25)
--- NOTE | 2019-04-27 10:01 | P.PN ---
Subjective Progress Note Date: 04/27/19 Principal diagnosis: Spontaneous right pneumothorax, bronchopleural fistula. History of metastatic lung adenocarcinoma, stage IV with chemo/radiation/immunosuppressive therapy, re cent history of Pseudomonas pneumonia, remote history of tobacco dependence quit in 2014, COPD, asthma, chronic anemia, hypertension, gastroesophageal reflux disease, and family history of cancer. POD #18 placement of right-sided thoravent by the emergency room physicians. POD #5 right thoracoscopic surgery with stapling of blebs and talc pleurodesis. Continuous air leak from chest tube site, an expected outcome-resolved. The patient is currently laying in bed on the third floor cardiac stepdown unit. He is in no acute distress. He denies any complaints of pain or shortness of breath. X-ray this morning demonstrates no sizable pneumothorax, with diffuse subcutaneous emphysema. Right pleural chest tube was removed yesterday 04/26/2019, dressing is clean, dry and intact. Oxygen saturation are 96% on room air. Achieving 2000 mL on his incentive spirometry. Tolerating oral intake. He remains afebrile. He has been ambulating in the hallway with minimal assistance and is anxious to be discharged home. Objective - Vital Signs Vital signs: Vital Signs Temp 97.9 F 04/27/19 04:00 Pulse 77 04/27/19 08:15 Resp 20 04/27/19 04:00 BP 137/83 04/27/19 04:00 Pulse Ox 98 04/27/19 04:00 Intake & Output 04/26/19 04/27/19 04/27/19 18:59 06:59 18:59 Intake Total 922 600 240 Balance 922 600 240 Intake: Oral 922 600 240 Other: Voiding Method Toilet Urinal # Voids 3 - Constitutional General appearance: Present: cooperative, no acute distress, obese - Respiratory Details: Lung sounds diminished to his bilateral bases. Respirations are symmetrical and nonlabored. Oxygen saturation are 95% on room air. Achieving 2001 L on his incentive spirometry. Diffuse subcu emphysema to his right chest and neck. - Cardiovascular Details: Regular rhythm and rate. S1 and S2 present, negative for S3, gallop or murmur. No edema present. Knee-high sequential compression devices in place to his bilateral lower extremity. - Gastrointestinal Gastrointestinal Comment(s): Abdomen is soft, nontender and nondistended. Active bowel sounds all 4 abdominal quadrants. No guarding or rigidity. No organomegaly appreciated. - Genitourinary Genitourinary Comment(s): Voiding clear chun urine. - Integumentary Integumentary Comment(s): Skin is warm and dry. No clubbing or cyanosis is present. Right chest thoracos copic incision sites clean, dry and approximated. No drainage or redness is present. Right chest chest tube insertion site with dressing clean, dry and intact. Scant serosanguineous drainage. - Neurologic Neurologic: Present: CNII-XII intact - Musculoskeletal Musculoskeletal: Present: gait normal, strength equal bilaterally - Psychiatric Psychiatric: Present: A&O x's 3, appropriate affect, intact judgment & insight - Allied health notes Allied health notes reviewed: nursing - Labs CBC & Chem 7: 04/23/19 07:01 04/23/19 07:01 Labs: Abnormal Lab Results - Last 24 Hours (Table) 04/26/19 Range/Units 20:31 POC Glucose (mg/dL) 114 H (75-99) mg/dL - Imaging and Cardiology Chest x-ray: report reviewed, image reviewed Assessment and Plan Assessment: 1. Spontaneous right pneumothorax, status post Thoravent placement, status post right thoracoscopic surgery with stapling of blebs and talc pleurodesis 2. Metastatic lung adenocarcinoma, stage IV, with history of chemo, radiation, and immunosuppressive therapy 3. Recent history of Pseudomonas pneumonia 4. Previous tobacco dependence, quit in 2014 5. Severe COPD, asthma 6. Chronic anemia 7. Hypertension 8. Gastroesophageal reflux disease 9. Family history of cancer 10. Subcutaneous emphysema Plan: 1. The chest x-ray this morning demonstrates no sizable pneumothorax. From the cardiothoracic surgery standpoint he can be discharged home when okay with his primary care service. 2. Encourage use of his incentive spirometry every hour while awake. 3. Encourage continued smoking cessation. 4. Pulmonary management recommendations per Dr. Soto. 5. Medical management and other comorbidities per primary care service. 6. Pain management per current medication regimen. 7. Encourage activity as tolerated, encourage ambulation. 8. We will continue to follow the patient on an as needed basis. 9. Follow-up with Dr. Miguel Angel Cueto in the [place] office 2 weeks post discharge. Time with Patient: Greater than 30
[2019-04-27 10:46] VITALS: BP 128/71; PULSE 113; TEMP 97.8
== END 2019-04-27 16:24 | disposition home or self-care (01) | DRG 163 ==
LOC: EC 03:47 → 3SCARD 06:52 → 3NMEDONC 08:46 → 3SCARD 04-10 22:41 → 3NMEDONC 04-10 22:41 → 3SCARD 04-22 13:30
PROVIDERS: ADMIT Family Medicine; ATTEND Family Medicine
PROC: 0W9930Z Drainage of Right Pleural Cavity with Drainage Device, Percutaneous Approach (ICD-10-PCS; 2019-04-09)
PROC: 0W9940Z Drainage of Right Pleural Cavity with Drainage Device, Percutaneous Endoscopic Approach (ICD-10-PCS; 2019-04-22)
PROC: 3E0L4GC Introduction of Other Therapeutic Substance into Pleural Cavity, Percutaneous Endoscopic Approach (ICD-10-PCS; 2019-04-22)
PROC: 0BBC4ZZ Excision of Right Upper Lung Lobe, Percutaneous Endoscopic Approach (ICD-10-PCS; principal; 2019-04-22 11:10)
DX: J93.0 Spontaneous tension pneumothorax (principal); J18.9 Pneumonia, unspecified organism; B37.0 Candidal stomatitis; C34.32 Malignant neoplasm of lower lobe, left bronchus or lung; C77.9 Secondary and unspecified malignant neoplasm of lymph node, unspecified; J44.1 Chronic obstructive pulmonary disease with (acute) exacerbation; J90 Pleural effusion, not elsewhere classified; J94.2 Hemothorax; J98.11 Atelectasis; R13.10 Dysphagia, unspecified; Y83.8 Other surgical procedures as the cause of abnormal reaction of the patient, or of later complication, without mention of misadventure at the time of the procedure; D64.9 Anemia, unspecified; I11.9 Hypertensive heart disease without heart failure; Z87.891 Personal history of nicotine dependence; Z87.01 Personal history of pneumonia (recurrent); K21.9 Gastro-esophageal reflux disease without esophagitis; K22.9 Disease of esophagus, unspecified; R09.02 Hypoxemia; Z79.899 Other long term (current) drug therapy; Z80.3 Family history of malignant neoplasm of breast; Z90.2 Acquired absence of lung [part of]; Z92.21 Personal history of antineoplastic chemotherapy; Z92.3 Personal history of irradiation; Z80.0 Family history of malignant neoplasm of digestive organs; Z80.9 Family history of malignant neoplasm, unspecified; Z82.49 Family history of ischemic heart disease and other diseases of the circulatory system; Z79.52 Long term (current) use of systemic steroids; J45.30 Mild persistent asthma, uncomplicated; J93.82 Other air leak
CPT/HCPCS: 32551; 36415; 71045; 71046; 71260; 80048; 80053; 81003; 83880; 84484; 85025; 85610; 85730; 86850; 86900; 86901; 87040; 88307; 93005; 94640; 94760; 96365; 96375; 96376; 99291

== ENCOUNTER → 2019-07-08 | Outpatient (CLI) | payer MEDICARE ==
--- NOTE | 2019-07-08 13:01 | XR ---
EXAMINATION TYPE: XR chest 2V DATE OF EXAM: 07/08/2019 COMPARISON: Prior chest x-ray 04/27/2019 HISTORY: Pneumothorax TECHNIQUE: Frontal and lateral views of the chest are obtained. FINDINGS: Stellate density in the left upper lobe with associated volume loss in the left hemithorax is again noted. Subcutaneous emphysema has resolved. Port-A-Cath is stable. Strand-like densities al so present within the right upper and lower lobe. Lizzy show a similar appearance. Heart is small. No evident pneumothorax or pleural effusion. Prominent lung volumes suggest underlying COPD. IMPRESSION: Interval resolution of subcutaneous emphysema. Abnormal density left upper lobe perihila r location shows a similar appearance. Postprocedural changes. There is some underlying interstitial lung disease. Hilar density persists bilaterally.
== END | disposition home or self-care (01) ==
LOC: RADXRMAIN 10:48
PROVIDERS: ATTEND Family Medicine
DX: R91.8 Other nonspecific abnormal finding of lung field (principal); Z98.890 Other specified postprocedural states
CPT/HCPCS: 71046

== ENCOUNTER → 2019-11-05 | Outpatient (CLI) | payer MEDICARE ==
[2019-11-05 15:40] LABS: African American GFR (CKD) >90 (>60 ml/min/1.73 sqM); Blood Urea Nitrogen 14 mg/dL (9-20); Non-African American GFR(CKD) >90 (>60 ml/min/1.73 sqM)
--- NOTE | 2019-11-05 16:29 | CT ---
EXAMINATION TYPE: CT chest w con DATE OF EXAM: 11/05/2019 COMPARISON: 04/10/2019 HISTORY: f/u lung ca CT DLP: 652 mGycm Automated exposure control for dose reduction was used. CONTRAST: CT scan of the chest is performed with IV Contrast, patient injected with 100 mL of Isovue 300. FINDINGS: LUNGS: Significant enlargement in left upper lobe mass which now measures 8.2 x 5.2 x 6.0 cm versus p rior measurement of 4.0 x 2.1 cm. There is surrounding spiculation and pleural extension as well as e xtension to the mediastinum adjacent to the aortic arch. No additional masses identified. Scattered s ubpleural fibrosis seen throughout both lung leger. Severe upper lobe emphysematous change. Prior re section change left upper lobe. MEDIASTINUM: There are no greater than 1 cm hilar or mediastinal lymph nodes. No pericardial effusi on is seen. Thoracic aorta is of normal caliber. The heart is not enlarged. UPPER ABDOMEN: No significant abnormality appreciated. OTHER: No additional significant abnormality is seen. IMPRESSION: 1. Enlarging left upper lobe mass compatible with malignancy recurrence.
== END | disposition home or self-care (01) ==
LOC: RADPROMAIN 14:07
PROVIDERS: ATTEND Internal Medicine Hematology & Oncology
DX: R22.2 Localized swelling, mass and lump, trunk (principal); Z88.0 Allergy status to penicillin
CPT/HCPCS: 82565; 84520; 71260; 36415; J1642; Q9967

== ENCOUNTER → 2020-01-13 | Outpatient (CLI) | payer MEDICARE ==
--- NOTE | 2020-01-14 09:00 | ECHOF ---
Referral Reason:[id number] Pre chemo MEASUREMENTS -------- HEIGHT: 177.8 cm WEIGHT: 94.3 kg BP: 127/79 RVIDd: 2.9 cm (< 3.3) IVSd: 1.3 cm (0.6 - 1.1) LVIDd: 3.9 cm (3.9 - 5.3) LVPWd: 1.2 cm (0.6 - 1.1) IVSs: 1.6 cm LVIDs: 3.0 cm LVPWs: 1.3 cm LA Diam: 3.1 cm (2.7 - 3.8) Ao Diam: 3.1 cm (2.0 - 3.7) AV Cusp: 1.8 cm (1.5 - 2.6) MV EXCURSION: 18.162 mm (> 18.000) MV EF SLOPE: 164 mm/s (70 - 150) EPSS: 1.4 cm MV E Mark: 0.95 m/s MV DecT: 149 ms MV A Mark: 1.28 m/s MV E/A Ratio: 0.74 TAPSE: 13.95 mm FINDINGS -------- Resting tachycardia (HR>100bpm). This was a technically adequate study. The left ventricular size is normal. There is mild concentric left ventricular hypertrophy. Overa ll left ventricular systolic function is normal with, an EF between 60 - 65 %. The right ventricle is normal in size. The left atrial size is normal. The right atrium is normal in size. Interatrial and interventricular septum intact. The aortic valve is trileaflet and appears structurally normal. The mitral valve is normal. The tricuspid valve appears structurally normal. The pulmonic valve was not well visualized. The aortic root size is normal. Normal inferior vena cava with normal inspiratory collapse consistent with estimated right atrial pre ssure of 5 mmHg. There is no pericardial effusion. CONCLUSIONS -------- 1. Resting tachycardia (HR>100bpm). 2. This was a technically adequate study. 3. The left ventricular size is normal. 4. There is mild concentric left ventricular hypertrophy. 5. Overall left ventricular systolic function is normal with, an EF between 60 - 65 %. 6. The right ventricle is normal in size. 7. The left atrial size is normal. 8. The right atrium is normal in size. 9. Interatrial and interventricular septum intact. 10. The aortic valve is trileaflet and appears structurally normal. 11. The mitral valve is normal. 12. The tricuspid valve appears structurally normal. 13. The pulmonic valve was not well visualized. 14. The aortic root size is normal. 15. Normal inferior vena cava with normal inspiratory collapse consistent with estimated right atrial pressure of 5 mmHg. 16. There is no pericardial effusion. INTEGRATION DIRECTOR: KHANG Antunez
== END | disposition home or self-care (01) ==
LOC: RADECHMAIN 12:41
PROVIDERS: ATTEND Internal Medicine Hematology & Oncology
DX: I51.7 Cardiomegaly (principal); Z88.0 Allergy status to penicillin
CPT/HCPCS: 93306